=== PATIENT | male | born 1955 | race Two or more races ===

== ENCOUNTER 2024-11-20 02:29 | Inpatient (IN) | payer BC, MEDICAID ==
[~2024-11-20] VITALS: Ht 172.7 cm; Wt 80.0 kg
[2024-11-20] VITALS (38 sets, daily range): BP systolic 94–173; BP diastolic 55–95; PULSE 63–129; RESP 14–22; TEMP 98.8–100.4; O2SAT 86–97
--- NOTE | 2024-11-20 02:55 | ED.PDOC ---
History of Present Illness HPI Comments 69-year-old male came to ER via EMS for alcohol intoxication. Per EMS, patient picked up at home, had 5 shots of Tequila, was noted to be acting altered by family members, had episodes of nausea and vomiting as well. 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 Insurance Notes Allergies: Coded Allergies: NO KNOWN ALLERGIES (Unverified , 11/20/24) Home Meds Reported Medications Atorvastatin Calcium (ATORVASTATIN CALCIUM) 80 Mg Tab, 1 TAB PO QHSP PRN 11/20/24 Information Source: Patient Mode of Arrival: EMS Severity: Moderate Timing: Hours Duration: Since onset Past Medical History PAST MEDICAL HISTORY: Denies Surgical History: Denies all surgeries Family History Family History: Reviewed,noncontributory to illness Social History Smoker: Non-Smoker Alcohol: Heavy Drugs: Denies Drug Use Lives In: Home Unable to Obtain due to: Altered Mental Status, Other (Intoxicated with alcohol) Physical Exam General Appearance: No Apparent Distress, Normal HEENT: Normal ENT Inspection, Pharynx Normal, TMs Normal Neck: Full Range of Motion, Non-Tender, Normal, Normal Inspection Respiratory: Chest Non-Tender, Lungs Clear, No Accessory Muscle Use, No Res piratory Distress, Normal Breath Sounds Cardiovascular: No Edema, No JVD, No Murmur, No Gallop, Normal Peripheral Pulses, Regular Rate/Rhythm Breast Exam: Deferred Gastrointestinal: No Organomegaly, Non Tender, No Pulsatile Mass, Normal Bowel Sounds, Soft Genitalia: Deferred Pelvic: Deferred Rectal: Deferred Extremities: No calf tenderness, Normal capillary refill, Normal inspection, Normal range of motion, Non-tender, No pedal edema Musculoskeletal : Apperance: Normal Neurologic: Alert, dietitian consultant II-XII nml as Tested, No Motor Deficits, Normal Affect, Normal Mood, No Sensory Deficits Cerebellar Function: Normal Reflexes: Normal Skin: Dry, Normal Color, Warm Lymphatic: No Adenopathy Was a procedure done? Was a procedure done?: Yes Sedation Sedation?: Yes Informed consent obtained: Yes Sedation start time: 03:23 Sedation end time: 04:23 Sedation total time: Patient is still sedated at this time of care Central Line Recorder of insertion practice: Observer Occupation of software test automation engineer: Attending Physician Indication: Volume resuscitation, Inability to obtain IV Room prepared for procedure: Yes Road Oiler performed hand hygien: Yes Maximal sterile barrier precau: Mask/Eye shield, Sterile gown, Cap, Sterlie gloves, Large sterlie drape Skin Preparation: Providine iodine Skin preparation completely dr: Yes Insertion site: Right, Femoral Central line catheter type: Tunneled- not dialysis Number of lumens: 3 Central line exchanged over a: Yes Antiseptic ointment applied to: Yes Post Assessment: Chest X-Ray Informed consent obtained: Yes Risks/benefits/alt described: Yes Intubation Indication: Altered Mental Status, Airway Protection Prep: Preoxygenation Pretreated with: Analgesia, Sedation Medicated with: Other (Rocuronium, etomidate) Intubation Approach: Orotracheal Intubation size: cm (8) Informed consent obtained: Yes Risks/benefits/alt described: Yes Notes Patient intoxicated with alcohol, nausea and vomiting, hypoxic at 80s, possible aspiration Differential Dx Considerations may include: Alcohol intoxication, gastritis X-Ray, Labs, Meds, VS Vital Signs Date Time Temp Pulse Resp B/P (MAP) Pulse Ox O2 Delivery O2 Flow Rate FiO2 11/20/24 06:45 109/63 11/20/24 06:31 127 16 88/33 (51) 95 11/20/24 06:31 88/33 11/20/24 06:17 135 16 125/65 (85) 95 11/20/24 06:00 120 16 83/57 (66) 96 11/20/24 05:45 83/58 11/20/24 05:45 83/58 11/20/24 05:45 120 16 83/58 (66) 95 11/20/24 05:43 107 16 94/67 (76) 96 90 11/20/24 05:30 131 16 94/67 (76) 95 11/20/24 05:15 126 16 97/67 (77) 95 11/20/24 05:00 120 16 101/64 (76) 93 11/20/24 04:46 158/89 11/20/24 04:46 158/89 11/20/24 04:45 128 16 102/61 (75) 88 11/20/24 04:30 129 16 110/66 (81) 90 11/20/24 04:16 129 16 102/66 (78) 87 11/20/24 04:16 128 11/20/24 04:15 95 100 11/20/24 04:02 128 16 114/76 (89) 80 11/20/24 04:01 129 16 173/95 97 45 11/20/24 04:00 134 11/20/24 03:47 158/89 11/20/24 03:46 158/89 11/20/24 03:41 134 16 158/107 (124) 91 11/20/24 03:29 129 16 173/95 (121) 97 45 11/20/24 03:27 173/95 11/20/24 03:19 117 14 86 Room Air* 0 21 11/20/24 03:19 97.9 117 14 173/95 (121) 86 97.9 11/20/24 02:29 98.2 84 17 147/91 (109) 96 98.2 Lab Test 11/20/24 06:00 11/20/24 04:33 11/20/24 04:05 11/20/24 03:50 Range/Units Lactic Acid Level 2.7 *H 3.0 *H 0.4-2.0 mmol/L Blood Gas Specimen Type Arterial Blood Gas Sample Site Right radial Blood Gas Patient Temperature 37.0 Arterial Blood Date Drawn [id number] Arterial Blood pH 7.253 L 7.350-7.450 Arterial Blood Partial Pressure CO2 36.4 35.0-48.0 mmHg Arterial Blood Partial Pressure O2 149.8 H 83.0-108.0 mmHg Arterial Blood HCO3 15.7 L 21.0-28.0 mmol/L Arterial Blood Oxygen Saturation 98.6 H 94.0-98.0 % Arterial Blood Base Excess -10.4 L -2.0-3.0 mmol/L Arterial Blood Oxyhemoglobin 97.5 94.0-98.0 % Arterial Blood Carboxyhemoglobin 0.2 L 0.5-1.5 % Arterial Blood Methemoglobin 0.9 0.0-1.5 % Davis Test Modified Blood Gas Total Hemoglobin 20.40 *H 13.5-17.5 g/dL Blood Gas Set Respiration Rate 16.0 Blood Gas Modality Vent - ac FiO2 % 100.0 Blood Gas Tidal Volume 500.0 Blood Gas PEEP or CPAP 5.0 Blood Gas Critical Value Read Back Yes Blood Gas Notified Whom Dr. lee Blood Gas Notified Time [id number] Blood Gas Notified By [facility] [address] Triglycerides Level 253 H < 150 mg/dL Cholesterol Level 200 H < 200 mg/dL LDL Cholesterol 143 H < 100 mg/dL HDL Cholesterol 31 L 40-59 mg/dL Thyroid Stimulating Hormone (TSH) 0.63 0.55-4.78 uIU/mL Plasma/Serum Blood Alcohol 244.7 H <10 mg/dL White Blood Count 10.8 4.4-10.8 10^3/uL Red Blood Count 6.06 H 4.5-5.90 10^6/uL Hemoglobin 19.7 H 13.5-17.5 g/dL Hematocrit 55.5 H 41.0-53.0 % Mean Corpuscular Volume 91.6 80.0-100.0 fL Mean Corpuscular Hemoglobin 32.5 H 28.0-32.0 pg Mean Corpuscular Hemoglobin Concent 35.5 32.0-36.0 g/dL Red Cell Distribution Width 13.7 11.8-14.3 % Platelet Count 167 140-450 10^3/uL Mean Platelet Volume 8.2 6.9-10.8 fL Neutrophils (%) (Auto) 70.5 37.0-80.0 % Lymphocytes (%) (Auto) 21.5 10.0-50.0 % Monocytes (%) (Auto) 4.8 0.0-12.0 % Eosinophils (%) (Auto) 2.5 0.0-7.0 % Basophils (%) (Auto) 0.7 0.0-2.0 % Neutrophils # (Auto) 7.6 1.6-8.6 10 ^3/uL Lymphocytes # (Auto) 2.3 0.4-5.4 10 ^3/uL Monocytes # (Auto) 0.5 0-1.3 10 ^3/uL Eosinophils # (Auto) 0.3 0-0.8 10 ^3/uL Basophils # (Auto) 0.1 0-0.2 10 ^3/uL Nucleated Red Blood Cells 0.0 % Platelet Estimate [place] Large Platelets Few Sodium Level 140 136-145 mmol/L Potassium Level 3.5 3.5-5.1 mmol/L Chloride Level 105 98-107 mmol/L Carbon Dioxide Level 19 L 20-31 mmol/L Anion Gap 16 H 5-15 Blood Urea Nitrogen 17 9-23 mg/dL Creatinine 1.47 H 0.700-1.30 mg/dL Glomerular Filtration Rate Calc 51 >90 mL/min BUN/Creatinine Ratio 11.6 10.0-20.0 Serum Glucose 173 H 74-106 mg/dL Calcium Level 9.4 8.7-10.4 mg/dL Magnesium Level 2.3 1.6-2.6 mg/dL Total Bilirubin 0.4 0.2-1.0 mg/dL Aspartate Amino Transferase (AST) 27 13-40 U/L Alanine Aminotransferase (ALT) 39 7-40 U/L Alkaline Phosphatase 69 46-116 U/L B-Type Natriuretic Peptide 297.82 0-100 pg/mL Total Protein 7.6 5.7-8.2 g/dL Albumin 4.4 3.2-4.8 g/dL Lipase 35 12-53 U/L Test 11/20/24 03:41 Range/Units Urine Color Light-yellow Yellow Urine Clarity Clear Clear Urine pH 6.0 5.0-9.0 Urine Specific [place] 1.013 1.001-1.035 Urine Protein 2+ H Negative Urine Ketones Negative Negative Urine Blood 1+ H Negative /uL Urine Nitrite Negative Negative Urine Bilirubin Negative Negative Urine Urobilinogen Normal Negative mg/dL Urine Leukocyte Esterase Negative Negative /uL Urine RBC 1 0 - 3 /hpf Urine Microscopic WBC 1 0-3 /HPF Urine Squamous Epithelial Cells None seen <5 /hpf Urine Bacteria None seen None Seen /hpf Urine Mucus Few None Seen Urine Yeast (Budding) Occasional None Seen /hpf Urine Glucose 4+ H Normal mg/dL Urine Opiates Screen Neg NEGATIVE Urine Fentanyl Screen Neg NEGATIVE Urine Barbiturates Screen Neg NEGATIVE Urine Phencyclidine Screen Neg NEGATIVE Urine Amphetamines Screen Neg NEGATIVE Urine Benzodiazepines Screen Neg NEGATIVE Urine Cocaine Screen Neg NEGATIVE Urine Cannabinoids Screen Neg NEGATIVE Current Medications Medications (Trade) Dose Ordered Sig/Amy Route Start Time Stop Time Status Last Admin Ondansetron HCl (Zofran) 4 mg ONCE ONCE IV 11/20/24 02:45 11/20/24 02:46 DC 11/20/24 03:03 Sodium Chloride 1,000 ml @ 1,000 mls/hr Q1H ONCE IV 11/20/24 02:45 11/20/24 03:44 DC 11/20/24 03:08 Rocuronium [place] 100 mg ONCE ONCE IV 11/20/24 03:30 11/20/24 03:31 DC 11/20/24 03:27 Etomidate 20 mg ONCE ONCE IV 11/20/24 03:30 11/20/24 03:31 DC 11/20/24 03:26 Propofol 100 ml @ 2.58 mls/hr Q24H IV 11/20/24 03:30 11/20/24 23:07 Midazolam HCl 50 ml @ 1 mls/hr Q24H IV 11/20/24 03:30 11/20/24 23:21 Sodium Chloride 1,000 ml @ 1,000 mls/hr Q1H ONCE IV 11/20/24 04:00 11/20/24 04:59 DC 11/20/24 04:48 Pantoprazole Sodium (Protonix) 40 mg ONCE ONCE IV 11/20/24 04:00 11/20/24 04:07 DC 11/20/24 04:27 Cefepime HCl 50 ml @ 12.5 mls/hr ONCE ONCE IV 11/20/24 04:00 11/20/24 07:59 DC 11/20/24 04:15 Vancomycin HCl 200 ml @ 200 mls/hr ONCE ONCE IV 11/20/24 04:00 11/20/24 04:59 DC 11/20/24 04:47 Norepinephrine Bitartrate 250 ml @ 3.75 mls/hr Q24H IV 11/20/24 06:15 11/20/24 23:21 Time of 1ST Reevaluation: 02:46 Reevaluation 1ST: Unchanged Patient Education/Counseling: Diagnosis, Treatment Family Education/Counseling: No Family Present Departure 1 Departure Time of Disposition: 02:19 (Patient presented with altered mental status likely secondary to alcohol ingestion. Patient began aspirating was unable to tolerate his secretions was emergently intubated central line placed patient was admitted for further workup) Impression: Primary Impression: Toxic encephalopathy Qualified Codes: G92.9 - Unspecified toxic encephalopathy Additional Impressions: Aspiration into airway Qualified Codes: T17.908A - Unspecified foreign body in respiratory tract, part unspecified causing other injury, initial encounter Alcohol intoxication delirium Acute hypoxic respiratory failure Disposition: 09 ADMITTED INPATIENT Admit to: ICU Condition: Critical Critical Care Note Critical Care Time?: Yes (45 min-critical care time only) Critical care comment: Hypoxic at 80s Authorized and Performed by: Mello Lee MD Total critical care time: Approximately 119 minutes Due to a high probability of clinically significant, life threatening deterioration, the patient required my highest level of preparedness to intervene emergently and I personally spent this critical care time directly and personally managing the patient. This critical care time included obtaining a history; examining the patient; pulse oximetry; ordering and review of studies; arranging urgent treatment with development of a management plan; evaluation of patient's response to treatment; frequent reassessment; and, discussions with other providers. This critical care time was performed to assess and manage the high probability of imminent, life-threatening deterioration that could result in multi-organ failure. It was exclusive of separately billable procedures and treating other patients and teaching time. Please see my other sections and the rest of the note for further information on patient assessment and treatment. Stability Stability form required: No Heart Score Heart Score: Heart Score Response (Comments) Value History N/A 0 EKG N/A 0 Age N/A 0 Risk Factors N/A 0 Troponin N/A 0 Total 0 I personally scribed for MELLO LEE MD ([facility] on 11/20/24 at 02:55. Electronically submitted by Carlito Martino ([facility] I personally scribed for MELLO LEE MD ([email or web address]) on 11/20/24 at 03:34. Electronically submitted by Carlito Martino ([facility]). I personally scribed for MELLO LEE MD ([email or web address]) on 11/20/24 at 03:35. Electronically submitted by Carlito Martino ([facility]). I personally scribed for MELLO LEE MD ([email or web address]) on 11/20/24 at 03:51. Electronically submitted by Carlito Martino ([facility]). MELLO LEE MD Nov 20, 2024 02:55
[2024-11-20] MEDS: ONDANSETRON HCL 4 MG/2 ML VIAL IV ONE ×2 (03:03→04:12)
[2024-11-20] MEDS: SODIUM CHLORIDE 0.9% 1,000 ML IV ONE ×3 (03:08→07:22)
[2024-11-20] MEDS: ETOMIDATE (2MG/ML) 20ML VIAL IV ONE ×3 (03:26→03:57)
[2024-11-20] MEDS: ROCURONIUM 10MG/ML 10ML VIAL IV ONE ×3 (03:27→03:57)
[2024-11-20] MEDS: fentaNYL Drip 2500mCg/250mlNS 250 ML IV SCH (03:30)
[2024-11-20 03:43] LABS: Urine Bacteria None Seen /hpf (None Seen)
[2024-11-20] MEDS: MIDAZOLAM DRIP 50 mg/50mL 50 ML IV SCH (03:46)
[2024-11-20 03:47] LABS: Urine Blood 1+ /uL (Negative); Urine Budding Yeast OCCASIONAL /hpf (None Seen); Urine Clarity Clear (Clear); Urine Color Light-Yellow (Yellow); Urine Mucus FEW (None Seen); Urine Protein, UAD 2+ (Negative); Urine Specific Gravity 1.013 (1.001-1.035); Urine Squamous Epithelial Cell None Seen /hpf (<5); Urine Urobilinogen Normal (Negative); Urine WBC 1 /HPF (0-3)
[2024-11-20] MEDS: PROPOFOL 100 ML IV SCH (03:47)
[2024-11-20] MEDS: AZITHROMYCIN 500MG/ 250ML 250 ML IV ONE (04:00)
[2024-11-20] MEDS: CEFEPIME 2GM/50ML NS 50 ML IV ONE (04:15)
--- NOTE | 2024-11-20 04:15 | DVH ---
CHEST RADIOGRAPH Indication: post intubation Technique: Single frontal view of the chest was obtained COMPARISON: None FINDINGS: Lines and Tubes: The endotracheal tube tip projects at the level of the origin of the right mainstem bronchus. The enteric catheter courses below the diaphragm and terminates beyond the inferior margin of the image, presumably within the gastric lumen. Lungs: Clear Pleura: No effusion. No pneumothorax. Cardiomediastinal contours: The heart is enlarged. Bones: Unremarkable IMPRESSION: 1. No acute disease. 2. Endotracheal tube tip at the level of the origin of the right mainstem bronchus. Recommend retrac tion by at least 2.0 cm. 3. Enteric catheter.
--- NOTE | 2024-11-20 04:17 | ECG ---
[facility] Test Date: 2024-11-20 Test Time: 04:16:16 Pat Name: ELISEO DOUGLAS Department: ED Room: [address] [place] [address] Gender: M Director Television: INDY : 1955 Requested By: MELLO SANDERS Order Number: [id number] Reading MD: Faustino Toth Measurements Intervals [place] Rate: 128 P: 0 NJ: 0 QRS: 9 QRSD: 98 T: 146 QT: 315 QTc: 460 Interpretive Statements Atrial fibrillation Repol abnrm suggests ischemia, diffuse leads Electronically Signed On 11-23-2024 12:55:10 PDT by Faustino Toth Please click the below link to view image of tracing.
[2024-11-20] MEDS: PANTOPRAZOLE 40 MG/10 ML VIAL INJ IV ONE (04:27)
[2024-11-20 04:39] LABS: Base Excess -10.4 mmol/L (-2.0-3.0)
[2024-11-20 04:43] LABS: Alanine Aminotransferase 39 U/L (7-40); Albumin 4.4 g/dL (3.2-4.8); Alkaline Phosphatase 69 U/L (46-116); Anion Gap 16 (5-15); Aspartate Aminotransferase 27 U/L (13-40); BUN/Creatinine Ratio 11.6 (10.0-20.0); Bilirubin, Total 0.4 mg/dL (0.2-1.0); Blood Urea Nitrogen 17 mg/dL (9-23); Calcium 9.4 mg/dL (8.7-10.4); Carbon Dioxide 19 mmol/L (20-31); Chloride 105 mmol/L (98-107); Glucose 173 mg/dL (74-106); Lipase 35 U/L (12-53); Potassium 3.5 mmol/L (3.5-5.1); Sodium 140 mmol/L (136-145); Total Protein 7.6 g/dL (5.7-8.2)
[2024-11-20] MEDS: VANCOMYCIN 1GM/200ML PM 200 ML IV ONE (04:47)
--- NOTE | 2024-11-20 04:50 | DVH ---
CHEST RADIOGRAPH Indication: ET tube placement Technique: Single frontal view of the chest was obtained Comparison: XY CHEST PORTABLE on DOS: 11/20/24 IMPRESSION: Heart appears prominent size. Endotracheal tube approximately 4 cm from the finesse. Enteric tube tip beyond the GE junction and the inferior level of the examination. Patchy interstitial and alveolar airspace opacities appear similar.
[2024-11-20 04:51] LABS: Eosinophils # (auto) 0.3 10 ^3/uL (0-0.8); Monocytes # (auto) 0.5 10 ^3/uL (0-1.3); Neutrophils % (auto) 70.5 % (37.0-80.0); Platelet Count (auto) 167 10^3/uL (140-450)
[2024-11-20 04:54] LABS: Basophils # (auto) 0.1 10 ^3/uL (0-0.2); Basophils % (auto) 0.7 % (0.0-2.0); Eosinophils % (auto) 2.5 % (0.0-7.0); Hematocrit 55.5 % (41.0-53.0); Hemoglobin 19.7 g/dL (13.5-17.5); Lymphocytes # (auto) 2.3 10 ^3/uL (0.4-5.4); Lymphocytes % (auto) 21.5 % (10.0-50.0); Mean Corpuscular Hemoglobin 32.5 pg (28.0-32.0); Mean Corpuscular Hgb Conc. 35.5 g/dL (32.0-36.0); Mean Corpuscular Volume 91.6 fL (80.0-100.0); Monocytes % (auto) 4.8 % (0.0-12.0); Neutrophils # (auto) 7.6 10 ^3/uL (1.6-8.6); Red Blood Cells 6.06 10^6/uL (4.5-5.90); Red Cell Distribution Width 13.7 % (11.8-14.3); White Blood Cell 10.8 10^3/uL (4.4-10.8)
[2024-11-20 05:29] LABS: Large Platelets FEW; Platelet Estimate Adequa
[2024-11-20] MEDS: NOREPINEPHRINE 8 MG/250ML KIT 250 ML IV SCH (06:31)
[2024-11-20] MEDS ORDERED: ONDANSETRON HCL 4 MG/2 ML VIAL IV PRN (07:00)
--- NOTE | 2024-11-20 07:13 | DVH ---
EXAM: CT HEAD WITHOUT CONTRAST; DATE: 11/20/2024 06:38 AM HISTORY: ams COMPARISON: None TECHNIQUE: Axial images were obtained and reformatted in coronal and sagittal planes. All CT scans at this medical facility are performed using dose modulation techniques as appropriate t o a performed exam including the following: Automated exposure control was utilized; adjustment of th e MA and/or KV according to patient size; and use of iterative reconstruction technique. CT Dose: CTDI volume is 62 mGy. Dose-length product is 12 13 mGy*cm FINDINGS: Supratentorial Region: No evidence for large acute territorial ischemia. Small old left frontal infa rct noted. No intracranial hemorrhage is noted. Bone Posterior Fossa: No acute abnormality. Brainstem: Unremarkable. Sellar/Suprasellar Region: Unremarkable. Ventricles, Cisterns, Sulci: Age-appropriate. Orbits: Unremarkable. Paranasal Sinuses: Moderate ethmoid sinus mucosal thickening. Mastoid Air Cells: Unremarkable. Vasculature: Intracranial arterial calcified plaque formation noted. Bones/Soft Tissues: No acute abnormality. Other: None. IMPRESSION: 1. No acute intracranial process. 2. Moderate chronic ethmoid sinus disease.
[2024-11-20] MEDS: AMIODARONE BOLUS KIT 100 ML IV ONE (07:29)
--- NOTE | 2024-11-20 07:29 | DVHHP2 ---
History of Present Illness Reason for Visit: Acute hypoxic respiratory failure History of Present Illness 69-year-old male, per ED record it came into ER via EMS for alcohol intoxication. Per ED notes patient was picked up from home, after having 5 shots of Tequila he was noted to be acting altered by family members, slurred s peech, patient also had episode of nausea and vomiting. When patient was in the ED he was hypoxic in the 80s, and was intubated. Patient's lactic acid was noted to be 3.0, now 2.7, plasma/serum alcohol 244.7, urine with 2+ protein, urine blood 1+ and urine glucose 4+. Patient is on a ventilator at the time of this assessment. Nurse was able to talk to family shortly who are Mosotho- speaking, per family patient has history of alcohol abuse, they did not mention history of atrial fibrillation. Past Medical History Hypertension, hyperlipidemia, diabetes mellitus type 2 Past Surgical History Unable to obtain Family History Unable to obtain ALCOHOL: heavy Drugs: None Lives: with Family Review of Systems Review of Systems Review of systems Patient seen and examined at the bedside, intubated, ventilated Allergies: Coded Allergies: NO KNOWN ALLERGIES (Unverified , 11/20/24) Medications Current Medications Medications Dose Ordered Sig/Amy Route Start Time Stop Time Status Last Admin Dose Admin Propofol 100 ml @ 2.58 mls/hr Q24H IV 11/20/24 03:30 11/20/24 03:47 2.58 MLS/HR Midazolam HCl 50 ml @ 1 mls/hr Q24H IV 11/20/24 03:30 11/20/24 03:46 1 MLS/HR Fentanyl Citrate 250 ml @ 2.5 mls/hr Q24H IV 11/20/24 03:30 Norepinephrine Bitartrate 250 ml @ 3.75 mls/hr Q24H IV 11/20/24 06:15 11/20/24 06:31 3.75 MLS/HR Ondansetron HCl 4 mg Q4HP PRN IV 11/20/24 07:00 UNV Piperacillin Sod/ Tazobactam Sod 100 ml @ 25 mls/hr Q8HR IV 11/20/24 14:00 UNV Exam Vital Signs Vital Signs Date Time Temp Pulse Resp B/P (MAP) Pulse Ox O2 Delivery O2 Flow Rate FiO2 11/20/24 06:45 109/63 11/20/24 05:45 120 16 95 11/20/24 05:43 90 11/20/24 03:19 Room Air* 0 11/20/24 03:19 97.9 97.9 Exam Gen.: Patient lying in bed in medical ICU. Sedated, intubated on mechanical ventilator. Head: Normocephalic, atraumatic. Eyes: PERRLA. Ears: Normal external anatomy. Throat: Endotracheal tube and orogastric tube in place, tongue is noted to be possibly swollen. Neck: Supple, trachea midline. Chest: Transmitted breath sounds bilaterally. Decreased air entry bilaterally. No wheezing. Cardiovascular: Positive S1, positive S2. Regular rate and rhythm. Abdomen: Positive bowel sounds in all 4 quadrants. Soft, nontender, nondistended. : El in place. Normal external genitalia. Rectal: Deferred. Skin: Warm, dry. Intact. Extremities: 2+ radial pulses bilaterally. No lower extremity edema. Neuro: Sedated. Labs/Xrays Reviewed labs and imaging Labs Test 11/20/24 06:00 11/20/24 04:33 11/20/24 04:05 11/20/24 03:50 Range/Units Lactic Acid Level 2.7 *H 0.4-2.0 mmol/L Blood Gas Specimen Type Arterial Blood Gas Sample Site Right radial Blood Gas Patient Temperature 37.0 Arterial Blood Date Drawn [id number] Arterial Blood pH 7.253 L 7.350-7.450 Arterial Blood Partial Pressure CO2 36.4 35.0-48.0 mmHg Arterial Blood Partial Pressure O2 149.8 H 83.0-108.0 mmHg Arterial Blood HCO3 15.7 L 21.0-28.0 mmol/L Arterial Blood Oxygen Saturation 98.6 H 94.0-98.0 % Arterial Blood Base Excess -10.4 L -2.0-3.0 mmol/L Arterial Blood Oxyhemoglobin 97.5 94.0-98.0 % Arterial Blood Carboxyhemoglobin 0.2 L 0.5-1.5 % Arterial Blood Methemoglobin 0.9 0.0-1.5 % Davis Test Modified Blood Gas Total Hemoglobin 20.40 *H 13.5-17.5 g/dL Blood Gas Set Respiration Rate 16.0 Blood Gas Modality Vent - ac FiO2 % 100.0 Blood Gas Tidal Volume 500.0 Blood Gas PEEP or CPAP 5.0 Blood Gas Critical Value Read Back Yes Blood Gas Notified Whom Dr. lee Blood Gas Notified Time [id number] Blood Gas Notified By Wastewater Process Engineer [address] Plasma/Serum Blood Alcohol 244.7 H <10 mg/dL White Blood Count 10.8 4.4-10.8 10^3/uL Red Blood Count 6.06 H 4.5-5.90 10^6/uL Hemoglobin 19.7 H 13.5-17.5 g/dL Hematocrit 55.5 H 41.0-53.0 % Mean Corpuscular Volume 91.6 80.0-100.0 fL Mean Corpuscular Hemoglobin 32.5 H 28.0-32.0 pg Mean Corpuscular Hemoglobin Concent 35.5 32.0-36.0 g/dL Red Cell Distribution Width 13.7 11.8-14.3 % Platelet Count 167 140-450 10^3/uL Mean Platelet Volume 8.2 6.9-10.8 fL Neutrophils (%) (Auto) 70.5 37.0-80.0 % Lymphocytes (%) (Auto) 21.5 10.0-50.0 % Monocytes (%) (Auto) 4.8 0.0-12.0 % Eosinophils (%) (Auto) 2.5 0.0-7.0 % Basophils (%) (Auto) 0.7 0.0-2.0 % Neutrophils # (Auto) 7.6 1.6-8.6 10 ^3/uL Lymphocytes # (Auto) 2.3 0.4-5.4 10 ^3/uL Monocytes # (Auto) 0.5 0-1.3 10 ^3/uL Eosinophils # (Auto) 0.3 0-0.8 10 ^3/uL Basophils # (Auto) 0.1 0-0.2 10 ^3/uL Nucleated Red Blood Cells 0.0 % Platelet Estimate [place] Large Platelets Few Sodium Level 140 136-145 mmol/L Potassium Level 3.5 3.5-5.1 mmol/L Chloride Level 105 98-107 mmol/L Carbon Dioxide Level 19 L 20-31 mmol/L Anion Gap 16 H 5-15 Blood Urea Nitrogen 17 9-23 mg/dL Creatinine 1.47 H 0.700-1.30 mg/dL Glomerular Filtration Rate Calc 51 >90 mL/min BUN/Creatinine Ratio 11.6 10.0-20.0 Serum Glucose 173 H 74-106 mg/dL Calcium Level 9.4 8.7-10.4 mg/dL Total Bilirubin 0.4 0.2-1.0 mg/dL Aspartate Amino Transferase (AST) 27 13-40 U/L Alanine Aminotransferase (ALT) 39 7-40 U/L Alkaline Phosphatase 69 46-116 U/L Total Protein 7.6 5.7-8.2 g/dL Albumin 4.4 3.2-4.8 g/dL Lipase 35 12-53 U/L Test 11/20/24 03:41 Range/Units Urine Color Light-yellow Yellow Urine Clarity Clear Clear Urine pH 6.0 5.0-9.0 Urine Specific [place] 1.013 1.001-1.035 Urine Protein 2+ H Negative Urine Ketones Negative Negative Urine Blood 1+ H Negative /uL Urine Nitrite Negative Negative Urine Bilirubin Negative Negative Urine Urobilinogen Normal Negative mg/dL Urine Leukocyte Esterase Negative Negative /uL Urine RBC 1 0 - 3 /hpf Urine Microscopic WBC 1 0-3 /HPF Urine Squamous Epithelial Cells None seen <5 /hpf Urine Bacteria None seen None Seen /hpf Urine Mucus Few None Seen Urine Yeast (Budding) Occasional None Seen /hpf Urine Glucose 4+ H Normal mg/dL Assessment/Plan Assessment/Plan Acute hypoxic respiratory failure On mechanical vent Sedate for vent synchrony Versed 15 mg/hour On blood pressure support Levo 6 mcg/minute Pulmonary consulted for vent management Chest x-ray daily Monitor kidney function Labs in a.m. Alcohol intoxication Head CT pending- if negative for hemorrhage, can proceed with anticoagulation Social service consult placed, once off ventilator can address ETOH abuse and resources Possible aspiration pneumonia On Zosyn Lactic acid 2.7 now Atrial fibrillation Cardiology consult Amiodarone started by ED- 1 milligram/minute Anticoagulant held until head CT completed Diabetes mellitus type 2 Accu-Cheks a.c. HS with sliding scale coverage NPO Aspiration precautions 40 minutes of critical care time spent with patient Plan discussed with: Other (RN) My Orders Orders - RANDELL JIMENEZ Procedure Category Date Status Time Admit ADMIT 11/20/24 Transmitted 06:46 Allergies PETE 11/20/24 In Process 06:59 Code Status CODE 11/20/24 Transmitted 06:59 Ondansetron Hcl PHA 11/20/24 Logged (Zofran) 07:00 Complete Blood Count LAB 11/21/24 Verified 04:00 Comprehensive LAB 11/21/24 Verified Metabolic Panel 04:00 Npo (Nothing By DIET 11/20/24 Transmitted Mouth) Diet Breakfast Condition: Critical PETE 11/20/24 In Process 06:59 Maintain Bed Rest PETE 11/20/24 In Process 06:59 Sequential PETE 11/20/24 In Process Compression Device *Consult CONS 11/20/24 Transmitted / 07:03 Chest Portable XY 11/21/24 Logged 04:00 Piperacillin-Tazob PHA 11/20/24 Logged 3.375gm (Zosyn 3.375g 14:00 * Cardiology Consult CONS 11/20/24 Transmitted 07:13 Date of Service: Nov 20, 2024 Billing Provider: RANDELL JIMENEZ Common Visit Codes: [id number] CARE 30-74 MIN RANDELL JIMENEZ Nov 20, 2024 07:29
[2024-11-20] MEDS: AMIODARONE 360mg/200mL PREMIX 200 ML IV ONE (07:42)
[2024-11-20] MEDS ORDERED: DEXTROSE (50%) 50ML SYRG IV PRN (08:15)
[2024-11-20] MEDS ORDERED: ATOR-47 PO (09:18)
[2024-11-20] MEDS ORDERED: MAGNESIUM SULFATE 1GM/100ML 100 ML IV ONE (09:30)
--- NOTE | 2024-11-20 09:50 | DVHINCON2 ---
Date Seen: Nov 20, 2024 Referring Physician BUBBA Shine Reason for Consultation AFib History of Present Illness This 69-year-old male presents in the ED via EMS for alcohol intoxication. Upon assessment, the patient is currently intubated for airway protection. In the emergency department the patient was noted to be in AFib with RVR at a rate of 120s for which he was started on amiodarone drip. Twelve lead ECG revealed AFib RVR at a rate of 128. Serial troponins were negative. Family at the bedside reports that the patient has history of AFib currently taking carvedilol. Cardiac history includes CAD status post PCI with one stent four years ago at [facility]. Family states that he has not seen his pan shaker for while. Upon reviewing medical record the patient prescription medication include Entresto, furosemide, Jardiance, aspirin, and statins. The family also states that the patient is taking Plavix however this meds is not on the patient medication list. Other past medical history includes hypertension, diabetes, hyperlipidemia, CVA, and alcohol abuse. Past Medical History As stated in HPI Past Surgical History ?PCI Family History Reviewed, non-contributory to the management of this case. Social History The patient lives at home, denies smoking or illicit drugs abuse. Alcohol abuse Allergies: Coded Allergies: NO KNOWN ALLERGIES (Unverified , 11/20/24) Home Meds Reported Medications Atorvastatin Calcium (ATORVASTATIN CALCIUM) 80 Mg Tab, 1 TAB PO QHSP PRN 11/20/24 Current Medications Current Medications Medications (Trade) Dose Ordered Sig/Amy Route PRN Reason Start Time Stop Time Status Last Admin Propofol 100 ml @ 2.58 mls/hr Q24H IV 11/20/24 03:30 11/20/24 03:47 Midazolam HCl 50 ml @ 1 mls/hr Q24H IV 11/20/24 03:30 11/20/24 03:46 Fentanyl Citrate 250 ml @ 2.5 mls/hr Q24H IV 11/20/24 03:30 Norepinephrine Bitartrate 250 ml @ 3.75 mls/hr Q24H IV 11/20/24 06:15 11/20/24 06:31 Ondansetron HCl (Zofran) 4 mg Q4HP PRN IV NAUSEA / VOMITING 11/20/24 07:00 Piperacillin Sod/ Tazobactam Sod 100 ml @ 25 mls/hr Q8HR IV 11/20/24 14:00 Diagnostic Test (Pha) (Accu-Chek Comfort Curve T) 1 strip Q6HR 11/20/24 12:00 Insulin Human Regular (InsuLIN R) Q6HR SC 11/20/24 12:00 Dextrose 50 ml UD PRN IV Blood Sugar LESS THAN 60 11/20/24 08:15 Pantoprazole Sodium (Protonix) 40 mg DAILY IV 11/21/24 10:00 Review of Systems Constitutional: No symptom reported Ears, Nose, & Throat: No symptom reported Eyes: No symptom reported Neurological: No symptoms reported Pulmonary/Respiratory: No symptom reported Cardiovascular: AFib with RVR Gastrointestinal: No symptom reported Genitourinary: No symptom reported Musculoskeletal: No symptom reported Skin: No symptom reported Psychiatric: No symptom reported Endocrine: No symptom reported Hematologic/Lymphatic: No symptom reported Vital Signs Vital Signs Date Time Temp Pulse Resp B/P (MAP) Pulse Ox O2 Delivery O2 Flow Rate FiO2 11/20/24 08:45 108 16 99/66 (77) 90 11/20/24 08:00 97.6 97.6 11/20/24 07:58 Mechanical Ventilator+ 0 90 90 Physical Exam INITIAL VITAL SIGNS: Reviewed by me GENERAL: Mechanical ventilation, Sedated HEAD: Head is normocephalic and atraumatic. EYES: EOMI, PERRL. No scleral icterus. No conjunctival injection. ENT: Moist mucous membranes. NECK: Supple RESPIRATORY: No tachypnea. Clear breath sounds bilaterally. CV: AFib with RVR, vasopressors, no edema GI/: Active bowel sounds, soft, nondistended, nontender. Indwelling urinary catheter INTEGUMENTARY: Warm and dry. No obvious rashes. NEUROLOGIC: Sedated Labs/Diagnostic Data Labs Test 11/20/24 06:00 11/20/24 04:33 11/20/24 04:05 11/20/24 03:50 Range/Units Lactic Acid Level 2.7 *H 0.4-2.0 mmol/L Blood Gas Specimen Type Arterial Blood Gas Sample Site Right radial Blood Gas Patient Temperature 37.0 Arterial Blood Date Drawn [id number] Arterial Blood pH 7.253 L 7.350-7.450 Arterial Blood Partial Pressure CO2 36.4 35.0-48.0 mmHg Arterial Blood Partial Pressure O2 149.8 H 83.0-108.0 mmHg Arterial Blood HCO3 15.7 L 21.0-28.0 mmol/L Arterial Blood Oxygen Saturation 98.6 H 94.0-98.0 % Arterial Blood Base Excess -10.4 L -2.0-3.0 mmol/L Arterial Blood Oxyhemoglobin 97.5 94.0-98.0 % Arterial Blood Carboxyhemoglobin 0.2 L 0.5-1.5 % Arterial Blood Methemoglobin 0.9 0.0-1.5 % Davis Test Modified Blood Gas Total Hemoglobin 20.40 *H 13.5-17.5 g/dL Blood Gas Set Respiration Rate 16.0 Blood Gas Modality Vent - ac FiO2 % 100.0 Blood Gas Tidal Volume 500.0 Blood Gas PEEP or CPAP 5.0 Blood Gas Critical Value Read Back Yes Blood Gas Notified Whom Dr. lee Blood Gas Notified Time [id number] Blood Gas Notified By Agency Service Representative [facility] [address] Plasma/Serum Blood Alcohol 244.7 H <10 mg/dL White Blood Count 10.8 4.4-10.8 10^3/uL Red Blood Count 6.06 H 4.5-5.90 10^6/uL Hemoglobin 19.7 H 13.5-17.5 g/dL Hematocrit 55.5 H 41.0-53.0 % Mean Corpuscular Volume 91.6 80.0-100.0 fL Mean Corpuscular Hemoglobin 32.5 H 28.0-32.0 pg Mean Corpuscular Hemoglobin Concent 35.5 32.0-36.0 g/dL Red Cell Distribution Width 13.7 11.8-14.3 % Platelet Count 167 140-450 10^3/uL Mean Platelet Volume 8.2 6.9-10.8 fL Neutrophils (%) (Auto) 70.5 37.0-80.0 % Lymphocytes (%) (Auto) 21.5 10.0-50.0 % Monocytes (%) (Auto) 4.8 0.0-12.0 % Eosinophils (%) (Auto) 2.5 0.0-7.0 % Basophils (%) (Auto) 0.7 0.0-2.0 % Neutrophils # (Auto) 7.6 1.6-8.6 10 ^3/uL Lymphocytes # (Auto) 2.3 0.4-5.4 10 ^3/uL Monocytes # (Auto) 0.5 0-1.3 10 ^3/uL Eosinophils # (Auto) 0.3 0-0.8 10 ^3/uL Basophils # (Auto) 0.1 0-0.2 10 ^3/uL Nucleated Red Blood Cells 0.0 % Platelet Estimate [place] Large Platelets Few Sodium Level 140 136-145 mmol/L Potassium Level 3.5 3.5-5.1 mmol/L Chloride Level 105 98-107 mmol/L Carbon Dioxide Level 19 L 20-31 mmol/L Anion Gap 16 H 5-15 Blood Urea Nitrogen 17 9-23 mg/dL Creatinine 1.47 H 0.700-1.30 mg/dL Glomerular Filtration Rate Calc 51 >90 mL/min BUN/Creatinine Ratio 11.6 10.0-20.0 Serum Glucose 173 H 74-106 mg/dL Calcium Level 9.4 8.7-10.4 mg/dL Total Bilirubin 0.4 0.2-1.0 mg/dL Aspartate Amino Transferase (AST) 27 13-40 U/L Alanine Aminotransferase (ALT) 39 7-40 U/L Alkaline Phosphatase 69 46-116 U/L Total Protein 7.6 5.7-8.2 g/dL Albumin 4.4 3.2-4.8 g/dL Lipase 35 12-53 U/L Test 11/20/24 03:41 Range/Units Urine Color Light-yellow Yellow Urine Clarity Clear Clear Urine pH 6.0 5.0-9.0 Urine Specific [place] 1.013 1.001-1.035 Urine Protein 2+ H Negative Urine Ketones Negative Negative Urine Blood 1+ H Negative /uL Urine Nitrite Negative Negative Urine Bilirubin Negative Negative Urine Urobilinogen Normal Negative mg/dL Urine Leukocyte Esterase Negative Negative /uL Urine RBC 1 0 - 3 /hpf Urine Microscopic WBC 1 0-3 /HPF Urine Squamous Epithelial Cells None seen <5 /hpf Urine Bacteria None seen None Seen /hpf Urine Mucus Few None Seen Urine Yeast (Budding) Occasional None Seen /hpf Urine Glucose 4+ H Normal mg/dL PROCEDURE(s): CXRP - CHEST PORTABLE REASON: post intubation ORDER NUMBER(s): [id number], ACCESSION NUMBER(s): [id number] CHEST RADIOGRAPH Indication: post intubation Technique: Single frontal view of the chest was obtained COMPARISON: None FINDINGS: Lines and Tubes: The endotracheal tube tip projects at the level of the origin of the right mainstem bronchus. The enteric catheter courses below the diaphragm and terminates beyond the inferior margin of the image, presumably within the gastric lumen. Lungs: Clear Pleura: No effusion. No pneumothorax. Cardiomediastinal contours: The heart is enlarged. Bones: Unremarkable IMPRESSION: 1. No acute disease. 2. Endotracheal tube tip at the level of the origin of the right mainstem bronchus. Recommend retraction by at least 2.0 cm. 3. Enteric catheter. Assessment AFib with RVR ?hx of Afib CAD s/p PCI CHF Toxic encephalopathy with hx of ETOH abuse BHUPINDER on CKD hx of Hypertension, currently hypotensive on vasopressor Diabetes type 2 Hyperlipidemia hx CVA Plan/Recommendation (Dr. Cuadra ): * Echocardiogram to evaluate cardiac function * Continue with amiodarone gtt per protocol. Start on beta spencer when BP allows * Chads Vasc score 6 * Has-BLED score 5 * Continue to monitor 12 lead ECG and telemetry * Monitor electrolytes and replete as needed * Daily weight, strict intake and output * Close cardiac surveillance This medical document was created using an electronic medical record system with voice recognition software and computerized dictation system. Although this document has been carefully reviewed, there might still be some phonetic and typographical errors. Occasional wrong-word or ``sound-alike substitutions may have occurred due to the inherent limitations of voice recognition software. These areas are purely typographical due to imperfections of the software programs and do not reflect any compromise in the patient's medical care. Please read the chart carefully and recognize, using context, where these substitutions have occurred. Plan discussed with: Patient Plan discussed with: Patient, Spouse, Daughter, Other (RN) NYHA Physical activity limitations: NA Date of Service: Nov 20, 2024 Billing Provider: RUBIO CUADRA MD Cardiology Common Codes: CONSULT ONLY Cardiology Consultation Codes: 14036-[id number] CONSULT <60MIN PHILLIP WALSH ENGAGEMENT EXECUTIVE Nov 20, 2024 09:50
[2024-11-20] MEDS: PIPERACILLIN-TAZOB 3.375GM 100 ML IV ONE (09:54)
[2024-11-20 09:55] LABS: Cholesterol 200 mg/dL (< 200); HDL Cholesterol 31 mg/dL (40-59); LDL Cholesterol 143 mg/dL (< 100); Triglycerides 253 mg/dL (< 150)
[2024-11-20 09:56] LABS: Amphetamine Screen, Urine Neg (NEGATIVE); Barbiturate Scree,Urine Neg (NEGATIVE); Benzodiazephine Screen, Urine Neg (NEGATIVE); Cannabinoid Screen, Urine Neg (NEGATIVE); Cocaine Screen, Urine Neg (NEGATIVE); Opiate Scree,Urine Neg (NEGATIVE); Phencyclidine Screen, Urine Neg (NEGATIVE)
[2024-11-20] MEDS: HEPARIN SODIUM (PORCINE) 5000 UNITS/ML 1ML VIAL SC SCH (10:00)
[2024-11-20] MEDS: InsuLIN REG 1unit/0.01ml Soln (100units/ml) SC SCH (11:28)
[2024-11-20] MEDS: ACCU-CHEK COMFORT CURVE STRIP VI SCH (11:33)
[2024-11-20] MEDS: AMIODARONE 360mg/200mL PREMIX 200 ML IV SCH (13:03)
--- NOTE | 2024-11-20 13:57 | DVHSR ---
APPROVED REPORT EXAM: Two-dimensional and M-mode echocardiogram with Doppler and color Doppler. Blood Pressure: 99/66 mmHg INDICATION Atrial Fibrillation RISK FACTORS Height: 5'8", Weight: 189 DIMENSIONS LVDd4.8 (3.8-5.7cm)LA (2D)3.4 (1.9-4.0cm)Aortic Root3.8 (2.0-3.7cm) LVDs4.2 (2.5-4.0cm)LA (MM) (1.9-4.0cm)Aortic Cusp Exc1.3 (1.5-2.0cm) EF (%) 30.0 (55-70%)Rt. Atrium4.1 (1.9-4.0cm)Asc. Aorta cm IVSd1.3 (0.7-1.1cm)RV (D)3.8 (1.8-2.4cm) PWd1.3 (0.7-1.1cm) Mitral Valve MitralMitral Stenosis E wave0.91m/sMV Mean GR.mmHg E/A ratio0.02D MVAcm2 Aortic Valve Aortic ValveAortic Stenosis V10.74m/Shawanda Mean GR.7mmHg V21.83m/Shawanda Peak GR.13mmHg LVOT Diameter2.2 (1.8-2.4cm)Doppler AVA1.54cm2 Pulmonic Valve V20.73m/s Other Information Quality : LimitedRhythm : Technically limited study due to body habitus, patient position and on vent. Conclusion MODERATELY REDUCED LV EF LV EF IS ONLY 30% SLIGHTLY DILATED RV AND RA DECRESED AORTIC VALVE EXCURSION AND CALCIFIED AORTIC VALVE OPENING IS 1.3 CM SQUARE ( NORMAL 1.5 -2.0 CM) AORTIC VALVE AREA IS 1.54 CM SQUARE MILD AORTIC STENOSIS IS SUSPECTED NORMAL MV,TV AND PV NO EFFUSION
[2024-11-20] MEDS: PIPERACILLIN-TAZOB 3.375GM 100 ML IV SCH (15:21)
--- NOTE | 2024-11-20 18:23 | DVHPN2 ---
Subjective 69-year-old male, per ED record it came into ER via EMS for alcohol intoxication. Per ED notes patient was picked up from home, after having 5 shots of Tequila he was noted to be acting altered by family members, slurred speech, patient also had episode of nausea and vomiting. When patient was in the ED he was hypoxic in the 80s, and was intubated. Patient's lactic acid was noted to be 3.0, now 2.7, plasma/serum alcohol 244.7, urine with 2+ protein, urine blood 1+ and urine glucose 4+. Patient is on a ventilator at the time of this assessment. Nurse was able to talk to family shortly who are Danish- speaking, per family patient has history of alcohol abuse, they did not mention history of atrial fibrillation. Past Medical History Hypertension, hyperlipidemia, diabetes mellitus type 2 Update -Patient examined at bedside today. Patient was in the ER bed. Intubated sedated. Reviewed: H&P Changes from previous H/P or p: No Changes General: Per HPI Objective Vitals Vital Signs Date Time Temp Pulse Resp B/P (MAP) Pulse Ox O2 Delivery O2 Flow Rate FiO2 11/20/24 18:10 160/71 11/20/24 16:00 71 11/20/24 15:44 17 94 80 11/20/24 15:30 99.0 99.0 11/20/24 13:22 Mechanical Ventilator+ 11/20/24 07:58 0 Intake/Output Intake and Output 11/20/24 07:00 Intake Total 2235.0 ml Balance 2235.0 ml Intake IV Total 2235.0 ml Exam Gen.: Patient lying in bed in medical ICU. Sedated, intubated on mechanical ventilator. Head: Normocephalic, atraumatic. Eyes: PERRLA. Ears: Normal external anatomy. Throat: Endotracheal tube and orogastric tube in place, tongue is noted to be possibly swollen. Neck: Supple, trachea midline. Chest: Transmitted breath sounds bilaterally. Decreased air entry bilaterally. No wheezing. Cardiovascular: Positive S1, positive S2. Regular rate and rhythm. Abdomen: Positive bowel sounds in all 4 quadrants. Soft, nontender, nondistended. : El in place. Normal external genitalia. Rectal: Deferred. Skin: Warm, dry. Intact. Extremities: 2+ radial pulses bilaterally. No lower extremity edema. Neuro: Sedated. Medications Current Medications Medications Dose Ordered Sig/Amy Route Start Time Stop Time Status Last Admin Dose Admin Propofol 100 ml @ 2.58 mls/hr Q24H IV 11/20/24 03:30 11/20/24 18:10 7.74 MLS/HR Midazolam HCl 50 ml @ 1 mls/hr Q24H IV 11/20/24 03:30 11/20/24 18:10 15 MLS/HR Fentanyl Citrate 250 ml @ 2.5 mls/hr Q24H IV 11/20/24 03:30 Norepinephrine Bitartrate 250 ml @ 3.75 mls/hr Q24H IV 11/20/24 06:15 11/20/24 13:57 41.25 MLS/HR Ondansetron HCl 4 mg Q4HP PRN IV 11/20/24 07:00 Piperacillin Sod/ Tazobactam Sod 100 ml @ 25 mls/hr Q8HR IV 11/20/24 14:00 11/20/24 15:21 25 MLS/HR Diagnostic Test (Pha) 1 strip Q6HR 11/20/24 12:00 11/20/24 18:10 1 STRIP Insulin Human Regular Q6HR SC 11/20/24 12:00 11/20/24 11:28 4 UNITS Dextrose 50 ml UD PRN IV 11/20/24 08:15 Pantoprazole Sodium 40 mg DAILY IV 11/21/24 10:00 Heparin Sodium (Porcine) 5,000 units Q12HR SC 11/20/24 10:00 11/20/24 10:00 5,000 UNITS Atorvastatin Calcium 80 mg HS PO 11/20/24 22:00 Laboratory Results Laboratory Tests 11/20/24 03:50 Chemistry Test 11/20/24 03:50 Albumin 4.4 g/dL (3.2-4.8) Calcium Level 9.4 mg/dL (8.7-10.4) Magnesium Level 2.3 mg/dL (1.6-2.6) Total Protein 7.6 g/dL (5.7-8.2) Lipid panel Test 11/20/24 03:50 11/20/24 04:05 Lipase 35 U/L (12-53) Cholesterol Level 200 mg/dL (< 200) H HDL Cholesterol 31 mg/dL (40-59) L Triglycerides Level 253 mg/dL (< 150) H Cardiac Markers Test 11/20/24 03:50 B-Type Natriuretic Peptide 297.82 pg/mL (0-100) LFT Test 11/20/24 03:50 Alanine Aminotransferase (ALT) 39 U/L (7-40) Alkaline Phosphatase 69 U/L (46-116) Aspartate Amino Transferase (AST) 27 U/L (13-40) Total Bilirubin 0.4 mg/dL (0.2-1.0) HgA1c, TSH Test 11/20/24 04:05 Thyroid Stimulating Hormone (TSH) 0.63 uIU/mL (0.55-4.78) Urinalysis Test 11/20/24 03:41 Urine Color Light-yellow (Yellow) Urine Clarity Clear (Clear) Urine pH 6.0 (5.0-9.0) Urine Specific [place] 1.013 (1.001-1.035) Urine Protein 2+ (Negative) H Urine Ketones Negative (Negative) Urine Blood 1+ /uL (Negative) H Urine Nitrite Negative (Negative) Urine Bilirubin Negative (Negative) Urine Urobilinogen Normal mg/dL (Negative) Urine Leukocyte Esterase Negative /uL (Negative) Urine RBC 1 /hpf (0 - 3) Urine Microscopic WBC 1 /HPF (0-3) Urine Squamous Epithelial Cells None seen /hpf (<5) Urine Bacteria None seen /hpf (None Seen) Urine Mucus Few (None Seen) Urine Yeast (Budding) Occasional /hpf (None Urine Glucose 4+ mg/dL (Normal) H Blood Gas Results Test 11/20/24 04:33 Arterial Blood pH 7.253 (7.350-7.450) FiO2 % 100.0 Labs and/or images reviewed: Labs reviewed by me, Image(s) reviewed by me Assessment/Plan Assessment/Plan 11/20 patient admitted for acute encephalopathy, likely due to acute alcohol intoxication. Patient was intubated because he was altered and unable to protect airway. Patient has multiple comorbid conditions we will continue to manage as ICU level. Continue mechanical ventilation and plan for sedation vacation tomorrow a.m.. Problem list : Acute toxic metabolic encephalopathy, likely due to alcohol intoxication Acute alcohol intoxication, severe Acute aspiration pneumonia likely ; Gram-negative Gram-positive likely Acute hypoxic respiratory failure due to above Mechanical ventilation dependent I PPV Shock, likely septic due to above, requiring vasopressor support Anion gap metabolic acidosis Lactic acidosis BHUPINDER due to VMN AFib RVR Type 2 diabetes, poorly controlled diabetes with hyperglycemia Plan: - continue mechanical ventilation, PULM consult, RT following, daily a.m. CXR and ABG -follow lactic acidosis -Daily a.m. labs -For pneumonia broad-spectrum with Zosyn/doxy -Amnio drip for AFib RVR with [place] with consult -Continue full anticoagulation for AFib -CT head negative for intracranial bleeds -SSI for diabetes checks q.4 H -Sedation vacation every a.m.. Sedation with fentanyl and Ativan primarily, can add propofol if needed. -Vasopressor support for septic shock with Levophed, goal map > 65 mmHg -Continue other p.o. home medications which do not interfere with current issues Diet tube feeds OG tube DVT prophylaxis with full-dose anticoagulation GI prophylaxis Pepcid 20 IV b.i.d. ICU status Full code Plan discussed with: Other Date of Service: Nov 20, 2024 Billing Provider: SHALOM LANCE MD Common Visit Codes: [id number] CARE 30-74 MIN SHALOM LANCE MD Nov 20, 2024 18:23
[2024-11-20] MEDS: ACETAMINOPHEN IV 1000 MG/100ML (10MG/ML) IV STA (18:58)
[2024-11-20] MEDS: DOXYCYCLINE 100MG/100ML 100 ML IV SCH (20:09)
--- NOTE | 2024-11-20 20:58 | DVHINCON2 ---
Date Seen: Nov 20, 2024 Referring Physician BUBBA Shine Reason for Consultation AFib History of Present Illness This 69-year-old male with a past medical history hypertension, diabetes, hyperlipidemia, CVA, and alcohol abuse who presents to the ED via EMS for alcohol intoxication. Upon assessment, the patient is currently intubated for airway protection. In the emergency department the patient was noted to be in AFib with RVR at a rate of 120s for which he was started on amiodarone drip. Twelve lead ECG revealed AFib RVR at a rate of 128. Serial troponins were negative. Family at the bedside reports that the patient has history of AFib currently taking carvedilol. Cardiac history includes CAD status post PCI with one stent four years ago at [facility]. 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 Upon reviewing medical record the patient prescription medication include Entresto, furosemide, Jardiance, aspirin, and statins. The family also states that the patient is taking Plavix however this meds is not on the patient medication list. Patient was admitted to the hospital ICU. I am asked to consult on this patient. Allergies: Coded Allergies: NO KNOWN ALLERGIES (Unverified , 11/20/24) Home Meds Reported Medications Atorvastatin Calcium (ATORVASTATIN CALCIUM) 80 Mg Tab, 1 TAB PO QHSP PRN 11/20/24 Current Medications Current Medications Medications (Trade) Dose Ordered Sig/Amy Route PRN Reason Start Time Stop Time Status Last Admin Propofol 100 ml @ 2.58 mls/hr Q24H IV 11/20/24 03:30 11/20/24 03:47 Midazolam HCl 50 ml @ 1 mls/hr Q24H IV 11/20/24 03:30 11/20/24 03:46 Fentanyl Citrate 250 ml @ 2.5 mls/hr Q24H IV 11/20/24 03:30 Norepinephrine Bitartrate 250 ml @ 3.75 mls/hr Q24H IV 11/20/24 06:15 11/20/24 06:31 Ondansetron HCl (Zofran) 4 mg Q4HP PRN IV NAUSEA / VOMITING 11/20/24 07:00 Piperacillin Sod/ Tazobactam Sod 100 ml @ 25 mls/hr Q8HR IV 11/20/24 14:00 Diagnostic Test (Pha) (Accu-Chek Comfort Curve T) 1 strip Q6HR 11/20/24 12:00 11/20/24 11:33 Insulin Human Regular (InsuLIN R) Q6HR SC 11/20/24 12:00 11/20/24 11:28 Dextrose 50 ml UD PRN IV Blood Sugar LESS THAN 60 11/20/24 08:15 Pantoprazole Sodium (Protonix) 40 mg DAILY IV 11/21/24 10:00 Heparin Sodium (Porcine) 5,000 units Q12HR SC 11/20/24 10:00 11/20/24 10:00 Atorvastatin Calcium (Lipitor) 80 mg HS PO 11/20/24 22:00 Review of Systems Constitutional: No symptom reported Ears, Nose, & Throat: No symptom reported Eyes: No symptom reported Neurological: No symptoms reported Pulmonary/Respiratory: No symptom reported Cardiovascular: AFib with RVR Gastrointestinal: No symptom reported Genitourinary: No symptom reported Musculoskeletal: No symptom reported Skin: No symptom reported Psychiatric: No symptom reported Endocrine: No symptom reported Hematologic/Lymphatic: No symptom reported Vital Signs Vital Signs Date Time Temp Pulse Resp B/P (MAP) Pulse Ox O2 Delivery O2 Flow Rate FiO2 11/20/24 13:15 124 21 99/69 (79) 95 11/20/24 13:06 90 11/20/24 12:00 97.7 97.7 11/20/24 07:58 Mechanical Ventilator+ 0 Physical Exam GENERAL: Ill appearing, intubated on ventilator. EYES: PERRL, EOMI. Anicteric. HENT: Moist mucous membranes. LUNGS: Decreased breath sounds. CARDIOVASCULAR: Irregular rate and rhythm. ABDOMEN: Soft, nontender and nondistended.Indwelling urinary catheter. EXTREMITIES: No edema. SKIN: Warm, dry. Labs/Diagnostic Data Labs Test 11/20/24 11:26 11/20/24 06:00 11/20/24 04:33 11/20/24 04:05 Range/Units POC Glucose 209 H 70-106 mg/dl Lactic Acid Level 2.7 *H 0.4-2.0 mmol/L Blood Gas Specimen Type Arterial Blood Gas Sample Site Right radial Blood Gas Patient Temperature 37.0 Arterial Blood Date Drawn [id number] Arterial Blood pH 7.253 L 7.350-7.450 Arterial Blood Partial Pressure CO2 36.4 35.0-48.0 mmHg Arterial Blood Partial Pressure O2 149.8 H 83.0-108.0 mmHg Arterial Blood HCO3 15.7 L 21.0-28.0 mmol/L Arterial Blood Oxygen Saturation 98.6 H 94.0-98.0 % Arterial Blood Base Excess -10.4 L -2.0-3.0 mmol/L Arterial Blood Oxyhemoglobin 97.5 94.0-98.0 % Arterial Blood Carboxyhemoglobin 0.2 L 0.5-1.5 % Arterial Blood Methemoglobin 0.9 0.0-1.5 % Davis Test Modified Blood Gas Total Hemoglobin 20.40 *H 13.5-17.5 g/dL Blood Gas Set Respiration Rate 16.0 Blood Gas Modality Vent - ac FiO2 % 100.0 Blood Gas Tidal Volume 500.0 Blood Gas PEEP or CPAP 5.0 Blood Gas Critical Value Read Back Yes Blood Gas Notified Whom Dr. lee Blood Gas Notified Time [id number] Blood Gas Notified By [employer] eveline [employer]aza Triglycerides Level 253 H < 150 mg/dL Cholesterol Level 200 H < 200 mg/dL LDL Cholesterol 143 H < 100 mg/dL HDL Cholesterol 31 L 40-59 mg/dL Thyroid Stimulating Hormone (TSH) 0.63 0.55-4.78 uIU/mL Plasma/Serum Blood Alcohol 244.7 H <10 mg/dL Test 11/20/24 03:50 11/20/24 03:41 Range/Units White Blood Count 10.8 4.4-10.8 10^3/uL Red Blood Count 6.06 H 4.5-5.90 10^6/uL Hemoglobin 19.7 H 13.5-17.5 g/dL Hematocrit 55.5 H 41.0-53.0 % Mean Corpuscular Volume 91.6 80.0-100.0 fL Mean Corpuscular Hemoglobin 32.5 H 28.0-32.0 pg Mean Corpuscular Hemoglobin Concent 35.5 32.0-36.0 g/dL Red Cell Distribution Width 13.7 11.8-14.3 % Platelet Count 167 140-450 10^3/uL Mean Platelet Volume 8.2 6.9-10.8 fL Neutrophils (%) (Auto) 70.5 37.0-80.0 % Lymphocytes (%) (Auto) 21.5 10.0-50.0 % Monocytes (%) (Auto) 4.8 0.0-12.0 % Eosinophils (%) (Auto) 2.5 0.0-7.0 % Basophils (%) (Auto) 0.7 0.0-2.0 % Neutrophils # (Auto) 7.6 1.6-8.6 10 ^3/uL Lymphocytes # (Auto) 2.3 0.4-5.4 10 ^3/uL Monocytes # (Auto) 0.5 0-1.3 10 ^3/uL Eosinophils # (Auto) 0.3 0-0.8 10 ^3/uL Basophils # (Auto) 0.1 0-0.2 10 ^3/uL Nucleated Red Blood Cells 0.0 % Platelet Estimate Adequa Large Platelets Few Sodium Level 140 136-145 mmol/L Potassium Level 3.5 3.5-5.1 mmol/L Chloride Level 105 98-107 mmol/L Carbon Dioxide Level 19 L 20-31 mmol/L Anion Gap 16 H 5-15 Blood Urea Nitrogen 17 9-23 mg/dL Creatinine 1.47 H 0.700-1.30 mg/dL Glomerular Filtration Rate Calc 51 >90 mL/min BUN/Creatinine Ratio 11.6 10.0-20.0 Serum Glucose 173 H 74-106 mg/dL Calcium Level 9.4 8.7-10.4 mg/dL Magnesium Level 2.3 1.6-2.6 mg/dL Total Bilirubin 0.4 0.2-1.0 mg/dL Aspartate Amino Transferase (AST) 27 13-40 U/L Alanine Aminotransferase (ALT) 39 7-40 U/L Alkaline Phosphatase 69 46-116 U/L B-Type Natriuretic Peptide 297.82 0-100 pg/mL Total Protein 7.6 5.7-8.2 g/dL Albumin 4.4 3.2-4.8 g/dL Lipase 35 12-53 U/L Urine Color Light-yellow Yellow Urine Clarity Clear Clear Urine pH 6.0 5.0-9.0 Urine Specific Blair 1.013 1.001-1.035 Urine Protein 2+ H Negative Urine Ketones Negative Negative Urine Blood 1+ H Negative /uL Urine Nitrite Negative Negative Urine Bilirubin Negative Negative Urine Urobilinogen Normal Negative mg/dL Urine Leukocyte Esterase Negative Negative /uL Urine RBC 1 0 - 3 /hpf Urine Microscopic WBC 1 0-3 /HPF Urine Squamous Epithelial Cells None seen <5 /hpf Urine Bacteria None seen None Seen /hpf Urine Mucus Few None Seen Urine Yeast (Budding) Occasional None Seen /hpf Urine Glucose 4+ H Normal mg/dL Urine Opiates Screen Neg NEGATIVE Urine Fentanyl Screen Neg NEGATIVE Urine Barbiturates Screen Neg NEGATIVE Urine Phencyclidine Screen Neg NEGATIVE Urine Amphetamines Screen Neg NEGATIVE Urine Benzodiazepines Screen Neg NEGATIVE Urine Cocaine Screen Neg NEGATIVE Urine Cannabinoids Screen Neg NEGATIVE Assessment A Fib with RVR. ? history of A fib. CAD s/p PCI. CHF. Toxic encephalopathy with hx of ETOH abuse. BHUPINDER on CKD. History of Hypertension, currently hypotensive on vasopressor. Diabetes type 2. Hyperlipidemia. History of CVA. Plan/Recommendation I agree with your ongoing assessment and care of plan. Patient has been seen by Nola Núñez NP on my behalf, her and I discussed the plan with the patient. Echocardiogram to evaluate cardiac function. Continue with amiodarone gtt per protocol. Start on beta spencer when BP allows. Chads Vasc score 6. Has-BLED score 5. Continue to monitor 12 lead ECG and telemetry. Monitor electrolytes and replete as needed. Daily weight, strict intake and output. Close cardiac surveillance. Additional plan as per the hospital course. Plan discussed with: Other NYHA Physical activity limitations: NA Date of Service: Nov 20, 2024 Billing Provider: RUBIO YUNG MD Cardiology Common Codes: [id number] INP/OBS CARE (High), [id number] CARE 30-74 MIN RUBIO YUNG MD Nov 20, 2024 13:34
[2024-11-20] MEDS: ATORVASTATIN 20 MG TAB PO SCH (21:55)
--- NOTE | 2024-11-20 22:29 | DVHINCON2 ---
Date of service: Nov 20, 2024 Referring Physician Paige Shine NP Reason for Consultation Vent management History of Present Illness A 69-year-old man with PMHx of hypertension, AFib, hyperlipidemia, and diabetes mellitus type 2 who presents to ED today via EMS for alcohol intoxication. Per ED notes patient was picked up from home, after having 5 shots of Tequila he was noted to be acting altered by family members w/ slurred speech. Per family, pt has history of alcohol abuse. Patient also had episode of nausea and vomiting. While in the ED he was hypoxic in the 80s, and was intubated for airway protection. In the ED patient was noted to be in AFib with RVR at a rate of 120s for which he was started on amiodarone drip. Twelve-lead ECG revealed AFib RVR at a rate of 128. Lactic acid was 3.0 --> 2.7, plasma/serum alcohol 244.7, urine with 2+ protein, urine blood 1+ and urine glucose 4+. Patient was admitted for further care and pulmonary consultation is requested for evaluation and management due to the above findings. Review of Systems: Unable to obtain d/t intubated status Past Medical History: Hypertension, hyperlipidemia, CAD, diabetes mellitus type 2 Past Surgical History: S/p PCI. Medications: Reviewed. Allergies: No known drug allergies. Family History: No family history of premature CAD. No family history of lung disorders. Social History: Nonsmoker. Heavy alcohol use. No illicit drug use. Allergies: Coded Allergies: NO KNOWN ALLERGIES (Unverified , 11/20/24) Home Meds Reported Medications Atorvastatin Calcium (ATORVASTATIN CALCIUM) 80 Mg Tab, 1 TAB PO QHSP PRN 11/20/24 Current Medications Current Medications Medications (Trade) Dose Ordered Sig/Amy Route PRN Reason Start Time Stop Time Status Last Admin Propofol 100 ml @ 2.58 mls/hr Q24H IV 11/20/24 03:30 11/20/24 18:10 Midazolam HCl 50 ml @ 1 mls/hr Q24H IV 11/20/24 03:30 11/20/24 20:50 Fentanyl Citrate 250 ml @ 2.5 mls/hr Q24H IV 11/20/24 03:30 Norepinephrine Bitartrate 250 ml @ 3.75 mls/hr Q24H IV 11/20/24 06:15 11/20/24 13:57 Ondansetron HCl (Zofran) 4 mg Q4HP PRN IV NAUSEA / VOMITING 11/20/24 07:00 Piperacillin Sod/ Tazobactam Sod 100 ml @ 25 mls/hr Q8HR IV 11/20/24 14:00 11/20/24 15:21 Diagnostic Test (Pha) (Accu-Chek Comfort Curve T) 1 strip Q6HR 11/20/24 12:00 11/20/24 18:10 Insulin Human Regular (InsuLIN R) Q6HR SC 11/20/24 12:00 11/20/24 18:14 Dextrose 50 ml UD PRN IV Blood Sugar LESS THAN 60 11/20/24 08:15 Pantoprazole Sodium (Protonix) 40 mg DAILY IV 11/21/24 10:00 Heparin Sodium (Porcine) 5,000 units Q12HR SC 11/20/24 10:00 11/20/24 21:55 Atorvastatin Calcium (Lipitor) 80 mg HS PO 11/20/24 22:00 11/20/24 21:55 Doxycycline Hyclate 100 ml @ 50 mls/hr Q12H IV 11/20/24 18:30 11/20/24 20:09 Acetaminophen (Ofirmev) 1,000 mg DAILY STAT IV 11/20/24 18:30 11/20/24 18:31 DC 11/20/24 18:58 Vital Signs Vital Signs Date Time Temp Pulse Resp B/P (MAP) Pulse Ox O2 Delivery O2 Flow Rate FiO2 11/20/24 22:00 65 11/20/24 22:00 80 11/20/24 21:38 20 133/56 (81) 94 11/20/24 20:47 Mechanical Ventilator+ 11/20/24 20:47 99.3 99.3 11/20/24 07:58 0 Physical Exam Gen.: Patient lying in bed in medical ICU. Sedated, intubated on mechanical v entilator. Head: Normocephalic, atraumatic. Eyes: PERRLA. Ears: Normal external anatomy. Throat: Endotracheal tube and orogastric tube in place. Neck: Supple, trachea midline. Chest: Transmitted breath sounds bilaterally. Decreased air entry bilaterally. N o wheezing. Bibasilar crackles. Cardiovascular: Positive S1, positive S2. Regular rate and rhythm. Abdomen: Positive bowel sounds in all 4 quadrants. Soft, nontender, nondistended. : El in place. Normal external genitalia. Rectal: Deferred. Skin: Warm, dry. Intact. Extremities: 2+ radial pulses bilaterally. No lower extremity edema. Neuro: Sedated. Labs/Diagnostic Data Labs Test 11/20/24 18:08 11/20/24 06:00 11/20/24 04:33 11/20/24 04:05 Range/Units POC Glucose 188 H 70-106 mg/dl Lactic Acid Level 2.7 *H 0.4-2.0 mmol/L Blood Gas Specimen Type Arterial Blood Gas Sample Site Right radial Blood Gas Patient Temperature 37.0 Arterial Blood Date Drawn [id number] Arterial Blood pH 7.253 L 7.350-7.450 Arterial Blood Partial Pressure CO2 36.4 35.0-48.0 mmHg Arterial Blood Partial Pressure O2 149.8 H 83.0-108.0 mmHg Arterial Blood HCO3 15.7 L 21.0-28.0 mmol/L Arterial Blood Oxygen Saturation 98.6 H 94.0-98.0 % Arterial Blood Base Excess -10.4 L -2.0-3.0 mmol/L Arterial Blood Oxyhemoglobin 97.5 94.0-98.0 % Arterial Blood Carboxyhemoglobin 0.2 L 0.5-1.5 % Arterial Blood Methemoglobin 0.9 0.0-1.5 % Davis Test Modified Blood Gas Total Hemoglobin 20.40 *H 13.5-17.5 g/dL Blood Gas Set Respiration Rate 16.0 Blood Gas Modality Vent - ac FiO2 % 100.0 Blood Gas Tidal Volume 500.0 Blood Gas PEEP or CPAP 5.0 Blood Gas Critical Value Read Back Yes Blood Gas Notified Whom Dr. lee Blood Gas Notified Time [id number] Blood Gas Notified By Tung [facility]aza Triglycerides Level 253 H < 150 mg/dL Cholesterol Level 200 H < 200 mg/dL LDL Cholesterol 143 H < 100 mg/dL HDL Cholesterol 31 L 40-59 mg/dL Thyroid Stimulating Hormone (TSH) 0.63 0.55-4.78 uIU/mL Plasma/Serum Blood Alcohol 244.7 H <10 mg/dL Test 11/20/24 03:50 11/20/24 03:41 Range/Units White Blood Count 10.8 4.4-10.8 10^3/uL Red Blood Count 6.06 H 4.5-5.90 10^6/uL Hemoglobin 19.7 H 13.5-17.5 g/dL Hematocrit 55.5 H 41.0-53.0 % Mean Corpuscular Volume 91.6 80.0-100.0 fL Mean Corpuscular Hemoglobin 32.5 H 28.0-32.0 pg Mean Corpuscular Hemoglobin Concent 35.5 32.0-36.0 g/dL Red Cell Distribution Width 13.7 11.8-14.3 % Platelet Count 167 140-450 10^3/uL Mean Platelet Volume 8.2 6.9-10.8 fL Neutrophils (%) (Auto) 70.5 37.0-80.0 % Lymphocytes (%) (Auto) 21.5 10.0-50.0 % Monocytes (%) (Auto) 4.8 0.0-12.0 % Eosinophils (%) (Auto) 2.5 0.0-7.0 % Basophils (%) (Auto) 0.7 0.0-2.0 % Neutrophils # (Auto) 7.6 1.6-8.6 10 ^3/uL Lymphocytes # (Auto) 2.3 0.4-5.4 10 ^3/uL Monocytes # (Auto) 0.5 0-1.3 10 ^3/uL Eosinophils # (Auto) 0.3 0-0.8 10 ^3/uL Basophils # (Auto) 0.1 0-0.2 10 ^3/uL Nucleated Red Blood Cells 0.0 % Platelet Estimate Adequa Large Platelets Few Sodium Level 140 136-145 mmol/L Potassium Level 3.5 3.5-5.1 mmol/L Chloride Level 105 98-107 mmol/L Carbon Dioxide Level 19 L 20-31 mmol/L Anion Gap 16 H 5-15 Blood Urea Nitrogen 17 9-23 mg/dL Creatinine 1.47 H 0.700-1.30 mg/dL Glomerular Filtration Rate Calc 51 >90 mL/min BUN/Creatinine Ratio 11.6 10.0-20.0 Serum Glucose 173 H 74-106 mg/dL Calcium Level 9.4 8.7-10.4 mg/dL Magnesium Level 2.3 1.6-2.6 mg/dL Total Bilirubin 0.4 0.2-1.0 mg/dL Aspartate Amino Transferase (AST) 27 13-40 U/L Alanine Aminotransferase (ALT) 39 7-40 U/L Alkaline Phosphatase 69 46-116 U/L B-Type Natriuretic Peptide 297.82 0-100 pg/mL Total Protein 7.6 5.7-8.2 g/dL Albumin 4.4 3.2-4.8 g/dL Lipase 35 12-53 U/L Urine Color Light-yellow Yellow Urine Clarity Clear Clear Urine pH 6.0 5.0-9.0 Urine Specific Edwards 1.013 1.001-1.035 Urine Protein 2+ H Negative Urine Ketones Negative Negative Urine Blood 1+ H Negative /uL Urine Nitrite Negative Negative Urine Bilirubin Negative Negative Urine Urobilinogen Normal Negative mg/dL Urine Leukocyte Esterase Negative Negative /uL Urine RBC 1 0 - 3 /hpf Urine Microscopic WBC 1 0-3 /HPF Urine Squamous Epithelial Cells None seen <5 /hpf Urine Bacteria None seen None Seen /hpf Urine Mucus Few None Seen Urine Yeast (Budding) Occasional None Seen /hpf Urine Glucose 4+ H Normal mg/dL Urine Opiates Screen Neg NEGATIVE Urine Fentanyl Screen Neg NEGATIVE Urine Barbiturates Screen Neg NEGATIVE Urine Phencyclidine Screen Neg NEGATIVE Urine Amphetamines Screen Neg NEGATIVE Urine Benzodiazepines Screen Neg NEGATIVE Urine Cocaine Screen Neg NEGATIVE Urine Cannabinoids Screen Neg NEGATIVE Assessment Impression: Acute hypoxic respiratory failure On mechanical ventilator Alcohol intoxication Possible aspiration pneumonia Atrial fibrillation DM type II Plan: s/p intubation on mechanical ventilator. On AC mode; RR 16, VT 500, PEEP 5, FIO2 80% Titrate FIO2 to keep O2 saturation above 90%. VAP bundle. Daily ABG and CXR while intubated Sedate for ventilator synchrony - On Propofol, Versed On pressors for hemodynamic support Levophed 8 mcg/min Titrate to keep mean arterial pressure greater than 65 mmHg. Amiodarone drip. Continue antibiotics. F/u cultures. Increase PEEP to 8, RR to 20 BPM Obtain STAT ABG in 1 hour CXR demonstrates pulmonary vascular congestion. Monitor renal function Monitor electrolytes. Supplement as necessary. Monitor ins and outs. GI prophylaxis. DVT prophylaxis. Prognosis: Poor given patient's multiple co-morbidities. Condition: Critical Rest of plan per hospitalist and other consultants. A total of 35 minutes of critical care time was spent reviewing the patient record, examining the patient, making a diagnostic and therapeutic plan, discussing this plan with the medical personnel, following up on diagnostic studies and following the patient for clinical stability excluding any and all procedures. At least 50% of this time was spent in direct, [id number] contact. Thank you, BUBBA Shine, for allowing me to participate in this patient's care. Further recommendations will depend on the patient's clinical course. Please do not hesitate to contact me if you have any questions or concerns. This medical document was created using an electronic medical record system with [employer] dictation system. Although these documentations are being carefully reviewed, there may still be some phonetic and typographical changes. The errors are purely typographical, due to imperfection on the software program, and do not reflect any compromise in the patient's medical care. Plan discussed with: Other (ASHOK Arias/BUBBA Shine) MARTY BRUCE MD Nov 20, 2024 22:29
[2024-11-21] VITALS (105 sets, daily range): BP systolic 81–132; BP diastolic 45–71; PULSE 52–79; RESP 0–20; TEMP 97.8–99.9; O2SAT 84–98
[2024-11-21 03:33] LABS: Basophils # (auto) 0.1 10 ^3/uL (0-0.2); Basophils % (auto) 0.8 % (0.0-2.0); Eosinophils # (auto) 0 10 ^3/uL (0-0.8); Eosinophils % (auto) 0.1 % (0.0-7.0); Hematocrit 50.7 % (41.0-53.0); Hemoglobin 17.3 g/dL (13.5-17.5); Lymphocytes # (auto) 1.7 10 ^3/uL (0.4-5.4); Lymphocytes % (auto) 12.7 % (10.0-50.0); Mean Corpuscular Hemoglobin 30.5 pg (28.0-32.0); Mean Corpuscular Hgb Conc. 34.2 g/dL (32.0-36.0); Mean Corpuscular Volume 89.2 fL (80.0-100.0); Monocytes # (auto) 1.1 10 ^3/uL (0-1.3); Monocytes % (auto) 8.1 % (0.0-12.0); Neutrophils # (auto) 10.7 10 ^3/uL (1.6-8.6); Neutrophils % (auto) 78.3 % (37.0-80.0); Nucleated Red Blood Cells % 0.3 %; Platelet Count (auto) 194 10^3/uL (140-450); Red Blood Cells 5.69 10^6/uL (4.5-5.90); Red Cell Distribution Width 14.1 % (11.8-14.3); White Blood Cell 13.7 10^3/uL (4.4-10.8)
[2024-11-21 03:49] LABS: Alanine Aminotransferase 30 U/L (7-40); Albumin 3.4 g/dL (3.2-4.8); Alkaline Phosphatase 58 U/L (46-116); Anion Gap 11 (5-15); Aspartate Aminotransferase 26 U/L (13-40); BUN/Creatinine Ratio 12.5 (10.0-20.0); Potassium 4.3 mmol/L (3.5-5.1); Sodium 140 mmol/L (136-145)
[2024-11-21 03:50] LABS: Bilirubin, Total 0.4 mg/dL (0.2-1.0)
[2024-11-21 03:56] LABS: Blood Urea Nitrogen 24 mg/dL (9-23); Calcium 8.3 mg/dL (8.7-10.4); Carbon Dioxide 19 mmol/L (20-31); Chloride 110 mmol/L (98-107); Glucose 192 mg/dL (74-106)
--- NOTE | 2024-11-21 06:10 | DVH ---
EXAM: XR Chest, 1 View CLINICAL INDICATION: PATIENT INTUBATED TECHNIQUE: Frontal view of the chest. COMPARISON: XY CHEST XRAY 1 VIEW on DOS: 11/20/24, XY CHEST PORTABLE on DOS: 11/20/24 FINDINGS: LUNGS AND PLEURAL SPACES: See below. HEART: Cardiomegaly with mild congestion. MEDIASTINUM: Unremarkable. Normal mediastinal contour. BONES/JOINTS: Unremarkable. No acute fracture. TUBES, LINES AND DEVICES: The endotracheal tube (ETT) is in satisfactory position. Enteric tube ti p in the stomach. OTHER FINDINGS: . . . IMPRESSION: Cardiomegaly with mild congestion.
[2024-11-21 07:31] LABS: Base Excess -5.9 mmol/L (-2.0-3.0)
[2024-11-21] MEDS: PANTOPRAZOLE 40 MG/10 ML VIAL INJ IV SCH (09:53)
[2024-11-21] MEDS: FOLIC ACID 1 MG in D5W 5% 50 ML INJ SCH (10:00)
[2024-11-21] MEDS: THIAMINE 100mg/ml INJ (200mg/2ml VIAL) IV SCH (11:02)
[2024-11-21] MEDS: SODIUM CHLORIDE 0.9% 250 ML IV ONE (12:00)
[2024-11-21 13:43] LABS: INR 1.04 (0.9-1.15); Partial Thromboplastin Time 37.9 SEC (24.5-34.5)
--- NOTE | 2024-11-21 14:28 | DVH ---
Renal ultrasound HISTORY: BHUPINDER TECHNIQUE: 2 D ultrasound was performed with transaxial and longitudinal images. FINDINGS: Right kidney measures 10.6 cm and left kidney measures 8.6 cm. No renal masses, stones or h ydronephrosis. Urinary bladder unremarkable. IMPRESSION: 1. No evidence of stone or obstruction. Normal renal cortical thickness and echogenicity
[2024-11-21] MEDS ORDERED: DOXYCYCLINE 100MG/100ML 100 ML IV SCH (17:30)
[2024-11-21 17:54] LABS: COVID19 ANTIGEN SOFIA FIA NEGATIVE (NEGATIVE); Rapid Influenza A Negative (Negative); Rapid Influenza B Negative (Negative)
[2024-11-21] MEDS: DOXYCYCLINE 100MG/100ML 100 ML IV SCH (17:59)
--- NOTE | 2024-11-21 19:33 | DVHPNRES ---
Progress Note Date Seen: Nov 21, 2024 Resident Creating Document: GUERO BLOUNT RESIDENT Has the PT tested + for MRSA If YES, has PT been informed?: No Medical Necessity Reason Pt with a Central, PICC or Fol: Yes The following are medically ne: Central Line, El Catheter Subjective Review of Systems This is a 69-year-old male, per ED record it came into ER via EMS for alcohol intoxication. Past Medical History: Hypertension, hyperlipidemia, diabetes mellitus type 2 Past Surgical History: PCI x1 Family History: Noncontributory ALCOHOL: heavy. Drugs: None. Smoking: none. Lives: with Family Per ED notes patient was picked up from home, after having 5 shots of Tequila he was noted to be acting altered by family members, slurred speech, patient also had episode of nausea and vomiting. When patient was in the ED he was hypoxic in the 80s, and was intubated. Patient's lactic acid was noted to be 3.0, now 2.7, plasma/serum alcohol 244.7, urine with 2+ protein, urine blood 1+ and urine glucose 4+. Patient is on a ventilator at the time of this assessment. Nurse was able to talk to family shortly who are Citizen Of [place]-speaking, per family patient has history of alcohol abuse, they did not mention history of atrial fibrillation. On my initial assessment, patient was seen and examined at bedside. He remains intubated, sedated. is at bedside. History was obtained from the . She stated that the patient had the flu one week ago, he was only complain of runny nose and general malaise. Denied any chest pain, shortness of breath, significant cough, dizziness, lightheadedness. She stated that everything began after the patient started drinking alcohol, she stated that he usually only drinks beer, around 2-3 cans of beer, 3 times per week. The patient started experiencing slurred speech, altered mental status, nausea, she stated that the patient could not vomit, and at one point he started to get rigidity and was unable to move, EMS was called by this time. Objective vital signs Vital Sign Date Time Temp Pulse Resp B/P (MAP) Pulse Ox O2 Delivery O2 Flow Rate FiO2 11/21/24 19:15 58 20 104/54 (71) 94 11/21/24 18:19 80 11/21/24 18:15 98.4 98.4 4/21/25 18:00 Mechanical Ventilator+ 11/20/24 07:58 0 Total Intake and Output 11/20/24 11/20/24 11/21/24 15:00 23:00 07:00 Intake Total 150.41 ml 526.39 ml 507.70 ml Output Total 1400 ml Balance 150.41 ml 526.39 ml -892.30 ml medications Current Medications Medications Dose Ordered Sig/Amy Route Start Time Stop Time Status Last Admin Dose Admin Propofol 100 ml @ 2.58 mls/hr Q24H IV 11/20/24 03:30 11/21/24 09:58 7.74 MLS/HR Midazolam HCl 50 ml @ 1 mls/hr Q24H IV 11/20/24 03:30 11/21/24 17:00 12 MLS/HR Fentanyl Citrate 250 ml @ 2.5 mls/hr Q24H IV 11/20/24 03:30 11/21/24 14:25 2.5 MLS/HR Norepinephrine Bitartrate 250 ml @ 3.75 mls/hr Q24H IV 11/20/24 06:15 11/20/24 23:21 11.25 MLS/HR Piperacillin Sod/ Tazobactam Sod 100 ml @ 25 mls/hr Q8HR IV 11/20/24 14:00 11/21/24 14:28 25 MLS/HR Diagnostic Test (Pha) 1 strip Q6HR 11/20/24 12:00 11/21/24 17:00 1 STRIP Insulin Human Regular Q6HR SC 11/20/24 12:00 11/21/24 11:04 2 UNITS Dextrose 50 ml UD PRN IV 11/20/24 08:15 Pantoprazole Sodium 40 mg DAILY IV 11/21/24 10:00 11/21/24 09:53 40 MG Thiamine HCl 100 mg DAILY IV 11/21/24 10:00 11/21/24 11:02 100 MG Folic Acid 1 mg/ Dextrose 50.2 ml @ 200.8 mls/ hr DAILY INJ 11/21/24 10:00 11/21/24 10:00 200.8 MLS/HR Enoxaparin Sodium 90 mg Q12HR SC 11/21/24 22:00 Doxycycline Hyclate 100 ml @ 50 mls/hr Q12H IV 11/21/24 16:30 11/21/24 17:59 50 MLS/HR Examination Physical examination as below: General: sedated and intubated HEENT: Head is normocephalic and atraumatic. Pupils are equal, round, and reactive to light. Neck: Supple with no cervical lymphadenopathy. Heart: Regular rate without murmur, rub, or gallop. Lungs: scattered crackles Abdomen: No external sign of injury. Bowel sounds are present. Abdomen is soft, nontender. Extremities: Strong peripheral pulses. There is no clubbing, no cyanosis, and no edema. Skin: No rash. Neurologic: sedated laboratory and microbiology Laboratory Tests 11/21/24 03:21 Test 11/21/24 03:21 Range/Units Serum Glucose 192 H 74-106 mg/dL Microbiology Date/Time Source Procedure Growth Status 11/20/24 04:05 Blood Blood Culture - Preliminary NO GROWTH AFTER 24 HOURS OF INCUBATION. Resulted 11/20/24 03:37 Sputum Gram Stain - Final Resulted 11/20/24 03:37 Sputum Respiratory Culture - Preliminary Resulted Labs and/or images reviewed: Labs reviewed by me, Image(s) reviewed by me Problem List/Assessment/Plan Problem List/Assessment/Plan Neurology #Acute toxic/metabolic encephalopathy, likely due to alcohol intoxication #Acute alcohol intoxication Folic acid and thiamine IV Cardiovascular #H/o hypertension #CAD, s/p PCI x1 #AFib with RVR, now NSR #Acute on chronic systolic CHF Therapeutic lovenox DC amiodarone echo shows ef 30% Refrigeration Service Technician following Pulmonology #Acute hypoxic respiratory failure, on Mechanical ventilation #Aspiration pneumonia likely ; Gram-negative Gram-positive On zosyn and doxy On MV: PEEP 5, FIO2 70% RR 20 TV 500 wane down fio2 as tolerated Nephrology #Anion gap metabolic acidosis #BHUPINDER due to VMN Provided fluid challange 250ml NS bolus Endocrinology #Type 2 diabetes #Obesity #Mixed dyslipidemia SSI mild Gastroenterology Nutrition Start glucerna thru nG Hematology and Oncology x Infectious Disease #Aspiration pneumonia likely ; Gram-negative Gram-positive #Septic shock due to above #Lactic Acidosis Levo on standby Zosyn and doxy IV Dermatology x DVT ppx Therapeutic lovenox PUD ppx Protonix Drips Versed Fent Prop Lines ET tube 11/20/24 TLC right femoral 11/20/24 Goals of care were discussed for over 30 minutes. FULL CODE. Critical care time spent outside of procedures: 92 mins Case was discussed with Dr. Ny Plan discussed with: Spouse, Other (RN) My Orders My Orders Orders - GUERO BLOUNT Procedure Category Date Status Time Thiamine Inj PHA 11/21/24 In Process 10:00 Folic Acid PHA 11/21/24 In Process 10:00 Kidney US 11/21/24 Resulted 11:51 Urine Sodium LAB 11/21/24 Logged 11:51 Urine Creatinine LAB 11/21/24 Logged 11:51 Osmolality Urine LAB 11/21/24 Logged 11:51 Urine Protein LAB 11/21/24 Logged 11:51 Enoxaparin Sodium PHA 11/21/24 In Process (Lovenox) 22:00 * Swallow Request ST 11/21/24 Transmitted 13:30 Ventilator Orders RT 11/21/24 Transmitted 13:30 Ventilator Orders RT 11/21/24 Transmitted 17:27 Tube Feeding DIET 11/22/24 Transmitted Breakfast Chest Without Contrast CT 11/22/24 Transmitted 04:00 Complete Blood Count LAB 11/22/24 Verified 04:00 Comprehensive LAB 11/22/24 Verified Metabolic Panel 04:00 Magnesium LAB 11/22/24 Verified 04:00 Chest Portable XY 11/22/24 Transmitted 04:00 Abg W/ Co-Ox RT 11/22/24 Transmitted 04:00 Date of Service: Nov 21, 2024 Billing Provider: GUERRERO NY MD Common Visit Codes: [id number] CARE 30-74 MIN, [id number] CARE-EACH +30MIN GUERO BLOUNT Nov 21, 2024 19:33 GUERRERO NY MD Nov 22, 2024 13:04
[2024-11-21] MEDS: ENOXAPARIN SOD 100 MG/1 ML SYRINGE SC SCH (21:34)
--- NOTE | 2024-11-21 22:58 | DVHPN2 ---
Progress Note - Dictate Date Seen: Nov 21, 2024 Has the PT tested + for MRSA If YES, has PT been informed?: No Medical Necessity Reason Pt with a Central, PICC or Fol: Yes The following are medically ne: Central Line, El Catheter Subjective Patient was seen and evaluated in follow up in the ICU. Patient is intubated and sedated on ventilator. 65% FiO2. is at bedside. Chest x-ray shows cardiomegaly with mild congestion.WBC 13.7, ammonia 20, BUN 24, Sheet Cutter 1.92. Viral swabs are negative. vital signs Vital Sign Date Time Temp Pulse Resp B/P (MAP) Pulse Ox O2 Delivery O2 Flow Rate FiO2 11/21/24 22:30 62 20 110/62 (78) 92 11/21/24 22:15 65 11/21/24 22:15 99.1 99.1 11/21/24 22:00 Mechanical Ventilator+ 11/20/24 07:58 0 Total Intake and Output 11/20/24 11/20/24 11/21/24 15:00 23:00 07:00 Intake Total 150.41 ml 526.39 ml 507.70 ml Output Total 1400 ml Balance 150.41 ml 526.39 ml -892.30 ml medications Current Medications Medications Dose Ordered Sig/Amy Route Start Time Stop Time Status Last Admin Dose Admin Propofol 100 ml @ 2.58 mls/hr Q24H IV 11/20/24 03:30 11/21/24 09:58 7.74 MLS/HR Midazolam HCl 50 ml @ 1 mls/hr Q24H IV 11/20/24 03:30 11/21/24 21:41 10 MLS/HR Fentanyl Citrate 250 ml @ 2.5 mls/hr Q24H IV 11/20/24 03:30 11/21/24 14:25 2.5 MLS/HR Norepinephrine Bitartrate 250 ml @ 3.75 mls/hr Q24H IV 11/20/24 06:15 11/20/24 23:21 11.25 MLS/HR Piperacillin Sod/ Tazobactam Sod 100 ml @ 25 mls/hr Q8HR IV 11/20/24 14:00 11/21/24 21:33 25 MLS/HR Diagnostic Test (Pha) 1 strip Q6HR 11/20/24 12:00 11/21/24 17:00 1 STRIP Insulin Human Regular Q6HR SC 11/20/24 12:00 11/21/24 11:04 2 UNITS Dextrose 50 ml UD PRN IV 11/20/24 08:15 Pantoprazole Sodium 40 mg DAILY IV 11/21/24 10:00 11/21/24 09:53 40 MG Thiamine HCl 100 mg DAILY IV 11/21/24 10:00 11/21/24 11:02 100 MG Folic Acid 1 mg/ Dextrose 50.2 ml @ 200.8 mls/ hr DAILY INJ 11/21/24 10:00 11/21/24 10:00 200.8 MLS/HR Enoxaparin Sodium 90 mg Q12HR SC 11/21/24 22:00 11/21/24 21:34 90 MG Doxycycline Hyclate 100 ml @ 50 mls/hr Q12H IV 11/21/24 16:30 11/21/24 17:59 50 MLS/HR objective GENERAL: Ill appearing, intubated on ventilator. EYES: PERRL, EOMI. Anicteric. HENT: Moist mucous membranes. LUNGS: Decreased breath sounds. CARDIOVASCULAR: Irregular rate and rhythm. ABDOMEN: Soft, nontender and nondistended.Indwelling urinary catheter. EXTREMITIES: No edema. SKIN: Warm, dry. laboratory and microbiology Laboratory Tests 11/21/24 03:21 Test 11/21/24 03:21 Range/Units Serum Glucose 192 H 74-106 mg/dL Problem List A Fib with RVR. ? history of A fib. CAD s/p PCI. CHF. Toxic encephalopathy with hx of ETOH abuse. BHUPINDER on CKD. History of Hypertension, currently hypotensive on vasopressor. Diabetes type 2. Hyperlipidemia. History of CVA. Assessment/Plan Continued all current supportive medical care. Echo. IV antibiotics as ordered. DVT and GI prophylactics. Vasopressors for hemodynamic support. Additional plan as per the hospital course. Critical care time of 45 minutes provided to include time spent evaluation of patient at bedside, when appropriate patient/family education for diagnosis, treatment plan, review of pertinent medical information and discussion of care with specialty providers and PCP. Mechanical ventilator parameters, treatment and adjustments have personally been reviewed by me and treatment plan by chemical plant operator supervisor has also been reviewed. Plan discussed with: Other RUBIO YUNG MD Nov 21, 2024 22:58
[2024-11-22] VITALS (105 sets, daily range): BP systolic 102–167; BP diastolic 51–91; PULSE 45–94; RESP 15–37; TEMP 97.5–100.2; O2SAT 91–99
[2024-11-22 04:19] LABS: Basophils # (auto) 0 10 ^3/uL (0-0.2); Basophils % (auto) 0.4 % (0.0-2.0); Eosinophils # (auto) 0 10 ^3/uL (0-0.8); Eosinophils % (auto) 0.3 % (0.0-7.0); Hematocrit 46.9 % (41.0-53.0); Hemoglobin 15.8 g/dL (13.5-17.5); Lymphocytes # (auto) 1.1 10 ^3/uL (0.4-5.4); Lymphocytes % (auto) 9.6 % (10.0-50.0); Mean Corpuscular Hemoglobin 30.7 pg (28.0-32.0); Mean Corpuscular Hgb Conc. 33.7 g/dL (32.0-36.0); Mean Corpuscular Volume 91.2 fL (80.0-100.0); Monocytes # (auto) 0.9 10 ^3/uL (0-1.3); Monocytes % (auto) 7.8 % (0.0-12.0); Neutrophils # (auto) 9.9 10 ^3/uL (1.6-8.6); Neutrophils % (auto) 81.9 % (37.0-80.0); Platelet Count (auto) 132 10^3/uL (140-450); Red Blood Cells 5.14 10^6/uL (4.5-5.90)
[2024-11-22 04:40] LABS: Albumin 3.2 g/dL (3.2-4.8); Alkaline Phosphatase 62 U/L (46-116); Anion Gap 11 (5-15); BUN/Creatinine Ratio 14.8 (10.0-20.0); Bilirubin, Total 0.7 mg/dL (0.2-1.0); Magnesium 2.2 mg/dL (1.6-2.6); Potassium 4.1 mmol/L (3.5-5.1); Sodium 141 mmol/L (136-145)
[2024-11-22 04:43] LABS: Alanine Aminotransferase 51 U/L (7-40); Aspartate Aminotransferase 134 U/L (13-40); Blood Urea Nitrogen 27 mg/dL (9-23); Calcium 8.3 mg/dL (8.7-10.4); Carbon Dioxide 19 mmol/L (20-31); Chloride 111 mmol/L (98-107); Glucose 132 mg/dL (74-106); Total Protein 5.6 g/dL (5.7-8.2)
--- NOTE | 2024-11-22 05:18 | DVH ---
EXAM: XR Chest, 1 View CLINICAL INDICATION: sob TECHNIQUE: Frontal view of the chest. COMPARISON: XY CHEST PORTABLE on DOS: 11/21/24, XY CHEST XRAY 1 VIEW on DOS: 11/20/24, XY CHEST [place] BLE on DOS: 11/20/24 FINDINGS: LUNGS AND PLEURAL SPACES: See below. HEART: Cardiomegaly with mild congestion. MEDIASTINUM: Unremarkable. Normal mediastinal contour. BONES/JOINTS: Unremarkable. No acute fracture. TUBES, LINES AND DEVICES: The endotracheal tube (ETT) is in satisfactory position. Enteric tube ti p in the stomach. OTHER FINDINGS: . . . IMPRESSION: Cardiomegaly with mild congestion.
--- NOTE | 2024-11-22 06:53 | DVHPNRES ---
Progress Note Date Seen: Nov 22, 2024 Resident Creating Document: GUERO BLOUNT RESIDENT Has the PT tested + for MRSA If YES, has PT been informed?: No Medical Necessity Reason Pt with a Central, PICC or Fol: Yes The following are medically ne: Central Line, El Catheter Subjective Review of Systems On my assessment, patient was seen and examined at bedside. He remains intubated, sedated. ET tube was exchanged today, patient has significant vocal cord swelling Objective vital signs Vital Sign Date Time Temp Pulse Resp B/P (MAP) Pulse Ox O2 Delivery O2 Flow Rate FiO2 11/22/24 06:33 65 20 115/59 (77) 95 70 11/22/24 06:00 Mechanical Ventilator+ 11/22/24 06:00 98.4 98.4 11/20/24 07:58 0 Total Intake and Output 11/21/24 11/21/24 11/22/24 15:00 23:00 07:00 Intake Total 245.37 ml 513 ml 355 ml Output Total 300 ml 447 ml Balance 245.37 ml 213 ml -92 ml medications Current Medications Medications Dose Ordered Sig/Amy Route Start Time Stop Time Status Last Admin Dose Admin Propofol 100 ml @ 2.58 mls/hr Q24H IV 11/20/24 03:30 11/21/24 09:58 7.74 MLS/HR Midazolam HCl 50 ml @ 1 mls/hr Q24H IV 11/20/24 03:30 11/22/24 03:24 8 MLS/HR Fentanyl Citrate 250 ml @ 2.5 mls/hr Q24H IV 11/20/24 03:30 11/21/24 14:25 2.5 MLS/HR Norepinephrine Bitartrate 250 ml @ 3.75 mls/hr Q24H IV 11/20/24 06:15 11/20/24 23:21 11.25 MLS/HR Piperacillin Sod/ Tazobactam Sod 100 ml @ 25 mls/hr Q8HR IV 11/20/24 14:00 11/22/24 06:28 25 MLS/HR Diagnostic Test (Pha) 1 strip Q6HR 11/20/24 12:00 11/22/24 06:27 1 STRIP Insulin Human Regular Q6HR SC 11/20/24 12:00 11/22/24 06:00 2 UNITS Dextrose 50 ml UD PRN IV 11/20/24 08:15 Pantoprazole Sodium 40 mg DAILY IV 11/21/24 10:00 11/21/24 09:53 40 MG Thiamine HCl 100 mg DAILY IV 11/21/24 10:00 11/21/24 11:02 100 MG Folic Acid 1 mg/ Dextrose 50.2 ml @ 200.8 mls/ hr DAILY INJ 11/21/24 10:00 11/21/24 10:00 200.8 MLS/HR Enoxaparin Sodium 90 mg Q12HR SC 11/21/24 22:00 11/21/24 21:34 90 MG Doxycycline Hyclate 100 ml @ 50 mls/hr Q12H IV 11/21/24 16:30 11/22/24 04:34 50 MLS/HR Examination Physical examination as below: General: sedated and intubated HEENT: Head is normocephalic and atraumatic. Pupils are equal, round, and reactive to light. Neck: Supple with no cervical lymphadenopathy. Heart: Regular rate without murmur, rub, or gallop. Lungs: scattered crackles Abdomen: No external sign of injury. Bowel sounds are present. Abdomen is soft, nontender. Extremities: Strong peripheral pulses. There is no clubbing, no cyanosis, and no edema. Skin: No rash. Neurologic: sedated laboratory and microbiology Laboratory Tests 11/22/24 03:40 Test 11/22/24 03:40 Range/Units Serum Glucose 132 H 74-106 mg/dL Microbiology Date/Time Source Procedure Growth Status 11/20/24 04:05 Blood Blood Culture - Preliminary NO GROWTH AFTER 48 HOURS OF INCUBATION. Resulted 11/20/24 03:37 Sputum Gram Stain - Final Resulted 11/20/24 03:37 Sputum Respiratory Culture - Preliminary Resulted Labs and/or images reviewed: Labs reviewed by me, Image(s) reviewed by me Problem List/Assessment/Plan Problem List/Assessment/Plan Neurology #Acute toxic/metabolic encephalopathy, likely due to alcohol intoxication #Acute alcohol intoxication Folic acid and thiamine IV Head ct unremarkable for acute disease Cardiovascular #H/o hypertension #CAD, s/p PCI x1 #AFib with RVR, now NSR #Acute on chronic systolic CHF Therapeutic lovenox DC amiodarone echo shows ef 30% Lasix 20mg iv bid Billing Coordinator following Pulmonology #Acute hypoxic respiratory failure, on Mechanical ventilation #Aspiration pneumonia likely ; Gram-negative Gram-positive On zosyn and doxy On MV: PEEP 5, FIO2 50% RR 20 TV 500 wane down fio2 as tolerated ct chest pending Nephrology #Anion gap metabolic acidosis #BHUPINDER due to VMN continue diuresing urine studies sent nephrology following Endocrinology #Type 2 diabetes #Obesity #Mixed dyslipidemia SSI mild Gastroenterology Nutrition Start glucerna thru ng Hematology and Oncology x Infectious Disease #Aspiration pneumonia likely ; Gram-negative Gram-positive #Septic shock due to above #Lactic Acidosis Levo on standby Zosyn and doxy IV Dermatology x DVT ppx Therapeutic lovenox PUD ppx Protonix Drips Versed Fent Prop Lines ET tube 11/20/24, exchanged on 11/22/24 TLC right femoral 11/20/24, ordered picc line Goals of care were discussed for 33 minutes. FULL CODE. Critical care time spent outside of procedures: 89 mins Case was discussed with Dr. Ny Plan discussed with: Spouse, Other (rn) My Orders My Orders Orders - GUERO BLOUNT RESIDENT Procedure Category Date Status Time Thiamine Inj PHA 11/21/24 In Process 10:00 Folic Acid PHA 11/21/24 In Process 10:00 Kidney US 11/21/24 Resulted 11:51 Urine Sodium LAB 11/21/24 Logged 11:51 Urine Creatinine LAB 11/21/24 Logged 11:51 Osmolality Urine LAB 11/21/24 Logged 11:51 Urine Protein LAB 11/21/24 Logged 11:51 Enoxaparin Sodium PHA 11/21/24 In Process (Lovenox) 22:00 * Swallow Request ST 11/21/24 Transmitted 13:30 Ventilator Orders RT 11/21/24 Transmitted 13:30 Ventilator Orders RT 11/21/24 Transmitted 17:27 Tube Feeding DIET 11/22/24 Transmitted Breakfast Chest Without Contrast CT 11/22/24 Logged 04:00 Chest Portable XY 11/22/24 Resulted 04:00 Abg W/ Co-Ox RT 11/22/24 Logged 04:00 Date of Service: Nov 22, 2024 Billing Provider: GUERRERO NY MD Common Visit Codes: [id number] CARE 30-74 MIN, [id number] CARE-EACH +30MIN GUERO BLOUNT RESIDENT Nov 22, 2024 06:53 GUERRERO NY MD Nov 23, 2024 14:52
[2024-11-22 07:46] LABS: Base Excess -7.8 mmol/L (-2.0-3.0)
[2024-11-22] MEDS: ROCURONIUM 10MG/ML 10ML VIAL IV ONE ×3 (09:41→09:49)
[2024-11-22] MEDS: methylPREDNISolone SOD SUCC 125 MG/2 ML VL IV ONE (10:44)
[2024-11-22] MEDS: MAGNESIUM SULFATE 1GM/100ML 100 ML IV ONE (10:46)
[2024-11-22 11:05] LABS: Base Excess -5.9 mmol/L (-2.0-3.0)
--- NOTE | 2024-11-22 11:17 | DVH ---
INDICATION: RE-INTUBATION TECHNIQUE: Frontal view of the chest. COMPARISON: XY CHEST PORTABLE on DOS: 11/22/24, XY CHEST PORTABLE on DOS: 11/21/24, XY CHEST XRAY 1 VIE W on DOS: 11/20/24, XY CHEST PORTABLE on DOS: 11/20/24, XY CHEST PORTABLE on DOS: 11/22/24 FINDINGS: LUNGS AND PLEURAL SPACES: See below. HEART: Cardiomegaly with mild congestion. MEDIASTINUM: Unremarkable. Normal mediastinal contour. BONES/JOINTS: Unremarkable. No acute fracture. TUBES, LINES AND DEVICES: The endotracheal tube (ETT) is in satisfactory position. Enteric tube ti p in the stomach. IMPRESSION: Cardiomegaly with mild congestion.
--- NOTE | 2024-11-22 13:55 | DVHINCON2 ---
Date of service: Nov 22, 2024 Reason for Consultation Acute kidney injury History of Present Illness history obtain with indonesian translation 69 year old male with past medical history of alcohol abuse presents to the hospital with acute mental state change in the setting of alcohol intoxication. His hospital course was notable for acute respiratory distress as well as altered mental status therefore patient was intubated. Over the last several days patient has had worsening distress nephrology is consulted due to elevated creatinine level. Allergies: Coded Allergies: NO KNOWN ALLERGIES (Unverified , 11/20/24) Home Meds Reported Medications Atorvastatin Calcium (ATORVASTATIN CALCIUM) 80 Mg Tab, 1 TAB PO QHSP PRN 11/20/24 Current Medications Current Medications Medications (Trade) Dose Ordered Sig/Amy Route PRN Reason Start Time Stop Time Status Last Admin Enoxaparin Sodium (Lovenox) 90 mg Q12HR SC 11/21/24 22:00 11/22/24 10:46 Furosemide (Lasix Injection) 40 mg BIDD IV 11/22/24 14:00 11/22/24 13:57 DC Furosemide (Lasix Injection) 40 mg Q8HR IV 11/22/24 14:00 11/22/24 15:28 Enteral Nutritional Formula (Glucerna 1.2 Willie) 1,000 ml 30ML/HR GT 11/22/24 20:15 Review of Systems Can not obtain due to critical illness H&P Exam Vital Signs/I&O Vital Sign Date Time Temp Pulse Resp B/P (MAP) Pulse Ox O2 Delivery O2 Flow Rate FiO2 11/22/24 20:16 113/62 11/22/24 20:00 98.6 51 22 95 98.6 11/22/24 20:00 70 11/22/24 20:00 Mechanical Ventilator+ 11/20/24 07:58 0 Intake and Output 11/21/24 11/22/24 19:00 07:00 Intake Total 599.37 ml 577 ml Output Total 300 ml 447 ml Balance 299.37 ml 130 ml Intake Oral 30 ml IV Total 489.37 ml 463 ml Tube Feeding 80 ml 114 ml Output Urine Total 300 ml 400 ml Gastric Drainage Total 47 ml Physical Exam Elderly male Intubated Sedated On pressors Mild JVD rrr Abdomen is soft not firm no guarding No fluid wave Bilateral upper and lower extremity pitting edema El catheter Labs/Diagnostic Data Labs/Diagnostic Data Laboratory Tests Test 11/22/24 18:17 11/22/24 12:28 11/22/24 10:55 11/22/24 07:34 Range/Units POC Glucose 204 H 146 H 70-106 mg/dl Blood Gas Specimen Type Arterial Arterial Blood Gas Sample Site Left radial Left radial Blood Gas Patient Temperature 37.0 37.0 Arterial Blood Date Drawn [id number] Arterial Blood pH 7.369 7.285 L 7.350-7.450 Arterial Blood Partial Pressure CO2 31.9 L 39.3 35.0-48.0 mmHg Arterial Blood Partial Pressure O2 84.1 73.1 L 83.0-108.0 mmHg Arterial Blood HCO3 18.0 L 18.3 L 21.0-28.0 mmol/L Arterial Blood Oxygen Saturation 96.3 93.3 L 94.0-98.0 % Arterial Blood Base Excess -5.9 L -7.8 L -2.0-3.0 mmol/L Arterial Blood Oxyhemoglobin 95.9 92.7 L 94.0-98.0 % Arterial Blood Carboxyhemoglobin 0.3 L 0.5 0.5-1.5 % Arterial Blood Methemoglobin 0.1 0.1 0.0-1.5 % Davis Test Modified Modified Blood Gas Total Hemoglobin 17.30 17.10 13.5-17.5 g/dL Blood Gas Set Respiration Rate 22.0 20.0 Blood Gas Modality Vent - ac Vent - ac FiO2 % 100.0 70.0 Blood Gas Tidal Volume 500.0 500.0 Blood Gas PEEP or CPAP 5.0 5.0 Test 11/22/24 06:32 11/22/24 03:40 11/22/24 00:56 11/21/24 17:07 Range/Units POC Glucose 147 H 117 H 70-106 mg/dl White Blood Count 12.0 H 4.4-10.8 10^3/uL Red Blood Count 5.14 4.5-5.90 10^6/uL Hemoglobin 15.8 13.5-17.5 g/dL Hematocrit 46.9 41.0-53.0 % Mean Corpuscular Volume 91.2 80.0-100.0 fL Mean Corpuscular Hemoglobin 30.7 28.0-32.0 pg Mean Corpuscular Hemoglobin Concent 33.7 32.0-36.0 g/dL Red Cell Distribution Width 14.0 11.8-14.3 % Platelet Count 132 L 140-450 10^3/uL Mean Platelet Volume 9.0 6.9-10.8 fL Neutrophils (%) (Auto) 81.9 H 37.0-80.0 % Lymphocytes (%) (Auto) 9.6 L 10.0-50.0 % Monocytes (%) (Auto) 7.8 0.0-12.0 % Eosinophils (%) (Auto) 0.3 0.0-7.0 % Basophils (%) (Auto) 0.4 0.0-2.0 % Neutrophils # (Auto) 9.9 H 1.6-8.6 10 ^3/uL Lymphocytes # (Auto) 1.1 0.4-5.4 10 ^3/uL Monocytes # (Auto) 0.9 0-1.3 10 ^3/uL Eosinophils # (Auto) 0 0-0.8 10 ^3/uL Basophils # (Auto) 0 0-0.2 10 ^3/uL Nucleated Red Blood Cells 0.0 % Sodium Level 141 136-145 mmol/L Potassium Level 4.1 3.5-5.1 mmol/L Chloride Level 111 H 98-107 mmol/L Carbon Dioxide Level 19 L 20-31 mmol/L Anion Gap 11 5-15 Blood Urea Nitrogen 27 H 9-23 mg/dL Creatinine 1.83 H 0.700-1.30 mg/dL Glomerular Filtration Rate Calc 39 >90 mL/min BUN/Creatinine Ratio 14.8 10.0-20.0 Serum Glucose 132 H 74-106 mg/dL Calcium Level 8.3 L 8.7-10.4 mg/dL Magnesium Level 2.2 1.6-2.6 mg/dL Total Bilirubin 0.7 0.2-1.0 mg/dL Aspartate Amino Transferase (AST) 134 H 13-40 U/L Alanine Aminotransferase (ALT) 51 H 7-40 U/L Alkaline Phosphatase 62 46-116 U/L Total Protein 5.6 L 5.7-8.2 g/dL Albumin 3.2 3.2-4.8 g/dL Influenza Type A Antigen Negative Negative Influenza Type B Antigen Negative Negative SARS-CoV-2 Antigen (Rapid) Negative NEGATIVE Test 11/21/24 17:03 11/21/24 13:00 11/21/24 11:03 11/21/24 06:13 Range/Units POC Glucose 119 H 152 H 70-106 mg/dl Prothrombin Time 11.0 9.3-11.8 sec Prothrombin Time INR 1.04 0.9-1.15 Activated Partial Thromboplast Time 37.9 H 24.5-34.5 SEC Lactic Acid Level 1.6 0.4-2.0 mmol/L Ammonia 20 11-32 umol/L Blood Gas Specimen Type Arterial Blood Gas Sample Site Left radial Blood Gas Patient Temperature 37.0 Arterial Blood Date Drawn [id number] Arterial Blood pH 7.356 7.350-7.450 Arterial Blood Partial Pressure CO2 33.7 L 35.0-48.0 mmHg Arterial Blood Partial Pressure O2 91.0 83.0-108.0 mmHg Arterial Blood HCO3 18.4 L 21.0-28.0 mmol/L Arterial Blood Oxygen Saturation 97.3 94.0-98.0 % Arterial Blood Base Excess -5.9 L -2.0-3.0 mmol/L Arterial Blood Oxyhemoglobin 96.8 94.0-98.0 % Arterial Blood Carboxyhemoglobin 0.0 L 0.5-1.5 % Arterial Blood Methemoglobin 0.5 0.0-1.5 % Davis Test Modified Blood Gas Total Hemoglobin 17.40 13.5-17.5 g/dL Blood Gas Set Respiration Rate 20.0 Blood Gas Modality Vent - ac FiO2 % 80.0 Blood Gas Tidal Volume 500.0 Blood Gas PEEP or CPAP 8.0 Test 11/21/24 05:26 11/21/24 03:21 11/21/24 00:10 11/20/24 22:37 Range/Units POC Glucose 213 H 196 H 70-106 mg/dl White Blood Count 13.7 #H 4.4-10.8 10^3/uL Red Blood Count 5.69 4.5-5.90 10^6/uL Hemoglobin 17.3 13.5-17.5 g/dL Hematocrit 50.7 41.0-53.0 % Mean Corpuscular Volume 89.2 80.0-100.0 fL Mean Corpuscular Hemoglobin 30.5 28.0-32.0 pg Mean Corpuscular Hemoglobin Concent 34.2 32.0-36.0 g/dL Red Cell Distribution Width 14.1 11.8-14.3 % Platelet Count 194 140-450 10^3/uL Mean Platelet Volume 8.7 6.9-10.8 fL Neutrophils (%) (Auto) 78.3 37.0-80.0 % Lymphocytes (%) (Auto) 12.7 10.0-50.0 % Monocytes (%) (Auto) 8.1 0.0-12.0 % Eosinophils (%) (Auto) 0.1 0.0-7.0 % Basophils (%) (Auto) 0.8 0.0-2.0 % Neutrophils # (Auto) 10.7 H 1.6-8.6 10 ^3/uL Lymphocytes # (Auto) 1.7 0.4-5.4 10 ^3/uL Monocytes # (Auto) 1.1 0-1.3 10 ^3/uL Eosinophils # (Auto) 0 0-0.8 10 ^3/uL Basophils # (Auto) 0.1 0-0.2 10 ^3/uL Nucleated Red Blood Cells 0.3 % Sodium Level 140 136-145 mmol/L Potassium Level 4.3 3.5-5.1 mmol/L Chloride Level 110 H 98-107 mmol/L Carbon Dioxide Level 19 L 20-31 mmol/L Anion Gap 11 5-15 Blood Urea Nitrogen 24 H 9-23 mg/dL Creatinine 1.92 H 0.700-1.30 mg/dL Glomerular Filtration Rate Calc 37 >90 mL/min BUN/Creatinine Ratio 12.5 10.0-20.0 Serum Glucose 192 H 74-106 mg/dL Calcium Level 8.3 L 8.7-10.4 mg/dL Magnesium Level 2.0 1.6-2.6 mg/dL Total Bilirubin 0.4 0.2-1.0 mg/dL Aspartate Amino Transferase (AST) 26 13-40 U/L Alanine Aminotransferase (ALT) 30 7-40 U/L Alkaline Phosphatase 58 46-116 U/L B-Type Natriuretic Peptide 213.53 0-100 pg/mL Total Protein 6.0 5.7-8.2 g/dL Albumin 3.4 3.2-4.8 g/dL Blood Gas Specimen Type Arterial Blood Gas Sample Site Right radial Blood Gas Patient Temperature 37.0 Arterial Blood Date Drawn [id number] Arterial Blood pH 7.329 L 7.350-7.450 Arterial Blood Partial Pressure CO2 34.3 L 35.0-48.0 mmHg Arterial Blood Partial Pressure O2 80.4 L 83.0-108.0 mmHg Arterial Blood HCO3 17.6 L 21.0-28.0 mmol/L Arterial Blood Oxygen Saturation 97.0 94.0-98.0 % Arterial Blood Base Excess -7.0 L -2.0-3.0 mmol/L Arterial Blood Oxyhemoglobin 95.8 94.0-98.0 % Arterial Blood Carboxyhemoglobin 0.2 L 0.5-1.5 % Arterial Blood Methemoglobin 1.0 0.0-1.5 % Davis Test Modified Blood Gas Total Hemoglobin 19.50 *H 13.5-17.5 g/dL Blood Gas Set Respiration Rate 20.0 Blood Gas Modality Vent - ac FiO2 % 80.0 Blood Gas Tidal Volume 500.0 Blood Gas PEEP or CPAP 8.0 Blood Gas Critical Value Read Back Yes Blood Gas Notified Whom Criselda molina md Blood Gas Notified Time [id number] Blood Gas Notified By Kathleen landrum airfield services officer Test 11/20/24 18:08 11/20/24 11:26 11/20/24 06:00 11/20/24 04:33 Range/Units POC Glucose 188 H 209 H 70-106 mg/dl Lactic Acid Level 2.7 *H 0.4-2.0 mmol/L Blood Gas Specimen Type Arterial Blood Gas Sample Site Right radial Blood Gas Patient Temperature 37.0 Arterial Blood Date Drawn [id number] Arterial Blood pH 7.253 L 7.350-7.450 Arterial Blood Partial Pressure CO2 36.4 35.0-48.0 mmHg Arterial Blood Partial Pressure O2 149.8 H 83.0-108.0 mmHg Arterial Blood HCO3 15.7 L 21.0-28.0 mmol/L Arterial Blood Oxygen Saturation 98.6 H 94.0-98.0 % Arterial Blood Base Excess -10.4 L -2.0-3.0 mmol/L Arterial Blood Oxyhemoglobin 97.5 94.0-98.0 % Arterial Blood Carboxyhemoglobin 0.2 L 0.5-1.5 % Arterial Blood Methemoglobin 0.9 0.0-1.5 % Davis Test Modified Blood Gas Total Hemoglobin 20.40 *H 13.5-17.5 g/dL Blood Gas Set Respiration Rate 16.0 Blood Gas Modality Vent - ac FiO2 % 100.0 Blood Gas Tidal Volume 500.0 Blood Gas PEEP or CPAP 5.0 Blood Gas Critical Value Read Back Yes Blood Gas Notified Whom Dr. lee Blood Gas Notified Time [id number] Blood Gas Notified By Envelope Machine Operator eveline [email or web address] Test 11/20/24 04:05 11/20/24 03:50 11/20/24 03:41 Range/Units Triglycerides Level 253 H < 150 mg/dL Cholesterol Level 200 H < 200 mg/dL LDL Cholesterol 143 H < 100 mg/dL HDL Cholesterol 31 L 40-59 mg/dL Thyroid Stimulating Hormone (TSH) 0.63 0.55-4.78 uIU/mL Plasma/Serum Blood Alcohol 244.7 H <10 mg/dL White Blood Count 10.8 4.4-10.8 10^3/uL Red Blood Count 6.06 H 4.5-5.90 10^6/uL Hemoglobin 19.7 H 13.5-17.5 g/dL Hematocrit 55.5 H 41.0-53.0 % Mean Corpuscular Volume 91.6 80.0-100.0 fL Mean Corpuscular Hemoglobin 32.5 H 28.0-32.0 pg Mean Corpuscular Hemoglobin Concent 35.5 32.0-36.0 g/dL Red Cell Distribution Width 13.7 11.8-14.3 % Platelet Count 167 140-450 10^3/uL Mean Platelet Volume 8.2 6.9-10.8 fL Neutrophils (%) (Auto) 70.5 37.0-80.0 % Lymphocytes (%) (Auto) 21.5 10.0-50.0 % Monocytes (%) (Auto) 4.8 0.0-12.0 % Eosinophils (%) (Auto) 2.5 0.0-7.0 % Basophils (%) (Auto) 0.7 0.0-2.0 % Neutrophils # (Auto) 7.6 1.6-8.6 10 ^3/uL Lymphocytes # (Auto) 2.3 0.4-5.4 10 ^3/uL Monocytes # (Auto) 0.5 0-1.3 10 ^3/uL Eosinophils # (Auto) 0.3 0-0.8 10 ^3/uL Basophils # (Auto) 0.1 0-0.2 10 ^3/uL Nucleated Red Blood Cells 0.0 % Platelet Estimate [place] Large Platelets Few Sodium Level 140 136-145 mmol/L Potassium Level 3.5 3.5-5.1 mmol/L Chloride Level 105 98-107 mmol/L Carbon Dioxide Level 19 L 20-31 mmol/L Anion Gap 16 H 5-15 Blood Urea Nitrogen 17 9-23 mg/dL Creatinine 1.47 H 0.700-1.30 mg/dL Glomerular Filtration Rate Calc 51 >90 mL/min BUN/Creatinine Ratio 11.6 10.0-20.0 Serum Glucose 173 H 74-106 mg/dL Lactic Acid Level 3.0 *H 0.4-2.0 mmol/L Calcium Level 9.4 8.7-10.4 mg/dL Magnesium Level 2.3 1.6-2.6 mg/dL Total Bilirubin 0.4 0.2-1.0 mg/dL Aspartate Amino Transferase (AST) 27 13-40 U/L Alanine Aminotransferase (ALT) 39 7-40 U/L Alkaline Phosphatase 69 46-116 U/L B-Type Natriuretic Peptide 297.82 0-100 pg/mL Total Protein 7.6 5.7-8.2 g/dL Albumin 4.4 3.2-4.8 g/dL Lipase 35 12-53 U/L Urine Color Light-yellow Yellow Urine Clarity Clear Clear Urine pH 6.0 5.0-9.0 Urine Specific [place] 1.013 1.001-1.035 Urine Protein 2+ H Negative Urine Ketones Negative Negative Urine Blood 1+ H Negative /uL Urine Nitrite Negative Negative Urine Bilirubin Negative Negative Urine Urobilinogen Normal Negative mg/dL Urine Leukocyte Esterase Negative Negative /uL Urine RBC 1 0 - 3 /hpf Urine Microscopic WBC 1 0-3 /HPF Urine Squamous Epithelial Cells None seen <5 /hpf Urine Bacteria None seen None Seen /hpf Urine Mucus Few None Seen Urine Yeast (Budding) Occasional None Seen /hpf Urine Glucose 4+ H Normal mg/dL Urine Opiates Screen Neg NEGATIVE Urine Fentanyl Screen Neg NEGATIVE Urine Barbiturates Screen Neg NEGATIVE Urine Phencyclidine Screen Neg NEGATIVE Urine Amphetamines Screen Neg NEGATIVE Urine Benzodiazepines Screen Neg NEGATIVE Urine Cocaine Screen Neg NEGATIVE Urine Cannabinoids Screen Neg NEGATIVE Microbiology Date/Time Source Procedure Growth Status 11/20/24 21:31 Nose MRSA Screen - Final Complete 11/20/24 03:37 Sputum Gram Stain - Final Complete 11/20/24 03:37 Respiratory Culture - Final Enterobacter cloacae Complete Assessment Acute kidney injury ckd etoh intoxication AMS acute respiratory failure decompensated HF EF 30% start diuretics goal negative balance 1-2L net each day fluid restriction Ultrasound of the kidney showed right kidney is 10.6 cm left kidney is 8.6 cm the echogenicity of the kidneys were normal pressors to keep map 65 Plan discussed with: Spouse SEBAS BLANDON MD Nov 22, 2024 13:55
[2024-11-22] MEDS ORDERED: FUROSEMIDE 40 MG/4 ML VIAL IV SCH (14:00)
[2024-11-22] MEDS: FUROSEMIDE 40 MG/4 ML VIAL IV SCH (15:28)
--- NOTE | 2024-11-22 22:04 | DVH ---
CT SCAN CHEST WITHOUT CONTRAST CLINICAL HISTORY: sob TECHNIQUE: Helical axial scans are obtained from the thoracic inlet to the upper abdomen without intr avenous contrast injection. Coronal and sagittal reformatted images were generated from thin-section reconstructions. One or more of the following radiation dose reduction techniques were used for this examination: automated exposure control, adjustment of the mA and/or kV according to patient size, us e of iterative reconstruction technique. COMPARISON: None FINDINGS: Evaluation of vascular and other mediastinal structures is limited due to lack of contrast administra tion. Mediastinum: Tip of the endotracheal tube terminates at the ostium of the right mainstem bronchus. H eart is enlarged. Coronary and aortic calcifications. No pericardial effusion. No discretely enlarge d mediastinal lymph nodes noted. Lung parenchyma: Atelectasis/ consolidation in the lower lobes. Mosaic ground-glass attenuation in th e upper lobes with additional atelectasis/scarring. Pleura: Trace bilateral pleural effusions. Chest wall/axillae: No axillary lymphadenopathy is noted. Upper Abdomen: No acute findings as visualized. IMPRESSION: Tip of the endotracheal tube terminates at the ostium of the right mainstem bronchus. Cardiomegaly with vascular congestion. Atelectasis/consolidation in the bilateral lower lobes. Correlate to exclude infection.
--- NOTE | 2024-11-22 23:33 | DVHPN2 ---
Progress Note - Dictate Date Seen: Nov 22, 2024 Has the PT tested + for MRSA If YES, has PT been informed?: No Medical Necessity Reason Pt with a Central, PICC or Fol: Yes The following are medically ne: Central Line, El Catheter Subjective Patient was seen and evaluated in follow up in the ICU. Patient is intubated and sedated on ventilator. 70% FiO2. Patients ET tube was exchanged today, patient has significant vocal cord swelling. WBC 12, CO2 19, BUN 27, Medical Genetics Director 1.83. CT chest shows cardiomegaly with vascular congestion and atelectasis/consolidation in the bilateral lower lobes. Chest x-ray showed cardiomegaly with mild congestion. vital signs Vital Sign Date Time Temp Pulse Resp B/P (MAP) Pulse Ox O2 Delivery O2 Flow Rate FiO2 11/22/24 20:16 113/62 11/22/24 20:00 98.6 51 22 95 98.6 11/22/24 20:00 70 11/22/24 20:00 Mechanical Ventilator+ 11/20/24 07:58 0 Total Intake and Output 11/21/24 11/21/24 11/22/24 15:00 23:00 07:00 Intake Total 245.37 ml 513 ml 418 ml Output Total 300 ml 447 ml Balance 245.37 ml 213 ml -29 ml medications Current Medications Medications Dose Ordered Sig/Amy Route Start Time Stop Time Status Last Admin Dose Admin Propofol 100 ml @ 2.58 mls/hr Q24H IV 11/20/24 03:30 11/21/24 09:58 7.74 MLS/HR Midazolam HCl 50 ml @ 1 mls/hr Q24H IV 11/20/24 03:30 11/22/24 10:50 4 MLS/HR Fentanyl Citrate 250 ml @ 2.5 mls/hr Q24H IV 11/20/24 03:30 11/22/24 20:16 10 MLS/HR Norepinephrine Bitartrate 250 ml @ 3.75 mls/hr Q24H IV 11/20/24 06:15 11/20/24 23:21 11.25 MLS/HR Piperacillin Sod/ Tazobactam Sod 100 ml @ 25 mls/hr Q8HR IV 11/20/24 14:00 11/22/24 13:38 25 MLS/HR Diagnostic Test (Pha) 1 strip Q6HR 11/20/24 12:00 11/22/24 18:12 1 STRIP Insulin Human Regular Q6HR SC 11/20/24 12:00 11/22/24 18:18 4 UNITS Dextrose 50 ml UD PRN IV 11/20/24 08:15 Pantoprazole Sodium 40 mg DAILY IV 11/21/24 10:00 11/22/24 10:42 40 MG Thiamine HCl 100 mg DAILY IV 11/21/24 10:00 11/22/24 10:40 100 MG Folic Acid 1 mg/ Dextrose 50.2 ml @ 200.8 mls/ hr DAILY INJ 11/21/24 10:00 11/22/24 12:22 200.8 MLS/HR Enoxaparin Sodium 90 mg Q12HR SC 11/21/24 22:00 11/22/24 10:46 90 MG Doxycycline Hyclate 100 ml @ 50 mls/hr Q12H IV 11/21/24 16:30 11/22/24 17:35 50 MLS/HR Furosemide 40 mg Q8HR IV 11/22/24 14:00 11/22/24 15:28 40 MG Enteral Nutritional Formula 1,000 ml 30ML/HR GT 11/22/24 20:15 objective GENERAL: Ill appearing, intubated on ventilator. EYES: PERRL, EOMI. Anicteric. HENT: Moist mucous membranes. LUNGS: Decreased breath sounds. CARDIOVASCULAR: Irregular rate and rhythm. ABDOMEN: Soft, nontender and nondistended.Indwelling urinary catheter. EXTREMITIES: No edema. SKIN: Warm, dry. laboratory and microbiology Laboratory Tests 11/22/24 03:40 Test 11/22/24 03:40 Range/Units Serum Glucose 132 H 74-106 mg/dL Problem List A Fib with RVR. ? history of A fib. CAD s/p PCI. CHF. Toxic encephalopathy with hx of ETOH abuse. BHUPINDER on CKD. History of Hypertension, currently hypotensive on vasopressor. Diabetes type 2. Hyperlipidemia. History of CVA. Assessment/Plan Continued all current supportive medical care. IV antibiotics as ordered. DVT and GI prophylactics. Diuretics with Lasix. Vasopressors for hemodynamic support. Additional plan as per the hospital course. Critical care time of 45 minutes provided to include time spent evaluation of patient at bedside, when appropriate patient/family education for diagnosis, treatment plan, review of pertinent medical information and discussion of care with specialty providers and PCP. Mechanical ventilator parameters, treatment and adjustments have personally been reviewed by me and treatment plan by live in caregiver has also been reviewed. Dietary Evaluation Review Comments: 1. Suggest EN formula Vital AF 1.2 @ 50 ml/hr (GOAL). Begin at 10 ml/hr, advance by 10 ml Q4 hrs or as tolerated to goal-rate of 50 ml/hr 2. Provide free water flushes of 30 ml Q6 hrs (120 ml total); adjust PRN 3. Monitor BMP/lytes and replete to WNL/PRN 4. Agree with continuation of folate, thiamine due to ETOH abuse TF Provision: TF at goal to provide 1200 ml total volume, 1440 kcal (+204 kcal via propofol = 1644 kcal), 90 gm pro, 6 gm fiber, 973 ml H20 (meets 100% est. kcal needs, 100% est. pro needs) Expected Outcomes/Goals: Improved hemodynamic stability, weight maintenance, adequate nutrition. Plan discussed with: Other RUBIO YUNG MD Nov 22, 2024 21:26
[2024-11-23] VITALS (122 sets, daily range): BP systolic 96–195; BP diastolic 5–88; PULSE 37–74; RESP 20–23; TEMP 97.9–99; O2SAT 88–97
--- NOTE | 2024-11-23 04:13 | DVH ---
INDICATION: sob TECHNIQUE: Frontal view of the chest. COMPARISON: XY POST PROCEDURE CHEST on DOS: 11/22/24, XY CHEST PORTABLE on DOS: 11/22/24, XY CHEST PORT ABLE on DOS: 11/21/24, XY CHEST XRAY 1 VIEW on DOS: 11/20/24, XY CHEST PORTABLE on DOS: 11/20/24, XY POS T PROCEDURE CHEST on DOS: 11/22/24 FINDINGS: LUNGS AND PLEURAL SPACES: See below. HEART: Cardiomegaly with mild congestion. MEDIASTINUM: Unremarkable. Normal mediastinal contour. BONES/JOINTS: Unremarkable. No acute fracture. TUBES, LINES AND DEVICES: The endotracheal tube (ETT) is in satisfactory position. Enteric tube ti p in the stomach. IMPRESSION: Cardiomegaly with mild congestion.
[2024-11-23 04:16] LABS: Basophils # (auto) 0 10 ^3/uL (0-0.2); Basophils % (auto) 0.1 % (0.0-2.0); Eosinophils # (auto) 0 10 ^3/uL (0-0.8); Hematocrit 47.6 % (41.0-53.0); Lymphocytes # (auto) 0.8 10 ^3/uL (0.4-5.4); Lymphocytes % (auto) 7.3 % (10.0-50.0); Mean Corpuscular Hemoglobin 30.2 pg (28.0-32.0); Mean Corpuscular Hgb Conc. 33.6 g/dL (32.0-36.0); Mean Corpuscular Volume 89.7 fL (80.0-100.0); Monocytes # (auto) 0.3 10 ^3/uL (0-1.3); Monocytes % (auto) 2.5 % (0.0-12.0); Neutrophils # (auto) 9.5 10 ^3/uL (1.6-8.6); Neutrophils % (auto) 90.1 % (37.0-80.0); Nucleated Red Blood Cells % 0.1 %; Platelet Count (auto) 143 10^3/uL (140-450); Red Blood Cells 5.31 10^6/uL (4.5-5.90); Red Cell Distribution Width 14.4 % (11.8-14.3); White Blood Cell 10.5 10^3/uL (4.4-10.8)
[2024-11-23 04:46] LABS: Albumin 3.4 g/dL (3.2-4.8); Alkaline Phosphatase 75 U/L (46-116); Anion Gap 11 (5-15); BUN/Creatinine Ratio 17.4 (10.0-20.0); Magnesium 2.3 mg/dL (1.6-2.6); Sodium 141 mmol/L (136-145); Total Protein 5.9 g/dL (5.7-8.2)
[2024-11-23 04:47] LABS: Bilirubin, Total 0.6 mg/dL (0.2-1.0)
[2024-11-23 04:48] LABS: Alanine Aminotransferase 108 U/L (7-40); Aspartate Aminotransferase 108 U/L (13-40); Blood Urea Nitrogen 34 mg/dL (9-23); Carbon Dioxide 20 mmol/L (20-31); Chloride 110 mmol/L (98-107); Glucose 209 mg/dL (74-106)
[2024-11-23] MEDS ORDERED: DEXTROSE (50%) 50ML SYRG IV PRN (06:45)
[2024-11-23] MEDS: DexAMETHasone SOD PHOS 10MG/1ML VIAL INJ IV ONE (06:54)
[2024-11-23 08:12] LABS: Base Excess -5.4 mmol/L (-2.0-3.0)
[2024-11-23] MEDS: INSULIN LANTUS (GLARGINE) 1 /0.01ml (100units/ml) SC SCH (10:19)
[2024-11-23] MEDS: ACCU-CHEK COMFORT CURVE STRIP VI SCH (12:08)
[2024-11-23] MEDS: LACTULOSE 20Gm/30ML SOLN PO ONE (12:08)
[2024-11-23] MEDS: InsuLIN REG 1unit/0.01ml Soln (100units/ml) SC SCH (12:11)
[2024-11-23] MEDS: cefTAZidime 2GM/NS 50 ML IV SCH (14:23)
[2024-11-23] MEDS ORDERED: DOPamine 1600MCG/ML D5W 250 ML IV SCH ×2 (16:00→17:15)
--- NOTE | 2024-11-23 17:43 | DVHPN2 ---
Progress Note Date Seen: Nov 23, 2024 Has the PT tested + for MRSA If YES, has PT been informed?: No Medical Necessity Reason Pt with a Central, PICC or Fol: Yes The following are medically ne: Central Line, El Catheter Subjective Review of Systems: Deferred Objective vital signs Vital Sign Date Time Temp Pulse Resp B/P (MAP) Pulse Ox O2 Delivery O2 Flow Rate FiO2 11/23/24 16:00 22 93 Mechanical Ventilator+ 65 65 11/23/24 16:00 40 11/23/24 15:59 127/63 (84) 11/23/24 12:01 98.0 98.0 Total Intake and Output 11/22/24 11/22/24 11/23/24 15:00 23:00 07:00 Intake Total 288.7 ml 388.0 ml 554.5 ml Output Total 1075 ml 600 ml Balance 288.7 ml -687.0 ml -45.5 ml medications Current Medications Medications Dose Ordered Sig/Amy Route Start Time Stop Time Status Last Admin Dose Admin Midazolam HCl 50 ml @ 1 mls/hr Q24H IV 11/20/24 03:30 11/23/24 10:21 2 MLS/HR Fentanyl Citrate 250 ml @ 2.5 mls/hr Q24H IV 11/20/24 03:30 11/22/24 20:16 10 MLS/HR Norepinephrine Bitartrate 250 ml @ 3.75 mls/hr Q24H IV 11/20/24 06:15 11/20/24 23:21 11.25 MLS/HR Pantoprazole Sodium 40 mg DAILY IV 11/21/24 10:00 11/23/24 10:08 40 MG Thiamine HCl 100 mg DAILY IV 11/21/24 10:00 11/23/24 10:07 100 MG Folic Acid 1 mg/ Dextrose 50.2 ml @ 200.8 mls/ hr DAILY INJ 11/21/24 10:00 11/23/24 10:07 200.8 MLS/HR Enoxaparin Sodium 90 mg Q12HR SC 11/21/24 22:00 11/23/24 10:08 90 MG Furosemide 40 mg Q8HR IV 11/22/24 14:00 11/23/24 14:22 40 MG Enteral Nutritional Formula 1,000 ml 30ML/HR GT 11/22/24 20:15 Diagnostic Test (Pha) 1 strip Q6HR 11/23/24 12:00 11/23/24 12:08 1 STRIP Insulin Human Regular Q6HR SC 11/23/24 12:00 11/23/24 12:11 3 UNITS Dextrose 50 ml UD PRN IV 11/23/24 06:45 Insulin Glargine 18 units DAILY@1000 SC 11/23/24 10:00 11/23/24 10:19 18 UNITS Sodium Chloride 10 ml QSHIFT@10,22 IV 11/23/24 22:00 Cefepime HCl 50 ml @ 12.5 mls/hr Q12HR IV 11/23/24 22:00 Dopamine HCl/ Dextrose 250 ml @ 17.269 mls/ hr [id number] IV 11/23/24 17:15 UNV Examination: GENERAL:Abnormal, CVS:Abnormal, ABDOMEN:Abnormal, SKIN:Abnormal laboratory and microbiology Laboratory Tests 11/23/24 03:00 Test 11/23/24 03:00 Range/Units Serum Glucose 209 H 74-106 mg/dL Microbiology Date/Time Source Procedure Growth Status 11/20/24 21:31 Nose MRSA Screen - Final Complete 11/20/24 04:05 Blood Blood Culture - Preliminary NO GROWTH AFTER 72 HOURS OF INCUBATION. Resulted 11/20/24 03:37 Sputum Gram Stain - Final Complete 11/20/24 03:37 Respiratory Culture - Final Enterobacter cloacae Complete Problem List/Assessment/Plan Problem List/Assessment/Plan Acute kidney injury ckd etoh intoxication bradycardia AMS acute respiratory failure decompensated HF EF 30% continue diuretics noted HR 40s, dopamine started goal negative balance 1-2L net each day fluid restriction Ultrasound of the kidney showed right kidney is 10.6 cm left kidney is 8.6 cm the echogenicity of the kidneys were normal pressors to keep map 65 Plan discussed with: Spouse My Orders My Orders Orders - SEBAS BLANDON MD Procedure Category Date Status Time Communication Order ORDERS 11/23/24 Transmitted 08:28 Dietary Evaluation Review Comments: 1. Suggest EN formula Vital AF 1.2 @ 50 ml/hr (GOAL). Begin at 10 ml/hr, advance by 10 ml Q4 hrs or as tolerated to goal-rate of 50 ml/hr 2. Provide free water flushes of 30 ml Q6 hrs (120 ml total); adjust PRN 3. Monitor BMP/lytes and replete to WNL/PRN 4. Agree with continuation of folate, thiamine due to ETOH abuse TF Provision: TF at goal to provide 1200 ml total volume, 1440 kcal (+204 kcal via propofol = 1644 kcal), 90 gm pro, 6 gm fiber, 973 ml H20 (meets 100% est. kcal needs, 100% est. pro needs) Expected Outcomes/Goals: Improved hemodynamic stability, weight maintenance, adequate nutrition. Critical Care Time (mins): 36 SEBAS BLANDON MD Nov 23, 2024 17:43
--- NOTE | 2024-11-23 18:17 | DVHPNRES ---
Progress Note Date Seen: Nov 23, 2024 Resident Creating Document: GUERO BLOUNT RESIDENT Has the PT tested + for MRSA If YES, has PT been informed?: No Medical Necessity Reason Pt with a Central, PICC or Fol: Yes The following are medically ne: Central Line, El Catheter Subjective Review of Systems On my assessment, patient was seen and examined at bedside. He remains intubated, sedated. Pt has sinus bradycardia, no pauses observed ekg shows t wave inversion in lateral leads, consulted cardiology. Objective vital signs Vital Sign Date Time Temp Pulse Resp B/P (MAP) Pulse Ox O2 Delivery O2 Flow Rate FiO2 11/23/24 16:00 22 93 Mechanical Ventilator+ 65 65 11/23/24 16:00 40 11/23/24 15:59 127/63 (84) 11/23/24 12:01 98.0 98.0 Total Intake and Output 11/22/24 11/22/24 11/23/24 15:00 23:00 07:00 Intake Total 288.7 ml 388.0 ml 554.5 ml Output Total 1075 ml 600 ml Balance 288.7 ml -687.0 ml -45.5 ml medications Current Medications Medications Dose Ordered Sig/Amy Route Start Time Stop Time Status Last Admin Dose Admin Midazolam HCl 50 ml @ 1 mls/hr Q24H IV 11/20/24 03:30 11/23/24 10:21 2 MLS/HR Fentanyl Citrate 250 ml @ 2.5 mls/hr Q24H IV 11/20/24 03:30 11/22/24 20:16 10 MLS/HR Norepinephrine Bitartrate 250 ml @ 3.75 mls/hr Q24H IV 11/20/24 06:15 11/20/24 23:21 11.25 MLS/HR Pantoprazole Sodium 40 mg DAILY IV 11/21/24 10:00 11/23/24 10:08 40 MG Thiamine HCl 100 mg DAILY IV 11/21/24 10:00 11/23/24 10:07 100 MG Folic Acid 1 mg/ Dextrose 50.2 ml @ 200.8 mls/ hr DAILY INJ 11/21/24 10:00 11/23/24 10:07 200.8 MLS/HR Enoxaparin Sodium 90 mg Q12HR SC 11/21/24 22:00 11/23/24 10:08 90 MG Furosemide 40 mg Q8HR IV 11/22/24 14:00 11/23/24 14:22 40 MG Enteral Nutritional Formula 1,000 ml 30ML/HR GT 11/22/24 20:15 Diagnostic Test (Pha) 1 strip Q6HR 11/23/24 12:00 11/23/24 12:08 1 STRIP Insulin Human Regular Q6HR SC 11/23/24 12:00 11/23/24 12:11 3 UNITS Dextrose 50 ml UD PRN IV 11/23/24 06:45 Insulin Glargine 18 units DAILY@1000 SC 11/23/24 10:00 11/23/24 10:19 18 UNITS Sodium Chloride 10 ml QSHIFT@10,22 IV 11/23/24 22:00 Cefepime HCl 50 ml @ 12.5 mls/hr Q12HR IV 11/23/24 22:00 Examination Physical examination as below: General: sedated and intubated HEENT: Head is normocephalic and atraumatic. Pupils are equal, round, and reactive to light. Neck: Supple with no cervical lymphadenopathy. Heart: Regular rate without murmur, rub, or gallop. Lungs: scattered crackles Abdomen: No external sign of injury. Bowel sounds are present. Abdomen is soft, nontender. Extremities: Strong peripheral pulses. There is no clubbing, no cyanosis, and no edema. Skin: No rash. Neurologic: sedated laboratory and microbiology Laboratory Tests 11/23/24 03:00 Test 11/23/24 03:00 Range/Units Serum Glucose 209 H 74-106 mg/dL Microbiology Date/Time Source Procedure Growth Status 11/20/24 21:31 Nose MRSA Screen - Final Complete 11/20/24 04:05 Blood Blood Culture - Preliminary NO GROWTH AFTER 72 HOURS OF INCUBATION. 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 #NSTEMI likely type 2, due to septic shock Therapeutic lovenox echo shows ef 30% Lasix 40mg iv tid Director Case following Pulmonology #Acute hypoxic respiratory failure, on Mechanical ventilation #Aspiration pneumonia likely ; Gram-negative, growing enterobacter #atelectasis On cefepime On MV: PEEP 5, FIO2 70% RR 20 TV 500 wane down fio2 as tolerated Nephrology #Anion gap metabolic acidosis #BHUPINDER due to VMN continue diuresing urine studies sent nephrology following Endocrinology #Type 2 diabetes #Obesity #Mixed dyslipidemia SSI mild Gastroenterology Nutrition Start glucerna thru ng #constipation lactulose Hematology and Oncology x Infectious Disease #Aspiration pneumonia likely ; Gram-negative Gram-positive #Septic shock due to above #Lactic Acidosis Levo on standby cefepime IV Dermatology x DVT ppx Therapeutic lovenox PUD ppx Protonix Drips Versed Fent Prop Lines ET tube 11/20/24, exchanged on 11/22/24 TLC right femoral 11/20/24, removed, ordered picc line placed 11/23/24 Goals of care were discussed for 33 minutes. FULL CODE. Critical care time spent outside of procedures: 81 mins Case was discussed with Dr. Ny Plan discussed with: Spouse, Other (RN) My Orders My Orders Orders - GUERO BLOUNT RESIDENT Procedure Category Date Status Time Chest Portable XY 11/23/24 Resulted 04:00 Abg W/ Co-Ox RT 11/23/24 Logged 04:00 Nutritional PHA 11/22/24 In Process Supplements (Glucerna 20:15 Glucose Blood PHA 11/23/24 In Process (Accu-Chek Comfort 12:00 Insulin R (Human) PHA 11/23/24 In Process (Insulin R) 12:00 Dextrose 50% Syringe PHA 11/23/24 In Process 06:45 Insulin Lantus PHA 11/23/24 In Process (Glargine) (Lantus) 10:00 Us Guided Vascular US 11/23/24 Logged Access 15:30 Nursing Protocol Picc PETE 11/23/24 In Process 15:30 Change Dressing Prn PETE 11/23/24 In Process 15:30 Sodium Chloride Lock PHA 11/23/24 In Process (Saline Lock Ns) 22:00 Do Not Use Picc For PETE 11/23/24 In Process Blood Cult 15:30 May Draw Blood From PETE 11/23/24 In Process Picc 15:30 Ok To Use Picc PETE 11/23/24 In Process 15:30 Change Picc Dressing PETE 11/23/24 In Process Q7 Days 15:30 Cefepime 2gm/50ml Ns PHA 11/23/24 In Process (Maxipime 2gm/50ml) 22:00 Complete Blood Count LAB 11/24/24 Verified 04:00 Comprehensive LAB 11/24/24 Verified Metabolic Panel 04:00 Magnesium LAB 11/24/24 Verified 04:00 Chest Portable XY 11/24/24 Logged 04:00 Troponin-I Hs LAB 11/24/24 Verified 04:00 Dietary Evaluation Review Comments: 1. Suggest EN formula Vital AF 1.2 @ 50 ml/hr (GOAL). Begin at 10 ml/hr, advance by 10 ml Q4 hrs or as tolerated to goal-rate of 50 ml/hr 2. Provide free water flushes of 30 ml Q6 hrs (120 ml total); adjust PRN 3. Monitor BMP/lytes and replete to WNL/PRN 4. Agree with continuation of folate, thiamine due to ETOH abuse TF Provision: TF at goal to provide 1200 ml total volume, 1440 kcal (+204 kcal via propofol = 1644 kcal), 90 gm pro, 6 gm fiber, 973 ml H20 (meets 100% est. kcal needs, 100% est. pro needs) Expected Outcomes/Goals: Improved hemodynamic stability, weight maintenance, adequate nutrition. Date of Service: Nov 23, 2024 Billing Provider: GUERRERO NY MD Common Visit Codes: [id number] CARE 30-74 MIN, [id number] CARE-EACH +30MIN GUERO BLOUNT Nov 23, 2024 18:17 GUERRERO NY MD Nov 24, 2024 12:00
[2024-11-23] MEDS: LIDOCAINE 1% (LOCAL ANESTH.) PF 5ml SDV ID ONE (19:25)
[2024-11-23] MEDS: CEFEPIME 2GM/50ML NS 50 ML IV SCH (22:33)
[2024-11-23] MEDS: SODIUM CHLOR 0.9% PF (SALINE LOCK) 10ML VIAL/SYR IV SCH (22:33)
--- NOTE | 2024-11-23 22:47 | DVHPN2 ---
Progress Note - Dictate Date Seen: Nov 23, 2024 Has the PT tested + for MRSA If YES, has PT been informed?: No Medical Necessity Reason Pt with a Central, PICC or Fol: Yes The following are medically ne: Central Line, El Catheter Subjective Patient was seen and evaluated in follow up in the ICU. Patient is intubated and sedated on ventilator. 65% FiO2. Patient has sinus bradycardia, no pauses. EKG shows T wave inversion in lateral leads. BUN 34, FILE MACHINE OPERATOR 1.95, AST 108, ALT 108. Chest x-ray shows cardiomegaly with mild congestion. vital signs Vital Sign Date Time Temp Pulse Resp B/P (MAP) Pulse Ox O2 Delivery O2 Flow Rate FiO2 11/23/24 12:16 42 22 128/67 (87) 90 11/23/24 12:01 98.0 98.0 11/23/24 12:00 65 11/23/24 12:00 Mechanical Ventilator+ Total Intake and Output 11/22/24 11/22/24 11/23/24 15:00 23:00 07:00 Intake Total 288.7 ml 388.0 ml 554.5 ml Output Total 1075 ml 600 ml Balance 288.7 ml -687.0 ml -45.5 ml medications Current Medications Medications Dose Ordered Sig/Amy Route Start Time Stop Time Status Last Admin Dose Admin Midazolam HCl 50 ml @ 1 mls/hr Q24H IV 11/20/24 03:30 11/23/24 10:21 2 MLS/HR Fentanyl Citrate 250 ml @ 2.5 mls/hr Q24H IV 11/20/24 03:30 11/22/24 20:16 10 MLS/HR Norepinephrine Bitartrate 250 ml @ 3.75 mls/hr Q24H IV 11/20/24 06:15 11/20/24 23:21 11.25 MLS/HR Pantoprazole Sodium 40 mg DAILY IV 11/21/24 10:00 11/23/24 10:08 40 MG Thiamine HCl 100 mg DAILY IV 11/21/24 10:00 11/23/24 10:07 100 MG Folic Acid 1 mg/ Dextrose 50.2 ml @ 200.8 mls/ hr DAILY INJ 11/21/24 10:00 11/23/24 10:07 200.8 MLS/HR Enoxaparin Sodium 90 mg Q12HR SC 11/21/24 22:00 11/23/24 10:08 90 MG Doxycycline Hyclate 100 ml @ 50 mls/hr Q12H IV 11/21/24 16:30 11/23/24 04:00 50 MLS/HR Furosemide 40 mg Q8HR IV 11/22/24 14:00 11/23/24 06:22 40 MG Enteral Nutritional Formula 1,000 ml 30ML/HR GT 11/22/24 20:15 Ceftazidime/ Dextrose 50 ml @ 12.5 mls/hr Q12H IV 11/23/24 14:00 Diagnostic Test (Pha) 1 strip Q6HR 11/23/24 12:00 11/23/24 12:08 1 STRIP Insulin Human Regular Q6HR SC 11/23/24 12:00 11/23/24 12:11 3 UNITS Dextrose 50 ml UD PRN IV 11/23/24 06:45 Insulin Glargine 18 units DAILY@1000 SC 11/23/24 10:00 11/23/24 10:19 18 UNITS objective GENERAL: Ill appearing, intubated on ventilator. EYES: PERRL, EOMI. Anicteric. HENT: Moist mucous membranes. LUNGS: Decreased breath sounds. CARDIOVASCULAR: Irregular rate and rhythm. ABDOMEN: Soft, nontender and nondistended.Indwelling urinary catheter. EXTREMITIES: No edema. SKIN: Warm, dry. laboratory and microbiology Laboratory Tests 11/23/24 03:00 Test 11/23/24 03:00 Range/Units Serum Glucose 209 H 74-106 mg/dL Problem List A Fib with RVR. ? history of A fib. CAD s/p PCI. CHF. Toxic encephalopathy with hx of ETOH abuse. BHUPINDER on CKD. History of Hypertension, currently hypotensive on vasopressor. Diabetes type 2. Hyperlipidemia. History of CVA. Assessment/Plan Continued all current supportive medical care. IV antibiotics as ordered. DVT and GI prophylactics. Diuretics with Lasix. Vasopressors for hemodynamic support. Additional plan as per the hospital course. Critical care time of 45 minutes provided to include time spent evaluation of patient at bedside, when appropriate patient/family education for diagnosis, treatment plan, review of pertinent medical information and discussion of care with specialty providers and PCP. Mechanical ventilator parameters, treatment and adjustments have personally been reviewed by me and treatment plan by ham rolling machine operator has also been reviewed. Dietary Evaluation Review Comments: 1. Suggest EN formula Vital AF 1.2 @ 50 ml/hr (GOAL). Begin at 10 ml/hr, advance by 10 ml Q4 hrs or as tolerated to goal-rate of 50 ml/hr 2. Provide free water flushes of 30 ml Q6 hrs (120 ml total); adjust PRN 3. Monitor BMP/lytes and replete to WNL/PRN 4. Agree with continuation of folate, thiamine due to ETOH abuse TF Provision: TF at goal to provide 1200 ml total volume, 1440 kcal (+204 kcal via propofol = 1644 kcal), 90 gm pro, 6 gm fiber, 973 ml H20 (meets 100% est. kcal needs, 100% est. pro needs) Expected Outcomes/Goals: Improved hemodynamic stability, weight maintenance, adequate nutrition. Plan discussed with: RUBIO Briseno MD Nov 23, 2024 13:33
[2024-11-24] VITALS (114 sets, daily range): BP systolic 93–189; BP diastolic 48–99; PULSE 38–80; RESP 6–36; TEMP 97.8–98.8; O2SAT 84–99
[2024-11-24 04:07] LABS: Basophils # (auto) 0 10 ^3/uL (0-0.2); Basophils % (auto) 0.1 % (0.0-2.0); Eosinophils # (auto) 0 10 ^3/uL (0-0.8); Hematocrit 47.9 % (41.0-53.0); Hemoglobin 16.2 g/dL (13.5-17.5); Lymphocytes % (auto) 7.5 % (10.0-50.0); Mean Corpuscular Hemoglobin 30.1 pg (28.0-32.0); Mean Corpuscular Hgb Conc. 33.8 g/dL (32.0-36.0); Monocytes # (auto) 0.7 10 ^3/uL (0-1.3); Monocytes % (auto) 5.3 % (0.0-12.0); Neutrophils # (auto) 11.1 10 ^3/uL (1.6-8.6); Neutrophils % (auto) 87.1 % (37.0-80.0); Nucleated Red Blood Cells % 0.3 %; Platelet Count (auto) 143 10^3/uL (140-450); Red Blood Cells 5.38 10^6/uL (4.5-5.90); Red Cell Distribution Width 14.4 % (11.8-14.3); White Blood Cell 12.8 10^3/uL (4.4-10.8)
--- NOTE | 2024-11-24 05:53 | DVH ---
EXAM: XR Chest, 1 View CLINICAL INDICATION: sob TECHNIQUE: Frontal view of the chest. COMPARISON: XY CHEST PORTABLE on DOS: 11/23/24, XY POST PROCEDURE CHEST on DOS: 11/22/24, XY CHEST PO RTABLE on DOS: 11/22/24, XY CHEST PORTABLE on DOS: 11/21/24, XY CHEST XRAY 1 VIEW on DOS: 11/20/24 FINDINGS: LUNGS AND PLEURAL SPACES: See below. HEART: Cardiomegaly with mild congestion. MEDIASTINUM: Unremarkable. Normal mediastinal contour. BONES/JOINTS: Unremarkable. No acute fracture. TUBES, LINES AND DEVICES: Right peripherally inserted central catheter (PICC) tip in the superior v chely cava. The endotracheal tube (ETT) is in satisfactory position. Enteric tube tip in the stomach. OTHER FINDINGS: . . . IMPRESSION: Cardiomegaly with mild congestion.
--- NOTE | 2024-11-24 06:32 | DVHPNRES ---
Progress Note Date Seen: Nov 24, 2024 Resident Creating Document: GUERO BLOUNT RESIDENT Has the PT tested + for MRSA If YES, has PT been informed?: No Medical Necessity Reason Pt with a Central, PICC or Fol: Yes The following are medically ne: Central Line, El Catheter Subjective Review of Systems On my assessment, patient was seen and examined at bedside. He remains intubated, sedated. Pt has sinus bradycardia, no pauses observed ekg shows t wave inversion in lateral leads, consulted cardiology, LHC/AICD placement today. Objective vital signs Vital Sign Date Time Temp Pulse Resp B/P (MAP) Pulse Ox O2 Delivery O2 Flow Rate FiO2 11/24/24 06:07 137/77 11/24/24 06:01 49 22 95 11/24/24 06:00 Mechanical Ventilator+ 65 65 11/24/24 03:31 98.8 98.8 Total Intake and Output 11/23/24 11/23/24 11/24/24 15:00 23:00 07:00 Intake Total 149.2 ml 196.5 ml 278.5 ml Output Total 1050 ml 700 ml Balance 149.2 ml -853.5 ml -421.5 ml medications Current Medications Medications Dose Ordered Sig/Amy Route Start Time Stop Time Status Last Admin Dose Admin Midazolam HCl 50 ml @ 1 mls/hr Q24H IV 11/20/24 03:30 11/24/24 00:50 3 MLS/HR Fentanyl Citrate 250 ml @ 2.5 mls/hr Q24H IV 11/20/24 03:30 11/23/24 18:28 15 MLS/HR Norepinephrine Bitartrate 250 ml @ 3.75 mls/hr Q24H IV 11/20/24 06:15 11/20/24 23:21 11.25 MLS/HR Pantoprazole Sodium 40 mg DAILY IV 11/21/24 10:00 11/23/24 10:08 40 MG Thiamine HCl 100 mg DAILY IV 11/21/24 10:00 11/23/24 10:07 100 MG Folic Acid 1 mg/ Dextrose 50.2 ml @ 200.8 mls/ hr DAILY INJ 11/21/24 10:00 11/23/24 10:07 200.8 MLS/HR Furosemide 40 mg Q8HR IV 11/22/24 14:00 11/24/24 06:07 40 MG Enteral Nutritional Formula 1,000 ml 30ML/HR GT 11/22/24 20:15 Diagnostic Test (Pha) 1 strip Q6HR 11/23/24 12:00 11/24/24 05:56 1 STRIP Insulin Human Regular Q6HR SC 11/23/24 12:00 11/24/24 05:55 2 UNITS Dextrose 50 ml UD PRN IV 11/23/24 06:45 Sodium Chloride 10 ml QSHIFT@10,22 IV 11/23/24 22:00 11/23/24 22:33 10 ML Cefepime HCl 50 ml @ 12.5 mls/hr Q12HR IV 11/23/24 22:00 11/23/24 22:33 12.5 MLS/HR Examination Physical examination as below: General: sedated and intubated HEENT: Head is normocephalic and atraumatic. Pupils are equal, round, and reactive to light. Neck: Supple with no cervical lymphadenopathy. Heart: Regular rate without murmur, rub, or gallop. Lungs: scattered crackles Abdomen: No external sign of injury. Bowel sounds are present. Abdomen is soft, nontender. Extremities: Strong peripheral pulses. There is no clubbing, no cyanosis, and no edema. Skin: No rash. Neurologic: sedated laboratory and microbiology Laboratory Tests 11/24/24 03:15 11/23/24 03:00 Test 11/23/24 03:00 Range/Units Serum Glucose 209 H 74-106 mg/dL Microbiology Date/Time Source Procedure Growth Status 11/20/24 21:31 Nose MRSA Screen - Final Complete 11/20/24 04:05 Blood Blood Culture - Preliminary NO GROWTH AFTER 72 HOURS OF INCUBATION. 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 #NSTEMI likely type 2, due to septic shock Therapeutic lovenox echo shows ef 30% Lasix 40mg iv tid Supervisor [employer] 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 and AICD placement today 11/24/24 Pulmonology #Acute hypoxic respiratory failure, on Mechanical ventilation #Aspiration pneumonia likely ; Gram-negative, growing enterobacter #atelectasis On cefepime On MV: PEEP 5, FIO2 65% RR 20 TV 500 wane down fio2 as tolerated Nephrology #Anion gap metabolic acidosis #BHUPINDER due to VMN continue diuresing urine studies sent nephrology following Endocrinology #Type 2 diabetes #Obesity #Mixed dyslipidemia SSI mild Gastroenterology Nutrition continue glucerna thru ng #constipation lactulose Hematology and Oncology x Infectious Disease #Aspiration pneumonia likely ; Gram-negative Gram-positive #Septic shock due to above #Lactic Acidosis Levo on standby cefepime IV Dermatology x DVT ppx Therapeutic lovenox PUD ppx Protonix Drips Versed Fent Prop Lines ET tube 11/20/24, exchanged on 11/22/24 picc line placed 11/23/24 Goals of care were discussed for 33 minutes. FULL CODE. Critical care time spent outside of procedures: 83 mins Case was discussed with Dr. Ny Plan discussed with: Spouse, Other (RN) My Orders My Orders Orders - GUERO BLOUNT RESIDENT Procedure Category Date Status Time Glucose Blood PHA 11/23/24 In Process (Accu-Chek Comfort 12:00 Insulin R (Human) PHA 11/23/24 In Process (Insulin R) 12:00 Dextrose 50% Syringe PHA 11/23/24 In Process 06:45 Us Guided Vascular US 11/23/24 Logged Access 15:30 Nursing Protocol Picc PETE 11/23/24 In Process 15:30 Change Dressing Prn PETE 11/23/24 In Process 15:30 Sodium Chloride Lock PHA 11/23/24 In Process (Saline Lock Ns) 22:00 Do Not Use Picc For PETE 11/23/24 In Process Blood Cult 15:30 May Draw Blood From PETE 11/23/24 In Process Picc 15:30 Ok To Use Picc PETE 11/23/24 In Process 15:30 Change Picc Dressing PETE 11/23/24 In Process Q7 Days 15:30 Cefepime 2gm/50ml Ns PHA 11/23/24 In Process (Maxipime 2gm/50ml) 22:00 Comprehensive LAB 11/24/24 Logged Metabolic Panel 04:00 Magnesium LAB 11/24/24 Logged 04:00 Chest Portable XY 11/24/24 Resulted 04:00 Dietary Evaluation Review Comments: 1. Suggest EN formula Vital AF 1.2 @ 50 ml/hr (GOAL). Begin at 10 ml/hr, advance by 10 ml Q4 hrs or as tolerated to goal-rate of 50 ml/hr 2. Provide free water flushes of 30 ml Q6 hrs (120 ml total); adjust PRN 3. Monitor BMP/lytes and replete to WNL/PRN 4. Agree with continuation of folate, thiamine due to ETOH abuse TF Provision: TF at goal to provide 1200 ml total volume, 1440 kcal (+204 kcal via propofol = 1644 kcal), 90 gm pro, 6 gm fiber, 973 ml H20 (meets 100% est. kcal needs, 100% est. pro needs) Expected Outcomes/Goals: Improved hemodynamic stability, weight maintenance, adequate nutrition. Date of Service: Nov 24, 2024 Billing Provider: GUERRERO NY MD Common Visit Codes: [id number] CARE 30-74 MIN, [id number] CARE-EACH +30MIN GUERO BLOUNT RESIDENT Nov 24, 2024 06:32 GUERRERO NY MD Nov 26, 2024 12:44
[2024-11-24 07:03] LABS: Base Excess -3.3 mmol/L (-2.0-3.0)
[2024-11-24 07:30] LABS: Albumin 3.6 g/dL (3.2-4.8); Alkaline Phosphatase 59 U/L (46-116); Anion Gap 12 (5-15); Carbon Dioxide 20 mmol/L (20-31); Magnesium 2.3 mg/dL (1.6-2.6); Potassium 3.6 mmol/L (3.5-5.1); Sodium 144 mmol/L (136-145); Total Protein 6.1 g/dL (5.7-8.2)
[2024-11-24 07:36] LABS: Alanine Aminotransferase 76 U/L (7-40); Aspartate Aminotransferase 57 U/L (13-40); Bilirubin, Total 0.3 mg/dL (0.2-1.0); Blood Urea Nitrogen 42 mg/dL (9-23); Chloride 112 mmol/L (98-107); Glucose 150 mg/dL (74-106)
[2024-11-24] MEDS: metOLazone 5 MG TAB PO ONE (08:20)
--- NOTE | 2024-11-24 08:41 | ECG ---
[facility] Test Date: 2024-11-23 Test Time: 08:56:01 Pat Name: ELISEO DOUGLAS Department: ICU Room: [address] [place] [address] Gender: M Monitoring Manager: Ash Garay : 1955 Requested By: PHILLIP WALSH Order Number: [id number] Reading MD: Faustino Toth Measurements Intervals Dinosaur Rate: 48 P: -7 WY: 172 QRS: -2 QRSD: 119 T: 160 QT: 480 QTc: 429 Interpretive Statements Sinus bradycardia Nonspecific intraventricular conduction delay Abnormal T, consider ischemia, lateral leads Electronically Signed On 11-27-2024 19:57:45 PDT by Faustino Toth Please click the below link to view image of tracing.
[2024-11-24] MEDS: PROPOFOL 100 ML IV SCH (12:10)
[2024-11-24] MEDS: ROCURONIUM 10MG/ML 10ML VIAL IV ONE ×2 (12:24→12:28)
[2024-11-24] MEDS: PROPOFOL 100 ML IV ONE (12:28)
--- NOTE | 2024-11-24 15:44 | DVHPN2 ---
Progress Note Date Seen: Nov 24, 2024 Has the PT tested + for MRSA If YES, has PT been informed?: No Medical Necessity Reason Pt with a Central, PICC or Fol: Yes The following are medically ne: Central Line, El Catheter Subjective Patient reports: Other (intubated, bradycardia) Review of Systems: Deferred Objective vital signs Vital Sign Date Time Temp Pulse Resp B/P (MAP) Pulse Ox O2 Delivery O2 Flow Rate FiO2 11/24/24 15:02 52 16 120/59 (79) 97 11/24/24 14:00 65 11/24/24 14:00 Mechanical Ventilator+ 11/24/24 12:02 98.1 98.1 Total Intake and Output 11/23/24 11/23/24 11/24/24 15:00 23:00 07:00 Intake Total 149.2 ml 196.5 ml 294.0 ml Output Total 1050 ml 700 ml Balance 149.2 ml -853.5 ml -406.0 ml medications Current Medications Medications Dose Ordered Sig/Amy Route Start Time Stop Time Status Last Admin Dose Admin Midazolam HCl 50 ml @ 1 mls/hr Q24H IV 11/20/24 03:30 11/24/24 11:26 5 MLS/HR Fentanyl Citrate 250 ml @ 2.5 mls/hr Q24H IV 11/20/24 03:30 11/24/24 11:28 17.5 MLS/HR Norepinephrine Bitartrate 250 ml @ 3.75 mls/hr Q24H IV 11/20/24 06:15 11/20/24 23:21 11.25 MLS/HR Pantoprazole Sodium 40 mg DAILY IV 11/21/24 10:00 11/24/24 10:45 40 MG Thiamine HCl 100 mg DAILY IV 11/21/24 10:00 11/24/24 10:42 100 MG Folic Acid 1 mg/ Dextrose 50.2 ml @ 200.8 mls/ hr DAILY INJ 11/21/24 10:00 11/24/24 10:42 200.8 MLS/HR Furosemide 40 mg Q8HR IV 11/22/24 14:00 11/24/24 14:01 40 MG Enteral Nutritional Formula 1,000 ml 30ML/HR GT 11/22/24 20:15 Diagnostic Test (Pha) 1 strip Q6HR 11/23/24 12:00 11/24/24 12:27 1 STRIP Insulin Human Regular Q6HR SC 11/23/24 12:00 11/24/24 05:55 2 UNITS Dextrose 50 ml UD PRN IV 11/23/24 06:45 Sodium Chloride 10 ml QSHIFT@10,22 IV 11/23/24 22:00 11/24/24 10:46 10 ML Cefepime HCl 50 ml @ 12.5 mls/hr Q12HR IV 11/23/24 22:00 11/24/24 10:43 12.5 MLS/HR Propofol 100 ml @ 2.709 mls/ hr Q24H IV 11/24/24 12:00 11/24/24 12:10 2.709 MLS/HR Examination: GENERAL:Abnormal, CVS:Abnormal laboratory and microbiology Laboratory Tests 11/24/24 03:15 Test 11/24/24 03:15 Range/Units Serum Glucose 150 H 74-106 mg/dL Microbiology Date/Time Source Procedure Growth Status 11/20/24 21:31 Nose MRSA Screen - Final Complete 11/20/24 04:05 Blood Blood Culture - Preliminary NO GROWTH AFTER 72 HOURS OF INCUBATION. Resulted 11/20/24 03:37 Sputum Gram Stain - Final Complete 11/20/24 03:37 Respiratory Culture - Final Enterobacter cloacae Complete Problem List/Assessment/Plan Problem List/Assessment/Plan Acute kidney injury ckd etoh intoxication bradycardia AMS acute respiratory failure decompensated HF EF 30% slow improvement in renal function continue diuretics noted HR 40s, has cardiac procedures today, rec IVF post contrast , ICD today and cath goal negative balance 1-2L net each day fluid restriction Ultrasound of the kidney showed right kidney is 10.6 cm left kidney is 8.6 cm the echogenicity of the kidneys were normal pressors to keep map 65 Plan discussed with: Other Dietary Evaluation Review Comments: 1. Suggest EN formula Vital AF 1.2 @ 50 ml/hr (GOAL). Begin at 10 ml/hr, advance by 10 ml Q4 hrs or as tolerated to goal-rate of 50 ml/hr 2. Provide free water flushes of 30 ml Q6 hrs (120 ml total); adjust PRN 3. Monitor BMP/lytes and replete to WNL/PRN 4. Agree with continuation of folate, thiamine due to ETOH abuse TF Provision: TF at goal to provide 1200 ml total volume, 1440 kcal (+204 kcal via propofol = 1644 kcal), 90 gm pro, 6 gm fiber, 973 ml H20 (meets 100% est. kcal needs, 100% est. pro needs) Expected Outcomes/Goals: Improved hemodynamic stability, weight maintenance, adequate nutrition. SEBAS BLANDON MD Nov 24, 2024 15:44
--- NOTE | 2024-11-24 23:15 | DVHPN2 ---
Progress Note - Dictate Date Seen: Nov 24, 2024 Has the PT tested + for MRSA If YES, has PT been informed?: No Medical Necessity Reason Pt with a Central, PICC or Fol: Yes The following are medically ne: Central Line, El Catheter Subjective Patient was seen and evaluated in follow up in the ICU. Patient is intubated and sedated on ventilator. 65% FiO2. WBC 12.8, BUN 42, OVEN OPERATOR AUTOMATIC 1.83, AST 57, ALT 76. Recent troponin 113. Chest x-ray shows cardiomegaly with mild congestion. Patient is scheduled for AICD placement and angiogram. vital signs Vital Sign Date Time Temp Pulse Resp B/P (MAP) Pulse Ox O2 Delivery O2 Flow Rate FiO2 11/24/24 11:34 62 24 130/70 (90) 92 65 11/24/24 08:01 97.8 97.8 11/24/24 08:00 Mechanical Ventilator+ Total Intake and Output 11/23/24 11/23/24 11/24/24 15:00 23:00 07:00 Intake Total 149.2 ml 196.5 ml 294.0 ml Output Total 1050 ml 700 ml Balance 149.2 ml -853.5 ml -406.0 ml medications Current Medications Medications Dose Ordered Sig/Amy Route Start Time Stop Time Status Last Admin Dose Admin Midazolam HCl 50 ml @ 1 mls/hr Q24H IV 11/20/24 03:30 11/24/24 11:26 5 MLS/HR Fentanyl Citrate 250 ml @ 2.5 mls/hr Q24H IV 11/20/24 03:30 11/24/24 11:28 17.5 MLS/HR Norepinephrine Bitartrate 250 ml @ 3.75 mls/hr Q24H IV 11/20/24 06:15 11/20/24 23:21 11.25 MLS/HR Pantoprazole Sodium 40 mg DAILY IV 11/21/24 10:00 11/24/24 10:45 40 MG Thiamine HCl 100 mg DAILY IV 11/21/24 10:00 11/24/24 10:42 100 MG Folic Acid 1 mg/ Dextrose 50.2 ml @ 200.8 mls/ hr DAILY INJ 11/21/24 10:00 11/24/24 10:42 200.8 MLS/HR Furosemide 40 mg Q8HR IV 11/22/24 14:00 11/24/24 06:07 40 MG Enteral Nutritional Formula 1,000 ml 30ML/HR GT 11/22/24 20:15 Diagnostic Test (Pha) 1 strip Q6HR 11/23/24 12:00 11/24/24 05:56 1 STRIP Insulin Human Regular Q6HR SC 11/23/24 12:00 11/24/24 05:55 2 UNITS Dextrose 50 ml UD PRN IV 11/23/24 06:45 Sodium Chloride 10 ml QSHIFT@10,22 IV 11/23/24 22:00 11/24/24 10:46 10 ML Cefepime HCl 50 ml @ 12.5 mls/hr Q12HR IV 11/23/24 22:00 11/24/24 10:43 12.5 MLS/HR Propofol 100 ml @ 2.709 mls/ hr Q24H IV 11/24/24 12:00 UNV objective GENERAL: Ill appearing, intubated on ventilator. EYES: PERRL, EOMI. Anicteric. HENT: Moist mucous membranes. LUNGS: Decreased breath sounds. CARDIOVASCULAR: Irregular rate and rhythm. ABDOMEN: Soft, nontender and nondistended.Indwelling urinary catheter. EXTREMITIES: No edema. SKIN: Warm, dry. laboratory and microbiology Laboratory Tests 11/24/24 03:15 Test 11/24/24 03:15 Range/Units Serum Glucose 150 H 74-106 mg/dL Problem List A Fib with RVR. ? history of A fib. CAD s/p PCI. CHF. Toxic encephalopathy with hx of ETOH abuse. BHUPINDER on CKD. History of Hypertension, currently hypotensive on vasopressor. Diabetes type 2. Hyperlipidemia. History of CVA. Assessment/Plan Continued all current supportive medical care. IV antibiotics as ordered. DVT and GI prophylactics. Diuretics with Lasix. Vasopressors for hemodynamic support. Additional plan as per the hospital course. Critical care time of 45 minutes provided to include time spent evaluation of patient at bedside, when appropriate patient/family education for diagnosis, treatment plan, review of pertinent medical information and discussion of care with specialty providers and PCP. Mechanical ventilator parameters, treatment and adjustments have personally been reviewed by me and treatment plan by heating engineer has also been reviewed. Dietary Evaluation Review Comments: 1. Suggest EN formula Vital AF 1.2 @ 50 ml/hr (GOAL). Begin at 10 ml/hr, advance by 10 ml Q4 hrs or as tolerated to goal-rate of 50 ml/hr 2. Provide free water flushes of 30 ml Q6 hrs (120 ml total); adjust PRN 3. Monitor BMP/lytes and replete to WNL/PRN 4. Agree with continuation of folate, thiamine due to ETOH abuse TF Provision: TF at goal to provide 1200 ml total volume, 1440 kcal (+204 kcal via propofol = 1644 kcal), 90 gm pro, 6 gm fiber, 973 ml H20 (meets 100% est. kcal needs, 100% est. pro needs) Expected Outcomes/Goals: Improved hemodynamic stability, weight maintenance, adequate nutrition. Plan discussed with: Other RUBIO YUNG MD Nov 24, 2024 12:02
[2024-11-25] VITALS (115 sets, daily range): BP systolic 91–149; BP diastolic 57–88; PULSE 45–66; RESP 14–19; TEMP 97.6–98.3; O2SAT 92–98
[2024-11-25 03:56] LABS: Basophils # (auto) 0 10 ^3/uL (0-0.2); Basophils % (auto) 0.3 % (0.0-2.0); Eosinophils # (auto) 0.1 10 ^3/uL (0-0.8); Eosinophils % (auto) 0.7 % (0.0-7.0); Hematocrit 50.2 % (41.0-53.0); Hemoglobin 16.9 g/dL (13.5-17.5); Lymphocytes # (auto) 1.5 10 ^3/uL (0.4-5.4); Lymphocytes % (auto) 15.3 % (10.0-50.0); Mean Corpuscular Hgb Conc. 33.7 g/dL (32.0-36.0); Monocytes # (auto) 0.7 10 ^3/uL (0-1.3); Monocytes % (auto) 7.1 % (0.0-12.0); Neutrophils # (auto) 7.3 10 ^3/uL (1.6-8.6); Neutrophils % (auto) 76.6 % (37.0-80.0); Nucleated Red Blood Cells % 0.3 %; Platelet Count (auto) 131 10^3/uL (140-450); Red Blood Cells 5.64 10^6/uL (4.5-5.90); Red Cell Distribution Width 13.9 % (11.8-14.3); White Blood Cell 9.6 10^3/uL (4.4-10.8)
[2024-11-25 04:09] LABS: Alkaline Phosphatase 52 U/L (46-116); Anion Gap 12 (5-15); BUN/Creatinine Ratio 26.2 (10.0-20.0); Calcium 9.3 mg/dL (8.7-10.4); Carbon Dioxide 25 mmol/L (20-31); Magnesium 2.3 mg/dL (1.6-2.6); Sodium 145 mmol/L (136-145); Total Protein 6.3 g/dL (5.7-8.2)
[2024-11-25 04:10] LABS: Albumin 3.7 g/dL (3.2-4.8); Aspartate Aminotransferase 38 U/L (13-40)
[2024-11-25 04:11] LABS: Alanine Aminotransferase 60 U/L (7-40); Blood Urea Nitrogen 53 mg/dL (9-23); Chloride 108 mmol/L (98-107); Glucose 108 mg/dL (74-106); Potassium 3.2 mmol/L (3.5-5.1)
[2024-11-25 04:21] LABS: Bilirubin, Total 0.4 mg/dL (0.2-1.0)
--- NOTE | 2024-11-25 05:56 | DVH ---
EXAM: XR Chest, 1 View CLINICAL INDICATION: sob TECHNIQUE: Frontal view of the chest. COMPARISON: XY CHEST PORTABLE on DOS: 11/24/24, XY CHEST PORTABLE on DOS: 11/23/24, XY POST PROCEDURE CHEST on DOS: 11/22/24, XY CHEST PORTABLE on DOS: 11/22/24, XY CHEST PORTABLE on DOS: 11/21/24 FINDINGS: LUNGS AND PLEURAL SPACES: See below. HEART: Cardiomegaly with mild congestion. MEDIASTINUM: Unremarkable. Normal mediastinal contour. BONES/JOINTS: Unremarkable. No acute fracture. TUBES, LINES AND DEVICES: The endotracheal tube (ETT) is in satisfactory position. Enteric tube ti p in the stomach. Right peripherally inserted central catheter (PICC) tip in the superior vena cava. OTHER FINDINGS: . . IMPRESSION: Cardiomegaly with mild congestion.
[2024-11-25] MEDS: POTASSIUM CHL 20MEQ/50ML 50 ML IV SCH ×2 (06:21→14:20)
--- NOTE | 2024-11-25 07:15 | DVHPNRES ---
Progress Note Date Seen: Nov 25, 2024 Resident Creating Document: GUERO BLOUNT RESIDENT Has the PT tested + for MRSA If YES, has PT been informed?: No Medical Necessity Reason Pt with a Central, PICC or Fol: Yes The following are medically ne: Central Line, El Catheter Subjective Review of Systems On my assessment, patient was seen and examined at bedside. He remains intubated, sedated. Pt has sinus bradycardia, no pauses observed ekg shows t wave inversion in lateral leads, consulted cardiology, LHC/AICD placement today. Had an episode of breathstacking and bronchospasm yesterday, rocuronium was administered and improved, sedation was increased adn added propofol Objective vital signs Vital Sign Date Time Temp Pulse Resp B/P (MAP) Pulse Ox O2 Delivery O2 Flow Rate FiO2 11/25/24 06:58 127/69 11/25/24 06:55 53 16 95 65 11/25/24 06:00 Mechanical Ventilator+ 11/25/24 03:32 98.3 98.3 Total Intake and Output 11/24/24 11/24/24 11/25/24 15:00 23:00 07:00 Intake Total 258.7 ml 237.8 ml 187.181 ml Output Total 2100 ml 1700 ml Balance 258.7 ml -1862.2 ml -1512.819 ml medications Current Medications Medications Dose Ordered Sig/Amy Route Start Time Stop Time Status Last Admin Dose Admin Midazolam HCl 50 ml @ 1 mls/hr Q24H IV 11/20/24 03:30 11/25/24 06:58 4 MLS/HR Fentanyl Citrate 250 ml @ 2.5 mls/hr Q24H IV 11/20/24 03:30 11/24/24 11:28 17.5 MLS/HR Norepinephrine Bitartrate 250 ml @ 3.75 mls/hr Q24H IV 11/20/24 06:15 11/20/24 23:21 11.25 MLS/HR Pantoprazole Sodium 40 mg DAILY IV 11/21/24 10:00 11/24/24 10:45 40 MG Thiamine HCl 100 mg DAILY IV 11/21/24 10:00 11/24/24 10:42 100 MG Folic Acid 1 mg/ Dextrose 50.2 ml @ 200.8 mls/ hr DAILY INJ 11/21/24 10:00 11/24/24 10:42 200.8 MLS/HR Furosemide 40 mg Q8HR IV 11/22/24 14:00 11/25/24 06:21 40 MG Enteral Nutritional Formula 1,000 ml 30ML/HR GT 11/22/24 20:15 Diagnostic Test (Pha) 1 strip Q6HR 11/23/24 12:00 11/25/24 05:42 1 STRIP Insulin Human Regular Q6HR SC 11/23/24 12:00 11/24/24 05:55 2 UNITS Dextrose 50 ml UD PRN IV 11/23/24 06:45 Sodium Chloride 10 ml QSHIFT@10,22 IV 11/23/24 22:00 11/24/24 22:07 10 ML Cefepime HCl 50 ml @ 12.5 mls/hr Q12HR IV 11/23/24 22:00 11/24/24 22:07 12.5 MLS/HR Propofol 100 ml @ 2.709 mls/ hr Q24H IV 11/24/24 12:00 11/25/24 04:33 8.127 MLS/HR Potassium Chloride 50 ml @ 25 mls/hr Q2H IV 11/25/24 05:45 11/25/24 09:44 11/25/24 06:21 25 MLS/HR Examination Physical examination as below: General: sedated and intubated HEENT: Head is normocephalic and atraumatic. Pupils are equal, round, and reactive to light. Neck: Supple with no cervical lymphadenopathy. Heart: Regular rate without murmur, rub, or gallop. Lungs: scattered crackles Abdomen: No external sign of injury. Bowel sounds are present. Abdomen is soft, nontender. Extremities: Strong peripheral pulses. There is no clubbing, no cyanosis, and no edema. Skin: No rash. Neurologic: sedated laboratory and microbiology Laboratory Tests 11/25/24 03:20 Test 11/25/24 03:20 Range/Units Serum Glucose 108 H 74-106 mg/dL Microbiology Date/Time Source Procedure Growth Status 11/20/24 21:31 Nose MRSA Screen - Final Complete 11/20/24 04:05 Blood Blood Culture - Final NO GROWTH AFTER 5 DAYS OF INCUBATION. 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 #NSTEMI likely type 2, due to septic shock Therapeutic lovenox echo shows ef 30% Lasix 40mg iv tid 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 and AICD placement today 11/24/24 Pulmonology #Acute hypoxic respiratory failure, on Mechanical ventilation #Aspiration pneumonia likely ; Gram-negative, growing enterobacter #atelectasis On cefepime On MV: PEEP 5, FIO2 65% RR 16 TV 500 wane down fio2 as tolerated Nephrology #Anion gap metabolic acidosis #BHUPINDER due to VMN continue diuresing urine studies sent nephrology following Endocrinology #Type 2 diabetes #Obesity #Mixed dyslipidemia SSI mild Gastroenterology Nutrition continue glucerna thru ng #constipation lactulose Hematology and Oncology x Infectious Disease #Aspiration pneumonia likely ; Gram-negative Gram-positive #Septic shock due to above #Lactic Acidosis Levo on standby Cefepime IV Dermatology x DVT ppx Therapeutic lovenox PUD ppx Protonix Drips Versed Fent Prop Lines ET tube 11/20/24, exchanged on 11/22/24 picc line placed 11/23/24 Goals of care were discussed for 33 minutes. FULL CODE. Critical care time spent outside of procedures: 44 mins Case was discussed with Dr. Del Rosario Plan discussed with: Spouse, Other (RN) My Orders My Orders Orders - GUERO BLOUNT RESIDENT Procedure Category Date Status Time Ventilator Orders RT 11/24/24 Transmitted 07:28 Chest Portable XY 11/25/24 Resulted 04:00 Abg W/ Co-Ox RT 11/25/24 Logged 04:00 Dietary Evaluation Review Comments: 1. Suggest EN formula Vital AF 1.2 @ 50 ml/hr (GOAL). Begin at 10 ml/hr, advance by 10 ml Q4 hrs or as tolerated to goal-rate of 50 ml/hr 2. Provide free water flushes of 30 ml Q6 hrs (120 ml total); adjust PRN 3. Monitor BMP/lytes and replete to WNL/PRN 4. Agree with continuation of folate, thiamine due to ETOH abuse TF Provision: TF at goal to provide 1200 ml total volume, 1440 kcal (+204 kcal via propofol = 1644 kcal), 90 gm pro, 6 gm fiber, 973 ml H20 (meets 100% est. kcal needs, 100% est. pro needs) Expected Outcomes/Goals: Improved hemodynamic stability, weight maintenance, adequate nutrition. GUERO BLOUNT RESIDENT Nov 25, 2024 07:15
[2024-11-25 08:05] LABS: Base Excess -0.5 mmol/L (-2.0-3.0)
--- NOTE | 2024-11-25 11:36 | DVHPN2 ---
Progress Note Date Seen: Nov 25, 2024 Has the PT tested + for MRSA If YES, has PT been informed?: No Medical Necessity Reason Pt with a Central, PICC or Fol: Yes The following are medically ne: Central Line, El Catheter Objective vital signs Vital Sign Date Time Temp Pulse Resp B/P (MAP) Pulse Ox O2 Delivery O2 Flow Rate FiO2 11/25/24 10:32 48 16 117/65 (82) 95 11/25/24 10:04 65 11/25/24 08:32 97.9 97.9 11/25/24 08:00 Mechanical Ventilator+ Total Intake and Output 11/24/24 11/24/24 11/25/24 15:00 23:00 07:00 Intake Total 258.7 ml 237.8 ml 209.311 ml Output Total 2100 ml 1700 ml Balance 258.7 ml -1862.2 ml -1490.689 ml medications Current Medications Medications Dose Ordered Sig/Amy Route Start Time Stop Time Status Last Admin Dose Admin Midazolam HCl 50 ml @ 1 mls/hr Q24H IV 11/20/24 03:30 11/25/24 06:58 4 MLS/HR Fentanyl Citrate 250 ml @ 2.5 mls/hr Q24H IV 11/20/24 03:30 11/24/24 11:28 17.5 MLS/HR Norepinephrine Bitartrate 250 ml @ 3.75 mls/hr Q24H IV 11/20/24 06:15 11/20/24 23:21 11.25 MLS/HR Pantoprazole Sodium 40 mg DAILY IV 11/21/24 10:00 11/25/24 10:17 40 MG Thiamine HCl 100 mg DAILY IV 11/21/24 10:00 11/25/24 10:20 100 MG Folic Acid 1 mg/ Dextrose 50.2 ml @ 200.8 mls/ hr DAILY INJ 11/21/24 10:00 11/25/24 10:20 200.8 MLS/HR Furosemide 40 mg Q8HR IV 11/22/24 14:00 11/25/24 06:21 40 MG Enteral Nutritional Formula 1,000 ml 30ML/HR GT 11/22/24 20:15 Diagnostic Test (Pha) 1 strip Q6HR 11/23/24 12:00 11/25/24 05:42 1 STRIP Insulin Human Regular Q6HR SC 11/23/24 12:00 11/24/24 05:55 2 UNITS Dextrose 50 ml UD PRN IV 11/23/24 06:45 Sodium Chloride 10 ml QSHIFT@10,22 IV 11/23/24 22:00 11/25/24 10:36 10 ML Cefepime HCl 50 ml @ 12.5 mls/hr Q12HR IV 11/23/24 22:00 11/25/24 10:21 12.5 MLS/HR Propofol 100 ml @ 2.709 mls/ hr Q24H IV 11/24/24 12:00 11/25/24 04:33 8.127 MLS/HR laboratory and microbiology Laboratory Tests 11/25/24 03:20 Test 11/25/24 03:20 Range/Units Serum Glucose 108 H 74-106 mg/dL Microbiology Date/Time Source Procedure Growth Status 11/20/24 21:31 Nose MRSA Screen - Final Complete 11/20/24 04:05 Blood Blood Culture - Final NO GROWTH AFTER 5 DAYS OF INCUBATION. Complete 11/20/24 03:37 Sputum Gram Stain - Final Complete 11/20/24 03:37 Respiratory Culture - Final Enterobacter cloacae Complete Problem List/Assessment/Plan Problem List/Assessment/Plan Acute kidney injury ckd etoh intoxication bradycardia AMS acute respiratory failure decompensated HF EF 30% continue diuretics noted HR 40s, has cardiac procedures today, rec IVF post contrast , ICD and cath check for contrast exposure goal negative balance 1-2L net each day fluid restriction Ultrasound of the kidney showed right kidney is 10.6 cm left kidney is 8.6 cm the echogenicity of the kidneys were normal pressors to keep map 65 Plan discussed with: Patient My Orders My Orders Orders - SEBAS BLANDON MD Procedure Category Date Status Time Urinalysis LAB 11/25/24 Logged 07:12 Dietary Evaluation Review Comments: 1. Suggest EN formula Vital AF 1.2 @ 50 ml/hr (GOAL). Begin at 10 ml/hr, advance by 10 ml Q4 hrs or as tolerated to goal-rate of 50 ml/hr 2. Provide free water flushes of 30 ml Q6 hrs (120 ml total); adjust PRN 3. Monitor BMP/lytes and replete to WNL/PRN 4. Agree with continuation of folate, thiamine due to ETOH abuse TF Provision: TF at goal to provide 1200 ml total volume, 1440 kcal (+204 kcal via propofol = 1644 kcal), 90 gm pro, 6 gm fiber, 973 ml H20 (meets 100% est. kcal needs, 100% est. pro needs) Expected Outcomes/Goals: Improved hemodynamic stability, weight maintenance, adequate nutrition. SEBAS BLANDON MD Nov 25, 2024 11:36
[2024-11-25] MEDS: SODIUM CHLORIDE 0.9% 1,000 ML IV SCH (13:49)
--- NOTE | 2024-11-25 21:08 | DVHPN2 ---
Progress Note - Dictate Date Seen: Nov 25, 2024 Has the PT tested + for MRSA If YES, has PT been informed?: No Medical Necessity Reason Pt with a Central, PICC or Fol: Yes The following are medically ne: Central Line, El Catheter Subjective Patient was seen and evaluated in follow up in the ICU. Patient is intubated and sedated on ventilator. 65% FiO2. Patient planned for AICD placement and angiogram. K 3.2, CL 108, BUN 53, CASKET INSPECTOR 2.08, ALT 60. Chest x-ray shows cardiomegaly with mild congestion. vital signs Vital Sign Date Time Temp Pulse Resp B/P (MAP) Pulse Ox O2 Delivery O2 Flow Rate FiO2 11/25/24 11:34 48 16 114/64 (81) 95 65 11/25/24 08:32 97.9 97.9 11/25/24 08:00 Mechanical Ventilator+ Total Intake and Output 11/24/24 11/24/24 11/25/24 15:00 23:00 07:00 Intake Total 258.7 ml 237.8 ml 209.311 ml Output Total 2100 ml 1700 ml Balance 258.7 ml -1862.2 ml -1490.689 ml medications Current Medications Medications Dose Ordered Sig/Amy Route Start Time Stop Time Status Last Admin Dose Admin Midazolam HCl 50 ml @ 1 mls/hr Q24H IV 11/20/24 03:30 11/25/24 06:58 4 MLS/HR Fentanyl Citrate 250 ml @ 2.5 mls/hr Q24H IV 11/20/24 03:30 11/24/24 11:28 17.5 MLS/HR Norepinephrine Bitartrate 250 ml @ 3.75 mls/hr Q24H IV 11/20/24 06:15 11/20/24 23:21 11.25 MLS/HR Pantoprazole Sodium 40 mg DAILY IV 11/21/24 10:00 11/25/24 10:17 40 MG Thiamine HCl 100 mg DAILY IV 11/21/24 10:00 11/25/24 10:20 100 MG Folic Acid 1 mg/ Dextrose 50.2 ml @ 200.8 mls/ hr DAILY INJ 11/21/24 10:00 11/25/24 10:20 200.8 MLS/HR Furosemide 40 mg Q8HR IV 11/22/24 14:00 11/25/24 06:21 40 MG Enteral Nutritional Formula 1,000 ml 30ML/HR GT 11/22/24 20:15 Diagnostic Test (Pha) 1 strip Q6HR 11/23/24 12:00 11/25/24 12:39 1 STRIP Insulin Human Regular Q6HR SC 11/23/24 12:00 11/24/24 05:55 2 UNITS Dextrose 50 ml UD PRN IV 11/23/24 06:45 Sodium Chloride 10 ml QSHIFT@10,22 IV 11/23/24 22:00 11/25/24 10:36 10 ML Cefepime HCl 50 ml @ 12.5 mls/hr Q12HR IV 11/23/24 22:00 11/25/24 10:21 12.5 MLS/HR Propofol 100 ml @ 2.709 mls/ hr Q24H IV 11/24/24 12:00 11/25/24 04:33 8.127 MLS/HR Sodium Chloride 1,000 ml @ 100 mls/hr Q10H IV 11/25/24 14:00 11/25/24 20:00 UNV objective GENERAL: Ill appearing, intubated on ventilator. EYES: PERRL, EOMI. Anicteric. HENT: Moist mucous membranes. LUNGS: Decreased breath sounds. CARDIOVASCULAR: Irregular rate and rhythm. ABDOMEN: Soft, nontender and nondistended.Indwelling urinary catheter. EXTREMITIES: No edema. SKIN: Warm, dry. laboratory and microbiology Laboratory Tests 11/25/24 03:20 Test 11/25/24 03:20 Range/Units Serum Glucose 108 H 74-106 mg/dL Problem List A Fib with RVR. ? history of A fib. CAD s/p PCI. CHF. Toxic encephalopathy with hx of ETOH abuse. BHUPINDER on CKD. History of Hypertension, currently hypotensive on vasopressor. Diabetes type 2. Hyperlipidemia. History of CVA. Assessment/Plan Continued all current supportive medical care. IV antibiotics as ordered. DVT and GI prophylactics. Diuretics with Lasix. Vasopressors for hemodynamic support. Additional plan as per the hospital course. Critical care time of 45 minutes provided to include time spent evaluation of patient at bedside, when appropriate patient/family education for diagnosis, treatment plan, review of pertinent medical information and discussion of care with specialty providers and PCP. Mechanical ventilator parameters, treatment and adjustments have personally been reviewed by me and treatment plan by business transformation analyst has also been reviewed. Dietary Evaluation Review Comments: 1. Suggest EN formula Vital AF 1.2 @ 50 ml/hr (GOAL). Begin at 10 ml/hr, advance by 10 ml Q4 hrs or as tolerated to goal-rate of 50 ml/hr 2. Provide free water flushes of 30 ml Q6 hrs (120 ml total); adjust PRN 3. Monitor BMP/lytes and replete to WNL/PRN 4. Agree with continuation of folate, thiamine due to ETOH abuse TF Provision: TF at goal to provide 1200 ml total volume, 1440 kcal (+204 kcal via propofol = 1644 kcal), 90 gm pro, 6 gm fiber, 973 ml H20 (meets 100% est. kcal needs, 100% est. pro needs) Expected Outcomes/Goals: Improved hemodynamic stability, weight maintenance, adequate nutrition. Plan discussed with: Other RUBIO YUNG MD Nov 25, 2024 12:51
[2024-11-26] VITALS (117 sets, daily range): BP systolic 80–168; BP diastolic 44–129; PULSE 54–91; RESP 13–22; TEMP 97–98.3; O2SAT 90–100
[2024-11-26] MEDS: ATORVASTATIN 20 MG TAB PO SCH (00:16)
--- NOTE | 2024-11-26 01:51 | DVHOP ---
DATE OF SURGERY: 11/25/2024 TECHNIQUE PERFORMED: * Emergency case. * Insertion of 6-Cro[place] arterial line from the right femoral artery. * ventilator. * [place] selective left and right coronary artery angiography. ASSISTANTS: Alee Whitaker Angela, Joshue. INDICATIONS: The patient had underlying major left ventricular systolic dysfunction with ejection fraction only 25%. History of previous coronary stent procedure. The patient was brought to medical laboratory assistant. The patient's right groin was shaved and was cleaned with soap and Betadine. Under aseptic precaution, done with the help of JR4. The right coronary angiography was done. Procedure completed. IMPRESSION: * Normal left main. * Previously deployed stent. * Left anterior descending artery is widely open. Diagonal artery is widely open, 50% narrowing noted in the proximal one-third region. Circumflex is a very large dominant artery. Circumflex artery gives the first branch is the posterolateral branch, which is narrowed marginal branch and it is narrowed in the range of 99% from the proximal to the mid region. There is also another branch, which is supplying the inferior wall, which is called the posterior descending artery arising from the left side. It is also 99% blocked from ostium to its proximal mid region. The right coronary artery is nondominant and it is 100% blocked in the proximal region, which has a very minimum CARLENE grade 1 flow. It appeared to be nondominant. PLAN OF ACTION: coronary intervention on the obtuse marginal branch and also in the posterior descending branch. Bere Cuadra MD MP/MASON/TRAN/OLGA TID: [id number] RECEIPT: [id number] [facility]
[2024-11-26 04:22] LABS: Basophils # (auto) 0 10 ^3/uL (0-0.2); Hemoglobin 17.8 g/dL (13.5-17.5); Mean Corpuscular Hemoglobin 30.6 pg (28.0-32.0); Monocytes # (auto) 0.7 10 ^3/uL (0-1.3)
[2024-11-26 04:23] LABS: Basophils % (auto) 0.2 % (0.0-2.0); Eosinophils # (auto) 0.1 10 ^3/uL (0-0.8); Eosinophils % (auto) 1.5 % (0.0-7.0); Hematocrit 51.4 % (41.0-53.0); Lymphocytes # (auto) 1.1 10 ^3/uL (0.4-5.4); Lymphocytes % (auto) 10.8 % (10.0-50.0); Mean Corpuscular Hgb Conc. 34.6 g/dL (32.0-36.0); Mean Corpuscular Volume 88.5 fL (80.0-100.0); Monocytes % (auto) 7.3 % (0.0-12.0); Neutrophils # (auto) 7.9 10 ^3/uL (1.6-8.6); Neutrophils % (auto) 80.2 % (37.0-80.0); Nucleated Red Blood Cells % 0.4 %; Platelet Count (auto) 123 10^3/uL (140-450); Red Cell Distribution Width 13.8 % (11.8-14.3); White Blood Cell 9.9 10^3/uL (4.4-10.8)
[2024-11-26 04:31] LABS: Albumin 3.8 g/dL (3.2-4.8); Alkaline Phosphatase 58 U/L (46-116); Calcium 9.5 mg/dL (8.7-10.4); Chloride 106 mmol/L (98-107)
[2024-11-26 04:32] LABS: Anion Gap 12 (5-15); Aspartate Aminotransferase 30 U/L (13-40); BUN/Creatinine Ratio 30.7 (10.0-20.0); Bilirubin, Total 0.7 mg/dL (0.2-1.0); Carbon Dioxide 25 mmol/L (20-31); Magnesium 2.3 mg/dL (1.6-2.6); Sodium 143 mmol/L (136-145); Total Protein 6.6 g/dL (5.7-8.2)
[2024-11-26 04:54] LABS: Alanine Aminotransferase 56 U/L (7-40); Blood Urea Nitrogen 58 mg/dL (9-23); Glucose 129 mg/dL (74-106); Potassium 3.3 mmol/L (3.5-5.1)
[2024-11-26] MEDS: POTASSIUM CHL 20MEQ/50ML 50 ML IV ONE (06:10)
--- NOTE | 2024-11-26 06:17 | DVH ---
CHEST RADIOGRAPH Indication: sob Technique: Single frontal view of the chest was obtained COMPARISON: XY CHEST PORTABLE on DOS: 11/25/24, XY CHEST PORTABLE on DOS: 11/24/24, XY CHEST PORTABLE o n DOS: 11/23/24, XY POST PROCEDURE CHEST on DOS: 11/22/24, XY CHEST PORTABLE on DOS: 11/22/24 FINDINGS: Lines and Tubes: Unchanged Lungs: Persistent moderate diffuse increased prominence of the pulmonary vasculature. Pleura: No effusion. No pneumothorax. Cardiomediastinal contours: Stable cardiomegaly. Bones: Unremarkable IMPRESSION: 1. Stable diffuse increased prominence of the pulmonary vasculature and cardiomegaly. 2. Lines and tubes unchanged.
[2024-11-26] MEDS: LIDOCAINE 2%HCL (LOCAL ANESTH.) INJ 20ML MDV ONE (07:00)
[2024-11-26] MEDS: ANGIOMAX 250 MG VIAL IV ONE (07:00)
[2024-11-26] MEDS: HEPARIN IN NS 1000Units/500mL 1,500 ML ONE (07:00)
[2024-11-26] MEDS: HEPARIN SODIUM (PORCINE) 5000 UNITS/ML 1ML VIAL ONE (07:00)
[2024-11-26] MEDS: IODIXANOL 320MG/ML 100ML BTL IV ONE ×2 (07:00→07:49)
[2024-11-26 07:41] LABS: Base Excess -0.4 mmol/L (-2.0-3.0)
[2024-11-26] MEDS: SODIUM CHL 0.9% 50 ML ONE (07:49)
[2024-11-26] MEDS: TICAGRELOR 90 MG TAB ONE (07:50)
[2024-11-26] MEDS: VERAPAMIL 2.5MG/ML INJ 2ML VIAL IV ONE (07:50)
--- NOTE | 2024-11-26 09:29 | DVHPN2 ---
Subjective 69-year-old male, per ED record it came into ER via EMS for alcohol intoxication. Per ED notes patient was picked up from home, after having 5 shots of Tequila he was noted to be acting altered by family members, slurred speech, patient also had episode of nausea and vomiting. When patient was in the ED he was hypoxic in the 80s, and was intubated. Patient's lactic acid was noted to be 3.0, now 2.7, plasma/serum alcohol 244.7, urine with 2+ protein, urine blood 1+ and urine glucose 4+. Patient is on a ventilator at the time of this assessment. Nurse was able to talk to family shortly who are Tajik- speaking, per family patient has history of alcohol abuse, they did not mention history of atrial fibrillation. Past Medical History Hypertension, hyperlipidemia, diabetes mellitus type 2 Update -Patient examined at bedside today. Patient was in the icu bed. Intubated sedated. Reviewed: H&P Changes from previous H/P or p: No Changes General: Per HPI Objective Vitals Vital Signs Date Time Temp Pulse Resp B/P (MAP) Pulse Ox O2 Delivery O2 Flow Rate FiO2 11/26/24 07:52 60 16 99/62 (74) 94 60 11/26/24 06:45 97.7 97.7 11/26/24 06:00 Mechanical Ventilator+ Intake/Output Intake and Output 11/26/24 07:00 Intake Total 1099.897 ml Output Total 4000 ml Balance -2900.103 ml Intake Oral 0 ml IV Total 1099.897 ml Output Urine Total 4000 ml Stool Total 0 ml Exam General: sedated and intubated HEENT: Head is normocephalic and atraumatic. Pupils are equal, round, and reactive to light. Neck: Supple with no cervical lymphadenopathy. Heart: Regular rate without murmur, rub, or gallop. Lungs: scattered crackles Abdomen: No external sign of injury. Bowel sounds are present. Abdomen is soft, nontender. Extremities: Strong peripheral pulses. There is no clubbing, no cyanosis, and no edema. Skin: No rash. Neurologic: sedated Medications Current Medications Medications Dose Ordered Sig/Amy Route Start Time Stop Time Status Last Admin Dose Admin Midazolam HCl 50 ml @ 1 mls/hr Q24H IV 11/20/24 03:30 11/26/24 05:00 4 MLS/HR Fentanyl Citrate 250 ml @ 2.5 mls/hr Q24H IV 11/20/24 03:30 11/25/24 13:48 10 MLS/HR Norepinephrine Bitartrate 250 ml @ 3.75 mls/hr Q24H IV 11/20/24 06:15 11/20/24 23:21 11.25 MLS/HR Pantoprazole Sodium 40 mg DAILY IV 11/21/24 10:00 11/25/24 10:17 40 MG Thiamine HCl 100 mg DAILY IV 11/21/24 10:00 11/25/24 10:20 100 MG Folic Acid 1 mg/ Dextrose 50.2 ml @ 200.8 mls/ hr DAILY INJ 11/21/24 10:00 11/25/24 10:20 200.8 MLS/HR Furosemide 40 mg Q8HR IV 11/22/24 14:00 11/26/24 06:10 40 MG Enteral Nutritional Formula 1,000 ml 30ML/HR GT 11/22/24 20:15 Diagnostic Test (Pha) 1 strip Q6HR 11/23/24 12:00 11/26/24 06:04 1 STRIP Insulin Human Regular Q6HR SC 11/23/24 12:00 11/26/24 06:09 2 UNITS Dextrose 50 ml UD PRN IV 11/23/24 06:45 Sodium Chloride 10 ml QSHIFT@10,22 IV 11/23/24 22:00 11/25/24 21:38 10 ML Cefepime HCl 50 ml @ 12.5 mls/hr Q12HR IV 11/23/24 22:00 11/25/24 21:38 12.5 MLS/HR Propofol 100 ml @ 2.709 mls/ hr Q24H IV 11/24/24 12:00 11/26/24 05:00 8.127 MLS/HR Clopidogrel Bisulfate 75 mg DAILY PO 11/26/24 10:00 Aspirin 81 mg DAILY PO 11/26/24 10:00 Atorvastatin Calcium 40 mg HS PO 11/25/24 22:00 11/26/24 00:16 40 MG Laboratory Results Laboratory Tests 11/26/24 03:00 Chemistry Test 11/26/24 03:00 Albumin 3.8 g/dL (3.2-4.8) Calcium Level 9.5 mg/dL (8.7-10.4) Magnesium Level 2.3 mg/dL (1.6-2.6) Total Protein 6.6 g/dL (5.7-8.2) LFT Test 11/26/24 03:00 Alanine Aminotransferase (ALT) 56 U/L (7-40) H Alkaline Phosphatase 58 U/L (46-116) Aspartate Amino Transferase (AST) 30 U/L (13-40) Total Bilirubin 0.7 mg/dL (0.2-1.0) Urinalysis Test 11/20/24 03:41 Urine Color Light-yellow (Yellow) Urine Clarity Clear (Clear) Urine pH 6.0 (5.0-9.0) Urine Specific [place] 1.013 (1.001-1.035) Urine Protein 2+ (Negative) H Urine Ketones Negative (Negative) Urine Blood 1+ /uL (Negative) H Urine Nitrite Negative (Negative) Urine Bilirubin Negative (Negative) Urine Urobilinogen Normal mg/dL (Negative) Urine Leukocyte Esterase Negative /uL (Negative) Urine RBC 1 /hpf (0 - 3) Urine Microscopic WBC 1 /HPF (0-3) Urine Squamous Epithelial Cells None seen /hpf (<5) Urine Bacteria None seen /hpf (None Seen) Urine Mucus Few (None Seen) Urine Yeast (Budding) Occasional /hpf (None Urine Glucose 4+ mg/dL (Normal) H Blood Gas Results Test 11/26/24 07:27 Arterial Blood pH 7.435 (7.350-7.450) FiO2 % 60.0 Microbiology Microbiology Date/Time Source Procedure Growth Status 11/20/24 21:31 Nose MRSA Screen - Final Complete 11/20/24 04:05 Blood Blood Culture - Final NO GROWTH AFTER 5 DAYS OF INCUBATION. Complete 11/20/24 03:37 Sputum Gram Stain - Final Complete 11/20/24 03:37 Respiratory Culture - Final Enterobacter cloacae Complete Labs and/or images reviewed: Labs reviewed by me, Image(s) reviewed by me Assessment/Plan Assessment/Plan 11/26- patient had ?stent put in yesterday. enteral feeds were not started, will try sedation vacation today. No CPAP trial. Tomorrow vacation vacation and CPAP trial, likely, if pulmonology agrees. Cardiology wants to repeat echo tomorrow. Patient was getting IV b.i.d. Lasix, sedated with propofol, Versed, and fentanyl; vent settings AC 500/16/5/60%. continue primary team's plan. 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 #NSTEMI likely type 2, due to septic shock Therapeutic lovenox echo shows ef 30% Lasix 40mg iv tid [facility] [facility] following [facility] 11/24/24 - "coronary intervention on the obtuse marginal branch and also in the posterior descending branch" - ?aicd later date Pulmonology #Acute hypoxic respiratory failure, on Mechanical ventilation #Aspiration pneumonia likely ; Gram-negative, growing enterobacter #atelectasis On cefepime On MV: PEEP 5, FIO2 65% RR 16 TV 500 wane down fio2 as tolerated Nephrology #Anion gap metabolic acidosis #BHUPINDER due to VMN continue diuresing urine studies sent nephrology following Endocrinology #Type 2 diabetes #Obesity #Mixed dyslipidemia SSI mild Gastroenterology Nutrition continue glucerna thru og #constipation lactulose Hematology and Oncology x Infectious Disease #Aspiration pneumonia likely ; Gram-negative Gram-positive #Septic shock due to above #Lactic Acidosis Levo off Cefepime IV Dermatology x DVT ppx Therapeutic lovenox PUD ppx Protonix Drips Versed Fent Prop Lines ET tube 11/20/24, exchanged on 11/22/24 picc line placed 11/23/24 Goals of care were discussed for 33 minutes. FULL CODE. Critical care time spent outside of procedures: 44 mins Plan discussed with: Other Date of Service: Nov 26, 2024 Billing Provider: SHALOM LANCE MD Common Visit Codes: [id number] CARE 30-74 MIN SHALOM LANCE MD Nov 26, 2024 09:29
--- NOTE | 2024-11-26 10:15 | DVHPN2 ---
Progress Note - Dictate Date Seen: Nov 26, 2024 Has the PT tested + for MRSA If YES, has PT been informed?: No Medical Necessity Reason Pt with a Central, PICC or Fol: Yes The following are medically ne: Central Line, El Catheter vital signs Vital Sign Date Time Temp Pulse Resp B/P (MAP) Pulse Ox O2 Delivery O2 Flow Rate FiO2 11/26/24 09:54 62 16 168/103 (124) 94 55 11/26/24 06:45 97.7 97.7 11/26/24 06:00 Mechanical Ventilator+ Total Intake and Output 11/25/24 11/25/24 11/26/24 15:00 23:00 07:00 Intake Total 518.24 ml 380.768 ml 200.889 ml Output Total 1400 ml 1000 ml 1600 ml Balance -881.76 ml -619.232 ml -1399.111 ml medications Current Medications Medications Dose Ordered Sig/Amy Route Start Time Stop Time Status Last Admin Dose Admin Midazolam HCl 50 ml @ 1 mls/hr Q24H IV 11/20/24 03:30 11/26/24 05:00 4 MLS/HR Fentanyl Citrate 250 ml @ 2.5 mls/hr Q24H IV 11/20/24 03:30 11/25/24 13:48 10 MLS/HR Norepinephrine Bitartrate 250 ml @ 3.75 mls/hr Q24H IV 11/20/24 06:15 11/20/24 23:21 11.25 MLS/HR Pantoprazole Sodium 40 mg DAILY IV 11/21/24 10:00 11/25/24 10:17 40 MG Thiamine HCl 100 mg DAILY IV 11/21/24 10:00 11/25/24 10:20 100 MG Folic Acid 1 mg/ Dextrose 50.2 ml @ 200.8 mls/ hr DAILY INJ 11/21/24 10:00 11/25/24 10:20 200.8 MLS/HR Furosemide 40 mg Q8HR IV 11/22/24 14:00 11/26/24 06:10 40 MG Enteral Nutritional Formula 1,000 ml 30ML/HR GT 11/22/24 20:15 Diagnostic Test (Pha) 1 strip Q6HR 11/23/24 12:00 11/26/24 06:04 1 STRIP Insulin Human Regular Q6HR SC 11/23/24 12:00 11/26/24 06:09 2 UNITS Dextrose 50 ml UD PRN IV 11/23/24 06:45 Sodium Chloride 10 ml QSHIFT@10,22 IV 11/23/24 22:00 11/25/24 21:38 10 ML Cefepime HCl 50 ml @ 12.5 mls/hr Q12HR IV 11/23/24 22:00 11/25/24 21:38 12.5 MLS/HR Propofol 100 ml @ 2.709 mls/ hr Q24H IV 11/24/24 12:00 11/26/24 05:00 8.127 MLS/HR Clopidogrel Bisulfate 75 mg DAILY PO 11/26/24 10:00 Aspirin 81 mg DAILY PO 11/26/24 10:00 Atorvastatin Calcium 40 mg HS PO 11/25/24 22:00 11/26/24 00:16 40 MG laboratory and microbiology Laboratory Tests 11/26/24 03:00 Test 11/26/24 03:00 Range/Units Serum Glucose 129 H 74-106 mg/dL 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 Suggest EN formula Vital AF 1.2 @ 50 ml/hr (GOAL). Begin at 10 ml/hr, advance by 10 ml Q4 hrs or as tolerated to goal-rate of 50 ml/hr 2. Provide free water flushes of 30 ml Q6 hrs (120 ml total); adjust PRN 3. Monitor BMP/lytes and replete to WNL/PRN 4. Agree with continuation of folate, thiamine due to ETOH abuse TF Provision: TF at goal to provide 1200 ml total volume, 1440 kcal (+204 kcal via propofol = 1644 kcal), 90 gm pro, 6 gm fiber, 973 ml H20 (meets 100% est. kcal needs, 100% est. pro needs) Expected Outcomes/Goals: Improved hemodynamic stability, weight maintenance, adequate nutrition. Plan discussed with: Other (rn) LYLE CHE MD Nov 26, 2024 10:15
--- NOTE | 2024-11-26 11:11 | DVHPN2 ---
Progress Note Date Seen: Nov 26, 2024 Has the PT tested + for MRSA If YES, has PT been informed?: No Medical Necessity Reason Pt with a Central, PICC or Fol: Yes The following are medically ne: Central Line, El Catheter Subjective Patient reports: Other Review of Systems: Deferred Objective vital signs Vital Sign Date Time Temp Pulse Resp B/P (MAP) Pulse Ox O2 Delivery O2 Flow Rate FiO2 11/26/24 09:54 62 16 168/103 (124) 94 55 11/26/24 06:45 97.7 97.7 11/26/24 06:00 Mechanical Ventilator+ Total Intake and Output 11/25/24 11/25/24 11/26/24 15:00 23:00 07:00 Intake Total 518.24 ml 380.768 ml 200.889 ml Output Total 1400 ml 1000 ml 1600 ml Balance -881.76 ml -619.232 ml -1399.111 ml medications Current Medications Medications Dose Ordered Sig/Amy Route Start Time Stop Time Status Last Admin Dose Admin Midazolam HCl 50 ml @ 1 mls/hr Q24H IV 11/20/24 03:30 11/26/24 05:00 4 MLS/HR Fentanyl Citrate 250 ml @ 2.5 mls/hr Q24H IV 11/20/24 03:30 11/25/24 13:48 10 MLS/HR Norepinephrine Bitartrate 250 ml @ 3.75 mls/hr Q24H IV 11/20/24 06:15 11/20/24 23:21 11.25 MLS/HR Pantoprazole Sodium 40 mg DAILY IV 11/21/24 10:00 11/25/24 10:17 40 MG Thiamine HCl 100 mg DAILY IV 11/21/24 10:00 11/25/24 10:20 100 MG Folic Acid 1 mg/ Dextrose 50.2 ml @ 200.8 mls/ hr DAILY INJ 11/21/24 10:00 11/25/24 10:20 200.8 MLS/HR Furosemide 40 mg Q8HR IV 11/22/24 14:00 11/26/24 06:10 40 MG Enteral Nutritional Formula 1,000 ml 30ML/HR GT 11/22/24 20:15 Diagnostic Test (Pha) 1 strip Q6HR 11/23/24 12:00 11/26/24 06:04 1 STRIP Insulin Human Regular Q6HR SC 11/23/24 12:00 11/26/24 06:09 2 UNITS Dextrose 50 ml UD PRN IV 11/23/24 06:45 Sodium Chloride 10 ml QSHIFT@10,22 IV 11/23/24 22:00 11/25/24 21:38 10 ML Cefepime HCl 50 ml @ 12.5 mls/hr Q12HR IV 11/23/24 22:00 11/25/24 21:38 12.5 MLS/HR Propofol 100 ml @ 2.709 mls/ hr Q24H IV 11/24/24 12:00 11/26/24 05:00 8.127 MLS/HR Clopidogrel Bisulfate 75 mg DAILY PO 11/26/24 10:00 Aspirin 81 mg DAILY PO 11/26/24 10:00 Atorvastatin Calcium 40 mg HS PO 11/25/24 22:00 11/26/24 00:16 40 MG Examination: GENERAL:Abnormal, CVS:Abnormal, ABDOMEN:Abnormal laboratory and microbiology Laboratory Tests 11/26/24 03:00 Test 11/26/24 03:00 Range/Units Serum Glucose 129 H 74-106 mg/dL Microbiology Date/Time Source Procedure Growth Status 11/20/24 21:31 Nose MRSA Screen - Final Complete 11/20/24 04:05 Blood Blood Culture - Final NO GROWTH AFTER 5 DAYS OF INCUBATION. Complete 11/20/24 03:37 Sputum Gram Stain - Final Complete 11/20/24 03:37 Respiratory Culture - Final Enterobacter cloacae Complete Problem List/Assessment/Plan Problem List/Assessment/Plan Acute kidney injury ckd etoh intoxication bradycardia AMS acute respiratory failure decompensated HF EF 30% continue diuretics s/p cardiac cath 11/25 goal negative balance 1L fluid restriction Ultrasound of the kidney showed right kidney is 10.6 cm left kidney is 8.6 cm the echogenicity of the kidneys were normal pressors to keep map 65 Plan discussed with: Other Dietary Evaluation Review Comments: 1. Suggest EN formula Vital AF 1.2 @ 50 ml/hr (GOAL). Begin at 10 ml/hr, advance by 10 ml Q4 hrs or as tolerated to goal-rate of 50 ml/hr 2. Provide free water flushes of 30 ml Q6 hrs (120 ml total); adjust PRN 3. Monitor BMP/lytes and replete to WNL/PRN 4. Agree with continuation of folate, thiamine due to ETOH abuse TF Provision: TF at goal to provide 1200 ml total volume, 1440 kcal (+204 kcal via propofol = 1644 kcal), 90 gm pro, 6 gm fiber, 973 ml H20 (meets 100% est. kcal needs, 100% est. pro needs) Expected Outcomes/Goals: Improved hemodynamic stability, weight maintenance, adequate nutrition. SEBAS BLANDON MD Nov 26, 2024 11:11
[2024-11-26] MEDS: ASPirin-EC 81 mg tab PO SCH (11:13)
[2024-11-26] MEDS: CLOPIDOGREL BISULFATE 75 MG TAB PO SCH (11:13)
[2024-11-26 14:04] LABS: Chloride 105 mmol/L (98-107); Potassium 3.7 mmol/L (3.5-5.1); Sodium 142 mmol/L (136-145)
[2024-11-26 14:05] LABS: Anion Gap 11 (5-15); Calcium 9.2 mg/dL (8.7-10.4); Carbon Dioxide 26 mmol/L (20-31)
[2024-11-26 14:10] LABS: BUN/Creatinine Ratio 27.5 (10.0-20.0)
[2024-11-26 14:11] LABS: Blood Urea Nitrogen 61 mg/dL (9-23); Glucose 143 mg/dL (74-106)
[2024-11-26] MEDS: LACTULOSE 20Gm/30ML SOLN PO SCH (17:31)
[2024-11-26] MEDS: Glucerna 1.2 Cal 1Liter BOTTLE GT SCH (19:05)
--- NOTE | 2024-11-26 19:24 | DVHPN2 ---
Progress Note - Dictate Date Seen: Nov 26, 2024 Has the PT tested + for MRSA If YES, has PT been informed?: No Medical Necessity Reason Pt with a Central, PICC or Fol: Yes The following are medically ne: Central Line, El Catheter Subjective Patient was seen and evaluated in follow up in the ICU. Patient is intubated and sedated on ventilator. 50% FiO2. Patient underwent emergency [place] selective left and right coronary artery angiography. Diagonal artery is widely open, 50% narrowing noted in the proximal one-third region. Circumflex artery gives the first branch is the posterolateral branch, which is narrowed marginal branch and it is narrowed in the range of 99% from the proximal to the mid region. There is also another branch, which is supplying the inferior wall, which is called the posterior descending artery arising from the left side. It is also 99% blocked from ostium to its proximal mid region. The right coronary artery is nondominant and it is 100% blocked in the proximal region, which has a very minimum CARLENE grade 1 flow. It appeared to be nondominant. Patient advised for coronary intervention on the obtuse marginal branch and also in the posterior descending branch. 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 Chest x-ray shows stable diffuse increased prominence of the pulmonary vasculature and cardiomegaly. vital signs Vital Sign Date Time Temp Pulse Resp B/P (MAP) Pulse Ox O2 Delivery O2 Flow Rate FiO2 11/26/24 12:00 16 94 Mechanical Ventilator+ 50 50 11/26/24 11:26 55 102/64 (77) 11/26/24 06:45 97.7 97.7 Total Intake and Output 11/25/24 11/25/24 11/26/24 15:00 23:00 07:00 Intake Total 518.24 ml 380.768 ml 200.889 ml Output Total 1400 ml 1000 ml 1600 ml Balance -881.76 ml -619.232 ml -1399.111 ml medications Current Medications Medications Dose Ordered Sig/Amy Route Start Time Stop Time Status Last Admin Dose Admin Midazolam HCl 50 ml @ 1 mls/hr Q24H IV 11/20/24 03:30 11/26/24 05:00 4 MLS/HR Fentanyl Citrate 250 ml @ 2.5 mls/hr Q24H IV 11/20/24 03:30 11/25/24 13:48 10 MLS/HR Norepinephrine Bitartrate 250 ml @ 3.75 mls/hr Q24H IV 11/20/24 06:15 11/20/24 23:21 11.25 MLS/HR Pantoprazole Sodium 40 mg DAILY IV 11/21/24 10:00 11/26/24 11:11 40 MG Thiamine HCl 100 mg DAILY IV 11/21/24 10:00 11/26/24 11:12 100 MG Folic Acid 1 mg/ Dextrose 50.2 ml @ 200.8 mls/ hr DAILY INJ 11/21/24 10:00 11/26/24 11:14 200.8 MLS/HR Furosemide 40 mg Q8HR IV 11/22/24 14:00 11/26/24 06:10 40 MG Enteral Nutritional Formula 1,000 ml 30ML/HR GT 11/22/24 20:15 Diagnostic Test (Pha) 1 strip Q6HR 11/23/24 12:00 11/26/24 06:04 1 STRIP Insulin Human Regular Q6HR SC 11/23/24 12:00 11/26/24 06:09 2 UNITS Dextrose 50 ml UD PRN IV 11/23/24 06:45 Sodium Chloride 10 ml QSHIFT@10,22 IV 11/23/24 22:00 11/26/24 11:15 10 ML Cefepime HCl 50 ml @ 12.5 mls/hr Q12HR IV 11/23/24 22:00 11/26/24 11:11 12.5 MLS/HR Propofol 100 ml @ 2.709 mls/ hr Q24H IV 11/24/24 12:00 11/26/24 05:00 8.127 MLS/HR Clopidogrel Bisulfate 75 mg DAILY PO 11/26/24 10:00 11/26/24 11:13 75 MG Aspirin 81 mg DAILY PO 11/26/24 10:00 11/26/24 11:13 81 MG Atorvastatin Calcium 40 mg HS PO 11/25/24 22:00 11/26/24 00:16 40 MG objective GENERAL: Ill appearing, intubated on ventilator. EYES: PERRL, EOMI. Anicteric. HENT: Moist mucous membranes. LUNGS: Decreased breath sounds. CARDIOVASCULAR: Irregular rate and rhythm. ABDOMEN: Soft, nontender and nondistended.Indwelling urinary catheter. EXTREMITIES: No edema. SKIN: Warm, dry. laboratory and microbiology Laboratory Tests 11/26/24 03:00 Test 11/26/24 03:00 Range/Units Serum Glucose 129 H 74-106 mg/dL Problem List A Fib with RVR. ? history of A fib. CAD s/p PCI. CHF. Toxic encephalopathy with hx of ETOH abuse. BHUPINDER on CKD. History of Hypertension, currently hypotensive on vasopressor. Diabetes type 2. Hyperlipidemia. History of CVA. Assessment/Plan Continued all current supportive medical care. IV antibiotics as ordered. DVT and GI prophylactics. Diuretics with Lasix. Vasopressors for hemodynamic support. Additional plan as per the hospital course. Critical care time of 45 minutes provided to include time spent evaluation of patient at bedside, when appropriate patient/family education for diagnosis, treatment plan, review of pertinent medical information and discussion of care with specialty providers and PCP. Mechanical ventilator parameters, treatment and adjustments have personally been reviewed by me and treatment plan by director financial planning has also been reviewed. Dietary Evaluation Review Comments: 1. Suggest EN formula Vital AF 1.2 @ 50 ml/hr (GOAL). Begin at 10 ml/hr, advance by 10 ml Q4 hrs or as tolerated to goal-rate of 50 ml/hr 2. Provide free water flushes of 30 ml Q6 hrs (120 ml total); adjust PRN 3. Monitor BMP/lytes and replete to WNL/PRN 4. Agree with continuation of folate, thiamine due to ETOH abuse TF Provision: TF at goal to provide 1200 ml total volume, 1440 kcal (+204 kcal via propofol = 1644 kcal), 90 gm pro, 6 gm fiber, 973 ml H20 (meets 100% est. kcal needs, 100% est. pro needs) Expected Outcomes/Goals: Improved hemodynamic stability, weight maintenance, adequate nutrition. Plan discussed with: Other RUBIO YUNG MD Nov 26, 2024 12:57
[2024-11-27] VITALS (97 sets, daily range): BP systolic 81–177; BP diastolic 49–125; PULSE 57–119; RESP 10–30; TEMP 98–98.7; O2SAT 89–100
--- NOTE | 2024-11-27 02:57 | DVHOP ---
DATE OF SURGERY: 11/25/2024 TECHNIQUE PERFORMED: * Insertion of a 6-[place] arterial line from the right femoral artery and with the management on the mechnical ventilator. * Left coronary artery angiography. * Balloon angioplasty of marginal branch arising from a large luminal circumferential artery with 2.25 x 12 mm semi-compliant balloon. * Stenting and angioplasty of the large marginal branch with 2.5 x 18 mm length Ty Cameron stent of [employer]. * Balloon angioplasty of the left posterior descending artery arisng from the circumflex artery with 2.25 x 12 mm length semi-compliant balloon. * Stenting and angioplasty of left posterior descending artery with 2.5 x 15 mm length Ty Cameron stent of [employer]. * Right iliofemoral artery angiography and arteriotomy, Angio-Seal of the right femoral artery. COMPLICATIONS: None. DESCRIPTION OF PROCEDURE: The patient was brought over here and the patient's. Angiomax was given. Choice accessible wire was passed, which went into the first marginal branch and another Choice wire was passed which went into the posterior descending artery. Balloon was passed 2.25 x 12, which went into the posterior marginal branch. Balloon angioplasty was done. Subsequently, we deployed a stent 2.5 x 18 mm length stent subsequently we put balloon into the posterior descending artery and subsequently now we put a stent 2.5 x 15 mm in length Ty Cameron deployed and inflated x 2. It was for total of 31 seconds and discontinued. There was no complications. The marginal branch arising from circumflex artery was with 99% block. CARLENE grade 2 flow has been noted preprocedure. Postprocedure, CARLENE grade 3 flow, residual stenosis at 0%. It was a type C lesion. It is left posterior descending artery, preprocedure CARLENE grade 2 flow, postprocedure CARLENE grade 3 flow. Preprocedure, the lesion was narrow 99%, postprocedure 0% narrowing. Overall, the procedure went well. PLAN OF CARE: I advised the patient to undergo the aspirin and Plavix at this time and cholesterol reducing medicine. Bere Cuadra MD MP/VIOLETTA/DAYDAY TID: [id number] RECEIPT: [id number] [facility]
[2024-11-27 04:14] LABS: Basophils # (auto) 0.1 10 ^3/uL (0-0.2); Basophils % (auto) 0.4 % (0.0-2.0); Hematocrit 53.5 % (41.0-53.0); Mean Corpuscular Volume 89.1 fL (80.0-100.0); Platelet Count (auto) 146 10^3/uL (140-450)
[2024-11-27 04:17] LABS: Eosinophils # (auto) 0.2 10 ^3/uL (0-0.8); Eosinophils % (auto) 1.1 % (0.0-7.0); Hemoglobin 18.2 g/dL (13.5-17.5); Lymphocytes # (auto) 1.5 10 ^3/uL (0.4-5.4); Lymphocytes % (auto) 9.4 % (10.0-50.0); Mean Corpuscular Hemoglobin 30.3 pg (28.0-32.0); Monocytes # (auto) 1.1 10 ^3/uL (0-1.3); Monocytes % (auto) 7.4 % (0.0-12.0); Neutrophils # (auto) 12.6 10 ^3/uL (1.6-8.6); Neutrophils % (auto) 81.7 % (37.0-80.0); Nucleated Red Blood Cells % 0.2 %; Red Cell Distribution Width 13.5 % (11.8-14.3); White Blood Cell 15.5 10^3/uL (4.4-10.8)
[2024-11-27 04:49] LABS: Sodium 142 mmol/L (136-145)
[2024-11-27 04:50] LABS: Anion Gap 15 (5-15); Calcium 9.3 mg/dL (8.7-10.4)
[2024-11-27 04:55] LABS: BUN/Creatinine Ratio 23.6 (10.0-20.0); Carbon Dioxide 19 mmol/L (20-31); Chloride 108 mmol/L (98-107); Potassium 3.3 mmol/L (3.5-5.1)
[2024-11-27 05:04] LABS: Blood Urea Nitrogen 65 mg/dL (9-23); Glucose 163 mg/dL (74-106)
[2024-11-27] MEDS: POTASSIUM CHL 20MEQ/50ML 50 ML IV ONE (05:57)
--- NOTE | 2024-11-27 06:17 | DVH ---
CHEST RADIOGRAPH Indication: ET Tube Placement Confirmation Technique: Single frontal view of the chest was obtained COMPARISON: XY CHEST PORTABLE on DOS: 11/26/24, XY CHEST PORTABLE on DOS: 11/25/24, XY CHEST PORTABLE o n DOS: 11/24/24, XY CHEST PORTABLE on DOS: 11/23/24, XY POST PROCEDURE CHEST on DOS: 11/22/24 FINDINGS: Lines and Tubes: The endotracheal tube has been retracted such that the tip now projects approximatel y 5.7 cm above the level of the finesse. The remaining lines and tubes are unchanged. Lungs: Grossly stable appearing diffuse increased prominence of the pulmonary vasculature. Small yin ateral pleural effusions are stable in appearance. No pneumothorax. Cardiomediastinal contours: Cardiomegaly. Bones: Unremarkable IMPRESSION: 1. Interval retraction of endotracheal tube with tip now projecting approximately 5.7 cm above the le dana of the finesse. 2. Stable appearing diffuse increased prominence of the pulmonary vasculature, small bilateral pleura l effusions and cardiomegaly.
[2024-11-27 07:40] LABS: Base Excess -1.3 mmol/L (-2.0-3.0)
[2024-11-27] MEDS ORDERED: chlordiazePOXIDE HCL 25 MG CAP PO PRN (08:30)
--- NOTE | 2024-11-27 08:49 | DVHPN2 ---
Subjective 69-year-old male, per ED record it came into ER via EMS for alcohol intoxication. Per ED notes patient was picked up from home, after having 5 shots of Tequila he was noted to be acting altered by family members, slurred speech, patient also had episode of nausea and vomiting. When patient was in the ED he was hypoxic in the 80s, and was intubated. Patient's lactic acid was noted to be 3.0, now 2.7, plasma/serum alcohol 244.7, urine with 2+ protein, urine blood 1+ and urine glucose 4+. Patient is on a ventilator at the time of this assessment. Nurse was able to talk to family shortly who are [place]ian- speaking, per family patient has history of alcohol abuse, they did not mention history of atrial fibrillation. Past Medical History Hypertension, hyperlipidemia, diabetes mellitus type 2 Update -Patient examined at bedside today. Patient was in the icu bed. Intubated Reviewed: H&P Changes from previous H/P or p: No Changes General: Per HPI Objective Vitals Vital Signs Date Time Temp Pulse Resp B/P (MAP) Pulse Ox O2 Delivery O2 Flow Rate FiO2 11/27/24 08:03 101 19 122/77 (92) 95 40 11/27/24 06:00 Mechanical Ventilator+ 11/27/24 03:52 98.7 98.7 Intake/Output Intake and Output 11/27/24 07:00 Intake Total 1320.832 ml Output Total 910 ml Balance 410.832 ml Intake Oral 180 ml IV Total 771.832 ml Tube Feeding 369 ml Output Urine Total 910 ml Exam General: sedated and intubated HEENT: Head is normocephalic and atraumatic. Pupils are equal, round, and reactive to light. Neck: Supple with no cervical lymphadenopathy. Heart: Regular rate without murmur, rub, or gallop. Lungs: scattered crackles Abdomen: No external sign of injury. Bowel sounds are present. Abdomen is soft, nontender. Extremities: Strong peripheral pulses. There is no clubbing, no cyanosis, and no edema. Skin: No rash. Neurologic: sedated Medications Current Medications Medications Dose Ordered Sig/Amy Route Start Time Stop Time Status Last Admin Dose Admin Midazolam HCl 50 ml @ 1 mls/hr Q24H IV 11/20/24 03:30 11/26/24 16:51 2 MLS/HR Fentanyl Citrate 250 ml @ 2.5 mls/hr Q24H IV 11/20/24 03:30 11/26/24 16:54 10 MLS/HR Norepinephrine Bitartrate 250 ml @ 3.75 mls/hr Q24H IV 11/20/24 06:15 11/26/24 20:50 3.75 MLS/HR Pantoprazole Sodium 40 mg DAILY IV 11/21/24 10:00 11/26/24 11:11 40 MG Thiamine HCl 100 mg DAILY IV 11/21/24 10:00 11/26/24 11:12 100 MG Folic Acid 1 mg/ Dextrose 50.2 ml @ 200.8 mls/ hr DAILY INJ 11/21/24 10:00 11/26/24 11:14 200.8 MLS/HR Furosemide 40 mg Q8HR IV 11/22/24 14:00 11/27/24 05:56 40 MG Enteral Nutritional Formula 1,000 ml 30ML/HR GT 11/22/24 20:15 11/26/24 19:05 1,000 ML Diagnostic Test (Pha) 1 strip Q6HR 11/23/24 12:00 11/27/24 05:56 1 STRIP Insulin Human Regular Q6HR SC 11/23/24 12:00 11/27/24 06:04 3 UNITS Dextrose 50 ml UD PRN IV 11/23/24 06:45 Sodium Chloride 10 ml QSHIFT@10,22 IV 11/23/24 22:00 11/26/24 22:57 10 ML Cefepime HCl 50 ml @ 12.5 mls/hr Q12HR IV 11/23/24 22:00 11/26/24 22:57 12.5 MLS/HR Propofol 100 ml @ 2.709 mls/ hr Q24H IV 11/24/24 12:00 11/26/24 20:50 2.709 MLS/HR Clopidogrel Bisulfate 75 mg DAILY PO 11/26/24 10:00 11/26/24 11:13 75 MG Aspirin 81 mg DAILY PO 11/26/24 10:00 11/26/24 11:13 81 MG Atorvastatin Calcium 40 mg HS PO 11/25/24 22:00 11/26/24 22:57 40 MG Lactulose 15 ml BID PO 11/26/24 18:00 11/26/24 22:57 15 ML Chlordiazepoxide HCl 25 mg Q6HPRN PRN PO 11/27/24 08:30 UNV Laboratory Results Laboratory Tests 11/27/24 03:35 Chemistry Test 11/26/24 13:30 11/27/24 03:35 Calcium Level 9.2 mg/dL (8.7-10.4) 9.3 mg/dL (8.7-10.4) Urinalysis Test 11/20/24 03:41 Urine Color Light-yellow (Yellow) Urine Clarity Clear (Clear) Urine pH 6.0 (5.0-9.0) Urine Specific [place] 1.013 (1.001-1.035) Urine Protein 2+ (Negative) H Urine Ketones Negative (Negative) Urine Blood 1+ /uL (Negative) H Urine Nitrite Negative (Negative) Urine Bilirubin Negative (Negative) Urine Urobilinogen Normal mg/dL (Negative) Urine Leukocyte Esterase Negative /uL (Negative) Urine RBC 1 /hpf (0 - 3) Urine Microscopic WBC 1 /HPF (0-3) Urine Squamous Epithelial Cells None seen /hpf (<5) Urine Bacteria None seen /hpf (None Seen) Urine Mucus Few (None Seen) Urine Yeast (Budding) Occasional /hpf (None Urine Glucose 4+ mg/dL (Normal) H Blood Gas Results Test 11/27/24 07:23 Arterial Blood pH 7.409 (7.350-7.450) FiO2 % 40.0 Microbiology Microbiology Date/Time Source Procedure Growth Status 11/20/24 21:31 Nose MRSA Screen - Final Complete 11/20/24 04:05 Blood Blood Culture - Final NO GROWTH AFTER 5 DAYS OF INCUBATION. Complete 11/20/24 03:37 Sputum Gram Stain - Final Complete 11/20/24 03:37 Respiratory Culture - Final Enterobacter cloacae Complete Labs and/or images reviewed: Labs reviewed by me, Image(s) reviewed by me Assessment/Plan Assessment/Plan 11/26- patient had ?stent put in yesterday. enteral feeds were not started, will try sedation vacation today. No CPAP trial. Tomorrow vacation vacation and CPAP trial, likely, if pulmonology agrees. Cardiology wants to repeat echo tomorrow. Patient was getting IV b.i.d. Lasix, sedated with propofol, Versed, and fentanyl; vent settings AC 500/16/5/60%. continue primary team's plan. [facility] 11/24/24 - "coronary intervention on the obtuse marginal branch and also in the posterior descending branch" - ?aicd later date 11/27 - DOING cpap trial this am. off sedatives/analgesics ( propofol, Versed, and fentanyl). pulm rec precedex as patient tachycardic, HTN with sedation vacation. he has very strong cough gag reflex, face flushed from coughing. waiting for RT to perform extubation parameters. otherwise continue prior treatment plan. K repleted this am. appreciate specalists recs. Neurology #Acute toxic/metabolic encephalopathy, likely due to alcohol intoxication #Acute alcohol intoxication Folic acid and thiamine IV Head ct unremarkable for acute disease Cardiovascular #H/o hypertension #CAD, s/p PCI x1 #AFib with RVR, now NSR #Acute on chronic systolic CHF #Sinus bradycardia, 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 #NSTEMI likely type 2, due to septic shock Therapeutic lovenox echo shows ef 30% Lasix 40mg iv tid Brimmer Blocker following [facility] 11/24/24 - "coronary intervention on the obtuse marginal branch and also in the posterior descending branch" - ?aicd later date Pulmonology #Acute hypoxic respiratory failure, on Mechanical ventilation #Aspiration pneumonia likely ; Gram-negative, growing enterobacter #atelectasis On cefepime On MV: PEEP 5, FIO2 65% RR 16 TV 500 wane down fio2 as tolerated Nephrology #Anion gap metabolic acidosis #BHUPINDER due to VMN continue diuresing urine studies sent nephrology following Endocrinology #Type 2 diabetes #Obesity #Mixed dyslipidemia SSI mild Gastroenterology Nutrition continue glucerna thru og #constipation lactulose Hematology and Oncology x Infectious Disease #Aspiration pneumonia likely ; Gram-negative Gram-positive #Septic shock due to above #Lactic Acidosis Levo off Cefepime IV Dermatology x DVT ppx Therapeutic lovenox PUD ppx Protonix Drips Versed Fent Prop Lines ET tube 11/20/24, exchanged on 11/22/24 picc line placed 11/23/24 Goals of care were discussed for 33 minutes. FULL CODE. Critical care time spent outside of procedures: 44 mins Plan discussed with: Spouse My Orders Orders - SHALOM LANCE MD Procedure Category Date Status Time Lactulose Oral PHA 11/26/24 In Process 18:00 Cpap Trial For Am ORDERS 11/27/24 Transmitted 08:00 Date of Service: Nov 27, 2024 Billing Provider: HSALOM LANCE MD Common Visit Codes: 90718-[id number] CARE 30-74 MIN SHALOM LANCE MD Nov 27, 2024 08:49
--- NOTE | 2024-11-27 08:51 | DVHPN2 ---
Progress Note - Dictate Date Seen: Nov 27, 2024 Has the PT tested + for MRSA If YES, has PT been informed?: No Medical Necessity Reason Pt with a Central, PICC or Fol: Yes The following are medically ne: Central Line, El Catheter vital signs Vital Sign Date Time Temp Pulse Resp B/P (MAP) Pulse Ox O2 Delivery O2 Flow Rate FiO2 11/27/24 08:03 101 19 122/77 (92) 95 40 11/27/24 06:00 Mechanical Ventilator+ 11/27/24 03:52 98.7 98.7 Total Intake and Output 11/26/24 11/26/24 11/27/24 15:00 23:00 07:00 Intake Total 405.562 ml 473.717 ml 441.553 ml Output Total 910 ml Balance 405.562 ml 473.717 ml -468.447 ml medications Current Medications Medications Dose Ordered Sig/Amy Route Start Time Stop Time Status Last Admin Dose Admin Midazolam HCl 50 ml @ 1 mls/hr Q24H IV 11/20/24 03:30 11/26/24 16:51 2 MLS/HR Fentanyl Citrate 250 ml @ 2.5 mls/hr Q24H IV 11/20/24 03:30 11/26/24 16:54 10 MLS/HR Norepinephrine Bitartrate 250 ml @ 3.75 mls/hr Q24H IV 11/20/24 06:15 11/26/24 20:50 3.75 MLS/HR Pantoprazole Sodium 40 mg DAILY IV 11/21/24 10:00 11/26/24 11:11 40 MG Thiamine HCl 100 mg DAILY IV 11/21/24 10:00 11/26/24 11:12 100 MG Folic Acid 1 mg/ Dextrose 50.2 ml @ 200.8 mls/ hr DAILY INJ 11/21/24 10:00 11/26/24 11:14 200.8 MLS/HR Furosemide 40 mg Q8HR IV 11/22/24 14:00 11/27/24 05:56 40 MG Enteral Nutritional Formula 1,000 ml 30ML/HR GT 11/22/24 20:15 11/26/24 19:05 1,000 ML Diagnostic Test (Pha) 1 strip Q6HR 11/23/24 12:00 11/27/24 05:56 1 STRIP Insulin Human Regular Q6HR SC 11/23/24 12:00 11/27/24 06:04 3 UNITS Dextrose 50 ml UD PRN IV 11/23/24 06:45 Sodium Chloride 10 ml QSHIFT@10,22 IV 11/23/24 22:00 11/26/24 22:57 10 ML Cefepime HCl 50 ml @ 12.5 mls/hr Q12HR IV 11/23/24 22:00 11/26/24 22:57 12.5 MLS/HR Propofol 100 ml @ 2.709 mls/ hr Q24H IV 11/24/24 12:00 11/26/24 20:50 2.709 MLS/HR Clopidogrel Bisulfate 75 mg DAILY PO 11/26/24 10:00 11/26/24 11:13 75 MG Aspirin 81 mg DAILY PO 11/26/24 10:00 11/26/24 11:13 81 MG Atorvastatin Calcium 40 mg HS PO 11/25/24 22:00 11/26/24 22:57 40 MG Lactulose 15 ml BID PO 11/26/24 18:00 11/26/24 22:57 15 ML Chlordiazepoxide HCl 25 mg Q6HPRN PRN PO 11/27/24 08:30 UNV laboratory and microbiology Laboratory Tests 11/27/24 03:35 Test 11/27/24 03:35 Range/Units Serum Glucose 163 H 74-106 mg/dL Assessment/Plan 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 Suggest EN formula Vital AF 1.2 @ 50 ml/hr (GOAL). Begin at 10 ml/hr, advance by 10 ml Q4 hrs or as tolerated to goal-rate of 50 ml/hr 2. Provide free water flushes of 30 ml Q6 hrs (120 ml total); adjust PRN 3. Monitor BMP/lytes and replete to WNL/PRN 4. Agree with continuation of folate, thiamine due to ETOH abuse TF Provision: TF at goal to provide 1200 ml total volume, 1440 kcal (+204 kcal via propofol = 1644 kcal), 90 gm pro, 6 gm fiber, 973 ml H20 (meets 100% est. kcal needs, 100% est. pro needs) Expected Outcomes/Goals: Improved hemodynamic stability, weight maintenance, adequate nutrition. Plan discussed with: Other (rn) LYLE CHE MD Nov 27, 2024 08:51
[2024-11-27] MEDS: DEXMEDETOMIDINE HCL IN D5W 100 ML IV SCH (09:04)
[2024-11-27 09:45] LABS: Base Excess -2.1 mmol/L (-2.0-3.0)
[2024-11-27] MEDS: ONDANSETRON HCL 4 MG/2 ML VIAL ONE (10:10)
[2024-11-27] MEDS: ALBUTEROL SULF 2.5 MG/0.5ML(0.5%) NEB SOLN ONE (10:20)
[2024-11-27] MEDS: IPRATROPIUM BROM 0.5 MG/2.5ML INH SOL ONE (10:20)
[2024-11-27] MEDS: EPINEPHrine HCL 0.5 ML NEB ONE (10:41)
[2024-11-27] MEDS: EPINEPHrine HCL 0.5 ML NEB NEB ONE (10:45)
--- NOTE | 2024-11-27 11:56 | DVHPN2 ---
Progress Note Date Seen: Nov 27, 2024 Has the PT tested + for MRSA If YES, has PT been informed?: No Medical Necessity Reason Pt with a Central, PICC or Fol: Yes The following are medically ne: Central Line, El Catheter Subjective Patient reports: Other Review of Systems: RESPIRATORY:Abnormal, Deferred Objective vital signs Vital Sign Date Time Temp Pulse Resp B/P (MAP) Pulse Ox O2 Delivery O2 Flow Rate FiO2 11/27/24 10:59 95 Cool Aerosol 10 50 50 11/27/24 10:59 108 20 11/27/24 08:18 122/77 (92) 11/27/24 03:52 98.7 98.7 Total Intake and Output 11/26/24 11/26/24 11/27/24 15:00 23:00 07:00 Intake Total 405.562 ml 473.717 ml 441.553 ml Output Total 910 ml Balance 405.562 ml 473.717 ml -468.447 ml medications Current Medications Medications Dose Ordered Sig/Amy Route Start Time Stop Time Status Last Admin Dose Admin Midazolam HCl 50 ml @ 1 mls/hr Q24H IV 11/20/24 03:30 11/26/24 16:51 2 MLS/HR Fentanyl Citrate 250 ml @ 2.5 mls/hr Q24H IV 11/20/24 03:30 11/26/24 16:54 10 MLS/HR Norepinephrine Bitartrate 250 ml @ 3.75 mls/hr Q24H IV 11/20/24 06:15 11/26/24 20:50 3.75 MLS/HR Pantoprazole Sodium 40 mg DAILY IV 11/21/24 10:00 11/27/24 09:36 40 MG Thiamine HCl 100 mg DAILY IV 11/21/24 10:00 11/27/24 09:36 100 MG Folic Acid 1 mg/ Dextrose 50.2 ml @ 200.8 mls/ hr DAILY INJ 11/21/24 10:00 11/27/24 10:05 200.8 MLS/HR Furosemide 40 mg Q8HR IV 11/22/24 14:00 11/27/24 05:56 40 MG Enteral Nutritional Formula 1,000 ml 30ML/HR GT 11/22/24 20:15 11/26/24 19:05 1,000 ML Diagnostic Test (Pha) 1 strip Q6HR 11/23/24 12:00 11/27/24 05:56 1 STRIP Insulin Human Regular Q6HR SC 11/23/24 12:00 11/27/24 06:04 3 UNITS Dextrose 50 ml UD PRN IV 11/23/24 06:45 Sodium Chloride 10 ml QSHIFT@10,22 IV 11/23/24 22:00 11/27/24 09:36 10 ML Cefepime HCl 50 ml @ 12.5 mls/hr Q12HR IV 11/23/24 22:00 11/27/24 09:35 12.5 MLS/HR Propofol 100 ml @ 2.709 mls/ hr Q24H IV 11/24/24 12:00 11/26/24 20:50 2.709 MLS/HR Clopidogrel Bisulfate 75 mg DAILY PO 11/26/24 10:00 11/27/24 09:36 75 MG Aspirin 81 mg DAILY PO 11/26/24 10:00 11/27/24 09:36 81 MG Atorvastatin Calcium 40 mg HS PO 11/25/24 22:00 11/26/24 22:57 40 MG Lactulose 15 ml BID PO 11/26/24 18:00 11/27/24 09:36 15 ML Chlordiazepoxide HCl 25 mg Q6HPRN PRN PO 11/27/24 08:30 Ondansetron HCl 4 mg Q4HPRN PRN IV 11/27/24 10:15 Albuterol 2.5 mg Q6HWA NEB 11/27/24 12:00 Ipratropium [place] 0.5 mg Q6HWA NEB 11/27/24 12:00 Examination: GENERAL:Abnormal, LUNGS:Abnormal, ABDOMEN:Abnormal, SKIN:Abnormal laboratory and microbiology Laboratory Tests 11/27/24 03:35 Test 11/27/24 03:35 Range/Units Serum Glucose 163 H 74-106 mg/dL Microbiology Date/Time Source Procedure Growth Status 11/20/24 21:31 Nose MRSA Screen - Final Complete 11/20/24 04:05 Blood Blood Culture - Final NO GROWTH AFTER 5 DAYS OF INCUBATION. Complete 11/20/24 03:37 Sputum Gram Stain - Final Complete 11/20/24 03:37 Respiratory Culture - Final Enterobacter cloacae Complete Problem List/Assessment/Plan Problem List/Assessment/Plan Acute kidney injury ckd etoh intoxication bradycardia AMS acute respiratory failure decompensated HF EF 30% continue diuretics 4L UOP yesterday , cr rising , still has congestion will reduce lasix to q12 s/p cardiac cath 11/25 goal negative balance 1L fluid restriction Ultrasound of the kidney showed right kidney is 10.6 cm left kidney is 8.6 cm the echogenicity of the kidneys were normal pressors to keep map 65 Plan discussed with: Other Dietary Evaluation Review Comments: 1. Suggest EN formula Vital AF 1.2 @ 50 ml/hr (GOAL). Begin at 10 ml/hr, advance by 10 ml Q4 hrs or as tolerated to goal-rate of 50 ml/hr 2. Provide free water flushes of 30 ml Q6 hrs (120 ml total); adjust PRN 3. Monitor BMP/lytes and replete to WNL/PRN 4. Agree with continuation of folate, thiamine due to ETOH abuse TF Provision: TF at goal to provide 1200 ml total volume, 1440 kcal (+204 kcal via propofol = 1644 kcal), 90 gm pro, 6 gm fiber, 973 ml H20 (meets 100% est. kcal needs, 100% est. pro needs) Expected Outcomes/Goals: Improved hemodynamic stability, weight maintenance, adequate nutrition. SEBAS BLANDON MD Nov 27, 2024 11:56
[2024-11-27] MEDS ORDERED: POTASSIUM CHL 20MEQ/100ML 100 ML IV SCH (13:15)
[2024-11-27] MEDS: HEPARIN SODIUM (PORCINE) 5000 UNITS/ML 1ML VIAL SC ONE (13:25)
--- NOTE | 2024-11-27 14:17 | DVHSR ---
APPROVED REPORT EXAM: LIMITED Two-dimensional and M-mode echocardiogram with Doppler and color Doppler. Blood Pressure: 124/73 mmHg INDICATION Follow up after stents placed RISK FACTORS Obesity: Height: 5' 8", Weight: 192 DIMENSIONS LVDd5.9 (3.8-5.7cm)LA (2D)3.7 (1.9-4.0cm)Aortic Root3.7 (2.0-3.7cm) LVDs4.9 (2.5-4.0cm)LA (MM) (1.9-4.0cm)Aortic Cusp Exc1.7 (1.5-2.0cm) EF (%) 35.0 (55-70%)Rt. Atrium3.9 (1.9-4.0cm)Asc. Aorta cm IVSd1.2 (0.7-1.1cm)RV (D) (1.8-2.4cm) PWd1.2 (0.7-1.1cm) Mitral Valve MitralMitral Stenosis E wave0.40m/sMV Mean GR.mmHg A wave0.80m/sMV Peak GR.mmHg E/A ratio0.52D MVAcm2 Aortic Valve Aortic ValveAortic Stenosis V10.50m/Shawanda Mean GR.4mmHg V21.30m/Shawanda Peak GR.7mmHg LVOT Diameter2.3 (1.8-2.4cm)Doppler AVA1.60cm2 Other Information Quality : Technically LimitedRhythm : Technically limited study due to on vent and not sedated. Conclusion MILD LVH AND MILD LV DIASTOLIC DYSFUNCTION LV EF IS NOW IMPROVED AND IS 35% LV IS SLIGHTLY DILATED AND MILD GLOBAL HYPOKINESIS GROSSLY NORMAL VALVES NO EFFUSION SLIGHTLY DILATED RV
[2024-11-27] MEDS: POTASSIUM CHL 20MEQ/50ML 50 ML IV SCH (14:52)
[2024-11-27] MEDS: ALBUTEROL SULF 2.5 MG/0.5ML(0.5%) NEB SOLN NEB SCH (15:39)
[2024-11-27] MEDS: IPRATROPIUM BROM 0.5 MG/2.5ML INH SOL NEB SCH (15:39)
[2024-11-27] MEDS: FUROSEMIDE 40 MG/4 ML VIAL IV SCH (16:51)
[2024-11-27] MEDS: HEPARIN SODIUM (PORCINE) 5000 UNITS/ML 1ML VIAL SC SCH (21:43)
--- NOTE | 2024-11-27 23:26 | DVHPN2 ---
Progress Note - Dictate Date Seen: Nov 27, 2024 Has the PT tested + for MRSA If YES, has PT been informed?: No Medical Necessity Reason Pt with a Central, PICC or Fol: Yes The following are medically ne: Central Line, El Catheter Subjective Patient was seen and evaluated in follow up in the ICU. Patient was successfully extubated this morning. Patient is on 10L cool aerosol mask. WBC 15.5, K 3.3, CL 108, BUN 65, BOND BROKER 2.75. Chest x-ray shows stable appearing diffuse increased prominence of the pulmonary vasculature, small bilateral pleural effusions and cardiomegaly. vital signs Vital Sign Date Time Temp Pulse Resp B/P (MAP) Pulse Ox O2 Delivery O2 Flow Rate FiO2 11/27/24 14:00 86 11/27/24 14:00 20 91 Cool Aerosol 10 40 40 11/27/24 08:18 122/77 (92) 11/27/24 03:52 98.7 98.7 Total Intake and Output 11/26/24 11/26/24 11/27/24 15:00 23:00 07:00 Intake Total 405.562 ml 473.717 ml 441.553 ml Output Total 910 ml Balance 405.562 ml 473.717 ml -468.447 ml medications Current Medications Medications Dose Ordered Sig/Amy Route Start Time Stop Time Status Last Admin Dose Admin Midazolam HCl 50 ml @ 1 mls/hr Q24H IV 11/20/24 03:30 11/26/24 16:51 2 MLS/HR Fentanyl Citrate 250 ml @ 2.5 mls/hr Q24H IV 11/20/24 03:30 11/26/24 16:54 10 MLS/HR Norepinephrine Bitartrate 250 ml @ 3.75 mls/hr Q24H IV 11/20/24 06:15 11/26/24 20:50 3.75 MLS/HR Pantoprazole Sodium 40 mg DAILY IV 11/21/24 10:00 11/27/24 09:36 40 MG Thiamine HCl 100 mg DAILY IV 11/21/24 10:00 11/27/24 09:36 100 MG Folic Acid 1 mg/ Dextrose 50.2 ml @ 200.8 mls/ hr DAILY INJ 11/21/24 10:00 11/27/24 10:05 200.8 MLS/HR Enteral Nutritional Formula 1,000 ml 30ML/HR GT 11/22/24 20:15 11/26/24 19:05 1,000 ML Diagnostic Test (Pha) 1 strip Q6HR 11/23/24 12:00 11/27/24 12:00 1 STRIP Insulin Human Regular Q6HR SC 11/23/24 12:00 11/27/24 06:04 3 UNITS Dextrose 50 ml UD PRN IV 11/23/24 06:45 Sodium Chloride 10 ml QSHIFT@10,22 IV 11/23/24 22:00 11/27/24 09:36 10 ML Cefepime HCl 50 ml @ 12.5 mls/hr Q12HR IV 11/23/24 22:00 11/27/24 09:35 12.5 MLS/HR Propofol 100 ml @ 2.709 mls/ hr Q24H IV 11/24/24 12:00 11/26/24 20:50 2.709 MLS/HR Clopidogrel Bisulfate 75 mg DAILY PO 11/26/24 10:00 11/27/24 09:36 75 MG Aspirin 81 mg DAILY PO 11/26/24 10:00 11/27/24 09:36 81 MG Atorvastatin Calcium 40 mg HS PO 11/25/24 22:00 11/26/24 22:57 40 MG Lactulose 15 ml BID PO 11/26/24 18:00 11/27/24 09:36 15 ML Chlordiazepoxide HCl 25 mg Q6HPRN PRN PO 11/27/24 08:30 Ondansetron HCl 4 mg Q4HPRN PRN IV 11/27/24 10:15 Albuterol 2.5 mg Q6HWA NEB 11/27/24 12:00 Ipratropium [place] 0.5 mg Q6HWA NEB 11/27/24 12:00 Furosemide 40 mg BIDD IV 11/27/24 18:00 Heparin Sodium (Porcine) 5,000 units Q12HR SC 11/27/24 22:00 Potassium Chloride 50 ml @ 25 mls/hr Q2H IV 11/27/24 14:45 11/27/24 20:44 11/27/24 14:52 25 MLS/HR objective GENERAL: Alert and oriented x 3. No acute distress. EYES: PERRL, EOMI. Anicteric. HENT: Moist mucous membranes. LUNGS: Decreased breath sounds. CARDIOVASCULAR: Regular rate and rhythm. ABDOMEN: Soft, nontender and nondistended. EXTREMITIES: No edema. SKIN: Warm, dry. laboratory and microbiology Laboratory Tests 11/27/24 11:52 11/27/24 03:35 Test 11/27/24 03:35 Range/Units Serum Glucose 163 H 74-106 mg/dL Problem List A Fib with RVR. ? history of A fib. CAD s/p PCI. CHF. Toxic encephalopathy with hx of ETOH abuse. BHUPINDER on CKD. History of Hypertension, currently hypotensive on vasopressor. Diabetes type 2. Hyperlipidemia. History of CVA. Assessment/Plan Continued all current supportive medical care. Aspirin, Lipitor. IV antibiotics as ordered. DVT and GI prophylactics. Diuretics with Lasix. Vasopressors for hemodynamic support. Additional plan as per the hospital course. Critical care time of 45 minutes provided to include time spent evaluation of patient at bedside, when appropriate patient/family education for diagnosis, treatment plan, review of pertinent medical information and discussion of care with specialty providers and PCP. Dietary Evaluation Review Comments: 1. Suggest EN formula Vital AF 1.2 @ 50 ml/hr (GOAL). Begin at 10 ml/hr, advance by 10 ml Q4 hrs or as tolerated to goal-rate of 50 ml/hr 2. Provide free water flushes of 30 ml Q6 hrs (120 ml total); adjust PRN 3. Monitor BMP/lytes and replete to WNL/PRN 4. Agree with continuation of folate, thiamine due to ETOH abuse TF Provision: TF at goal to provide 1200 ml total volume, 1440 kcal (+204 kcal via propofol = 1644 kcal), 90 gm pro, 6 gm fiber, 973 ml H20 (meets 100% est. kcal needs, 100% est. pro needs) Expected Outcomes/Goals: Improved hemodynamic stability, weight maintenance, adequate nutrition. Plan discussed with: Patient RUBIO YUNG MD Nov 27, 2024 15:38
[2024-11-28] VITALS (35 sets, daily range): BP systolic 119–158; BP diastolic 72–94; PULSE 69–92; RESP 11–94; TEMP 98.5–98.9; O2SAT 17–97
--- NOTE | 2024-11-28 03:36 | DVH ---
CHEST RADIOGRAPH Indication: respiratory failure Technique: Single frontal view of the chest was obtained COMPARISON: XY CHEST XRAY 1 VIEW on DOS: 11/27/24, XY CHEST PORTABLE on DOS: 11/26/24, XY CHEST PORTABL E on DOS: 11/25/24, XY CHEST PORTABLE on DOS: 11/24/24, XY CHEST PORTABLE on DOS: 11/23/24 FINDINGS: Lines and Tubes: Status post interval extubation and removal of enteric catheter. Right PICC unchang ed. Lungs: Mild interval improvement in diffuse increased prominence of the pulmonary vasculature. Small bilateral pleural effusions are unchanged. No pneumothorax. Cardiomediastinal contours: Cardiomegaly. Bones: Unremarkable IMPRESSION: 1. Mild interval improvement in diffuse increased prominence of the pulmonary vasculature. 2. Small bilateral pleural effusions and cardiomegaly. 3. Status post interval extubation and removal of enteric catheter. 4. Right PICC.
[2024-11-28 04:00] LABS: Eosinophils # (auto) 0.1 10 ^3/uL (0-0.8); Neutrophils # (auto) 11.9 10 ^3/uL (1.6-8.6)
[2024-11-28 04:03] LABS: Basophils # (auto) 0 10 ^3/uL (0-0.2); Basophils % (auto) 0.1 % (0.0-2.0); Eosinophils % (auto) 0.8 % (0.0-7.0); Hematocrit 52.8 % (41.0-53.0); Hemoglobin 18.3 g/dL (13.5-17.5); Lymphocytes # (auto) 1.1 10 ^3/uL (0.4-5.4); Lymphocytes % (auto) 7.8 % (10.0-50.0); Mean Corpuscular Hemoglobin 30.9 pg (28.0-32.0); Mean Corpuscular Hgb Conc. 34.6 g/dL (32.0-36.0); Mean Corpuscular Volume 89.2 fL (80.0-100.0); Monocytes # (auto) 1.1 10 ^3/uL (0-1.3); Monocytes % (auto) 7.4 % (0.0-12.0); Neutrophils % (auto) 83.9 % (37.0-80.0); Nucleated Red Blood Cells % 0.1 %; Platelet Count (auto) 118 10^3/uL (140-450); Red Blood Cells 5.92 10^6/uL (4.5-5.90); Red Cell Distribution Width 13.6 % (11.8-14.3); White Blood Cell 14.2 10^3/uL (4.4-10.8)
[2024-11-28 04:20] LABS: Albumin 4.2 g/dL (3.2-4.8); Alkaline Phosphatase 61 U/L (46-116); Anion Gap 14 (5-15); Aspartate Aminotransferase 30 U/L (13-40); BUN/Creatinine Ratio 26.2 (10.0-20.0); Bilirubin, Total 0.7 mg/dL (0.2-1.0); Calcium 9.6 mg/dL (8.7-10.4); Carbon Dioxide 22 mmol/L (20-31); Potassium 3.8 mmol/L (3.5-5.1); Total Protein 7.2 g/dL (5.7-8.2)
[2024-11-28 04:23] LABS: Alanine Aminotransferase 61 U/L (7-40); Blood Urea Nitrogen 74 mg/dL (9-23); Chloride 110 mmol/L (98-107); Glucose 143 mg/dL (74-106); Sodium 146 mmol/L (136-145)
[2024-11-28] MEDS ORDERED: POTASSIUM CHL 20MEQ/100ML 100 ML IV ONE (08:45)
[2024-11-28] MEDS: POTASSIUM CHL 20MEQ/50ML 50 ML IV ONE (10:17)
--- NOTE | 2024-11-28 14:13 | DVHPNRES ---
Progress Note Date Seen: Nov 28, 2024 Resident Creating Document: GUERO BLOUNT RESIDENT Has the PT tested + for MRSA If YES, has PT been informed?: No Medical Necessity Reason Pt with a Central, PICC or Fol: Yes The following are medically ne: El Catheter Subjective Review of Systems On my assessment, patient was seen and examined at bedside. He was extubated on 11/27/24. Currently on oxymizer at 8lt. Passed swallow eval, continue puree diet pending PT eval Objective vital signs Vital Sign Date Time Temp Pulse Resp B/P (MAP) Pulse Ox O2 Delivery O2 Flow Rate FiO2 11/28/24 14:00 82 18 138/83 (101) 95 11/28/24 13:05 Oxymizer 8 N/A 11/28/24 03:47 98.9 98.9 Total Intake and Output 11/27/24 11/27/24 11/28/24 15:00 23:00 07:00 Intake Total 104.325 ml 125.0 ml 25.0 ml Output Total 1800 ml 1100 ml Balance 104.325 ml -1675.0 ml -1075.0 ml medications Current Medications Medications Dose Ordered Sig/Amy Route Start Time Stop Time Status Last Admin Dose Admin Pantoprazole Sodium 40 mg DAILY IV 11/21/24 10:00 11/28/24 10:11 40 MG Diagnostic Test (Pha) 1 strip Q6HR 11/23/24 12:00 11/28/24 12:00 1 STRIP Insulin Human Regular Q6HR SC 11/23/24 12:00 11/28/24 13:06 6 UNITS Dextrose 50 ml UD PRN IV 11/23/24 06:45 Sodium Chloride 10 ml QSHIFT@10,22 IV 11/23/24 22:00 11/28/24 10:13 10 ML Clopidogrel Bisulfate 75 mg DAILY PO 11/26/24 10:00 11/28/24 10:12 75 MG Aspirin 81 mg DAILY PO 11/26/24 10:00 11/28/24 10:12 81 MG Atorvastatin Calcium 40 mg HS PO 11/25/24 22:00 11/26/24 22:57 40 MG Lactulose 15 ml BID PO 11/26/24 18:00 11/28/24 10:12 15 ML Chlordiazepoxide HCl 25 mg Q6HPRN PRN PO 11/27/24 08:30 Ondansetron HCl 4 mg Q4HPRN PRN IV 11/27/24 10:15 Albuterol 2.5 mg Q6HWA NEB 11/27/24 12:00 11/28/24 12:59 2.5 MG Ipratropium [place] 0.5 mg Q6HWA NEB 11/27/24 12:00 11/28/24 12:59 0.5 MG Heparin Sodium (Porcine) 5,000 units Q12HR SC 11/27/24 22:00 11/28/24 10:14 5,000 UNITS Furosemide 40 mg DAILY IV 11/29/24 10:00 Cefepime HCl 50 ml @ 12.5 mls/hr DAILY IV 11/29/24 10:00 Thiamine HCl 100 mg DAILY PO 11/29/24 10:00 UNV Folic Acid 1 mg DAILY PO 11/29/24 10:00 UNV Multivitamins 1 tab DAILY PO 11/29/24 10:00 UNV Examination Physical examination as below: General: alert, awake, oriented x3 HEENT: Head is normocephalic and atraumatic. Pupils are equal, round, and reactive to light. Neck: Supple with no cervical lymphadenopathy. Heart: Regular rate without murmur, rub, or gallop. Lungs: scattered crackles Abdomen: No external sign of injury. Bowel sounds are present. Abdomen is soft, nontender. Extremities: Strong peripheral pulses. There is no clubbing, no cyanosis, and no edema. Skin: No rash. Neurologic: no neurologic deficits laboratory and microbiology Laboratory Tests 11/28/24 03:07 Test 11/28/24 03:07 Range/Units Serum Glucose 143 H 74-106 mg/dL Microbiology Date/Time Source Procedure Growth Status 11/20/24 21:31 Nose MRSA Screen - Final Complete 11/20/24 04:05 Blood Blood Culture - Final NO GROWTH AFTER 5 DAYS OF INCUBATION. 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, sedation related #NSTEMI type 1, s/p PCIx2 echo shows ef 30% Lasix 40mg iv qd [employer] 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 on 11/24/24, s/p PCIx2 Reviewed operative report from cardio continue aspirin and plavix Pulmonology #Acute hypoxic respiratory failure, s/p Mechanical ventilation #Aspiration pneumonia likely ; Gram-negative, growing enterobacter #atelectasis On cefepime On MV: PEEP 5, FIO2 65% RR 16 TV 500 extubated on 11/27/24 on oxymizer 8L Nephrology #Anion gap metabolic acidosis #BHUPINDER due to VMN continue diuresing urine studies sent nephrology following Endocrinology #Type 2 diabetes #Obesity #Mixed dyslipidemia SSI mild Gastroenterology Nutrition puree diet #constipation lactulose Hematology and Oncology x Infectious Disease #Aspiration pneumonia likely ; Gram-negative Gram-positive #Septic shock due to above #Lactic Acidosis Levo on standby Cefepime IV Dermatology x DVT ppx heparin PUD ppx Protonix Drips x Lines ET tube 11/20/24, exchanged on 11/22/24, extubated 11/27/24 picc line placed 11/23/24 Goals of care were discussed for 33 minutes. FULL CODE. Critical care time spent outside of procedures: 68 mins Case was discussed with Dr. Ny Plan discussed with: Spouse, Other (RN) My Orders My Orders Orders - GUERO BLOUNT RESIDENT Procedure Category Date Status Time Furosemide Injection PHA 11/29/24 In Process (Lasix Injection) 10:00 Pt Request For Service PT 11/28/24 Logged 08:39 Cefepime 2gm/50ml Ns PHA 11/29/24 In Process (Maxipime 2gm/50ml) 10:00 Thiamine Tab PHA 11/29/24 Logged 10:00 Folic Acid Tablet PHA 11/29/24 Logged 10:00 Multiple Vitamin PHA 11/29/24 Logged Tablet (Mvi Tab) 10:00 Dietary Evaluation Review Comments: 1. Suggest EN formula Vital AF 1.2 @ 50 ml/hr (GOAL). Begin at 10 ml/hr, advance by 10 ml Q4 hrs or as tolerated to goal-rate of 50 ml/hr 2. Provide free water flushes of 30 ml Q6 hrs (120 ml total); adjust PRN 3. Monitor BMP/lytes and replete to WNL/PRN 4. Agree with continuation of folate, thiamine due to ETOH abuse TF Provision: TF at goal to provide 1200 ml total volume, 1440 kcal (+204 kcal via propofol = 1644 kcal), 90 gm pro, 6 gm fiber, 973 ml H20 (meets 100% est. kcal needs, 100% est. pro needs) Expected Outcomes/Goals: Improved hemodynamic stability, weight maintenance, adequate nutrition. Date of Service: Nov 28, 2024 Billing Provider: GUERRERO [place] MD Common Visit Codes: [id number] CARE 30-74 MIN GUERO BLOUNT RESIDENT Nov 28, 2024 14:13 GUERRERO NY MD Nov 29, 2024 14:25
--- NOTE | 2024-11-28 14:30 | DVHPN2 ---
Progress Note Date Seen: Nov 28, 2024 Has the PT tested + for MRSA If YES, has PT been informed?: No Medical Necessity Reason Pt with a Central, PICC or Fol: Yes The following are medically ne: Central Line, El Catheter Subjective Patient reports: Other (No new events family member at bedside) Review of Systems: Deferred Objective vital signs Vital Sign Date Time Temp Pulse Resp B/P (MAP) Pulse Ox O2 Delivery O2 Flow Rate FiO2 11/28/24 14:00 82 18 138/83 (101) 95 11/28/24 13:05 Oxymizer 8 N/A 11/28/24 03:47 98.9 98.9 Total Intake and Output 11/27/24 11/27/24 11/28/24 15:00 23:00 07:00 Intake Total 104.325 ml 125.0 ml 25.0 ml Output Total 1800 ml 1100 ml Balance 104.325 ml -1675.0 ml -1075.0 ml medications Current Medications Medications Dose Ordered Sig/Amy Route Start Time Stop Time Status Last Admin Dose Admin Pantoprazole Sodium 40 mg DAILY IV 11/21/24 10:00 11/28/24 10:11 40 MG Diagnostic Test (Pha) 1 strip Q6HR 11/23/24 12:00 11/28/24 12:00 1 STRIP Insulin Human Regular Q6HR SC 11/23/24 12:00 11/28/24 13:06 6 UNITS Dextrose 50 ml UD PRN IV 11/23/24 06:45 Sodium Chloride 10 ml QSHIFT@10,22 IV 11/23/24 22:00 11/28/24 10:13 10 ML Clopidogrel Bisulfate 75 mg DAILY PO 11/26/24 10:00 11/28/24 10:12 75 MG Aspirin 81 mg DAILY PO 11/26/24 10:00 11/28/24 10:12 81 MG Atorvastatin Calcium 40 mg HS PO 11/25/24 22:00 11/26/24 22:57 40 MG Lactulose 15 ml BID PO 11/26/24 18:00 11/28/24 10:12 15 ML Chlordiazepoxide HCl 25 mg Q6HPRN PRN PO 11/27/24 08:30 Ondansetron HCl 4 mg Q4HPRN PRN IV 11/27/24 10:15 Albuterol 2.5 mg Q6HWA NEB 11/27/24 12:00 11/28/24 12:59 2.5 MG Ipratropium [place] 0.5 mg Q6HWA [facility] 11/27/24 12:00 11/28/24 12:59 0.5 MG Heparin Sodium (Porcine) 5,000 units Q12HR SC 11/27/24 22:00 11/28/24 10:14 5,000 UNITS Furosemide 40 mg DAILY IV 11/29/24 10:00 Cefepime HCl 50 ml @ 12.5 mls/hr DAILY IV 11/29/24 10:00 Thiamine HCl 100 mg DAILY PO 11/29/24 10:00 UNV Folic Acid 1 mg DAILY PO 11/29/24 10:00 UNV Multivitamins 1 tab DAILY PO 11/29/24 10:00 UNV Examination: GENERAL:Abnormal, LUNGS:Abnormal, MSK:Abnormal, NEURO:Normal laboratory and microbiology Laboratory Tests 11/28/24 03:07 Test 11/28/24 03:07 Range/Units Serum Glucose 143 H 74-106 mg/dL Microbiology Date/Time Source Procedure Growth Status 11/20/24 21:31 Nose MRSA Screen - Final Complete 11/20/24 04:05 Blood Blood Culture - Final NO GROWTH AFTER 5 DAYS OF INCUBATION. Complete 11/20/24 03:37 Sputum Gram Stain - Final Complete 11/20/24 03:37 Respiratory Culture - Final Enterobacter cloacae Complete Problem List/Assessment/Plan Problem List/Assessment/Plan Acute kidney injury hemodynamic mediated etiology ckd 3A vs 3B etoh intoxication bradycardia AMS acute respiratory failure decompensated HF EF 30% Lasix dose has been reduced s/p cardiac cath 11/25 Stable renal function fluid restriction Ultrasound of the kidney showed right kidney is 10.6 cm left kidney is 8.6 cm the echogenicity of the kidneys were normal pressors to keep map 65 as needed Plan discussed with: Patient, Other Dietary Evaluation Review Comments: 1. Suggest EN formula Vital AF 1.2 @ 50 ml/hr (GOAL). Begin at 10 ml/hr, advance by 10 ml Q4 hrs or as tolerated to goal-rate of 50 ml/hr 2. Provide free water flushes of 30 ml Q6 hrs (120 ml total); adjust PRN 3. Monitor BMP/lytes and replete to WNL/PRN 4. Agree with continuation of folate, thiamine due to ETOH abuse TF Provision: TF at goal to provide 1200 ml total volume, 1440 kcal (+204 kcal via propofol = 1644 kcal), 90 gm pro, 6 gm fiber, 973 ml H20 (meets 100% est. kcal needs, 100% est. pro needs) Expected Outcomes/Goals: Improved hemodynamic stability, weight maintenance, adequate nutrition. BETSY ENGEL MD Nov 28, 2024 14:29
[2024-11-28] MEDS: ONDANSETRON HCL 4 MG/2 ML VIAL IV PRN (17:39)
[2024-11-28] MEDS: TEMAZEPAM 15 MG CAP PO ONE (21:01)
[2024-11-28] MEDS: MELATONIN 5 MG TAB PO SCH (22:00)
--- NOTE | 2024-11-28 23:27 | DVHPN2 ---
Progress Note - Dictate Date Seen: Nov 28, 2024 Has the PT tested + for MRSA If YES, has PT been informed?: No Medical Necessity Reason Pt with a Central, PICC or Fol: Yes The following are medically ne: Central Line, El Catheter Subjective Patient was seen and evaluated in follow up in the ICU. Patient is on Oxymizer at 8 L. Patient is complaining of SOB and throat discomfort. Patient passed swallow eval. WBC 14.2, NA 146, BUN 74, [employer] Supervisor 2.82. vital signs Vital Sign Date Time Temp Pulse Resp B/P (MAP) Pulse Ox O2 Delivery O2 Flow Rate FiO2 11/28/24 22:47 76 16 145/86 (105) 93 11/28/24 22:00 Oxymizer 8 N/A 11/28/24 19:47 98.5 98.5 Total Intake and Output 11/27/24 11/27/24 11/28/24 15:00 23:00 07:00 Intake Total 104.325 ml 125.0 ml 25.0 ml Output Total 1800 ml 1100 ml Balance 104.325 ml -1675.0 ml -1075.0 ml medications Current Medications Medications Dose Ordered Sig/Amy Route Start Time Stop Time Status Last Admin Dose Admin Pantoprazole Sodium 40 mg DAILY IV 11/21/24 10:00 11/28/24 10:11 40 MG Diagnostic Test (Pha) 1 strip Q6HR 11/23/24 12:00 11/28/24 18:00 1 STRIP Insulin Human Regular Q6HR SC 11/23/24 12:00 11/28/24 13:06 6 UNITS Dextrose 50 ml UD PRN IV 11/23/24 06:45 Sodium Chloride 10 ml QSHIFT@10,22 IV 11/23/24 22:00 11/28/24 21:02 10 ML Clopidogrel Bisulfate 75 mg DAILY PO 11/26/24 10:00 11/28/24 10:12 75 MG Aspirin 81 mg DAILY PO 11/26/24 10:00 11/28/24 10:12 81 MG Atorvastatin Calcium 40 mg HS PO 11/25/24 22:00 11/28/24 21:02 40 MG Lactulose 15 ml BID PO 11/26/24 18:00 11/28/24 21:02 15 ML Ondansetron HCl 4 mg Q4HPRN PRN IV 11/27/24 10:15 11/28/24 17:39 4 MG Albuterol 2.5 mg Q6HWA [facility] 11/27/24 12:00 11/28/24 18:42 2.5 MG Ipratropium [place] 0.5 mg Q6HWA [facility] 11/27/24 12:00 11/28/24 18:42 0.5 MG Heparin Sodium (Porcine) 5,000 units Q12HR SC 11/27/24 22:00 11/28/24 21:02 5,000 UNITS Furosemide 40 mg DAILY IV 11/29/24 10:00 Cefepime HCl 50 ml @ 12.5 mls/hr DAILY IV 11/29/24 10:00 Thiamine HCl 100 mg DAILY PO 11/29/24 10:00 Folic Acid 1 mg DAILY PO 11/29/24 10:00 Multivitamins 1 tab DAILY PO 11/29/24 10:00 Melatonin 10 mg HS PO 11/28/24 22:00 objective GENERAL: Alert and oriented x 3. No acute distress. EYES: PERRL, EOMI. Anicteric. HENT: Moist mucous membranes. LUNGS: Decreased breath sounds. CARDIOVASCULAR: Regular rate and rhythm. ABDOMEN: Soft, nontender and nondistended. EXTREMITIES: No edema. SKIN: Warm, dry. laboratory and microbiology Laboratory Tests 11/28/24 03:07 Test 11/28/24 03:07 Range/Units Serum Glucose 143 H 74-106 mg/dL Problem List A Fib with RVR. ? history of A fib. CAD s/p PCI. CHF. Toxic encephalopathy with hx of ETOH abuse. BHUPINDER on CKD. History of Hypertension, currently hypotensive on vasopressor. Diabetes type 2. Hyperlipidemia. History of CVA. Assessment/Plan Continued all current supportive medical care. Aspirin, Lipitor. IV antibiotics as ordered. DVT and GI prophylactics. Diuretics with Lasix. Vasopressors for hemodynamic support. Additional plan as per the hospital course. Critical care time of 45 minutes provided to include time spent evaluation of patient at bedside, when appropriate patient/family education for diagnosis, treatment plan, review of pertinent medical information and discussion of care with specialty providers and PCP. Dietary Evaluation Review Comments: 1. Suggest EN formula Vital AF 1.2 @ 50 ml/hr (GOAL). Begin at 10 ml/hr, advance by 10 ml Q4 hrs or as tolerated to goal-rate of 50 ml/hr 2. Provide free water flushes of 30 ml Q6 hrs (120 ml total); adjust PRN 3. Monitor BMP/lytes and replete to WNL/PRN 4. Agree with continuation of folate, thiamine due to ETOH abuse TF Provision: TF at goal to provide 1200 ml total volume, 1440 kcal (+204 kcal via propofol = 1644 kcal), 90 gm pro, 6 gm fiber, 973 ml H20 (meets 100% est. kcal needs, 100% est. pro needs) Expected Outcomes/Goals: Improved hemodynamic stability, weight maintenance, adequate nutrition. Plan discussed with: Patient RUBIO YUNG MD Nov 28, 2024 23:27
[2024-11-29] VITALS (31 sets, daily range): BP systolic 130–170; BP diastolic 71–90; PULSE 63–91; RESP 14–27; TEMP 98.1–98.9; O2SAT 91–97
[2024-11-29] MEDS: hydrALAZINE HCL 20 MG/ML VL IV PRN (03:14)
[2024-11-29 03:51] LABS: Basophils # (auto) 0 10 ^3/uL (0-0.2); Basophils % (auto) 0.3 % (0.0-2.0); Eosinophils # (auto) 0.1 10 ^3/uL (0-0.8); Eosinophils % (auto) 1.2 % (0.0-7.0); Lymphocytes # (auto) 1.1 10 ^3/uL (0.4-5.4); Monocytes # (auto) 1.1 10 ^3/uL (0-1.3); Monocytes % (auto) 8.5 % (0.0-12.0)
[2024-11-29 03:54] LABS: Hematocrit 55.7 % (41.0-53.0); Hemoglobin 19.1 g/dL (13.5-17.5); Lymphocytes % (auto) 8.4 % (10.0-50.0); Mean Corpuscular Hemoglobin 30.7 pg (28.0-32.0); Mean Corpuscular Hgb Conc. 34.2 g/dL (32.0-36.0); Mean Corpuscular Volume 89.7 fL (80.0-100.0); Neutrophils # (auto) 10.3 10 ^3/uL (1.6-8.6); Neutrophils % (auto) 81.6 % (37.0-80.0); Platelet Count (auto) 112 10^3/uL (140-450); Red Blood Cells 6.21 10^6/uL (4.5-5.90); Red Cell Distribution Width 13.9 % (11.8-14.3); White Blood Cell 12.7 10^3/uL (4.4-10.8)
[2024-11-29 04:03] LABS: Albumin 4.4 g/dL (3.2-4.8); Alkaline Phosphatase 65 U/L (46-116); Calcium 10.1 mg/dL (8.7-10.4); Carbon Dioxide 23 mmol/L (20-31)
[2024-11-29 04:04] LABS: Anion Gap 14 (5-15); Aspartate Aminotransferase 26 U/L (13-40); BUN/Creatinine Ratio 25.4 (10.0-20.0); Bilirubin, Total 0.6 mg/dL (0.2-1.0); Potassium 3.8 mmol/L (3.5-5.1); Total Protein 7.6 g/dL (5.7-8.2)
[2024-11-29 04:16] LABS: Alanine Aminotransferase 63 U/L (7-40); Blood Urea Nitrogen 73 mg/dL (9-23); Chloride 112 mmol/L (98-107); Glucose 152 mg/dL (74-106); Sodium 149 mmol/L (136-145)
[2024-11-29] MEDS: FUROSEMIDE 40 MG/4 ML VIAL IV SCH (09:08)
[2024-11-29] MEDS: CEFEPIME 2GM/50ML NS 50 ML IV SCH (09:08)
[2024-11-29] MEDS: FOLIC ACID 1 MG TAB PO SCH (09:09)
[2024-11-29] MEDS: THIAMINE HCL 100 MG TAB PO SCH (09:09)
[2024-11-29] MEDS: CARVEDILOL 12.5 MG TAB PO SCH (09:10)
[2024-11-29] MEDS: MULTIPLE VITAMIN TAB PO SCH (09:10)
[2024-11-29] MEDS: BISACODYL 5 MG EC TAB PO ONE (10:45)
[2024-11-29] MEDS: METOCLOPRAMIDE HCL 5MG/ml INJ 2ml VIAL IV ONE (10:49)
--- NOTE | 2024-11-29 11:04 | DVHPNRES ---
Progress Note Date Seen: Nov 29, 2024 Resident Creating Document: GUERO BLOUNT RESIDENT Has the PT tested + for MRSA If YES, has PT been informed?: No Medical Necessity Reason Pt with a Central, PICC or Fol: Yes The following are medically ne: Central Line, El Catheter Subjective Review of Systems On my assessment, patient was seen and examined at bedside. He was extubated on 11/27/24. Currently on oxymizer at 6lt. continue puree diet continue PT Objective vital signs Vital Sign Date Time Temp Pulse Resp B/P (MAP) Pulse Ox O2 Delivery O2 Flow Rate FiO2 11/29/24 10:10 89 141/81 11/29/24 06:20 18 95 11/29/24 06:11 Oxymizer 8 N/A 11/29/24 04:48 98.2 98.2 Total Intake and Output 11/28/24 11/28/24 11/29/24 15:00 23:00 07:00 Intake Total 50.2 ml 120 ml 100 ml Output Total 2300 ml 700 ml Balance 50.2 ml -2180 ml -600 ml medications Current Medications Medications Dose Ordered Sig/Amy Route Start Time Stop Time Status Last Admin Dose Admin Pantoprazole Sodium 40 mg DAILY IV 11/21/24 10:00 11/29/24 09:09 40 MG Diagnostic Test (Pha) 1 strip Q6HR 11/23/24 12:00 11/29/24 06:17 1 STRIP Insulin Human Regular Q6HR SC 11/23/24 12:00 11/28/24 13:06 6 UNITS Dextrose 50 ml UD PRN IV 11/23/24 06:45 Sodium Chloride 10 ml QSHIFT@10,22 IV 11/23/24 22:00 11/29/24 09:09 10 ML Clopidogrel Bisulfate 75 mg DAILY PO 11/26/24 10:00 11/29/24 09:11 75 MG Aspirin 81 mg DAILY PO 11/26/24 10:00 11/29/24 09:09 81 MG Atorvastatin Calcium 40 mg HS PO 11/25/24 22:00 11/28/24 21:02 40 MG Lactulose 15 ml BID PO 11/26/24 18:00 11/29/24 09:10 15 ML Ondansetron HCl 4 mg Q4HPRN PRN IV 11/27/24 10:15 11/28/24 17:39 4 MG Albuterol 2.5 mg Q6HWA NEB 11/27/24 12:00 11/29/24 06:11 2.5 MG Ipratropium [place] 0.5 mg Q6HWA NEB 11/27/24 12:00 11/29/24 06:11 0.5 MG Heparin Sodium (Porcine) 5,000 units Q12HR SC 11/27/24 22:00 11/29/24 09:34 5,000 UNITS Furosemide 40 mg DAILY IV 11/29/24 10:00 11/29/24 09:08 40 MG Cefepime HCl 50 ml @ 12.5 mls/hr DAILY IV 11/29/24 10:00 11/29/24 09:08 12.5 MLS/HR Thiamine HCl 100 mg DAILY PO 11/29/24 10:00 11/29/24 09:09 100 MG Folic Acid 1 mg DAILY PO 11/29/24 10:00 11/29/24 09:09 1 MG Multivitamins 1 tab DAILY PO 11/29/24 10:00 11/29/24 09:10 1 TAB Melatonin 10 mg HS PO 11/28/24 22:00 Hydralazine HCl 10 mg Q6HP PRN IV 11/29/24 03:00 11/29/24 03:14 10 MG Carvedilol 12.5 mg Q12HR PO 11/29/24 10:00 11/29/24 09:10 12.5 MG Purified Water 200 ml Q6HR PO 11/29/24 12:00 Trazodone HCl 50 mg HS PO 11/29/24 22:00 Examination Physical examination as below: General: alert, awake, oriented x3 HEENT: Head is normocephalic and atraumatic. Pupils are equal, round, and reactive to light. Neck: Supple with no cervical lymphadenopathy. Heart: Regular rate without murmur, rub, or gallop. Lungs: scattered crackles Abdomen: No external sign of injury. Bowel sounds are present. Abdomen is soft, nontender. Extremities: Strong peripheral pulses. There is no clubbing, no cyanosis, and no edema. Skin: No rash. Neurologic: no neurologic deficits laboratory and microbiology Laboratory Tests 11/29/24 02:57 Test 11/29/24 02:57 Range/Units Serum Glucose 152 H 74-106 mg/dL Microbiology Date/Time Source Procedure Growth Status 11/20/24 21:31 Nose MRSA Screen - Final Complete 11/20/24 04:05 Blood Blood Culture - Final NO GROWTH AFTER 5 DAYS OF INCUBATION. Complete 11/20/24 03:37 Sputum Gram Stain - Final Complete 11/20/24 03:37 Respiratory Culture - Final Enterobacter cloacae Complete Labs and/or images reviewed: Labs reviewed by me, Image(s) reviewed by me Problem List/Assessment/Plan Problem List/Assessment/Plan Neurology #Acute toxic/metabolic encephalopathy, likely due to alcohol intoxication #Acute alcohol intoxication #Insomnia Folic acid and thiamine po mvi po Head ct unremarkable for acute disease trazodone melatonin Cardiovascular #H/o hypertension #CAD, s/p PCI x1 #AFib with RVR, now NSR #Acute on chronic systolic CHF #Sinus bradycardia, 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, sedation related #NSTEMI type 1 POA, s/p PCIx2 echo shows ef 30% 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 on 11/24/24, s/p PCIx2 Reviewed operative report from cardio continue aspirin and plavix Pulmonology #Acute hypoxic respiratory failure, s/p Mechanical ventilation #Aspiration pneumonia likely ; Gram-negative, growing enterobacter #atelectasis On cefepime extubated on 11/27/24 on nasal cannula incentive spirometry Nephrology #Anion gap metabolic acidosis #BHUPINDER due to VMN continue diuresing nephrology following Endocrinology #Type 2 diabetes #Obesity #Mixed dyslipidemia SSI mild Gastroenterology Nutrition puree diet #constipation lactulose reglan dulcolax once tap water enema once Hematology and Oncology x Infectious Disease #Aspiration pneumonia likely ; Gram-negative Gram-positive #Septic shock due to above #Lactic Acidosis levaquin po Dermatology x DVT ppx heparin PUD ppx Protonix Drips x Lines ET tube 11/20/24, exchanged on 11/22/24, extubated 11/27/24 picc line placed 11/23/24 downgrade to telemetry PT recommended SNF, consulted SS Goals of care were discussed for 33 minutes. FULL CODE. Critical care time spent outside of procedures: 68 mins Case was discussed with Dr. Ny Plan discussed with: Patient, Spouse, Other (RN) My Orders My Orders Orders - GUERO BLOUNT RESIDENT Procedure Category Date Status Time Cefepime 2gm/50ml Ns PHA 11/29/24 In Process (Maxipime 2gm/50ml) 10:00 Thiamine Tab PHA 11/29/24 In Process 10:00 Folic Acid Tablet PHA 11/29/24 In Process 10:00 Multiple Vitamin PHA 11/29/24 In Process Tablet (Mvi Tab) 10:00 Apply Barrier Cream PETE 11/28/24 In Process 10:26 Melatonin (Melatonin) PHA 11/28/24 In Process 22:00 Carvedilol Tablet PHA 11/29/24 In Process (Coreg Tablet) 10:00 Free Water PHA 11/29/24 In Process 12:00 Tap Water Enema ORDERS 11/29/24 Transmitted 10:11 Trazodone Hcl PHA 11/29/24 In Process (Desyrel) 22:00 Dietary Evaluation Review Comments: 1. Suggest EN formula Vital AF 1.2 @ 50 ml/hr (GOAL). Begin at 10 ml/hr, advance by 10 ml Q4 hrs or as tolerated to goal-rate of 50 ml/hr 2. Provide free water flushes of 30 ml Q6 hrs (120 ml total); adjust PRN 3. Monitor BMP/lytes and replete to WNL/PRN 4. Agree with continuation of folate, thiamine due to ETOH abuse TF Provision: TF at goal to provide 1200 ml total volume, 1440 kcal (+204 kcal via propofol = 1644 kcal), 90 gm pro, 6 gm fiber, 973 ml H20 (meets 100% est. kcal needs, 100% est. pro needs) Expected Outcomes/Goals: Improved hemodynamic stability, weight maintenance, adequate nutrition. Date of Service: Nov 29, 2024 Billing Provider: GUERRERO [place] MD Common Visit Codes: [id number] CARE 30-74 MIN GUERO BLOUNT RESIDENT Nov 29, 2024 11:04 GUERRERO [place] MD Nov 30, 2024 16:31
[2024-11-29] MEDS: FREE WATER PO SCH (12:14)
--- NOTE | 2024-11-29 16:54 | DVHPN2 ---
Progress Note Date Seen: Nov 29, 2024 Has the PT tested + for MRSA If YES, has PT been informed?: No Medical Necessity Reason Pt with a Central, PICC or Fol: Yes The following are medically ne: El Catheter Subjective Patient reports: No new complaints Review of Systems: RESPIRATORY:Abnormal Objective vital signs Vital Sign Date Time Temp Pulse Resp B/P (MAP) Pulse Ox O2 Delivery O2 Flow Rate FiO2 11/29/24 14:00 Oxymizer 6 N/A 11/29/24 14:00 69 11/29/24 12:00 20 94 11/29/24 12:00 98.7 98.7 Total Intake and Output 11/28/24 11/28/24 11/29/24 15:00 23:00 07:00 Intake Total 50.2 ml 120 ml 100 ml Output Total 2300 ml 700 ml Balance 50.2 ml -2180 ml -600 ml medications Current Medications Medications Dose Ordered Sig/Amy Route Start Time Stop Time Status Last Admin Dose Admin Pantoprazole Sodium 40 mg DAILY IV 11/21/24 10:00 11/29/24 09:09 40 MG Diagnostic Test (Pha) 1 strip Q6HR 11/23/24 12:00 11/29/24 12:23 1 STRIP Insulin Human Regular Q6HR SC 11/23/24 12:00 11/29/24 12:23 3 UNITS Dextrose 50 ml UD PRN IV 11/23/24 06:45 Sodium Chloride 10 ml QSHIFT@10,22 IV 11/23/24 22:00 11/29/24 09:09 10 ML Clopidogrel Bisulfate 75 mg DAILY PO 11/26/24 10:00 11/29/24 09:11 75 MG Aspirin 81 mg DAILY PO 11/26/24 10:00 11/29/24 09:09 81 MG Atorvastatin Calcium 40 mg HS PO 11/25/24 22:00 11/28/24 21:02 40 MG Lactulose 15 ml BID PO 11/26/24 18:00 11/29/24 09:10 15 ML Ondansetron HCl 4 mg Q4HPRN PRN IV 11/27/24 10:15 11/28/24 17:39 4 MG Albuterol 2.5 mg Q6HWA NEB 11/27/24 12:00 11/29/24 11:21 2.5 MG Ipratropium [place] 0.5 mg Q6HWA NEB 11/27/24 12:00 11/29/24 11:21 0.5 MG Heparin Sodium (Porcine) 5,000 units Q12HR SC 11/27/24 22:00 11/29/24 09:34 5,000 UNITS Furosemide 40 mg DAILY IV 11/29/24 10:00 11/29/24 09:08 40 MG Cefepime HCl 50 ml @ 12.5 mls/hr DAILY IV 11/29/24 10:00 11/29/24 09:08 12.5 MLS/HR Thiamine HCl 100 mg DAILY PO 11/29/24 10:00 11/29/24 09:09 100 MG Folic Acid 1 mg DAILY PO 11/29/24 10:00 11/29/24 09:09 1 MG Multivitamins 1 tab DAILY PO 11/29/24 10:00 11/29/24 09:10 1 TAB Melatonin 10 mg HS PO 11/28/24 22:00 Hydralazine HCl 10 mg Q6HP PRN IV 11/29/24 03:00 11/29/24 03:14 10 MG Carvedilol 12.5 mg Q12HR PO 11/29/24 10:00 11/29/24 09:10 12.5 MG Purified Water 200 ml Q6HR PO 11/29/24 12:00 11/29/24 12:14 200 ML Trazodone HCl 50 mg HS PO 11/29/24 22:00 Examination: GENERAL:Normal, LUNGS:Abnormal, MSK:Abnormal, NEURO:Normal laboratory and microbiology Laboratory Tests 11/29/24 02:57 Test 11/29/24 02:57 Range/Units Serum Glucose 152 H 74-106 mg/dL Microbiology Date/Time Source Procedure Growth Status 11/20/24 21:31 Nose MRSA Screen - Final Complete 11/20/24 04:05 Blood Blood Culture - Final NO GROWTH AFTER 5 DAYS OF INCUBATION. Complete 11/20/24 03:37 Sputum Gram Stain - Final Complete 11/20/24 03:37 Respiratory Culture - Final Enterobacter cloacae Complete Problem List/Assessment/Plan Problem List/Assessment/Plan Acute kidney injury hemodynamic mediated etiology ckd 3A vs 3B etoh intoxication bradycardia AMS acute respiratory failure decompensated HF EF 30% Hypernatremia recs Lasix continue s/p cardiac cath 11/25 Stable renal function fluid restriction Encourage free water intake for sodium correction Plan discussed with: Patient, Other Dietary Evaluation Review Comments: 1. Suggest EN formula Vital AF 1.2 @ 50 ml/hr (GOAL). Begin at 10 ml/hr, advance by 10 ml Q4 hrs or as tolerated to goal-rate of 50 ml/hr 2. Provide free water flushes of 30 ml Q6 hrs (120 ml total); adjust PRN 3. Monitor BMP/lytes and replete to WNL/PRN 4. Agree with continuation of folate, thiamine due to ETOH abuse TF Provision: TF at goal to provide 1200 ml total volume, 1440 kcal (+204 kcal via propofol = 1644 kcal), 90 gm pro, 6 gm fiber, 973 ml H20 (meets 100% est. kcal needs, 100% est. pro needs) Expected Outcomes/Goals: Improved hemodynamic stability, weight maintenance, adequate nutrition. BETSY ENGEL MD Nov 29, 2024 16:54
[2024-11-29] MEDS: levoFLOXacin 250 MG TAB PO SCH (21:51)
[2024-11-29] MEDS: traZODone HCL 50 MG TAB PO SCH (21:54)
--- NOTE | 2024-11-29 23:48 | DVHPN2 ---
Progress Note - Dictate Date Seen: Nov 29, 2024 Has the PT tested + for MRSA If YES, has PT been informed?: No Medical Necessity Reason Pt with a Central, PICC or Fol: Yes The following are medically ne: El Catheter Subjective Patient was seen and evaluated in follow up. Patient was transferred to [facility]. Patient is on 4 L Oxymizer. Patient is tolerating diet. WBC 12.7, N 149, BUN 73, Heavy Equipment Rental Manager 2.87. Telemetry reviewed. vital signs Vital Sign Date Time Temp Pulse Resp B/P (MAP) Pulse Ox O2 Delivery O2 Flow Rate FiO2 11/29/24 21:53 85 146/94 11/29/24 21:00 98.3 18 96 98.3 11/29/24 18:30 Room Air* 4 N/A Oxymizer Total Intake and Output 11/28/24 11/28/24 11/29/24 15:00 23:00 07:00 Intake Total 50.2 ml 120 ml 100 ml Output Total 2300 ml 700 ml Balance 50.2 ml -2180 ml -600 ml medications Current Medications Medications Dose Ordered Sig/Amy Route Start Time Stop Time Status Last Admin Dose Admin Pantoprazole Sodium 40 mg DAILY IV 11/21/24 10:00 11/29/24 09:09 40 MG Diagnostic Test (Pha) 1 strip Q6HR 11/23/24 12:00 11/29/24 18:00 1 STRIP Insulin Human Regular Q6HR SC 11/23/24 12:00 11/29/24 18:00 3 UNITS Dextrose 50 ml UD PRN IV 11/23/24 06:45 Sodium Chloride 10 ml QSHIFT@10,22 IV 11/23/24 22:00 11/29/24 21:51 10 ML Clopidogrel Bisulfate 75 mg DAILY PO 11/26/24 10:00 11/29/24 09:11 75 MG Aspirin 81 mg DAILY PO 11/26/24 10:00 11/29/24 09:09 81 MG Atorvastatin Calcium 40 mg HS PO 11/25/24 22:00 11/29/24 21:54 40 MG Lactulose 15 ml BID PO 11/26/24 18:00 11/29/24 21:51 15 ML Ondansetron HCl 4 mg Q4HPRN PRN IV 11/27/24 10:15 11/28/24 17:39 4 MG Albuterol 2.5 mg Q6HWA NEB 11/27/24 12:00 11/29/24 18:51 2.5 MG Ipratropium [place] 0.5 mg Q6HWA NEB 11/27/24 12:00 11/29/24 18:51 0.5 MG Heparin Sodium (Porcine) 5,000 units Q12HR SC 11/27/24 22:00 11/29/24 21:59 5,000 UNITS Furosemide 40 mg DAILY IV 11/29/24 10:00 11/29/24 09:08 40 MG Thiamine HCl 100 mg DAILY PO 11/29/24 10:00 11/29/24 09:09 100 MG Folic Acid 1 mg DAILY PO 11/29/24 10:00 11/29/24 09:09 1 MG Multivitamins 1 tab DAILY PO 11/29/24 10:00 11/29/24 09:10 1 TAB Hydralazine HCl 10 mg Q6HP PRN IV 11/29/24 03:00 11/29/24 16:47 10 MG Carvedilol 12.5 mg Q12HR PO 11/29/24 10:00 11/29/24 21:53 12.5 MG Trazodone HCl 50 mg HS PO 11/29/24 22:00 11/29/24 21:54 50 MG Purified Water 100 ml Q6HR PO 11/30/24 00:00 Levofloxacin 750 mg Q48H PO 11/29/24 21:00 11/29/24 21:51 750 MG objective GENERAL: Alert and oriented x 3. No acute distress. EYES: PERRL, EOMI. Anicteric. HENT: Moist mucous membranes. LUNGS: Decreased breath sounds. CARDIOVASCULAR: Regular rate and rhythm. ABDOMEN: Soft, nontender and nondistended. EXTREMITIES: No edema. SKIN: Warm, dry. laboratory and microbiology Laboratory Tests 11/29/24 02:57 Test 11/29/24 02:57 Range/Units Serum Glucose 152 H 74-106 mg/dL Problem List A Fib with RVR. ? history of A fib. CAD s/p PCI. CHF. Toxic encephalopathy with hx of ETOH abuse. BHUPINDER on CKD. History of Hypertension, currently hypotensive on vasopressor. Diabetes type 2. Hyperlipidemia. History of CVA. Assessment/Plan Continued all current supportive medical care. Aspirin, Lipitor. IV antibiotics as ordered. DVT and GI prophylactics. Diuretics with Lasix. Additional plan as per the hospital course. Dietary Evaluation Review Comments: 1. Suggest EN formula Vital AF 1.2 @ 50 ml/hr (GOAL). Begin at 10 ml/hr, advance by 10 ml Q4 hrs or as tolerated to goal-rate of 50 ml/hr 2. Provide free water flushes of 30 ml Q6 hrs (120 ml total); adjust PRN 3. Monitor BMP/lytes and replete to WNL/PRN 4. Agree with continuation of folate, thiamine due to ETOH abuse TF Provision: TF at goal to provide 1200 ml total volume, 1440 kcal (+204 kcal via propofol = 1644 kcal), 90 gm pro, 6 gm fiber, 973 ml H20 (meets 100% est. kcal needs, 100% est. pro needs) Expected Outcomes/Goals: Improved hemodynamic stability, weight maintenance, adequate nutrition. Plan discussed with: Patient RUBIO YUNG MD Nov 29, 2024 23:48
[2024-11-30] VITALS (13 sets, daily range): BP systolic 122–154; BP diastolic 59–80; PULSE 57–94; RESP 16–20; TEMP 97.4–97.9; O2SAT 91–98
[2024-11-30] MEDS: FREE WATER PO SCH (02:02)
[2024-11-30] MEDS: MELATONIN 5 MG TAB PO ONE (07:00)
[2024-11-30] MEDS: HALOPERIDOL LACTATE 5 MG/ML INJ VIAL IM PRN (07:15)
[2024-11-30] MEDS ORDERED: LORazepam 2MG/ML-1ML VIAL IV PRN (07:45)
--- NOTE | 2024-11-30 11:43 | DVHPNRES ---
Progress Note Date Seen: Nov 30, 2024 Resident Creating Document: GUERO BLOUNT RESIDENT Has the PT tested + for MRSA If YES, has PT been informed?: No Medical Necessity Reason Pt with a Central, PICC or Fol: Yes The following are medically ne: El Catheter Subjective Review of Systems On my assessment, patient was seen and examined at bedside. He was extubated on 11/27/24. Currently on nasal cannula at 4lt. continue puree diet continue PT patient got agitated today, haldol was given, ativan prn Objective vital signs Vital Sign Date Time Temp Pulse Resp B/P (MAP) Pulse Ox O2 Delivery O2 Flow Rate FiO2 11/30/24 11:27 57 16 98 11/30/24 11:21 Room Air* 0 21 11/30/24 10:16 122/79 11/30/24 10:00 97.9 97.9 Total Intake and Output 11/29/24 11/29/24 11/30/24 15:00 23:00 07:00 Intake Total 50 ml 350 ml Output Total 1100 ml 600 ml Balance 50 ml -1100 ml -250 ml medications Current Medications Medications Dose Ordered Sig/Amy Route Start Time Stop Time Status Last Admin Dose Admin Pantoprazole Sodium 40 mg DAILY IV 11/21/24 10:00 11/30/24 10:16 40 MG Diagnostic Test (Pha) 1 strip Q6HR 11/23/24 12:00 11/30/24 00:00 1 STRIP Insulin Human Regular Q6HR SC 11/23/24 12:00 11/30/24 02:04 2 UNITS Dextrose 50 ml UD PRN IV 11/23/24 06:45 Sodium Chloride 10 ml QSHIFT@10,22 IV 11/23/24 22:00 11/30/24 10:17 10 ML Clopidogrel Bisulfate 75 mg DAILY PO 11/26/24 10:00 11/30/24 10:16 75 MG Aspirin 81 mg DAILY PO 11/26/24 10:00 11/30/24 10:16 81 MG Atorvastatin Calcium 40 mg HS PO 11/25/24 22:00 11/29/24 21:54 40 MG Lactulose 15 ml BID PO 11/26/24 18:00 11/30/24 10:22 15 ML Ondansetron HCl 4 mg Q4HPRN PRN IV 11/27/24 10:15 11/28/24 17:39 4 MG Albuterol 2.5 mg Q6HWA NEB 11/27/24 12:00 11/30/24 11:21 2.5 MG Ipratropium [place] 0.5 mg Q6HWA NEB 11/27/24 12:00 11/30/24 11:21 0.5 MG Heparin Sodium (Porcine) 5,000 units Q12HR SC 11/27/24 22:00 11/30/24 10:17 5,000 UNITS Furosemide 40 mg DAILY IV 11/29/24 10:00 11/30/24 10:16 40 MG Thiamine HCl 100 mg DAILY PO 11/29/24 10:00 11/30/24 10:15 100 MG Folic Acid 1 mg DAILY PO 11/29/24 10:00 11/30/24 10:15 1 MG Multivitamins 1 tab DAILY PO 11/29/24 10:00 11/30/24 10:16 1 TAB Hydralazine HCl 10 mg Q6HP PRN IV 11/29/24 03:00 11/29/24 16:47 10 MG Carvedilol 12.5 mg Q12HR PO 11/29/24 10:00 11/30/24 10:15 12.5 MG Trazodone HCl 50 mg HS PO 11/29/24 22:00 11/29/24 21:54 50 MG Purified Water 100 ml Q6HR PO 11/30/24 00:00 11/30/24 02:02 100 ML Levofloxacin 750 mg Q48H PO 11/29/24 21:00 11/29/24 21:51 750 MG Haloperidol Lactate 5 mg [id number] PRN IM 11/30/24 07:30 Lorazepam 0.5 mg Q2HR PRN IV 11/30/24 07:45 Examination Physical examination as below: General: alert, awake, oriented x3 HEENT: Head is normocephalic and atraumatic. Pupils are equal, round, and reactive to light. Neck: Supple with no cervical lymphadenopathy. Heart: Regular rate without murmur, rub, or gallop. Lungs: scattered crackles Abdomen: No external sign of injury. Bowel sounds are present. Abdomen is soft, nontender. Extremities: Strong peripheral pulses. There is no clubbing, no cyanosis, and no edema. Skin: No rash. Neurologic: no neurologic deficits laboratory and microbiology Laboratory Tests 11/29/24 02:57 Test 11/29/24 02:57 Range/Units Serum Glucose 152 H 74-106 mg/dL Microbiology Date/Time Source Procedure Growth Status 11/20/24 21:31 Nose MRSA Screen - Final Complete 11/20/24 04:05 Blood Blood Culture - Final NO GROWTH AFTER 5 DAYS OF INCUBATION. Complete 11/20/24 03:37 Sputum Gram Stain - Final Complete 11/20/24 03:37 Respiratory Culture - Final Enterobacter cloacae Complete Labs and/or images reviewed: Labs reviewed by me, Image(s) reviewed by me Problem List/Assessment/Plan Problem List/Assessment/Plan Neurology #Acute toxic/metabolic encephalopathy, likely due to alcohol intoxication #Acute alcohol intoxication #Insomnia #acute psychosis, possible due to sleep deprivation Folic acid and thiamine po mvi po Head ct unremarkable for acute disease trazodone haldol 5mg im bid prn ativan 1mg iv q6 prn Cardiovascular #H/o hypertension #CAD, s/p PCI x1 #AFib with RVR, now NSR #Acute on chronic systolic CHF #Sinus bradycardia, 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, sedation related #NSTEMI type 1 POA, s/p PCIx2 echo shows ef 30% Lasix 40mg iv qd Database Engineer 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 on 11/24/24, s/p PCIx2 Reviewed operative report from cardio continue aspirin and plavix Pulmonology #Acute hypoxic respiratory failure, s/p Mechanical ventilation #Aspiration pneumonia likely ; Gram-negative, growing enterobacter #atelectasis completed antibiotic therapy extubated on 11/27/24 on nasal cannula incentive spirometry Nephrology #Anion gap metabolic acidosis #BHUPINDER due to VMN continue diuresing nephrology following Endocrinology #Type 2 diabetes #Obesity #Mixed dyslipidemia SSI mild Gastroenterology Nutrition puree diet #constipation lactulose reglan dulcolax once tap water enema once Hematology and Oncology x Infectious Disease #Aspiration pneumonia likely ; Gram-negative Gram-positive #Septic shock due to above #Lactic Acidosis completed antibiotic therapy Dermatology x DVT ppx heparin PUD ppx Protonix Drips x Lines ET tube 11/20/24, exchanged on 11/22/24, extubated 11/27/24 picc line placed 11/23/24 downgrade to telemetry PT recommended SNF, consulted SS Goals of care were discussed for 33 minutes. FULL CODE. Critical care time spent outside of procedures: 38 mins Case was discussed with Dr. Ny Plan discussed with: Patient, Spouse, Other (RN) My Orders My Orders Orders - GUERO BLOUNT RESIDENT Procedure Category Date Status Time Transfer Orders XFER 11/29/24 Transmitted 15:08 Free Water PHA 11/30/24 In Process 00:00 * Analytical Research Program Manager CONS 11/29/24 Transmitted Consult Levofloxacin Tablet PHA 11/29/24 In Process (Levaquin Tablet) 21:00 Dietary Evaluation Review Comments: 1. Suggest EN formula Vital AF 1.2 @ 50 ml/hr (GOAL). Begin at 10 ml/hr, advance by 10 ml Q4 hrs or as tolerated to goal-rate of 50 ml/hr 2. Provide free water flushes of 30 ml Q6 hrs (120 ml total); adjust PRN 3. Monitor BMP/lytes and replete to WNL/PRN 4. Agree with continuation of folate, thiamine due to ETOH abuse TF Provision: TF at goal to provide 1200 ml total volume, 1440 kcal (+204 kcal via propofol = 1644 kcal), 90 gm pro, 6 gm fiber, 973 ml H20 (meets 100% est. kcal needs, 100% est. pro needs) Expected Outcomes/Goals: Improved hemodynamic stability, weight maintenance, adequate nutrition. Date of Service: Nov 30, 2024 Billing Provider: GUERRERO NY MD Common Visit Codes: [id number] CARE 30-74 MIN GUERO BLOUNT RESIDENT Nov 30, 2024 11:43 GUERRERO NY MD December 01, 2024 12:54
[2024-11-30] MEDS: LORazepam 2MG/ML-1ML VIAL IV PRN ×2 (12:32→16:05)
--- NOTE | 2024-11-30 17:34 | DVHPN2 ---
Progress Note Date Seen: Nov 30, 2024 Has the PT tested + for MRSA If YES, has PT been informed?: No Medical Necessity Reason Pt with a Central, PICC or Fol: Yes The following are medically ne: El Catheter Subjective Patient reports: Other (sleeping,family bedside) Review of Systems: Deferred Objective vital signs Vital Sign Date Time Temp Pulse Resp B/P (MAP) Pulse Ox O2 Delivery O2 Flow Rate FiO2 11/30/24 16:03 97.9 74 20 154/80 (104) 96 97.9 11/30/24 11:21 Room Air* 0 21 Total Intake and Output 11/29/24 11/29/24 11/30/24 15:00 23:00 07:00 Intake Total 50 ml 350 ml Output Total 1100 ml 600 ml Balance 50 ml -1100 ml -250 ml medications Current Medications Medications Dose Ordered Sig/Amy Route Start Time Stop Time Status Last Admin Dose Admin Pantoprazole Sodium 40 mg DAILY IV 11/21/24 10:00 11/30/24 10:16 40 MG Diagnostic Test (Pha) 1 strip Q6HR 11/23/24 12:00 11/30/24 00:00 1 STRIP Insulin Human Regular Q6HR SC 11/23/24 12:00 11/30/24 02:04 2 UNITS Dextrose 50 ml UD PRN IV 11/23/24 06:45 Sodium Chloride 10 ml QSHIFT@10,22 IV 11/23/24 22:00 11/30/24 10:17 10 ML Clopidogrel Bisulfate 75 mg DAILY PO 11/26/24 10:00 11/30/24 10:16 75 MG Aspirin 81 mg DAILY PO 11/26/24 10:00 11/30/24 10:16 81 MG Atorvastatin Calcium 40 mg HS PO 11/25/24 22:00 11/29/24 21:54 40 MG Lactulose 15 ml BID PO 11/26/24 18:00 11/30/24 10:22 15 ML Ondansetron HCl 4 mg Q4HPRN PRN IV 11/27/24 10:15 11/28/24 17:39 4 MG Albuterol 2.5 mg Q6HWA NEB 11/27/24 12:00 11/30/24 11:21 2.5 MG Ipratropium [place] 0.5 mg Q6HWA NEB 11/27/24 12:00 11/30/24 11:21 0.5 MG Heparin Sodium (Porcine) 5,000 units Q12HR SC 11/27/24 22:00 11/30/24 10:17 5,000 UNITS Furosemide 40 mg DAILY IV 11/29/24 10:00 11/30/24 10:16 40 MG Thiamine HCl 100 mg DAILY PO 11/29/24 10:00 11/30/24 10:15 100 MG Folic Acid 1 mg DAILY PO 11/29/24 10:00 11/30/24 10:15 1 MG Multivitamins 1 tab DAILY PO 11/29/24 10:00 11/30/24 10:16 1 TAB Hydralazine HCl 10 mg Q6HP PRN IV 11/29/24 03:00 11/29/24 16:47 10 MG Carvedilol 12.5 mg Q12HR PO 11/29/24 10:00 11/30/24 10:15 12.5 MG Trazodone HCl 50 mg HS PO 11/29/24 22:00 11/29/24 21:54 50 MG Purified Water 100 ml Q6HR PO 11/30/24 00:00 11/30/24 12:15 100 ML Haloperidol Lactate 5 mg [id number] PRN IM 11/30/24 07:30 Lorazepam 0.5 mg Q2HR PRN IV 11/30/24 07:45 Lorazepam 1 mg Q6HP PRN IV 11/30/24 16:00 11/30/24 16:05 1 MG Examination: GENERAL:Abnormal, LUNGS:Abnormal, MSK:Abnormal laboratory and microbiology Laboratory Tests 11/29/24 02:57 Test 11/29/24 02:57 Range/Units Serum Glucose 152 H 74-106 mg/dL Microbiology Date/Time Source Procedure Growth Status 11/20/24 21:31 Nose MRSA Screen - Final Complete 11/20/24 04:05 Blood Blood Culture - Final NO GROWTH AFTER 5 DAYS OF INCUBATION. Complete 11/20/24 03:37 Sputum Gram Stain - Final Complete 11/20/24 03:37 Respiratory Culture - Final Enterobacter cloacae Complete Problem List/Assessment/Plan Problem List/Assessment/Plan Acute kidney injury hemodynamic mediated etiology ckd 3A vs 3B etoh intoxication bradycardia AMS acute respiratory failure decompensated HF EF 30% Hypernatremia recs Lasix continue s/p cardiac cath 11/25 Stable renal function fluid restriction Encourage free water intake for sodium correction Plan discussed with: Other Dietary Evaluation Review Comments: 1. Suggest EN formula Vital AF 1.2 @ 50 ml/hr (GOAL). Begin at 10 ml/hr, advance by 10 ml Q4 hrs or as tolerated to goal-rate of 50 ml/hr 2. Provide free water flushes of 30 ml Q6 hrs (120 ml total); adjust PRN 3. Monitor BMP/lytes and replete to WNL/PRN 4. Agree with continuation of folate, thiamine due to ETOH abuse TF Provision: TF at goal to provide 1200 ml total volume, 1440 kcal (+204 kcal via propofol = 1644 kcal), 90 gm pro, 6 gm fiber, 973 ml H20 (meets 100% est. kcal needs, 100% est. pro needs) Expected Outcomes/Goals: Improved hemodynamic stability, weight maintenance, adequate nutrition. BETSY ENGEL MD Nov 30, 2024 17:34
[2024-11-30] MEDS: HALOPERIDOL LACTATE 5 MG/ML INJ VIAL ONE (21:08)
[2024-11-30] MEDS: HALOPERIDOL LACTATE 5 MG/ML INJ VIAL IM ONE (21:15)
[2024-11-30 21:39] LABS: Eosinophils # (auto) 0.3 10 ^3/uL (0-0.8); Lymphocytes # (auto) 1.5 10 ^3/uL (0.4-5.4); Mean Corpuscular Hemoglobin 30.1 pg (28.0-32.0); Monocytes # (auto) 1.3 10 ^3/uL (0-1.3); Red Blood Cells 6.02 10^6/uL (4.5-5.90)
[2024-11-30 21:41] LABS: Basophils # (auto) 0 10 ^3/uL (0-0.2); Basophils % (auto) 0.4 % (0.0-2.0); Eosinophils % (auto) 2.3 % (0.0-7.0); Hematocrit 53.6 % (41.0-53.0); Hemoglobin 18.1 g/dL (13.5-17.5); Lymphocytes % (auto) 12.9 % (10.0-50.0); Mean Corpuscular Hgb Conc. 33.8 g/dL (32.0-36.0); Mean Corpuscular Volume 89.1 fL (80.0-100.0); Monocytes % (auto) 10.6 % (0.0-12.0); Neutrophils # (auto) 8.8 10 ^3/uL (1.6-8.6); Neutrophils % (auto) 73.8 % (37.0-80.0); Nucleated Red Blood Cells % 0.4 %; Platelet Count (auto) 114 10^3/uL (140-450); Red Cell Distribution Width 13.7 % (11.8-14.3); White Blood Cell 11.9 10^3/uL (4.4-10.8)
[2024-11-30 21:57] LABS: Albumin 4.4 g/dL (3.2-4.8); Alkaline Phosphatase 63 U/L (46-116); Anion Gap 13 (5-15); Aspartate Aminotransferase 31 U/L (13-40); BUN/Creatinine Ratio 30.2 (10.0-20.0); Bilirubin, Total 0.8 mg/dL (0.2-1.0); Carbon Dioxide 21 mmol/L (20-31); Sodium 144 mmol/L (136-145); Total Protein 7.4 g/dL (5.7-8.2)
[2024-11-30 22:00] LABS: Alanine Aminotransferase 46 U/L (7-40); Chloride 110 mmol/L (98-107); Glucose 171 mg/dL (74-106); Potassium 3.4 mmol/L (3.5-5.1)
[2024-11-30 22:02] LABS: Blood Urea Nitrogen 85 mg/dL (9-23); Lactic Acid w/Reflex 2.2 mmol/L (0.4-2.0)
[2024-11-30] MEDS: SODIUM CHLORIDE 0.9% 250 ML IV ONE (22:45)
[2024-11-30 23:20] LABS: Base Excess 0.4 mmol/L (-2.0-3.0)
--- NOTE | 2024-11-30 23:26 | DVHPN2 ---
Progress Note - Dictate Date Seen: Nov 30, 2024 Has the PT tested + for MRSA If YES, has PT been informed?: No Medical Necessity Reason Pt with a Central, PICC or Fol: Yes The following are medically ne: El Catheter Subjective Patient was seen and evaluated in follow up. Early this morning, the patient was agitated, uncooperative and attempting to get OOB. Sitter is at bedside. WBC 11.9, K 3.4, BUN 85, Health Information Technician 2.81, LA 2.2. Telemetry reviewed. vital signs Vital Sign Date Time Temp Pulse Resp B/P (MAP) Pulse Ox O2 Delivery O2 Flow Rate FiO2 11/30/24 11:27 57 16 98 11/30/24 11:21 Room Air* 0 21 11/30/24 11:15 132/78 11/30/24 10:00 97.9 97.9 Total Intake and Output 11/29/24 11/29/24 11/30/24 15:00 23:00 07:00 Intake Total 50 ml 350 ml Output Total 1100 ml 600 ml Balance 50 ml -1100 ml -250 ml medications Current Medications Medications Dose Ordered Sig/Amy Route Start Time Stop Time Status Last Admin Dose Admin Pantoprazole Sodium 40 mg DAILY IV 11/21/24 10:00 11/30/24 10:16 40 MG Diagnostic Test (Pha) 1 strip Q6HR 11/23/24 12:00 11/30/24 00:00 1 STRIP Insulin Human Regular Q6HR SC 11/23/24 12:00 11/30/24 02:04 2 UNITS Dextrose 50 ml UD PRN IV 11/23/24 06:45 Sodium Chloride 10 ml QSHIFT@10,22 IV 11/23/24 22:00 11/30/24 10:17 10 ML Clopidogrel Bisulfate 75 mg DAILY PO 11/26/24 10:00 11/30/24 10:16 75 MG Aspirin 81 mg DAILY PO 11/26/24 10:00 11/30/24 10:16 81 MG Atorvastatin Calcium 40 mg HS PO 11/25/24 22:00 11/29/24 21:54 40 MG Lactulose 15 ml BID PO 11/26/24 18:00 11/30/24 10:22 15 ML Ondansetron HCl 4 mg Q4HPRN PRN IV 11/27/24 10:15 11/28/24 17:39 4 MG Albuterol 2.5 mg Q6HWA NEB 11/27/24 12:00 11/30/24 11:21 2.5 MG Ipratropium [place] 0.5 mg Q6HWA NEB 11/27/24 12:00 11/30/24 11:21 0.5 MG Heparin Sodium (Porcine) 5,000 units Q12HR SC 11/27/24 22:00 11/30/24 10:17 5,000 UNITS Furosemide 40 mg DAILY IV 11/29/24 10:00 11/30/24 10:16 40 MG Thiamine HCl 100 mg DAILY PO 11/29/24 10:00 11/30/24 10:15 100 MG Folic Acid 1 mg DAILY PO 11/29/24 10:00 11/30/24 10:15 1 MG Multivitamins 1 tab DAILY PO 11/29/24 10:00 11/30/24 10:16 1 TAB Hydralazine HCl 10 mg Q6HP PRN IV 11/29/24 03:00 11/29/24 16:47 10 MG Carvedilol 12.5 mg Q12HR PO 11/29/24 10:00 11/30/24 10:15 12.5 MG Trazodone HCl 50 mg HS PO 11/29/24 22:00 11/29/24 21:54 50 MG Purified Water 100 ml Q6HR PO 11/30/24 00:00 11/30/24 12:15 100 ML Levofloxacin 750 mg Q48H PO 11/29/24 21:00 11/29/24 21:51 750 MG Haloperidol Lactate 5 mg [id number] PRN IM 11/30/24 07:30 Lorazepam 0.5 mg Q2HR PRN IV 11/30/24 07:45 Lorazepam 2 mg ONCE PRN IV 11/30/24 12:30 11/30/24 12:32 2 MG objective GENERAL: Alert and oriented x 3. No acute distress. EYES: PERRL, EOMI. Anicteric. HENT: Moist mucous membranes. LUNGS: Decreased breath sounds. CARDIOVASCULAR: Regular rate and rhythm. ABDOMEN: Soft, nontender and nondistended. EXTREMITIES: No edema. SKIN: Warm, dry. laboratory and microbiology Laboratory Tests 11/29/24 02:57 Test 11/29/24 02:57 Range/Units Serum Glucose 152 H 74-106 mg/dL Problem List A Fib with RVR. ? history of A fib. CAD s/p PCI. CHF. Toxic encephalopathy with hx of ETOH abuse. BHUPINDER on CKD. History of Hypertension, currently hypotensive on vasopressor. Diabetes type 2. Hyperlipidemia. History of CVA. Assessment/Plan Continued all current supportive medical care. Aspirin, Lipitor. IV antibiotics as ordered. DVT and GI prophylactics. Diuretics with Lasix. Additional plan as per the hospital course. Dietary Evaluation Review Comments: 1. Suggest EN formula Vital AF 1.2 @ 50 ml/hr (GOAL). Begin at 10 ml/hr, advance by 10 ml Q4 hrs or as tolerated to goal-rate of 50 ml/hr 2. Provide free water flushes of 30 ml Q6 hrs (120 ml total); adjust PRN 3. Monitor BMP/lytes and replete to WNL/PRN 4. Agree with continuation of folate, thiamine due to ETOH abuse TF Provision: TF at goal to provide 1200 ml total volume, 1440 kcal (+204 kcal via propofol = 1644 kcal), 90 gm pro, 6 gm fiber, 973 ml H20 (meets 100% est. kcal needs, 100% est. pro needs) Expected Outcomes/Goals: Improved hemodynamic stability, weight maintenance, adequate nutrition. Plan discussed with: Patient RUBIO YUNG MD Nov 30, 2024 13:24
[2024-12-01] VITALS (13 sets, daily range): BP systolic 121–161; BP diastolic 63–93; PULSE 75–98; RESP 16–19; TEMP 97.6–98.5; O2SAT 85–99
--- NOTE | 2024-12-01 06:09 | DVH ---
CHEST RADIOGRAPH Indication: sob Technique: Single frontal view of the chest was obtained Comparison: XY CHEST PORTABLE on DOS: 11/28/24, XY CHEST XRAY 1 VIEW on DOS: 11/27/24, XY CHEST PORTABL E on DOS: 11/26/24 FINDINGS: Lines and Tubes: Right PICC terminates in the right atrium. Lungs: Bilateral interstitial prominence. Pleura: No effusion. No pneumothorax. Cardiomediastinal contours: Cardiomegaly. Bones: No acute osseous abnormality. IMPRESSION: 1. Pulmonary vascular congestion. 2. Cardiomegaly.
[2024-12-01 07:13] LABS: Basophils # (auto) 0 10 ^3/uL (0-0.2); Basophils % (auto) 0.4 % (0.0-2.0); Eosinophils # (auto) 0.4 10 ^3/uL (0-0.8); Eosinophils % (auto) 3.2 % (0.0-7.0); Hematocrit 50.8 % (41.0-53.0); Hemoglobin 17.5 g/dL (13.5-17.5); Lymphocytes # (auto) 1.7 10 ^3/uL (0.4-5.4); Lymphocytes % (auto) 13.8 % (10.0-50.0); Mean Corpuscular Hemoglobin 30.2 pg (28.0-32.0); Mean Corpuscular Hgb Conc. 34.4 g/dL (32.0-36.0); Mean Corpuscular Volume 87.5 fL (80.0-100.0); Monocytes # (auto) 1.5 10 ^3/uL (0-1.3); Monocytes % (auto) 12.6 % (0.0-12.0); Neutrophils # (auto) 8.6 10 ^3/uL (1.6-8.6); Nucleated Red Blood Cells % 0.1 %; Red Blood Cells 5.81 10^6/uL (4.5-5.90); Red Cell Distribution Width 13.7 % (11.8-14.3); White Blood Cell 12.3 10^3/uL (4.4-10.8)
[2024-12-01 07:16] LABS: Alkaline Phosphatase 65 U/L (46-116); Anion Gap 13 (5-15); Aspartate Aminotransferase 36 U/L (13-40); BUN/Creatinine Ratio 36.6 (10.0-20.0); Calcium 9.8 mg/dL (8.7-10.4); Carbon Dioxide 23 mmol/L (20-31); Total Protein 6.7 g/dL (5.7-8.2)
[2024-12-01 07:17] LABS: Albumin 4.1 g/dL (3.2-4.8)
[2024-12-01 07:18] LABS: Alanine Aminotransferase 48 U/L (7-40); Bilirubin, Total 0.9 mg/dL (0.2-1.0); Chloride 111 mmol/L (98-107); Glucose 156 mg/dL (74-106); Magnesium 2.7 mg/dL (1.6-2.6); Potassium 3.5 mmol/L (3.5-5.1); Sodium 147 mmol/L (136-145)
[2024-12-01 07:24] LABS: Platelet Count (auto) 107 10^3/uL (140-450)
[2024-12-01 07:28] LABS: Blood Urea Nitrogen 94 mg/dL (9-23)
--- NOTE | 2024-12-01 08:48 | DVH ---
Date: 12/01/2024 07:46 AM Examination: XY KUB ABDOMEN SINGLE VIEW History: constipation Comparison: None TECHNIQUE: Frontal views of the abdomen was obtained. FINDINGS: Bowel gas pattern is unremarkable. The lung bases are unremarkable. No acute osseous abnormality identified. IMPRESSION: Nonobstructive bowel gas pattern. Large stool burden.
--- NOTE | 2024-12-01 10:41 | DVHPNRES ---
Progress Note Date Seen: December 01, 2024 Resident Creating Document: GUERO BLOUNT RESIDENT Has the PT tested + for MRSA If YES, has PT been informed?: No Medical Necessity Reason Pt with a Central, PICC or Fol: Yes The following are medically ne: El Catheter Subjective Review of Systems On my assessment, patient was seen and examined at bedside. He was extubated on 11/27/24. Currently on nasal cannula at 4lt. continue puree diet continue PT patient got agitated today again, haldol was given, ativan prn Objective vital signs Vital Sign Date Time Temp Pulse Resp B/P (MAP) Pulse Ox O2 Delivery O2 Flow Rate FiO2 12/01/24 09:00 98.1 75 18 121/63 (82) 97 98.1 12/01/24 05:41 Nasal Cannula 3.0 12/01/24 05:41 32 Total Intake and Output 11/30/24 11/30/24 12/01/24 15:00 23:00 07:00 Intake Total 250 ml 1000 ml Output Total 750 ml 950 ml Balance -500 ml 50 ml medications Current Medications Medications Dose Ordered Sig/Amy Route Start Time Stop Time Status Last Admin Dose Admin Pantoprazole Sodium 40 mg DAILY IV 11/21/24 10:00 11/30/24 10:16 40 MG Diagnostic Test (Pha) 1 strip Q6HR 11/23/24 12:00 11/30/24 00:00 1 STRIP Insulin Human Regular Q6HR SC 11/23/24 12:00 11/30/24 02:04 2 UNITS Dextrose 50 ml UD PRN IV 11/23/24 06:45 Sodium Chloride 10 ml QSHIFT@10,22 IV 11/23/24 22:00 11/30/24 10:17 10 ML Clopidogrel Bisulfate 75 mg DAILY PO 11/26/24 10:00 11/30/24 10:16 75 MG Aspirin 81 mg DAILY PO 11/26/24 10:00 11/30/24 10:16 81 MG Atorvastatin Calcium 40 mg HS PO 11/25/24 22:00 11/29/24 21:54 40 MG Lactulose 15 ml BID PO 11/26/24 18:00 11/30/24 10:22 15 ML Ondansetron HCl 4 mg Q4HPRN PRN IV 11/27/24 10:15 11/28/24 17:39 4 MG Albuterol 2.5 mg Q6HWA NEB 11/27/24 12:00 12/01/24 05:41 2.5 MG Ipratropium [place] 0.5 mg Q6HWA NEB 11/27/24 12:00 12/01/24 05:41 0.5 MG Thiamine HCl 100 mg DAILY PO 11/29/24 10:00 11/30/24 10:15 100 MG Folic Acid 1 mg DAILY PO 11/29/24 10:00 11/30/24 10:15 1 MG Multivitamins 1 tab DAILY PO 11/29/24 10:00 11/30/24 10:16 1 TAB Hydralazine HCl 10 mg Q6HP PRN IV 11/29/24 03:00 11/29/24 16:47 10 MG Carvedilol 12.5 mg Q12HR PO 11/29/24 10:00 11/30/24 10:15 12.5 MG Trazodone HCl 50 mg HS PO 11/29/24 22:00 11/29/24 21:54 50 MG Purified Water 100 ml Q6HR PO 11/30/24 00:00 11/30/24 12:15 100 ML Haloperidol Lactate 5 mg [id number] PRN IM 11/30/24 07:30 11/30/24 20:11 5 MG Lorazepam 0.5 mg Q2HR PRN IV 11/30/24 07:45 Lorazepam 1 mg Q6HP PRN IV 11/30/24 16:00 12/01/24 06:51 1 MG Furosemide 40 mg DAILY IV 12/01/24 10:00 Dextrose 1,000 ml @ 75 mls/hr [id number] IV 12/01/24 07:45 Examination Physical examination as below: General: alert, awake, oriented x3 HEENT: Head is normocephalic and atraumatic. Pupils are equal, round, and reactive to light. Neck: Supple with no cervical lymphadenopathy. Heart: Regular rate without murmur, rub, or gallop. Lungs: scattered crackles Abdomen: No external sign of injury. Bowel sounds are present. Abdomen is soft, nontender. Extremities: Strong peripheral pulses. There is no clubbing, no cyanosis, and no edema. Skin: No rash. Neurologic: no neurologic deficits laboratory and microbiology Laboratory Tests 12/01/24 06:28 Test 12/01/24 06:28 Range/Units Serum Glucose 156 H 74-106 mg/dL Microbiology Date/Time Source Procedure Growth Status 11/20/24 21:31 Nose MRSA Screen - Final Complete 11/20/24 04:05 Blood Blood Culture - Final NO GROWTH AFTER 5 DAYS OF INCUBATION. Complete 11/20/24 03:37 Sputum Gram Stain - Final Complete 11/20/24 03:37 Respiratory Culture - Final Enterobacter cloacae Complete Labs and/or images reviewed: Labs reviewed by me, Image(s) reviewed by me Problem List/Assessment/Plan Problem List/Assessment/Plan Neurology #Acute toxic/metabolic encephalopathy, likely due to alcohol intoxication #Acute alcohol intoxication #Insomnia #acute psychosis, possible due to sleep deprivation Folic acid and thiamine po mvi po Head ct unremarkable for acute disease trazodone haldol 5mg im bid prn ativan 1mg iv q6 prn Cardiovascular #H/o hypertension #CAD, s/p PCI x1 #AFib with RVR, now NSR #Acute on chronic systolic CHF #Sinus bradycardia, 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, sedation related #NSTEMI type 1 POA, s/p PCIx2 echo shows ef 30% Lasix 40mg iv qd 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 on 11/24/24, s/p PCIx2 Reviewed operative report from cardio continue aspirin and plavix Pulmonology #Acute hypoxic respiratory failure, s/p Mechanical ventilation #Aspiration pneumonia likely ; Gram-negative, growing enterobacter #atelectasis completed antibiotic therapy extubated on 11/27/24 on nasal cannula incentive spirometry Nephrology #Anion gap metabolic acidosis #BHUPINDER due to VMN #possible uremic encephalopathy #hypernatremia continue diuresing d5w 75ml/hr free water 100ml q6hrs nephrology following Endocrinology #Type 2 diabetes #Obesity #Mixed dyslipidemia SSI mild Gastroenterology Nutrition puree diet #constipation lactulose dulcolax once tap water enema once Hematology and Oncology x Infectious Disease #Aspiration pneumonia likely ; Gram-negative Gram-positive #Septic shock due to above #Lactic Acidosis completed antibiotic therapy Dermatology x DVT ppx heparin PUD ppx Protonix Drips x Lines ET tube 11/20/24, exchanged on 11/22/24, extubated 11/27/24 picc line placed 11/23/24 pending SNF, consulted SS Goals of care were discussed for 33 minutes. FULL CODE. Case was discussed with Dr. Ny Plan discussed with: Spouse, Son, Other (RN) My Orders My Orders Orders - GUERO BLOUNT RESIDENT Procedure Category Date Status Time Lorazepam 2mg/Ml Inj PHA 11/30/24 In Process (Ativan Inj) 16:00 Chest Portable XY 12/01/24 Resulted 04:00 Kub Abdomen Single XY 12/01/24 Resulted View 07:40 Furosemide Injection PHA 12/01/24 In Process (Lasix Injection) 10:00 D5w 5% (Dextrose 5%) PHA 12/01/24 In Process 07:45 Bisacodyl Ec Tablet PHA 12/01/24 Verified (Dulcolax Ec Tablet) 10:45 Tap Water Enema ORDERS 12/01/24 Verified 10:37 Dietary Evaluation Review Comments: 1. Suggest EN formula Vital AF 1.2 @ 50 ml/hr (GOAL). Begin at 10 ml/hr, advance by 10 ml Q4 hrs or as tolerated to goal-rate of 50 ml/hr 2. Provide free water flushes of 30 ml Q6 hrs (120 ml total); adjust PRN 3. Monitor BMP/lytes and replete to WNL/PRN 4. Agree with continuation of folate, thiamine due to ETOH abuse TF Provision: TF at goal to provide 1200 ml total volume, 1440 kcal (+204 kcal via propofol = 1644 kcal), 90 gm pro, 6 gm fiber, 973 ml H20 (meets 100% est. kcal needs, 100% est. pro needs) Expected Outcomes/Goals: Improved hemodynamic stability, weight maintenance, adequate nutrition. Date of Service: December 01, 2024 Billing Provider: GUERRERO [place] MD Common Visit Codes: [id number] INP/OBS CARE(HIGH) Secondary Visit Codes: 68500-[id number] CARE PLAN 30 MINUTES GUERO BLOUNT December 01, 2024 10:41 GUERRERO [place] MD December 04, 2024 12:13
[2024-12-01] MEDS: D5W 5% 1,000 ML IV SCH (10:48)
[2024-12-01] MEDS: FUROSEMIDE 40 MG/4 ML VIAL IV SCH (10:52)
[2024-12-01] MEDS: BISACODYL 5 MG EC TAB PO ONE (12:43)
--- NOTE | 2024-12-01 23:37 | DVHPN2 ---
Progress Note - Dictate Date Seen: December 01, 2024 Has the PT tested + for MRSA If YES, has PT been informed?: No Medical Necessity Reason Pt with a Central, PICC or Fol: Yes The following are medically ne: El Catheter Subjective Patient was seen and evaluated in follow up. Patient has been agitating, receiving Haldol and PRN Ativan. WBC 12.3, BUN 94, IT SUPPORT SPECIALIST 2.57, MG 2.7. Chest x-ray shows nonobstructive bowel gas pattern with large stool burden. Telemetry reviewed. vital signs Vital Sign Date Time Temp Pulse Resp B/P (MAP) Pulse Ox O2 Delivery O2 Flow Rate FiO2 12/01/24 11:42 83 18 99 12/01/24 11:38 Nasal Cannula 3.0 12/01/24 11:38 32 12/01/24 10:52 121/63 12/01/24 09:00 98.1 98.1 Total Intake and Output 11/30/24 11/30/24 12/01/24 15:00 23:00 07:00 Intake Total 250 ml 1000 ml Output Total 750 ml 950 ml Balance -500 ml 50 ml medications Current Medications Medications Dose Ordered Sig/Amy Route Start Time Stop Time Status Last Admin Dose Admin Pantoprazole Sodium 40 mg DAILY IV 11/21/24 10:00 12/01/24 10:48 40 MG Diagnostic Test (Pha) 1 strip Q6HR 11/23/24 12:00 11/30/24 00:00 1 STRIP Insulin Human Regular Q6HR SC 11/23/24 12:00 11/30/24 02:04 2 UNITS Dextrose 50 ml UD PRN IV 11/23/24 06:45 Sodium Chloride 10 ml QSHIFT@10,22 IV 11/23/24 22:00 12/01/24 10:00 10 ML Clopidogrel Bisulfate 75 mg DAILY PO 11/26/24 10:00 11/30/24 10:16 75 MG Aspirin 81 mg DAILY PO 11/26/24 10:00 11/30/24 10:16 81 MG Atorvastatin Calcium 40 mg HS PO 11/25/24 22:00 11/29/24 21:54 40 MG Lactulose 15 ml BID PO 11/26/24 18:00 11/30/24 10:22 15 ML Ondansetron HCl 4 mg Q4HPRN PRN IV 11/27/24 10:15 11/28/24 17:39 4 MG Albuterol 2.5 mg Q6HWA NEB 11/27/24 12:00 12/01/24 11:37 2.5 MG Ipratropium [place] 0.5 mg Q6HWA NEB 11/27/24 12:00 12/01/24 11:37 0.5 MG Thiamine HCl 100 mg DAILY PO 11/29/24 10:00 11/30/24 10:15 100 MG Folic Acid 1 mg DAILY PO 11/29/24 10:00 11/30/24 10:15 1 MG Multivitamins 1 tab DAILY PO 11/29/24 10:00 11/30/24 10:16 1 TAB Hydralazine HCl 10 mg Q6HP PRN IV 11/29/24 03:00 11/29/24 16:47 10 MG Carvedilol 12.5 mg Q12HR PO 11/29/24 10:00 11/30/24 10:15 12.5 MG Trazodone HCl 50 mg HS PO 11/29/24 22:00 11/29/24 21:54 50 MG Purified Water 100 ml Q6HR PO 11/30/24 00:00 11/30/24 12:15 100 ML Haloperidol Lactate 5 mg [id number] PRN IM 11/30/24 07:30 11/30/24 20:11 5 MG Lorazepam 1 mg Q6HP PRN IV 11/30/24 16:00 12/01/24 06:51 1 MG Furosemide 40 mg DAILY IV 12/01/24 10:00 12/01/24 10:52 40 MG Dextrose 1,000 ml @ 75 mls/hr [id number] IV 12/01/24 07:45 12/01/24 10:48 75 MLS/HR objective GENERAL: Alert and oriented x 3. No acute distress. EYES: PERRL, EOMI. Anicteric. HENT: Moist mucous membranes. LUNGS: Decreased breath sounds. CARDIOVASCULAR: Regular rate and rhythm. ABDOMEN: Soft, nontender and nondistended. EXTREMITIES: No edema. SKIN: Warm, dry. laboratory and microbiology Laboratory Tests 12/01/24 06:28 Test 12/01/24 06:28 Range/Units Serum Glucose 156 H 74-106 mg/dL Problem List A Fib with RVR. ? history of A fib. CAD s/p PCI. CHF. Toxic encephalopathy with hx of ETOH abuse. BHUPINDER on CKD. History of Hypertension, currently hypotensive on vasopressor. Diabetes type 2. Hyperlipidemia. History of CVA. Assessment/Plan Continued all current supportive medical care. Aspirin, Lipitor. IV antibiotics as ordered. DVT and GI prophylactics. Diuretics with Lasix. Additional plan as per the hospital course. Dietary Evaluation Review Comments: 1. Suggest EN formula Vital AF 1.2 @ 50 ml/hr (GOAL). Begin at 10 ml/hr, advance by 10 ml Q4 hrs or as tolerated to goal-rate of 50 ml/hr 2. Provide free water flushes of 30 ml Q6 hrs (120 ml total); adjust PRN 3. Monitor BMP/lytes and replete to WNL/PRN 4. Agree with continuation of folate, thiamine due to ETOH abuse TF Provision: TF at goal to provide 1200 ml total volume, 1440 kcal (+204 kcal via propofol = 1644 kcal), 90 gm pro, 6 gm fiber, 973 ml H20 (meets 100% est. kcal needs, 100% est. pro needs) Expected Outcomes/Goals: Improved hemodynamic stability, weight maintenance, adequate nutrition. Plan discussed with: Patient RUBIO YUNG MD December 01, 2024 12:45
[2024-12-02] VITALS (16 sets, daily range): BP systolic 122–164; BP diastolic 56–132; PULSE 42–114; RESP 17–28; TEMP 96.4–98; O2SAT 91–100
[2024-12-02 07:43] LABS: Basophils # (auto) 0.1 10 ^3/uL (0-0.2); Basophils % (auto) 0.6 % (0.0-2.0); Eosinophils # (auto) 0.4 10 ^3/uL (0-0.8); Eosinophils % (auto) 3.7 % (0.0-7.0); Hematocrit 49.3 % (41.0-53.0); Hemoglobin 16.9 g/dL (13.5-17.5); Lymphocytes # (auto) 1.5 10 ^3/uL (0.4-5.4); Lymphocytes % (auto) 13.1 % (10.0-50.0); Mean Corpuscular Hemoglobin 30.2 pg (28.0-32.0); Mean Corpuscular Hgb Conc. 34.4 g/dL (32.0-36.0); Monocytes # (auto) 1.1 10 ^3/uL (0-1.3); Monocytes % (auto) 10.1 % (0.0-12.0); Neutrophils # (auto) 8.3 10 ^3/uL (1.6-8.6); Neutrophils % (auto) 72.5 % (37.0-80.0); Nucleated Red Blood Cells % 0.4 %; Platelet Count (auto) 116 10^3/uL (140-450); Red Cell Distribution Width 13.4 % (11.8-14.3); White Blood Cell 11.4 10^3/uL (4.4-10.8)
[2024-12-02 07:58] LABS: Anion Gap 14 (5-15); Carbon Dioxide 25 mmol/L (20-31); Chloride 105 mmol/L (98-107); Sodium 144 mmol/L (136-145)
[2024-12-02 07:59] LABS: Calcium 9.7 mg/dL (8.7-10.4)
[2024-12-02 08:04] LABS: BUN/Creatinine Ratio 30.7 (10.0-20.0)
[2024-12-02 08:05] LABS: Blood Urea Nitrogen 71 mg/dL (9-23); Glucose 120 mg/dL (74-106); Potassium 2.6 mmol/L (3.5-5.1)
[2024-12-02] MEDS ORDERED: POTASSIUM CHL 20MEQ/100ML 100 ML IV SCH (09:15)
[2024-12-02] MEDS: BISACODYL 5 MG EC TAB PO ONE (10:15)
--- NOTE | 2024-12-02 10:50 | DVHPN2 ---
Progress Note Date Seen: December 02, 2024 Has the PT tested + for MRSA If YES, has PT been informed?: No Medical Necessity Reason Pt with a Central, PICC or Fol: Yes The following are medically ne: El Catheter Subjective Patient reports: Other Review of Systems: Deferred Objective vital signs Vital Sign Date Time Temp Pulse Resp B/P (MAP) Pulse Ox O2 Delivery O2 Flow Rate FiO2 12/02/24 09:00 97.3 83 17 164/132 (143) 100 97.3 12/02/24 05:43 Nasal Cannula 3.0 12/02/24 05:43 32 Total Intake and Output 12/01/24 12/01/24 12/02/24 15:00 23:00 07:00 Intake Total 1100 ml 450 ml Output Total 1600 ml Balance -500 ml 450 ml medications Current Medications Medications Dose Ordered Sig/Amy Route Start Time Stop Time Status Last Admin Dose Admin Pantoprazole Sodium 40 mg DAILY IV 11/21/24 10:00 12/01/24 10:48 40 MG Diagnostic Test (Pha) 1 strip Q6HR 11/23/24 12:00 12/02/24 06:23 1 STRIP Insulin Human Regular Q6HR SC 11/23/24 12:00 12/02/24 06:23 2 UNITS Dextrose 50 ml UD PRN IV 11/23/24 06:45 Sodium Chloride 10 ml QSHIFT@10,22 IV 11/23/24 22:00 12/01/24 22:00 10 ML Clopidogrel Bisulfate 75 mg DAILY PO 11/26/24 10:00 12/01/24 12:43 75 MG Aspirin 81 mg DAILY PO 11/26/24 10:00 11/30/24 10:16 81 MG Atorvastatin Calcium 40 mg HS PO 11/25/24 22:00 12/01/24 22:49 40 MG Lactulose 15 ml BID PO 11/26/24 18:00 12/01/24 12:43 15 ML Ondansetron HCl 4 mg Q4HPRN PRN IV 11/27/24 10:15 11/28/24 17:39 4 MG Albuterol 2.5 mg Q6HWA NEB 11/27/24 12:00 12/02/24 05:43 2.5 MG Ipratropium [place] 0.5 mg Q6HWA NEB 11/27/24 12:00 12/02/24 05:43 0.5 MG Thiamine HCl 100 mg DAILY PO 11/29/24 10:00 11/30/24 10:15 100 MG Folic Acid 1 mg DAILY PO 11/29/24 10:00 11/30/24 10:15 1 MG Multivitamins 1 tab DAILY PO 11/29/24 10:00 11/30/24 10:16 1 TAB Hydralazine HCl 10 mg Q6HP PRN IV 11/29/24 03:00 12/02/24 08:42 10 MG Carvedilol 12.5 mg Q12HR PO 11/29/24 10:00 11/30/24 10:15 12.5 MG Trazodone HCl 50 mg HS PO 11/29/24 22:00 11/29/24 21:54 50 MG Purified Water 100 ml Q6HR PO 11/30/24 00:00 12/01/24 18:01 100 ML Haloperidol Lactate 5 mg [id number] PRN IM 11/30/24 07:30 12/01/24 21:55 5 MG Lorazepam 1 mg Q6HP PRN IV 11/30/24 16:00 12/02/24 09:19 1 MG Dextrose 1,000 ml @ 75 mls/hr [id number] IV 12/01/24 07:45 12/01/24 23:06 75 MLS/HR Potassium Chloride 100 ml @ 50 mls/hr Q2H IV 12/02/24 09:15 12/02/24 15:14 UNV Bisacodyl 5 mg DAILYP PRN PO 12/02/24 10:15 UNV Examination: GENERAL:Normal, LUNGS:Abnormal, MSK:Abnormal, NEURO:Normal laboratory and microbiology Laboratory Tests 12/02/24 06:13 Test 12/02/24 06:13 Range/Units Serum Glucose 120 H 74-106 mg/dL Microbiology Date/Time Source Procedure Growth Status 11/30/24 23:47 Blood Blood Culture - Preliminary NO GROWTH AFTER 24 HOURS OF INCUBATION. Resulted 11/20/24 21:31 Nose MRSA Screen - Final Complete 11/20/24 03:37 Sputum Gram Stain - Final Complete 11/20/24 03:37 Respiratory Culture - Final Enterobacter cloacae Complete Problem List/Assessment/Plan Problem List/Assessment/Plan Acute kidney injury hemodynamic mediated etiology ckd 3A vs 3B etoh intoxication bradycardia AMS acute respiratory failure decompensated HF EF 30% Hypernatremia recs Continue diuretics as patient hypoxic On D5W and free water for sodium correction--reduce d5w rate stable renal function Plan discussed with: Other My Orders My Orders Orders - BETSY ENGEL MD Procedure Category Date Status Time Potassium Chl PHA 12/02/24 Logged 20meq/100ml 09:15 Dietary Evaluation Review Comments: 1. Suggest EN formula Vital AF 1.2 @ 50 ml/hr (GOAL). Begin at 10 ml/hr, advance by 10 ml Q4 hrs or as tolerated to goal-rate of 50 ml/hr 2. Provide free water flushes of 30 ml Q6 hrs (120 ml total); adjust PRN 3. Monitor BMP/lytes and replete to WNL/PRN 4. Agree with continuation of folate, thiamine due to ETOH abuse TF Provision: TF at goal to provide 1200 ml total volume, 1440 kcal (+204 kcal via propofol = 1644 kcal), 90 gm pro, 6 gm fiber, 973 ml H20 (meets 100% est. kcal needs, 100% est. pro needs) Expected Outcomes/Goals: Improved hemodynamic stability, weight maintenance, adequate nutrition. BETSY ENGEL MD December 02, 2024 10:50
[2024-12-02] MEDS ORDERED: D5W 5% 1,000 ML IV SCH (13:30)
[2024-12-02] MEDS: POTASSIUM CHL 20MEQ/50ML 50 ML IV SCH (14:07)
[2024-12-02] MEDS: LORazepam 2MG/ML-1ML VIAL IV PRN (15:48)
--- NOTE | 2024-12-02 16:21 | DVHPNRES ---
Progress Note Date Seen: December 02, 2024 Resident Creating Document: GUERO BLOUNT RESIDENT Has the PT tested + for MRSA If YES, has PT been informed?: No Medical Necessity Reason Pt with a Central, PICC or Fol: Yes The following are medically ne: El Catheter Subjective Review of Systems On my assessment, patient was seen and examined at bedside. He was extubated on 11/27/24. Currently on nasal cannula at 4lt. continue puree diet continue PT patient got agitated today again, haldol was given, ativan prn Transfer summary: This is a 69-year-old male, per ED record it came into ER via EMS for alcohol intoxication. Past Medical History: Hypertension, hyperlipidemia, diabetes mellitus type 2 Past Surgical History: PCI x1 Family History: Noncontributory ALCOHOL: heavy. Drugs: None. Smoking: none. Lives: with Family Per ED notes patient was picked up from home, after having 5 shots of Tequila he was noted to be acting altered by family members, slurred speech, patient also had episode of nausea and vomiting. When patient was in the ED he was hypoxic in the 80s, and was intubated. Patient's lactic acid was noted to be 3.0, now 2.7, plasma/serum alcohol 244.7, urine with 2+ protein, urine blood 1+ and urine glucose 4+. Patient is on a ventilator at the time of this assessment. Nurse was able to talk to family shortly who are Nigerian-speaking, per family patient has history of alcohol abuse, they did not mention history of atrial fibrillation. On my initial assessment, patient was seen and examined at bedside. He remains intubated, sedated. is at bedside. History was obtained from the . She stated that the patient had the flu one week ago, he was only complain of runny nose and general malaise. Denied any chest pain, shortness of breath, significant cough, dizziness, lightheadedness. She stated that everything began after the patient started drinking alcohol, she stated that he usually only drinks beer, around 2-3 cans of beer, 3 times per week. The patient started experiencing slurred speech, altered mental status, nausea, she stated that the patient could not vomit, and at one point he started to get rigidity and was unable to move, EMS was called by this time. Patient has had significant clinical improvement from admission, he was able to be extubated. Patient also had a on angiogram in which they placed two stents. Patient had acute kidney injury likely related to nephrotoxic agents. Patient was sent to the floor on nasal cannula, he was doing physical therapy appropriately, however BUN started to rise up, patient started to have erratic behavior, being aggressive, refusing care. Patient was started on Haldol, Ativan p.r.n. he was also hypernatremic, he was started on D5 water, nephrology has been following. We have spoken with the family members numerous times about the patient's current condition. Patient is to be discharged to retirement facility once he's stable. Patient continues to have fluctuations in mentation. Objective vital signs Vital Sign Date Time Temp Pulse Resp B/P (MAP) Pulse Ox O2 Delivery O2 Flow Rate FiO2 12/02/24 13:00 97.6 42 19 145/108 (120) 91 97.6 12/02/24 12:04 Room Air* 0 21 Total Intake and Output 12/01/24 12/01/24 12/02/24 15:00 23:00 07:00 Intake Total 1100 ml 450 ml Output Total 1600 ml Balance -500 ml 450 ml medications Current Medications Medications Dose Ordered Sig/Amy Route Start Time Stop Time Status Last Admin Dose Admin Pantoprazole Sodium 40 mg DAILY IV 11/21/24 10:00 12/02/24 11:15 40 MG Diagnostic Test (Pha) 1 strip Q6HR 11/23/24 12:00 12/02/24 13:45 1 STRIP Insulin Human Regular Q6HR SC 11/23/24 12:00 12/02/24 06:23 2 UNITS Dextrose 50 ml UD PRN IV 11/23/24 06:45 Sodium Chloride 10 ml QSHIFT@10,22 IV 11/23/24 22:00 12/02/24 11:15 10 ML Clopidogrel Bisulfate 75 mg DAILY PO 11/26/24 10:00 12/01/24 12:43 75 MG Aspirin 81 mg DAILY PO 11/26/24 10:00 11/30/24 10:16 81 MG Atorvastatin Calcium 40 mg HS PO 11/25/24 22:00 12/01/24 22:49 40 MG Lactulose 15 ml BID PO 11/26/24 18:00 12/01/24 12:43 15 ML Ondansetron HCl 4 mg Q4HPRN PRN IV 11/27/24 10:15 11/28/24 17:39 4 MG Albuterol 2.5 mg Q6HWA NEB 11/27/24 12:00 12/02/24 12:03 2.5 MG Ipratropium [place] 0.5 mg Q6HWA NEB 11/27/24 12:00 12/02/24 12:03 0.5 MG Thiamine HCl 100 mg DAILY PO 11/29/24 10:00 11/30/24 10:15 100 MG Folic Acid 1 mg DAILY PO 11/29/24 10:00 11/30/24 10:15 1 MG Multivitamins 1 tab DAILY PO 11/29/24 10:00 11/30/24 10:16 1 TAB Hydralazine HCl 10 mg Q6HP PRN IV 11/29/24 03:00 12/02/24 08:42 10 MG Carvedilol 12.5 mg Q12HR PO 11/29/24 10:00 11/30/24 10:15 12.5 MG Trazodone HCl 50 mg HS PO 11/29/24 22:00 11/29/24 21:54 50 MG Purified Water 100 ml Q6HR PO 11/30/24 00:00 12/01/24 18:01 100 ML Haloperidol Lactate 5 mg [id number] PRN IM 11/30/24 07:30 12/02/24 11:19 5 MG Potassium Chloride 100 ml @ 50 mls/hr Q2H IV 12/02/24 09:15 12/02/24 15:14 UNV Bisacodyl 5 mg DAILYP PRN PO 12/02/24 10:15 Potassium Chloride 50 ml @ 25 mls/hr Q2H IV 12/02/24 11:45 12/02/24 17:44 12/02/24 15:45 25 MLS/HR Lorazepam 2 mg Q2HPRN PRN IV 12/02/24 12:30 12/02/24 15:48 2 MG Examination Physical examination as below: General: alert, awake, oriented x3 HEENT: Head is normocephalic and atraumatic. Pupils are equal, round, and reactive to light. Neck: Supple with no cervical lymphadenopathy. Heart: Regular rate without murmur, rub, or gallop. Lungs: scattered crackles Abdomen: No external sign of injury. Bowel sounds are present. Abdomen is soft, nontender. Extremities: Strong peripheral pulses. There is no clubbing, no cyanosis, and no edema. Skin: No rash. Neurologic: no neurologic deficits laboratory and microbiology Laboratory Tests 12/02/24 13:00 12/02/24 06:13 Test 12/02/24 06:13 Range/Units Serum Glucose 120 H 74-106 mg/dL Microbiology Date/Time Source Procedure Growth Status 11/30/24 23:47 Blood Blood Culture - Preliminary NO GROWTH AFTER 24 HOURS OF INCUBATION. Resulted 11/20/24 21:31 Nose MRSA Screen - Final Complete 11/20/24 03:37 Sputum Gram Stain - Final Complete 11/20/24 03:37 Respiratory Culture - Final Enterobacter cloacae Complete Labs and/or images reviewed: Labs reviewed by me, Image(s) reviewed by me Problem List/Assessment/Plan Problem List/Assessment/Plan Neurology #Acute toxic/metabolic encephalopathy, likely due to alcohol intoxication #Acute alcohol intoxication #Insomnia #acute psychosis, possible due to sleep deprivation Folic acid and thiamine po mvi po Head ct unremarkable for acute disease trazodone haldol 5mg im bid prn ativan 1mg iv q6 prn Cardiovascular #H/o hypertension #CAD, s/p PCI x1 #AFib with RVR, now NSR #Acute on chronic systolic CHF #Sinus bradycardia, 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, sedation related #NSTEMI type 1 POA, s/p PCIx2 echo shows ef 30% Lasix 40mg iv qd Inventory Planner following C on 11/24/24, s/p PCIx2 Reviewed operative report from cardio continue aspirin and plavix Pulmonology #Acute hypoxic respiratory failure, s/p Mechanical ventilation #Aspiration pneumonia likely ; Gram-negative, growing enterobacter #atelectasis completed antibiotic therapy extubated on 11/27/24 on nasal cannula incentive spirometry Nephrology #Anion gap metabolic acidosis #BHUPINDER due to VMN #possible uremic encephalopathy #hypernatremia continue diuresing d5w 75ml/hr free water 100ml q6hrs nephrology following Endocrinology #Type 2 diabetes #Obesity #Mixed dyslipidemia SSI mild Gastroenterology Nutrition puree diet #constipation lactulose dulcolax once tap water enema once Hematology and Oncology x Infectious Disease #Aspiration pneumonia likely ; Gram-negative Gram-positive #Septic shock due to above #Lactic Acidosis completed antibiotic therapy Dermatology x DVT ppx heparin PUD ppx Protonix Drips x Lines ET tube 11/20/24, exchanged on 11/22/24, extubated 11/27/24 picc line placed 11/23/24 pending SNF, consulted SS Goals of care were discussed for 33 minutes. FULL CODE. Case was discussed with Dr. Mcdaniel Plan discussed with: Spouse, Other (RN) My Orders My Orders Orders - GUERO BLOUNT RESIDENT Procedure Category Date Status Time * Wound Consult CONS 12/01/24 Transmitted Bisacodyl Ec Tablet PHA 12/02/24 In Process (Dulcolax Ec Tablet) 10:15 Potassium Chl PHA 12/02/24 In Process 20meq/50ml (Potassium 11:45 Potassium LAB 12/02/24 Logged 21:00 Complete Blood Count LAB 12/03/24 Verified 04:00 Comprehensive LAB 12/03/24 Verified Metabolic Panel 04:00 Magnesium LAB 12/03/24 Verified 04:00 Dietary Evaluation Review Comments: 1. Suggest EN formula Vital AF 1.2 @ 50 ml/hr (GOAL). Begin at 10 ml/hr, advance by 10 ml Q4 hrs or as tolerated to goal-rate of 50 ml/hr 2. Provide free water flushes of 30 ml Q6 hrs (120 ml total); adjust PRN 3. Monitor BMP/lytes and replete to WNL/PRN 4. Agree with continuation of folate, thiamine due to ETOH abuse TF Provision: TF at goal to provide 1200 ml total volume, 1440 kcal (+204 kcal via propofol = 1644 kcal), 90 gm pro, 6 gm fiber, 973 ml H20 (meets 100% est. kcal needs, 100% est. pro needs) Expected Outcomes/Goals: Improved hemodynamic stability, weight maintenance, adequate nutrition. GUERO BLOUNT RESIDENT December 02, 2024 16:21
[2024-12-02] MEDS: BISACODYL 5 MG EC TAB PO PRN (17:46)
[2024-12-02] MEDS: D5W 5% 1,000 ML IV ONE (17:48)
--- NOTE | 2024-12-02 18:41 | DVHPN2 ---
Progress Note - Dictate Date Seen: December 02, 2024 Has the PT tested + for MRSA If YES, has PT been informed?: No Medical Necessity Reason Pt with a Central, PICC or Fol: Yes The following are medically ne: El Catheter Subjective Patient was seen and evaluated in follow up. Patient continues to have fluctuations in mentation. Sitter is st bedside. Patient kicking and spitting at nursing staff. WBC 11.4, K 2.6, BUN 71, CAPACITY ANALYST 2.31. Telemetry reviewed. vital signs Vital Sign Date Time Temp Pulse Resp B/P (MAP) Pulse Ox O2 Delivery O2 Flow Rate FiO2 12/02/24 12:11 99 18 100 12/02/24 12:04 Room Air* 0 21 12/02/24 10:00 145/108 12/02/24 09:00 97.3 97.3 Total Intake and Output 12/01/24 12/01/24 12/02/24 14:59 22:59 06:59 Intake Total 1100 ml 450 ml Output Total 1600 ml Balance -500 ml 450 ml medications Current Medications Medications Dose Ordered Sig/Amy Route Start Time Stop Time Status Last Admin Dose Admin Pantoprazole Sodium 40 mg DAILY IV 11/21/24 10:00 12/02/24 11:15 40 MG Diagnostic Test (Pha) 1 strip Q6HR 11/23/24 12:00 12/02/24 06:23 1 STRIP Insulin Human Regular Q6HR SC 11/23/24 12:00 12/02/24 06:23 2 UNITS Dextrose 50 ml UD PRN IV 11/23/24 06:45 Sodium Chloride 10 ml QSHIFT@10,22 IV 11/23/24 22:00 12/02/24 11:15 10 ML Clopidogrel Bisulfate 75 mg DAILY PO 11/26/24 10:00 12/01/24 12:43 75 MG Aspirin 81 mg DAILY PO 11/26/24 10:00 11/30/24 10:16 81 MG Atorvastatin Calcium 40 mg HS PO 11/25/24 22:00 12/01/24 22:49 40 MG Lactulose 15 ml BID PO 11/26/24 18:00 12/01/24 12:43 15 ML Ondansetron HCl 4 mg Q4HPRN PRN IV 11/27/24 10:15 11/28/24 17:39 4 MG Albuterol 2.5 mg Q6HWA NEB 11/27/24 12:00 12/02/24 12:03 2.5 MG Ipratropium [place] 0.5 mg Q6HWA NEB 11/27/24 12:00 12/02/24 12:03 0.5 MG Thiamine HCl 100 mg DAILY PO 11/29/24 10:00 11/30/24 10:15 100 MG Folic Acid 1 mg DAILY PO 11/29/24 10:00 11/30/24 10:15 1 MG Multivitamins 1 tab DAILY PO 11/29/24 10:00 11/30/24 10:16 1 TAB Hydralazine HCl 10 mg Q6HP PRN IV 11/29/24 03:00 12/02/24 08:42 10 MG Carvedilol 12.5 mg Q12HR PO 11/29/24 10:00 11/30/24 10:15 12.5 MG Trazodone HCl 50 mg HS PO 11/29/24 22:00 11/29/24 21:54 50 MG Purified Water 100 ml Q6HR PO 11/30/24 00:00 12/01/24 18:01 100 ML Haloperidol Lactate 5 mg [id number] PRN IM 11/30/24 07:30 12/02/24 11:19 5 MG Lorazepam 1 mg Q6HP PRN IV 11/30/24 16:00 12/02/24 09:19 1 MG Dextrose 1,000 ml @ 75 mls/hr [id number] IV 12/01/24 07:45 12/02/24 10:25 75 MLS/HR Potassium Chloride 100 ml @ 50 mls/hr Q2H IV 12/02/24 09:15 12/02/24 15:14 UNV Bisacodyl 5 mg DAILYP PRN PO 12/02/24 10:15 Potassium Chloride 50 ml @ 25 mls/hr Q2H IV 12/02/24 11:45 12/02/24 17:44 objective GENERAL: Alert and oriented x 3. No acute distress. EYES: PERRL, EOMI. Anicteric. HENT: Moist mucous membranes. LUNGS: Decreased breath sounds. CARDIOVASCULAR: Regular rate and rhythm. ABDOMEN: Soft, nontender and nondistended. EXTREMITIES: No edema. SKIN: Warm, dry. laboratory and microbiology Laboratory Tests 12/02/24 06:13 Test 12/02/24 06:13 Range/Units Serum Glucose 120 H 74-106 mg/dL Problem List A Fib with RVR. ? history of A fib. CAD s/p PCI. CHF. Toxic encephalopathy with hx of ETOH abuse. BHUPINDER on CKD. History of Hypertension, currently hypotensive on vasopressor. Diabetes type 2. Hyperlipidemia. History of CVA. Assessment/Plan Continued all current supportive medical care. Aspirin, Lipitor. IV antibiotics as ordered. DVT and GI prophylactics. Diuretics with Lasix. Additional plan as per the hospital course. Dietary Evaluation Review Comments: 1. Suggest EN formula Vital AF 1.2 @ 50 ml/hr (GOAL). Begin at 10 ml/hr, advance by 10 ml Q4 hrs or as tolerated to goal-rate of 50 ml/hr 2. Provide free water flushes of 30 ml Q6 hrs (120 ml total); adjust PRN 3. Monitor BMP/lytes and replete to WNL/PRN 4. Agree with continuation of folate, thiamine due to ETOH abuse TF Provision: TF at goal to provide 1200 ml total volume, 1440 kcal (+204 kcal via propofol = 1644 kcal), 90 gm pro, 6 gm fiber, 973 ml H20 (meets 100% est. kcal needs, 100% est. pro needs) Expected Outcomes/Goals: Improved hemodynamic stability, weight maintenance, adequate nutrition. Plan discussed with: Patient RUBIO YUNG MD December 02, 2024 12:29
[2024-12-03] VITALS (15 sets, daily range): BP systolic 98–149; BP diastolic 43–70; PULSE 62–96; RESP 16–24; TEMP 96.5–98.2; O2SAT 92–99
[2024-12-03 06:24] LABS: Basophils # (auto) 0.1 10 ^3/uL (0-0.2); Basophils % (auto) 0.5 % (0.0-2.0); Eosinophils # (auto) 0.5 10 ^3/uL (0-0.8); Eosinophils % (auto) 4.9 % (0.0-7.0); Hematocrit 46.3 % (41.0-53.0); Hemoglobin 15.8 g/dL (13.5-17.5); Lymphocytes # (auto) 1.3 10 ^3/uL (0.4-5.4); Lymphocytes % (auto) 12.9 % (10.0-50.0); Mean Corpuscular Hemoglobin 30.6 pg (28.0-32.0); Mean Corpuscular Hgb Conc. 34.1 g/dL (32.0-36.0); Mean Corpuscular Volume 89.7 fL (80.0-100.0); Monocytes # (auto) 0.9 10 ^3/uL (0-1.3); Neutrophils # (auto) 7.5 10 ^3/uL (1.6-8.6); Neutrophils % (auto) 72.7 % (37.0-80.0); Nucleated Red Blood Cells % 0.1 %; Platelet Count (auto) 96 10^3/uL (140-450); Red Blood Cells 5.17 10^6/uL (4.5-5.90); Red Cell Distribution Width 13.1 % (11.8-14.3); White Blood Cell 10.3 10^3/uL (4.4-10.8)
[2024-12-03 06:39] LABS: Alanine Aminotransferase 29 U/L (7-40); Albumin 3.8 g/dL (3.2-4.8); Alkaline Phosphatase 55 U/L (46-116); Anion Gap 11 (5-15); Aspartate Aminotransferase 17 U/L (13-40); BUN/Creatinine Ratio 29.4 (10.0-20.0); Calcium 9.3 mg/dL (8.7-10.4); Carbon Dioxide 21 mmol/L (20-31); Chloride 107 mmol/L (98-107); Glucose 252 mg/dL (74-106); Potassium 3.3 mmol/L (3.5-5.1); Sodium 139 mmol/L (136-145); Total Protein 6.4 g/dL (5.7-8.2)
[2024-12-03 06:40] LABS: Bilirubin, Total 0.9 mg/dL (0.2-1.0); Blood Urea Nitrogen 57 mg/dL (9-23); Magnesium 2.7 mg/dL (1.6-2.6)
--- NOTE | 2024-12-03 12:16 | DVHPN2 ---
Reviewed: H&P Changes from previous H/P or p: No Changes General: Per HPI Objective Vitals Vital Signs Date Time Temp Pulse Resp B/P (MAP) Pulse Ox O2 Delivery O2 Flow Rate FiO2 12/03/24 09:51 95 114/70 12/03/24 08:10 Nasal Cannula* 3 32 12/03/24 07:01 20 97 12/03/24 05:00 96.5 96.5 Intake/Output Intake and Output 12/03/24 07:00 Intake Total 850 ml Balance 850 ml Intake Oral 500 ml IV Total 350 ml # Voids 8 # Bowel Movements 4 Medications Current Medications Medications Dose Ordered Sig/Amy Route Start Time Stop Time Status Last Admin Dose Admin Pantoprazole Sodium 40 mg DAILY IV 11/21/24 10:00 12/03/24 09:48 40 MG Diagnostic Test (Pha) 1 strip Q6HR 11/23/24 12:00 12/03/24 06:20 1 STRIP Insulin Human Regular Q6HR SC 11/23/24 12:00 12/03/24 06:19 2 UNITS Dextrose 50 ml UD PRN IV 11/23/24 06:45 Sodium Chloride 10 ml QSHIFT@10,22 IV 11/23/24 22:00 12/03/24 09:51 10 ML Clopidogrel Bisulfate 75 mg DAILY PO 11/26/24 10:00 12/01/24 12:43 75 MG Aspirin 81 mg DAILY PO 11/26/24 10:00 11/30/24 10:16 81 MG Atorvastatin Calcium 40 mg HS PO 11/25/24 22:00 12/01/24 22:49 40 MG Lactulose 15 ml BID PO 11/26/24 18:00 12/03/24 09:48 15 ML Ondansetron HCl 4 mg Q4HPRN PRN IV 11/27/24 10:15 11/28/24 17:39 4 MG Albuterol 2.5 mg Q6HWA NEB 11/27/24 12:00 12/03/24 06:53 2.5 MG Ipratropium [place] 0.5 mg Q6HWA NEB 11/27/24 12:00 12/03/24 06:53 0.5 MG Thiamine HCl 100 mg DAILY PO 11/29/24 10:00 12/03/24 09:51 100 MG Folic Acid 1 mg DAILY PO 11/29/24 10:00 12/03/24 09:51 1 MG Multivitamins 1 tab DAILY PO 11/29/24 10:00 12/03/24 09:50 1 TAB Hydralazine HCl 10 mg Q6HP PRN IV 11/29/24 03:00 12/02/24 08:42 10 MG Carvedilol 12.5 mg Q12HR PO 11/29/24 10:00 12/03/24 09:51 12.5 MG Trazodone HCl 50 mg HS PO 11/29/24 22:00 11/29/24 21:54 50 MG Purified Water 100 ml Q6HR PO 11/30/24 00:00 12/01/24 18:01 100 ML Haloperidol Lactate 5 mg [id number] PRN IM 11/30/24 07:30 12/02/24 11:19 5 MG Potassium Chloride 100 ml @ 50 mls/hr Q2H IV 12/02/24 09:15 12/02/24 15:14 UNV Bisacodyl 5 mg DAILYP PRN PO 12/02/24 10:15 Lorazepam 2 mg Q2HPRN PRN IV 12/02/24 12:30 12/02/24 17:56 2 MG Laboratory Results Laboratory Tests 12/03/24 05:28 Chemistry Test 12/03/24 05:28 Albumin 3.8 g/dL (3.2-4.8) Calcium Level 9.3 mg/dL (8.7-10.4) Magnesium Level 2.7 mg/dL (1.6-2.6) H Total Protein 6.4 g/dL (5.7-8.2) LFT Test 12/03/24 05:28 Alanine Aminotransferase (ALT) 29 U/L (7-40) Alkaline Phosphatase 55 U/L (46-116) Aspartate Amino Transferase (AST) 17 U/L (13-40) Total Bilirubin 0.9 mg/dL (0.2-1.0) Urinalysis Test 11/20/24 03:41 Urine Color Light-yellow (Yellow) Urine Clarity Clear (Clear) Urine pH 6.0 (5.0-9.0) Urine Specific [place] 1.013 (1.001-1.035) Urine Protein 2+ (Negative) H Urine Ketones Negative (Negative) Urine Blood 1+ /uL (Negative) H Urine Nitrite Negative (Negative) Urine Bilirubin Negative (Negative) Urine Urobilinogen Normal mg/dL (Negative) Urine Leukocyte Esterase Negative /uL (Negative) Urine RBC 1 /hpf (0 - 3) Urine Microscopic WBC 1 /HPF (0-3) Urine Squamous Epithelial Cells None seen /hpf (<5) Urine Bacteria None seen /hpf (None Seen) Urine Mucus Few (None Seen) Urine Yeast (Budding) Occasional /hpf (None Urine Glucose 4+ mg/dL (Normal) H Microbiology Microbiology Date/Time Source Procedure Growth Status 11/30/24 23:47 Blood Blood Culture - Preliminary NO GROWTH AFTER 48 HOURS OF INCUBATION. Resulted 11/20/24 21:31 Nose MRSA Screen - Final Complete 11/20/24 03:37 Sputum Gram Stain - Final Complete 11/20/24 03:37 Respiratory Culture - Final Enterobacter cloacae Complete Labs and/or images reviewed: Labs reviewed by me, Image(s) reviewed by me Assessment/Plan Assessment/Plan Covering for resident physician A Fib with RVR. ? history of A fib. CAD s/p PCI. CHF. Toxic encephalopathy with hx of ETOH abuse. BHUPINDER on CKD. History of Hypertension, currently hypotensive on vasopressor. Diabetes type 2. Hyperlipidemia. History of CVA. Daughter at the bedside, Continue current management Prognosis poor Plan discussed with: Patient Date of Service: December 03, 2024 Billing Provider: SUDHIR HAWKINS MD Common Visit Codes: [id number] INP/OBS CARE(HIGH) SUDHIR HAWKINS MD December 03, 2024 12:16
--- NOTE | 2024-12-03 14:14 | DVHPN2 ---
Progress Note - Dictate Date Seen: December 03, 2024 Has the PT tested + for MRSA If YES, has PT been informed?: No Medical Necessity Reason Pt with a Central, PICC or Fol: Yes The following are medically ne: El Catheter vital signs Vital Sign Date Time Temp Pulse Resp B/P (MAP) Pulse Ox O2 Delivery O2 Flow Rate FiO2 12/03/24 12:32 98.2 80 16 149/58 (88) 96 98.2 12/03/24 12:13 Nasal Cannula* 1 24 Total Intake and Output 12/02/24 12/02/24 12/03/24 15:00 23:00 07:00 Intake Total 150 ml 700 ml 0 ml Balance 150 ml 700 ml 0 ml medications Current Medications Medications Dose Ordered Sig/Amy Route Start Time Stop Time Status Last Admin Dose Admin Pantoprazole Sodium 40 mg DAILY IV 11/21/24 10:00 12/03/24 09:48 40 MG Diagnostic Test (Pha) 1 strip Q6HR 11/23/24 12:00 12/03/24 12:28 1 STRIP Insulin Human Regular Q6HR SC 11/23/24 12:00 12/03/24 12:28 2 UNITS Dextrose 50 ml UD PRN IV 11/23/24 06:45 Sodium Chloride 10 ml QSHIFT@10,22 IV 11/23/24 22:00 12/03/24 09:51 10 ML Clopidogrel Bisulfate 75 mg DAILY PO 11/26/24 10:00 12/01/24 12:43 75 MG Aspirin 81 mg DAILY PO 11/26/24 10:00 11/30/24 10:16 81 MG Atorvastatin Calcium 40 mg HS PO 11/25/24 22:00 12/01/24 22:49 40 MG Lactulose 15 ml BID PO 11/26/24 18:00 12/03/24 09:48 15 ML Ondansetron HCl 4 mg Q4HPRN PRN IV 11/27/24 10:15 11/28/24 17:39 4 MG Albuterol 2.5 mg Q6HWA NEB 11/27/24 12:00 12/03/24 12:13 2.5 MG Ipratropium [place] 0.5 mg Q6HWA NEB 11/27/24 12:00 12/03/24 12:13 0.5 MG Thiamine HCl 100 mg DAILY PO 11/29/24 10:00 5/3/25 09:51 100 MG Folic Acid 1 mg DAILY PO 11/29/24 10:00 12/03/24 09:51 1 MG Multivitamins 1 tab DAILY PO 11/29/24 10:00 12/03/24 09:50 1 TAB Hydralazine HCl 10 mg Q6HP PRN IV 11/29/24 03:00 12/02/24 08:42 10 MG Carvedilol 12.5 mg Q12HR PO 11/29/24 10:00 12/03/24 09:51 12.5 MG Trazodone HCl 50 mg HS PO 11/29/24 22:00 11/29/24 21:54 50 MG Purified Water 100 ml Q6HR PO 11/30/24 00:00 12/01/24 18:01 100 ML Haloperidol Lactate 5 mg [id number] PRN IM 11/30/24 07:30 12/02/24 11:19 5 MG Potassium Chloride 100 ml @ 50 mls/hr Q2H IV 12/02/24 09:15 12/02/24 15:14 UNV Bisacodyl 5 mg DAILYP PRN PO 12/02/24 10:15 Lorazepam 2 mg Q2HPRN PRN IV 12/02/24 12:30 12/02/24 17:56 2 MG laboratory and microbiology Laboratory Tests 12/03/24 05:28 Test 12/03/24 05:28 Range/Units Serum Glucose 252 #H 74-106 mg/dL 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 Suggest EN formula Vital AF 1.2 @ 50 ml/hr (GOAL). Begin at 10 ml/hr, advance by 10 ml Q4 hrs or as tolerated to goal-rate of 50 ml/hr 2. Provide free water flushes of 30 ml Q6 hrs (120 ml total); adjust PRN 3. Monitor BMP/lytes and replete to WNL/PRN 4. Agree with continuation of folate, thiamine due to ETOH abuse TF Provision: TF at goal to provide 1200 ml total volume, 1440 kcal (+204 kcal via propofol = 1644 kcal), 90 gm pro, 6 gm fiber, 973 ml H20 (meets 100% est. kcal needs, 100% est. pro needs) Expected Outcomes/Goals: Improved hemodynamic stability, weight maintenance, adequate nutrition. Plan discussed with: Patient LYLE CHE MD December 03, 2024 14:14
[2024-12-03] MEDS ORDERED: chlordiazePOXIDE HCL 25 MG CAP PO PRN (14:15)
--- NOTE | 2024-12-03 15:24 | DVHPN2 ---
Progress Note Date Seen: December 03, 2024 Has the PT tested + for MRSA If YES, has PT been informed?: No Medical Necessity Reason Pt with a Central, PICC or Fol: Yes The following are medically ne: El Catheter Subjective Patient reports: No new complaints Review of Systems: Deferred Objective vital signs Vital Sign Date Time Temp Pulse Resp B/P (MAP) Pulse Ox O2 Delivery O2 Flow Rate FiO2 12/03/24 12:32 98.2 80 16 149/58 (88) 96 98.2 12/03/24 12:13 Nasal Cannula* 1 24 Total Intake and Output 12/02/24 12/02/24 12/03/24 15:00 23:00 07:00 Intake Total 150 ml 700 ml 0 ml Balance 150 ml 700 ml 0 ml medications Current Medications Medications Dose Ordered Sig/Amy Route Start Time Stop Time Status Last Admin Dose Admin Pantoprazole Sodium 40 mg DAILY IV 11/21/24 10:00 12/03/24 09:48 40 MG Diagnostic Test (Pha) 1 strip Q6HR 11/23/24 12:00 12/03/24 12:28 1 STRIP Insulin Human Regular Q6HR SC 11/23/24 12:00 12/03/24 12:28 2 UNITS Dextrose 50 ml UD PRN IV 11/23/24 06:45 Sodium Chloride 10 ml QSHIFT@10,22 IV 11/23/24 22:00 12/03/24 09:51 10 ML Clopidogrel Bisulfate 75 mg DAILY PO 11/26/24 10:00 12/01/24 12:43 75 MG Aspirin 81 mg DAILY PO 11/26/24 10:00 11/30/24 10:16 81 MG Atorvastatin Calcium 40 mg HS PO 11/25/24 22:00 12/01/24 22:49 40 MG Lactulose 15 ml BID PO 11/26/24 18:00 12/03/24 09:48 15 ML Ondansetron HCl 4 mg Q4HPRN PRN IV 11/27/24 10:15 11/28/24 17:39 4 MG Albuterol 2.5 mg Q6HWA NEB 11/27/24 12:00 12/03/24 12:13 2.5 MG Ipratropium [place] 0.5 mg Q6HWA NEB 11/27/24 12:00 12/03/24 12:13 0.5 MG Thiamine HCl 100 mg DAILY PO 11/29/24 10:00 12/03/24 09:51 100 MG Folic Acid 1 mg DAILY PO 11/29/24 10:00 12/03/24 09:51 1 MG Multivitamins 1 tab DAILY PO 11/29/24 10:00 12/03/24 09:50 1 TAB Hydralazine HCl 10 mg Q6HP PRN IV 11/29/24 03:00 12/02/24 08:42 10 MG Carvedilol 12.5 mg Q12HR PO 11/29/24 10:00 12/03/24 09:51 12.5 MG Trazodone HCl 50 mg HS PO 11/29/24 22:00 11/29/24 21:54 50 MG Purified Water 100 ml Q6HR PO 11/30/24 00:00 12/01/24 18:01 100 ML Haloperidol Lactate 5 mg [id number] PRN IM 11/30/24 07:30 12/02/24 11:19 5 MG Potassium Chloride 100 ml @ 50 mls/hr Q2H IV 12/02/24 09:15 12/02/24 15:14 UNV Bisacodyl 5 mg DAILYP PRN PO 12/02/24 10:15 Lorazepam 2 mg Q2HPRN PRN IV 12/02/24 12:30 12/02/24 17:56 2 MG Chlordiazepoxide HCl 25 mg Q8HPRN PRN PO 12/03/24 14:15 Examination: GENERAL:Abnormal, LUNGS:Abnormal, MSK:Abnormal, NEURO:Abnormal laboratory and microbiology Laboratory Tests 12/03/24 05:28 Test 12/03/24 05:28 Range/Units Serum Glucose 252 #H 74-106 mg/dL Microbiology Date/Time Source Procedure Growth Status 11/30/24 23:47 Blood Blood Culture - Preliminary NO GROWTH AFTER 48 HOURS OF INCUBATION. Resulted 11/20/24 21:31 Nose MRSA Screen - Final Complete 11/20/24 03:37 Sputum Gram Stain - Final Complete 11/20/24 03:37 Respiratory Culture - Final Enterobacter cloacae Complete Problem List/Assessment/Plan Problem List/Assessment/Plan Acute kidney injury hemodynamic mediated etiology ckd 3A vs 3B etoh intoxication bradycardia AMS acute respiratory failure decompensated HF EF 30% Hypernatremia recs Renal function improving Patient tolerating p.o. diet per family bedside dc ivf Plan discussed with: Patient, Spouse, Daughter, Other Dietary Evaluation Review Comments: 1. Suggest EN formula Vital AF 1.2 @ 50 ml/hr (GOAL). Begin at 10 ml/hr, advance by 10 ml Q4 hrs or as tolerated to goal-rate of 50 ml/hr 2. Provide free water flushes of 30 ml Q6 hrs (120 ml total); adjust PRN 3. Monitor BMP/lytes and replete to WNL/PRN 4. Agree with continuation of folate, thiamine due to ETOH abuse TF Provision: TF at goal to provide 1200 ml total volume, 1440 kcal (+204 kcal via propofol = 1644 kcal), 90 gm pro, 6 gm fiber, 973 ml H20 (meets 100% est. kcal needs, 100% est. pro needs) Expected Outcomes/Goals: Improved hemodynamic stability, weight maintenance, adequate nutrition. BETSY ENGEL MD December 03, 2024 15:24
--- NOTE | 2024-12-03 15:24 | DVHPN2 ---
Progress Note - Dictate Date Seen: December 03, 2024 Has the PT tested + for MRSA If YES, has PT been informed?: No Medical Necessity Reason Pt with a Central, PICC or Fol: Yes The following are medically ne: El Catheter Subjective Patient was seen and evaluated in follow up. Patient is confused/disoriented, not following commands. Sitter and are at bedside. He is in soft restraints. K 3.3, BUN 57, TITLE 1 TUTOR 1.94, GLUC 252. Telemetry reviewed. vital signs Vital Sign Date Time Temp Pulse Resp B/P (MAP) Pulse Ox O2 Delivery O2 Flow Rate FiO2 12/03/24 09:51 95 114/70 12/03/24 08:10 Nasal Cannula* 3 32 12/03/24 07:01 20 97 12/03/24 05:00 96.5 96.5 Total Intake and Output 12/02/24 12/02/24 12/03/24 15:00 23:00 07:00 Intake Total 150 ml 700 ml 0 ml Balance 150 ml 700 ml 0 ml medications Current Medications Medications Dose Ordered Sig/Amy Route Start Time Stop Time Status Last Admin Dose Admin Pantoprazole Sodium 40 mg DAILY IV 11/21/24 10:00 12/03/24 09:48 40 MG Diagnostic Test (Pha) 1 strip Q6HR 11/23/24 12:00 12/03/24 06:20 1 STRIP Insulin Human Regular Q6HR SC 11/23/24 12:00 12/03/24 06:19 2 UNITS Dextrose 50 ml UD PRN IV 11/23/24 06:45 Sodium Chloride 10 ml QSHIFT@10,22 IV 11/23/24 22:00 12/03/24 09:51 10 ML Clopidogrel Bisulfate 75 mg DAILY PO 11/26/24 10:00 12/01/24 12:43 75 MG Aspirin 81 mg DAILY PO 11/26/24 10:00 11/30/24 10:16 81 MG Atorvastatin Calcium 40 mg HS PO 11/25/24 22:00 12/01/24 22:49 40 MG Lactulose 15 ml BID PO 11/26/24 18:00 12/03/24 09:48 15 ML Ondansetron HCl 4 mg Q4HPRN PRN IV 11/27/24 10:15 11/28/24 17:39 4 MG Albuterol 2.5 mg Q6HWA NEB 11/27/24 12:00 12/03/24 06:53 2.5 MG Ipratropium [place] 0.5 mg Q6HWA NEB 11/27/24 12:00 12/03/24 06:53 0.5 MG Thiamine HCl 100 mg DAILY PO 11/29/24 10:00 12/03/24 09:51 100 MG Folic Acid 1 mg DAILY PO 11/29/24 10:00 12/03/24 09:51 1 MG Multivitamins 1 tab DAILY PO 11/29/24 10:00 12/03/24 09:50 1 TAB Hydralazine HCl 10 mg Q6HP PRN IV 11/29/24 03:00 12/02/24 08:42 10 MG Carvedilol 12.5 mg Q12HR PO 11/29/24 10:00 12/03/24 09:51 12.5 MG Trazodone HCl 50 mg HS PO 11/29/24 22:00 11/29/24 21:54 50 MG Purified Water 100 ml Q6HR PO 11/30/24 00:00 12/01/24 18:01 100 ML Haloperidol Lactate 5 mg [id number] PRN IM 11/30/24 07:30 12/02/24 11:19 5 MG Potassium Chloride 100 ml @ 50 mls/hr Q2H IV 12/02/24 09:15 12/02/24 15:14 UNV Bisacodyl 5 mg DAILYP PRN PO 12/02/24 10:15 Lorazepam 2 mg Q2HPRN PRN IV 12/02/24 12:30 12/02/24 17:56 2 MG objective GENERAL: Alert and oriented x 3. No acute distress. EYES: PERRL, EOMI. Anicteric. HENT: Moist mucous membranes. LUNGS: Decreased breath sounds. CARDIOVASCULAR: Regular rate and rhythm. ABDOMEN: Soft, nontender and nondistended. EXTREMITIES: No edema. SKIN: Warm, dry. laboratory and microbiology Laboratory Tests 12/03/24 05:28 Test 12/03/24 05:28 Range/Units Serum Glucose 252 #H 74-106 mg/dL Problem List A Fib with RVR. ? history of A fib. CAD s/p PCI. CHF. Toxic encephalopathy with hx of ETOH abuse. BHUPINDER on CKD. History of Hypertension, currently hypotensive on vasopressor. Diabetes type 2. Hyperlipidemia. History of CVA. Assessment/Plan Continued all current supportive medical care. Aspirin, Lipitor. IV antibiotics as ordered. DVT and GI prophylactics. Diuretics with Lasix. Additional plan as per the hospital course. Dietary Evaluation Review Comments: 1. Suggest EN formula Vital AF 1.2 @ 50 ml/hr (GOAL). Begin at 10 ml/hr, advance by 10 ml Q4 hrs or as tolerated to goal-rate of 50 ml/hr 2. Provide free water flushes of 30 ml Q6 hrs (120 ml total); adjust PRN 3. Monitor BMP/lytes and replete to WNL/PRN 4. Agree with continuation of folate, thiamine due to ETOH abuse TF Provision: TF at goal to provide 1200 ml total volume, 1440 kcal (+204 kcal via propofol = 1644 kcal), 90 gm pro, 6 gm fiber, 973 ml H20 (meets 100% est. kcal needs, 100% est. pro needs) Expected Outcomes/Goals: Improved hemodynamic stability, weight maintenance, adequate nutrition. Plan discussed with: Patient RUBIO YUNG MD December 03, 2024 12:15
[2024-12-04] VITALS (12 sets, daily range): BP systolic 118–147; BP diastolic 52–75; PULSE 54–91; RESP 17–19; TEMP 96.9–97.9; O2SAT 91–98
[2024-12-04 08:42] LABS: Basophils # (auto) 0.1 10 ^3/uL (0-0.2); Eosinophils # (auto) 0.5 10 ^3/uL (0-0.8); Eosinophils % (auto) 4.6 % (0.0-7.0); Hematocrit 44.8 % (41.0-53.0); Hemoglobin 15.1 g/dL (13.5-17.5); Lymphocytes # (auto) 1.6 10 ^3/uL (0.4-5.4); Lymphocytes % (auto) 13.9 % (10.0-50.0); Mean Corpuscular Hemoglobin 30.1 pg (28.0-32.0); Mean Corpuscular Hgb Conc. 33.7 g/dL (32.0-36.0); Mean Corpuscular Volume 89.1 fL (80.0-100.0); Monocytes # (auto) 0.9 10 ^3/uL (0-1.3); Monocytes % (auto) 7.9 % (0.0-12.0); Neutrophils # (auto) 8.2 10 ^3/uL (1.6-8.6); Neutrophils % (auto) 72.6 % (37.0-80.0); Nucleated Red Blood Cells % 0.1 %; Platelet Count (auto) 101 10^3/uL (140-450); Red Blood Cells 5.03 10^6/uL (4.5-5.90); Red Cell Distribution Width 13.5 % (11.8-14.3); White Blood Cell 11.2 10^3/uL (4.4-10.8)
[2024-12-04 08:59] LABS: Alanine Aminotransferase 26 U/L (7-40); Albumin 3.8 g/dL (3.2-4.8); Alkaline Phosphatase 51 U/L (46-116); Anion Gap 8 (5-15); Aspartate Aminotransferase 18 U/L (13-40); BUN/Creatinine Ratio 32.8 (10.0-20.0); Calcium 9.2 mg/dL (8.7-10.4); Carbon Dioxide 24 mmol/L (20-31); Potassium 3.8 mmol/L (3.5-5.1); Sodium 143 mmol/L (136-145); Total Protein 6.2 g/dL (5.7-8.2)
[2024-12-04 09:00] LABS: Bilirubin, Total 0.9 mg/dL (0.2-1.0)
[2024-12-04 09:01] LABS: Blood Urea Nitrogen 58 mg/dL (9-23); Chloride 111 mmol/L (98-107); Glucose 117 mg/dL (74-106)
--- NOTE | 2024-12-04 11:21 | DVHPN2 ---
Reviewed: H&P Changes from previous H/P or p: No Changes General: Per HPI Objective Vitals Vital Signs Date Time Temp Pulse Resp B/P (MAP) Pulse Ox O2 Delivery O2 Flow Rate FiO2 12/04/24 11:00 66 147/52 12/04/24 08:54 97.6 17 98 97.6 12/04/24 06:24 Room Air 0.0 12/04/24 06:24 21 Intake/Output Intake and Output 12/04/24 07:00 Intake Total 790 ml Output Total 500 ml Balance 290 ml Intake Oral 790 ml Output Urine Total 500 ml # Voids 2 # Bowel Movements 1 Medications Current Medications Medications Dose Ordered Sig/Amy Route Start Time Stop Time Status Last Admin Dose Admin Pantoprazole Sodium 40 mg DAILY IV 11/21/24 10:00 12/04/24 10:59 40 MG Diagnostic Test (Pha) 1 strip Q6HR 11/23/24 12:00 12/04/24 11:14 1 STRIP Insulin Human Regular Q6HR SC 11/23/24 12:00 12/04/24 00:41 2 UNITS Dextrose 50 ml UD PRN IV 11/23/24 06:45 Sodium Chloride 10 ml QSHIFT@10,22 IV 11/23/24 22:00 12/04/24 10:00 10 ML Clopidogrel Bisulfate 75 mg DAILY PO 11/26/24 10:00 12/04/24 11:00 75 MG Aspirin 81 mg DAILY PO 11/26/24 10:00 12/04/24 10:59 81 MG Atorvastatin Calcium 40 mg HS PO 11/25/24 22:00 12/03/24 21:35 40 MG Lactulose 15 ml BID PO 11/26/24 18:00 12/04/24 10:59 15 ML Ondansetron HCl 4 mg Q4HPRN PRN IV 11/27/24 10:15 11/28/24 17:39 4 MG Albuterol 2.5 mg Q6HWA NEB 11/27/24 12:00 12/04/24 06:24 2.5 MG Ipratropium [place] 0.5 mg Q6HWA NEB 11/27/24 12:00 12/04/24 06:24 0.5 MG Thiamine HCl 100 mg DAILY PO 11/29/24 10:00 12/04/24 10:59 100 MG Folic Acid 1 mg DAILY PO 11/29/24 10:00 12/04/24 11:00 1 MG Multivitamins 1 tab DAILY PO 11/29/24 10:00 12/04/24 10:59 1 TAB Hydralazine HCl 10 mg Q6HP PRN IV 11/29/24 03:00 12/02/24 08:42 10 MG Carvedilol 12.5 mg Q12HR PO 11/29/24 10:00 12/04/24 11:00 12.5 MG Trazodone HCl 50 mg HS PO 11/29/24 22:00 12/03/24 21:35 50 MG Purified Water 100 ml Q6HR PO 11/30/24 00:00 12/04/24 00:00 100 ML Haloperidol Lactate 5 mg [id number] PRN IM 11/30/24 07:30 12/04/24 04:12 5 MG Potassium Chloride 100 ml @ 50 mls/hr Q2H IV 12/02/24 09:15 12/02/24 15:14 UNV Bisacodyl 5 mg DAILYP PRN PO 12/02/24 10:15 Lorazepam 2 mg Q2HPRN PRN IV 12/02/24 12:30 12/04/24 10:46 2 MG Chlordiazepoxide HCl 25 mg Q8HPRN PRN PO 12/03/24 14:15 Laboratory Results Laboratory Tests 12/04/24 08:32 Chemistry Test 12/04/24 08:32 Albumin 3.8 g/dL (3.2-4.8) Calcium Level 9.2 mg/dL (8.7-10.4) Total Protein 6.2 g/dL (5.7-8.2) LFT Test 12/04/24 08:32 Alanine Aminotransferase (ALT) 26 U/L (7-40) Alkaline Phosphatase 51 U/L (46-116) Aspartate Amino Transferase (AST) 18 U/L (13-40) Total Bilirubin 0.9 mg/dL (0.2-1.0) Urinalysis Test 11/20/24 03:41 Urine Color Light-yellow (Yellow) Urine Clarity Clear (Clear) Urine pH 6.0 (5.0-9.0) Urine Specific [place] 1.013 (1.001-1.035) Urine Protein 2+ (Negative) H Urine Ketones Negative (Negative) Urine Blood 1+ /uL (Negative) H Urine Nitrite Negative (Negative) Urine Bilirubin Negative (Negative) Urine Urobilinogen Normal mg/dL (Negative) Urine Leukocyte Esterase Negative /uL (Negative) Urine RBC 1 /hpf (0 - 3) Urine Microscopic WBC 1 /HPF (0-3) Urine Squamous Epithelial Cells None seen /hpf (<5) Urine Bacteria None seen /hpf (None Seen) Urine Mucus Few (None Seen) Urine Yeast (Budding) Occasional /hpf (None Urine Glucose 4+ mg/dL (Normal) H Microbiology Microbiology Date/Time Source Procedure Growth Status 11/30/24 23:47 Blood Blood Culture - Preliminary NO GROWTH AFTER 72 HOURS OF INCUBATION. Resulted 11/20/24 21:31 Nose MRSA Screen - Final Complete 11/20/24 03:37 Sputum Gram Stain - Final Complete 11/20/24 03:37 Respiratory Culture - Final Enterobacter cloacae Complete Labs and/or images reviewed: Labs reviewed by me, Image(s) reviewed by me Assessment/Plan Assessment/Plan Covering for resident physician A Fib with RVR. ? history of A fib. CAD s/p PCI. CHF. Toxic encephalopathy with hx of ETOH abuse. BHUPINDER on CKD. History of Hypertension, currently hypotensive on vasopressor. Diabetes type 2. Hyperlipidemia. History of CVA. Daughter at the bedside, Continue current management Prognosis poor Continue Current management Plan discussed with: Patient Date of Service: December 04, 2024 Billing Provider: SUDHIR HAWKINS MD Common Visit Codes: [id number] INP/OBS CARE(HIGH) SUDHIR HAWKINS MD December 04, 2024 11:21
--- NOTE | 2024-12-04 13:55 | DVHPN2 ---
Progress Note - Dictate Date Seen: December 04, 2024 Has the PT tested + for MRSA If YES, has PT been informed?: No Medical Necessity Reason Pt with a Central, PICC or Fol: Yes The following are medically ne: El Catheter vital signs Vital Sign Date Time Temp Pulse Resp B/P (MAP) Pulse Ox O2 Delivery O2 Flow Rate FiO2 12/04/24 12:43 80 18 96 12/04/24 12:37 Room Air* 0 21 12/04/24 11:00 147/52 12/04/24 08:54 97.6 97.6 Total Intake and Output 12/03/24 12/03/24 12/04/24 15:00 23:00 07:00 Intake Total 560 ml 230 ml Output Total 500 ml Balance 60 ml 230 ml medications Current Medications Medications Dose Ordered Sig/Amy Route Start Time Stop Time Status Last Admin Dose Admin Pantoprazole Sodium 40 mg DAILY IV 11/21/24 10:00 12/04/24 10:59 40 MG Diagnostic Test (Pha) 1 strip Q6HR 11/23/24 12:00 12/04/24 11:14 1 STRIP Insulin Human Regular Q6HR SC 11/23/24 12:00 12/04/24 00:41 2 UNITS Dextrose 50 ml UD PRN IV 11/23/24 06:45 Sodium Chloride 10 ml QSHIFT@10,22 IV 11/23/24 22:00 12/04/24 10:00 10 ML Clopidogrel Bisulfate 75 mg DAILY PO 11/26/24 10:00 12/04/24 11:00 75 MG Aspirin 81 mg DAILY PO 11/26/24 10:00 12/04/24 10:59 81 MG Atorvastatin Calcium 40 mg HS PO 11/25/24 22:00 12/03/24 21:35 40 MG Lactulose 15 ml BID PO 11/26/24 18:00 12/04/24 10:59 15 ML Ondansetron HCl 4 mg Q4HPRN PRN IV 11/27/24 10:15 11/28/24 17:39 4 MG Albuterol 2.5 mg Q6HWA NEB 11/27/24 12:00 12/04/24 12:37 2.5 MG Ipratropium [place] 0.5 mg Q6HWA NEB 11/27/24 12:00 12/04/24 12:37 0.5 MG Thiamine HCl 100 mg DAILY PO 11/29/24 10:00 12/04/24 10:59 100 MG Folic Acid 1 mg DAILY PO 11/29/24 10:00 12/04/24 11:00 1 MG Multivitamins 1 tab DAILY PO 11/29/24 10:00 12/04/24 10:59 1 TAB Hydralazine HCl 10 mg Q6HP PRN IV 11/29/24 03:00 12/02/24 08:42 10 MG Carvedilol 12.5 mg Q12HR PO 11/29/24 10:00 12/04/24 11:00 12.5 MG Trazodone HCl 50 mg HS PO 11/29/24 22:00 12/03/24 21:35 50 MG Purified Water 100 ml Q6HR PO 11/30/24 00:00 12/04/24 00:00 100 ML Haloperidol Lactate 5 mg [id number] PRN IM 11/30/24 07:30 12/04/24 04:12 5 MG Potassium Chloride 100 ml @ 50 mls/hr Q2H IV 12/02/24 09:15 12/02/24 15:14 UNV Bisacodyl 5 mg DAILYP PRN PO 12/02/24 10:15 Lorazepam 2 mg Q2HPRN PRN IV 12/02/24 12:30 12/04/24 12:58 2 MG Chlordiazepoxide HCl 25 mg Q8HPRN PRN PO 12/03/24 14:15 laboratory and microbiology Laboratory Tests 12/04/24 08:32 Test 12/04/24 08:32 Range/Units Serum Glucose 117 #H 74-106 mg/dL Assessment/Plan 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 Suggest EN formula Vital AF 1.2 @ 50 ml/hr (GOAL). Begin at 10 ml/hr, advance by 10 ml Q4 hrs or as tolerated to goal-rate of 50 ml/hr 2. Provide free water flushes of 30 ml Q6 hrs (120 ml total); adjust PRN 3. Monitor BMP/lytes and replete to WNL/PRN 4. Agree with continuation of folate, thiamine due to ETOH abuse TF Provision: TF at goal to provide 1200 ml total volume, 1440 kcal (+204 kcal via propofol = 1644 kcal), 90 gm pro, 6 gm fiber, 973 ml H20 (meets 100% est. kcal needs, 100% est. pro needs) Expected Outcomes/Goals: Improved hemodynamic stability, weight maintenance, adequate nutrition. Plan discussed with: Patient LYLE CHE MD December 04, 2024 13:55
--- NOTE | 2024-12-04 14:04 | DVHPN2 ---
Progress Note Date Seen: December 04, 2024 Has the PT tested + for MRSA If YES, has PT been informed?: No Medical Necessity Reason Pt with a Central, PICC or Fol: Yes The following are medically ne: El Catheter Subjective Patient reports: Other Review of Systems: Deferred Objective vital signs Vital Sign Date Time Temp Pulse Resp B/P (MAP) Pulse Ox O2 Delivery O2 Flow Rate FiO2 12/04/24 12:43 80 18 96 12/04/24 12:37 Room Air* 0 21 12/04/24 11:00 147/52 12/04/24 08:54 97.6 97.6 Total Intake and Output 12/03/24 12/03/24 12/04/24 14:59 22:59 06:59 Intake Total 560 ml 230 ml Output Total 500 ml Balance 60 ml 230 ml medications Current Medications Medications Dose Ordered Sig/Amy Route Start Time Stop Time Status Last Admin Dose Admin Pantoprazole Sodium 40 mg DAILY IV 11/21/24 10:00 12/04/24 10:59 40 MG Diagnostic Test (Pha) 1 strip Q6HR 11/23/24 12:00 12/04/24 11:14 1 STRIP Insulin Human Regular Q6HR SC 11/23/24 12:00 12/04/24 00:41 2 UNITS Dextrose 50 ml UD PRN IV 11/23/24 06:45 Sodium Chloride 10 ml QSHIFT@10,22 IV 11/23/24 22:00 12/04/24 10:00 10 ML Clopidogrel Bisulfate 75 mg DAILY PO 11/26/24 10:00 12/04/24 11:00 75 MG Aspirin 81 mg DAILY PO 11/26/24 10:00 12/04/24 10:59 81 MG Atorvastatin Calcium 40 mg HS PO 11/25/24 22:00 12/03/24 21:35 40 MG Lactulose 15 ml BID PO 11/26/24 18:00 12/04/24 10:59 15 ML Ondansetron HCl 4 mg Q4HPRN PRN IV 11/27/24 10:15 11/28/24 17:39 4 MG Albuterol 2.5 mg Q6HWA NEB 11/27/24 12:00 12/04/24 12:37 2.5 MG Ipratropium [place] 0.5 mg Q6HWA NEB 11/27/24 12:00 12/04/24 12:37 0.5 MG Thiamine HCl 100 mg DAILY PO 11/29/24 10:00 12/04/24 10:59 100 MG Folic Acid 1 mg DAILY PO 11/29/24 10:00 12/04/24 11:00 1 MG Multivitamins 1 tab DAILY PO 11/29/24 10:00 12/04/24 10:59 1 TAB Hydralazine HCl 10 mg Q6HP PRN IV 11/29/24 03:00 12/02/24 08:42 10 MG Carvedilol 12.5 mg Q12HR PO 11/29/24 10:00 12/04/24 11:00 12.5 MG Trazodone HCl 50 mg HS PO 11/29/24 22:00 12/03/24 21:35 50 MG Purified Water 100 ml Q6HR PO 11/30/24 00:00 12/04/24 00:00 100 ML Haloperidol Lactate 5 mg [id number] PRN IM 11/30/24 07:30 12/04/24 04:12 5 MG Potassium Chloride 100 ml @ 50 mls/hr Q2H IV 12/02/24 09:15 12/02/24 15:14 UNV Bisacodyl 5 mg DAILYP PRN PO 12/02/24 10:15 Lorazepam 2 mg Q2HPRN PRN IV 12/02/24 12:30 12/04/24 12:58 2 MG Chlordiazepoxide HCl 25 mg Q8HPRN PRN PO 12/03/24 14:15 laboratory and microbiology Laboratory Tests 12/04/24 08:32 Test 12/04/24 08:32 Range/Units Serum Glucose 117 #H 74-106 mg/dL Microbiology Date/Time Source Procedure Growth Status 11/30/24 23:47 Blood Blood Culture - Preliminary NO GROWTH AFTER 72 HOURS OF INCUBATION. Resulted 11/20/24 21:31 Nose MRSA Screen - Final Complete 11/20/24 03:37 Sputum Gram Stain - Final Complete 11/20/24 03:37 Respiratory Culture - Final Enterobacter cloacae Complete Problem List/Assessment/Plan Problem List/Assessment/Plan Acute kidney injury hemodynamic mediated etiology ckd 3A vs 3B etoh intoxication bradycardia AMS acute respiratory failure decompensated HF EF 30% Hypernatremia recs Renal function improving Patient tolerating p.o. diet per family bedside dc ivf Plan discussed with: Patient Dietary Evaluation Review Comments: 1. Suggest EN formula Vital AF 1.2 @ 50 ml/hr (GOAL). Begin at 10 ml/hr, advance by 10 ml Q4 hrs or as tolerated to goal-rate of 50 ml/hr 2. Provide free water flushes of 30 ml Q6 hrs (120 ml total); adjust PRN 3. Monitor BMP/lytes and replete to WNL/PRN 4. Agree with continuation of folate, thiamine due to ETOH abuse TF Provision: TF at goal to provide 1200 ml total volume, 1440 kcal (+204 kcal via propofol = 1644 kcal), 90 gm pro, 6 gm fiber, 973 ml H20 (meets 100% est. kcal needs, 100% est. pro needs) Expected Outcomes/Goals: Improved hemodynamic stability, weight maintenance, adequate nutrition. BETSY ENGEL MD December 04, 2024 14:04
--- NOTE | 2024-12-04 22:01 | DVHPN2 ---
Progress Note - Dictate Date Seen: December 04, 2024 Has the PT tested + for MRSA If YES, has PT been informed?: No Medical Necessity Reason Pt with a Central, PICC or Fol: Yes The following are medically ne: El Catheter Subjective Patient was seen and evaluated in follow up. Sitter is at bedside. Patient is on 2 LPM NC. Patient is tolerating p.o. intake per family at bedside. Patient remains confused, not following commands. WBC 11.2, BUN 58, FITTER ARMAMENT 1.77. Telemetry reviewed. vital signs Vital Sign Date Time Temp Pulse Resp B/P (MAP) Pulse Ox O2 Delivery O2 Flow Rate FiO2 12/04/24 12:43 80 18 96 12/04/24 12:37 Room Air* 0 21 12/04/24 11:00 147/52 12/04/24 08:54 97.6 97.6 Total Intake and Output 12/03/24 12/03/24 12/04/24 15:00 23:00 07:00 Intake Total 560 ml 230 ml Output Total 500 ml Balance 60 ml 230 ml medications Current Medications Medications Dose Ordered Sig/Amy Route Start Time Stop Time Status Last Admin Dose Admin Pantoprazole Sodium 40 mg DAILY IV 11/21/24 10:00 12/04/24 10:59 40 MG Diagnostic Test (Pha) 1 strip Q6HR 11/23/24 12:00 12/04/24 11:14 1 STRIP Insulin Human Regular Q6HR SC 11/23/24 12:00 12/04/24 00:41 2 UNITS Dextrose 50 ml UD PRN IV 11/23/24 06:45 Sodium Chloride 10 ml QSHIFT@10,22 IV 11/23/24 22:00 12/04/24 10:00 10 ML Clopidogrel Bisulfate 75 mg DAILY PO 11/26/24 10:00 12/04/24 11:00 75 MG Aspirin 81 mg DAILY PO 11/26/24 10:00 12/04/24 10:59 81 MG Atorvastatin Calcium 40 mg HS PO 11/25/24 22:00 12/03/24 21:35 40 MG Lactulose 15 ml BID PO 11/26/24 18:00 12/04/24 10:59 15 ML Ondansetron HCl 4 mg Q4HPRN PRN IV 11/27/24 10:15 11/28/24 17:39 4 MG Albuterol 2.5 mg Q6HWA NEB 11/27/24 12:00 12/04/24 12:37 2.5 MG Ipratropium [place] 0.5 mg Q6HWA NEB 11/27/24 12:00 12/04/24 12:37 0.5 MG Thiamine HCl 100 mg DAILY PO 11/29/24 10:00 12/04/24 10:59 100 MG Folic Acid 1 mg DAILY PO 11/29/24 10:00 12/04/24 11:00 1 MG Multivitamins 1 tab DAILY PO 11/29/24 10:00 12/04/24 10:59 1 TAB Hydralazine HCl 10 mg Q6HP PRN IV 11/29/24 03:00 12/02/24 08:42 10 MG Carvedilol 12.5 mg Q12HR PO 11/29/24 10:00 12/04/24 11:00 12.5 MG Trazodone HCl 50 mg HS PO 11/29/24 22:00 12/03/24 21:35 50 MG Purified Water 100 ml Q6HR PO 11/30/24 00:00 12/04/24 00:00 100 ML Haloperidol Lactate 5 mg [id number] PRN IM 11/30/24 07:30 12/04/24 04:12 5 MG Potassium Chloride 100 ml @ 50 mls/hr Q2H IV 12/02/24 09:15 12/02/24 15:14 UNV Bisacodyl 5 mg DAILYP PRN PO 12/02/24 10:15 Lorazepam 2 mg Q2HPRN PRN IV 12/02/24 12:30 12/04/24 12:58 2 MG Chlordiazepoxide HCl 25 mg Q8HPRN PRN PO 12/03/24 14:15 objective GENERAL: Awake, confused. EYES: PERRL, EOMI. Anicteric. HENT: Moist mucous membranes. LUNGS: Decreased breath sounds. CARDIOVASCULAR: Regular rate and rhythm. ABDOMEN: Soft, nontender and nondistended. EXTREMITIES: No edema. SKIN: Warm, dry. laboratory and microbiology Laboratory Tests 12/04/24 08:32 Test 12/04/24 08:32 Range/Units Serum Glucose 117 #H 74-106 mg/dL Problem List A Fib with RVR. ? history of A fib. CAD s/p PCI. CHF. Toxic encephalopathy with hx of ETOH abuse. BHUPINDER on CKD. History of Hypertension, currently hypotensive on vasopressor. Diabetes type 2. Hyperlipidemia. History of CVA. Assessment/Plan Continued all current supportive medical care. Aspirin, Lipitor, Plavix. Coreg. IV Hydralazine for SBP >150. GI prophylactics. Additional plan as per the hospital course. Dietary Evaluation Review Comments: 1. Suggest EN formula Vital AF 1.2 @ 50 ml/hr (GOAL). Begin at 10 ml/hr, advance by 10 ml Q4 hrs or as tolerated to goal-rate of 50 ml/hr 2. Provide free water flushes of 30 ml Q6 hrs (120 ml total); adjust PRN 3. Monitor BMP/lytes and replete to WNL/PRN 4. Agree with continuation of folate, thiamine due to ETOH abuse TF Provision: TF at goal to provide 1200 ml total volume, 1440 kcal (+204 kcal via propofol = 1644 kcal), 90 gm pro, 6 gm fiber, 973 ml H20 (meets 100% est. kcal needs, 100% est. pro needs) Expected Outcomes/Goals: Improved hemodynamic stability, weight maintenance, adequate nutrition. Plan discussed with: Other RUBIO YUNG MD December 04, 2024 13:50
[2024-12-05] VITALS (10 sets, daily range): BP systolic 110–149; BP diastolic 47–88; PULSE 65–80; RESP 16–18; TEMP 97.1–98.2; O2SAT 92–99
[2024-12-05 12:27] LABS: Basophils # (auto) 0.1 10 ^3/uL (0-0.2); Basophils % (auto) 0.6 % (0.0-2.0); Eosinophils # (auto) 0.4 10 ^3/uL (0-0.8); Eosinophils % (auto) 4.2 % (0.0-7.0); Hematocrit 47.2 % (41.0-53.0); Hemoglobin 15.6 g/dL (13.5-17.5); Lymphocytes # (auto) 1.2 10 ^3/uL (0.4-5.4); Lymphocytes % (auto) 12.1 % (10.0-50.0); Mean Corpuscular Hemoglobin 29.4 pg (28.0-32.0); Mean Corpuscular Hgb Conc. 33.1 g/dL (32.0-36.0); Mean Corpuscular Volume 88.8 fL (80.0-100.0); Monocytes # (auto) 0.6 10 ^3/uL (0-1.3); Monocytes % (auto) 5.7 % (0.0-12.0); Neutrophils % (auto) 77.4 % (37.0-80.0); Nucleated Red Blood Cells % 0.1 %; Platelet Count (auto) 111 10^3/uL (140-450); Red Blood Cells 5.32 10^6/uL (4.5-5.90); Red Cell Distribution Width 13.6 % (11.8-14.3); White Blood Cell 10.3 10^3/uL (4.4-10.8)
[2024-12-05 12:42] LABS: Alanine Aminotransferase 25 U/L (7-40); Albumin 3.8 g/dL (3.2-4.8); Alkaline Phosphatase 55 U/L (46-116); Anion Gap 9 (5-15); Aspartate Aminotransferase 18 U/L (13-40); BUN/Creatinine Ratio 30.9 (10.0-20.0); Bilirubin, Total 0.8 mg/dL (0.2-1.0); Calcium 9.5 mg/dL (8.7-10.4); Carbon Dioxide 23 mmol/L (20-31); Sodium 145 mmol/L (136-145); Total Protein 6.5 g/dL (5.7-8.2)
[2024-12-05 12:43] LABS: Blood Urea Nitrogen 46 mg/dL (9-23); Chloride 113 mmol/L (98-107); Glucose 184 mg/dL (74-106)
--- NOTE | 2024-12-05 13:58 | DVH ---
EXAM: XY CHEST XRAY 1 VIEW REASON FOR EXAM: Cough TECHNIQUE: 1 view of the chest COMPARISON: XY CHEST PORTABLE on DOS: 12/01/24 FINDINGS/IMPRESSION: LUNGS: Low lung volumes. Peripheral interstitial edema. MEDIASTINUM: Mild cardiomegaly BONES: No acute osseous abnormality OTHER: Right-sided line with distal tip in the inferior right atrium
--- NOTE | 2024-12-05 18:32 | DVHPN2 ---
Progress Note Date Seen: December 05, 2024 Has the PT tested + for MRSA If YES, has PT been informed?: No Medical Necessity Reason Pt with a Central, PICC or Fol: Yes The following are medically ne: El Catheter Subjective Patient reports: Other (no events) Review of Systems: Deferred Objective vital signs Vital Sign Date Time Temp Pulse Resp B/P (MAP) Pulse Ox O2 Delivery O2 Flow Rate FiO2 12/05/24 17:00 97.9 75 18 119/55 (76) 95 97.9 12/05/24 08:00 Room Air* 0 21 Total Intake and Output 12/04/24 12/04/24 12/05/24 15:00 23:00 07:00 Intake Total 200 ml 240 ml Output Total 200 ml Balance 0 ml 240 ml medications Current Medications Medications Dose Ordered Sig/Amy Route Start Time Stop Time Status Last Admin Dose Admin Pantoprazole Sodium 40 mg DAILY IV 11/21/24 10:00 12/04/24 10:59 40 MG Diagnostic Test (Pha) 1 strip Q6HR 11/23/24 12:00 12/05/24 16:58 1 STRIP Insulin Human Regular Q6HR SC 11/23/24 12:00 12/05/24 11:26 2 UNITS Dextrose 50 ml UD PRN IV 11/23/24 06:45 Sodium Chloride 10 ml QSHIFT@10,22 IV 11/23/24 22:00 12/05/24 09:31 10 ML Clopidogrel Bisulfate 75 mg DAILY PO 11/26/24 10:00 12/05/24 09:30 75 MG Aspirin 81 mg DAILY PO 11/26/24 10:00 12/05/24 09:29 81 MG Atorvastatin Calcium 40 mg HS PO 11/25/24 22:00 12/04/24 21:44 40 MG Lactulose 15 ml BID PO 11/26/24 18:00 12/05/24 09:31 15 ML Ondansetron HCl 4 mg Q4HPRN PRN IV 11/27/24 10:15 11/28/24 17:39 4 MG Albuterol 2.5 mg Q6HWA NEB 11/27/24 12:00 12/04/24 18:00 2.5 MG Ipratropium [place] 0.5 mg Q6HWA NEB 11/27/24 12:00 12/04/24 18:00 0.5 MG Thiamine HCl 100 mg DAILY PO 11/29/24 10:00 12/05/24 09:29 100 MG Folic Acid 1 mg DAILY PO 11/29/24 10:00 12/05/24 09:29 1 MG Multivitamins 1 tab DAILY PO 11/29/24 10:00 12/05/24 09:29 1 TAB Hydralazine HCl 10 mg Q6HP PRN IV 11/29/24 03:00 12/02/24 08:42 10 MG Carvedilol 12.5 mg Q12HR PO 11/29/24 10:00 12/05/24 09:31 12.5 MG Trazodone HCl 50 mg HS PO 11/29/24 22:00 12/04/24 21:39 50 MG Potassium Chloride 100 ml @ 50 mls/hr Q2H IV 12/02/24 09:15 12/02/24 15:14 UNV Bisacodyl 5 mg DAILYP PRN PO 12/02/24 10:15 Lorazepam 2 mg Q2HPRN PRN IV 12/02/24 12:30 12/05/24 03:37 2 MG Chlordiazepoxide HCl 25 mg Q8HPRN PRN PO 12/03/24 14:15 laboratory and microbiology Laboratory Tests 12/05/24 12:00 Test 12/05/24 12:00 Range/Units Serum Glucose 184 H 74-106 mg/dL Microbiology Date/Time Source Procedure Growth Status 11/30/24 23:47 Blood Blood Culture - Preliminary NO GROWTH AFTER 72 HOURS OF INCUBATION. Resulted 11/20/24 21:31 Nose MRSA Screen - Final Complete 11/20/24 03:37 Sputum Gram Stain - Final Complete 11/20/24 03:37 Respiratory Culture - Final Enterobacter cloacae Complete Problem List/Assessment/Plan Problem List/Assessment/Plan Acute kidney injury hemodynamic mediated etiology ckd 3A vs 3B etoh intoxication bradycardia AMS acute respiratory failure decompensated HF EF 30% Hypernatremia recs Renal function improved gfr better i will sign off this case/pls reconsult if needed Plan discussed with: Spouse, Other Dietary Evaluation Review Comments: 1. Suggest EN formula Vital AF 1.2 @ 50 ml/hr (GOAL). Begin at 10 ml/hr, advance by 10 ml Q4 hrs or as tolerated to goal-rate of 50 ml/hr 2. Provide free water flushes of 30 ml Q6 hrs (120 ml total); adjust PRN 3. Monitor BMP/lytes and replete to WNL/PRN 4. Agree with continuation of folate, thiamine due to ETOH abuse TF Provision: TF at goal to provide 1200 ml total volume, 1440 kcal (+204 kcal via propofol = 1644 kcal), 90 gm pro, 6 gm fiber, 973 ml H20 (meets 100% est. kcal needs, 100% est. pro needs) Expected Outcomes/Goals: Improved hemodynamic stability, weight maintenance, adequate nutrition. BESTY ENGEL MD December 05, 2024 18:32
--- NOTE | 2024-12-05 20:36 | DVHPNRES ---
Progress Note Date Seen: December 05, 2024 Resident Creating Document: SABRINA RICK RESIDENT Has the PT tested + for MRSA If YES, has PT been informed?: No Medical Necessity Reason Pt with a Central, PICC or Fol: Yes The following are medically ne: El Catheter Subjective Review of Systems Paulo Milan is a 69 year old male patient who presents to ED with chief complaint of altered mental status, slurred speech, nausea and vomiting, per family members patient's symptoms started after binge drinking (per EMR five shots of Tequila). During ED visit he was diagnosed with alcohol intoxication, and posteriorly patient became hypoxic (pulse oximetry showed saturation at 80s) and was promptly intubated. Could not obtain review of systems and history due to clinical status, obtained information from EMR. Past Medical History: Hypertension, dyslipidemia, diabetes mellitus type 2 Surgical History: PCI x1 Family History: Noncontributory Social history: [facility]. Heavy alcohol consumption (per family he drinks every day at least three drinks). Denies current tobacco and other drug abuse. Allergies: Denies Home medication: Atorvastatin Patient seen and examined at bedside. Currently he is extubated on room air, status telemetry. Patient is not agitated (CIWA score 0). He is still only oriented in person. Family season more calm than usual. Objective vital signs Vital Sign Date Time Temp Pulse Resp B/P (MAP) Pulse Ox O2 Delivery O2 Flow Rate FiO2 12/05/24 18:56 79 18 97 12/05/24 18:56 Room Air* 0 21 12/05/24 17:00 97.9 119/55 (76) 97.9 Total Intake and Output 12/04/24 12/04/24 12/05/24 15:00 23:00 07:00 Intake Total 200 ml 240 ml Output Total 200 ml Balance 0 ml 240 ml medications Current Medications Medications Dose Ordered Sig/Amy Route Start Time Stop Time Status Last Admin Dose Admin Pantoprazole Sodium 40 mg DAILY IV 11/21/24 10:00 12/04/24 10:59 40 MG Diagnostic Test (Pha) 1 strip Q6HR 11/23/24 12:00 12/05/24 16:58 1 STRIP Insulin Human Regular Q6HR SC 11/23/24 12:00 12/05/24 11:26 2 UNITS Dextrose 50 ml UD PRN IV 11/23/24 06:45 Sodium Chloride 10 ml QSHIFT@10,22 IV 11/23/24 22:00 12/05/24 09:31 10 ML Clopidogrel Bisulfate 75 mg DAILY PO 11/26/24 10:00 12/05/24 09:30 75 MG Aspirin 81 mg DAILY PO 11/26/24 10:00 12/05/24 09:29 81 MG Atorvastatin Calcium 40 mg HS PO 11/25/24 22:00 12/04/24 21:44 40 MG Lactulose 15 ml BID PO 11/26/24 18:00 12/05/24 09:31 15 ML Ondansetron HCl 4 mg Q4HPRN PRN IV 11/27/24 10:15 11/28/24 17:39 4 MG Albuterol 2.5 mg Q6HWA NEB 11/27/24 12:00 12/05/24 18:56 2.5 MG Ipratropium [place] 0.5 mg Q6HWA NEB 11/27/24 12:00 12/05/24 18:56 0.5 MG Thiamine HCl 100 mg DAILY PO 11/29/24 10:00 12/05/24 09:29 100 MG Folic Acid 1 mg DAILY PO 11/29/24 10:00 12/05/24 09:29 1 MG Multivitamins 1 tab DAILY PO 11/29/24 10:00 12/05/24 09:29 1 TAB Hydralazine HCl 10 mg Q6HP PRN IV 11/29/24 03:00 12/02/24 08:42 10 MG Carvedilol 12.5 mg Q12HR PO 11/29/24 10:00 12/05/24 09:31 12.5 MG Trazodone HCl 50 mg HS PO 11/29/24 22:00 12/04/24 21:39 50 MG Potassium Chloride 100 ml @ 50 mls/hr Q2H IV 12/02/24 09:15 12/02/24 15:14 UNV Bisacodyl 5 mg DAILYP PRN PO 12/02/24 10:15 Lorazepam 2 mg Q2HPRN PRN IV 12/02/24 12:30 12/05/24 03:37 2 MG Chlordiazepoxide HCl 25 mg Q8HPRN PRN PO 12/03/24 14:15 Examination Patient lying in bed, in no acute distress General: Alert, afebrile, mucosae are moist Cardiovascular: Normal S1 and S2. No murmurs, gallops or rubs Respiratory: Normal ventilation mechanics. Has persistent dry cough. Clear lung sounds on auscultation Abdomen: Soft, nontender, no organomegaly, normal bowel sounds MSK/skin: Mobilizes 4 limbs. Skin is dry and warm Neurological: Oriented in 1 spheres (only to self). No motor no sensitive deficits. Pupils are isocoric and reactive laboratory and microbiology Laboratory Tests 12/05/24 12:00 Test 12/05/24 12:00 Range/Units Serum Glucose 184 H 74-106 mg/dL Microbiology Date/Time Source Procedure Growth Status 11/30/24 23:47 Blood Blood Culture - Preliminary NO GROWTH AFTER 72 HOURS OF INCUBATION. Resulted 11/20/24 21:31 Nose MRSA Screen - Final Complete 11/20/24 03:37 Sputum Gram Stain - Final Complete 11/20/24 03:37 Respiratory Culture - Final Enterobacter cloacae Complete Problem List/Assessment/Plan Problem List/Assessment/Plan Neurology # Acute toxic/metabolic encephalopathy, likely due to alcohol intoxication # Acute alcohol intoxication # Insomnia # Acute psychosis, possible due to sleep deprivation P.o. multivitamins, Folic acid and thiamine Head CT on admission unremarkable for acute disease. Ordered new head CT (patient non-cooperative) Trazodone PRN haldol 5mg im bid prn andativan 1mg iv q6 prn Cardiovascular # Paroxysmal AFib with RVR (chads Vasc 5/has bled 3) secondary hypercoagulability state - now NSR # Acute on chronic systolic CHF (HFrEF, LVEF 35%) # Sinus bradycardia secondary to ischemia - s/p PCI with 1 BRENDA # NSTEMI type 1 - s/p PCI with 2 BRENDA # CAD, s/p PCI x1 # Hypertension Completed echocardiogram: Mild LVH, LVEF 35%, mild global hypokinesia with mildly dilated LV, slightly dilated RV Cardiology on board: Completed coronary angiography due to NSTEMI and persistent sinus bradycardia Lasix 40mg iv qd Job Counselor following: [facility] on 11/24/24, s/p PCI 2 BRENDA Continue aspirin and plavix and atorvastatin Respiratory # Acute hypoxic respiratory failure, s/p Mechanical ventilation # Aspiration pneumonia likely ; Gram-negative, growing enterobacter # Atelectasis Required endotracheal intubation with mechanical assisted ventilation for seven days. Currently on room air Completed antibiotic therapy extubated on 11/27/24 on nasal cannula incentive spirometry Gastrointestinal # Constipation lactulose dulcolax once tap water enema once Genitourinary/Nephrology # Anion gap metabolic acidosis # BHUPINDER due to VMN # Possible uremic encephalopathy # Hypernatremia - Resolved continue diuresing Nephrology following Infectious Disease #Aspiration pneumonia likely ; Gram-negative Gram-positive #Septic shock due to above #Lactic Acidosis completed antibiotic therapy Endocrine # Type 2 diabetes # Obesity # Dyslipidemia SSI mild Hematology # Polycythemia - Resolved Responded to IV fluids Nutrition: Cardiac diet Prophylaxis for PUD (pantoprazole) and DVT (enoxaparin) Lines: 11/23/2024 Right arm PICC line Drips: None Goals of care discussed with family for over 18 minutes: Full code status Discussed plan with Dr. Ny, patient, family and nurses: Patient currently on telemetry status, breathing in room air, presents no agitation currently, we will evaluate if patient is in condition to be discharged home on 12/06/2024. Have discussed with family that cause of altered mental status could being chronic alcohol use. Continue with multivitamins at this point. Plan discussed with: Patient, Spouse, Daughter, Other (Nurses) My Orders My Orders Orders - SABRINA RICK RESIDENT Procedure Category Date Status Time Sputum Induction RT 12/05/24 Logged 12:59 Respiratory Culture VAMSHI 12/05/24 Logged W/ Gs 12:59 Chest Xray 1 View XY 12/05/24 Resulted 13:07 Dietary Evaluation Review Comments: 1. Suggest EN formula Vital AF 1.2 @ 50 ml/hr (GOAL). Begin at 10 ml/hr, advance by 10 ml Q4 hrs or as tolerated to goal-rate of 50 ml/hr 2. Provide free water flushes of 30 ml Q6 hrs (120 ml total); adjust PRN 3. Monitor BMP/lytes and replete to WNL/PRN 4. Agree with continuation of folate, thiamine due to ETOH abuse TF Provision: TF at goal to provide 1200 ml total volume, 1440 kcal (+204 kcal via propofol = 1644 kcal), 90 gm pro, 6 gm fiber, 973 ml H20 (meets 100% est. kcal needs, 100% est. pro needs) Expected Outcomes/Goals: Improved hemodynamic stability, weight maintenance, adequate nutrition. Date of Service: December 05, 2024 Billing Provider: GUERRERO [place] MD Common Visit Codes: [id number] INP/OBS CARE(HIGH) Secondary Visit Codes: [id number] CARE PLAN 30 MINUTES SABRINA RICK RESIDENT December 05, 2024 20:36 GUERRERO [place] MD December 06, 2024 15:41
--- NOTE | 2024-12-05 22:41 | DVHPN2 ---
Progress Note - Dictate Date Seen: December 05, 2024 Has the PT tested + for MRSA If YES, has PT been informed?: No Medical Necessity Reason Pt with a Central, PICC or Fol: Yes The following are medically ne: El Catheter Subjective Patient was seen and evaluated in follow up. Patient is now on room aie. Patient reports feeling well today. CBC is unremarkable. 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 Blood cultures remained negative. Telemetry reviewed. vital signs Vital Sign Date Time Temp Pulse Resp B/P (MAP) Pulse Ox O2 Delivery O2 Flow Rate FiO2 12/05/24 22:19 73 139/76 12/05/24 20:00 18 95 Room Air* 0 21 12/05/24 17:00 97.9 97.9 Total Intake and Output 12/04/24 12/04/24 12/05/24 15:00 23:00 07:00 Intake Total 200 ml 240 ml Output Total 200 ml Balance 0 ml 240 ml medications Current Medications Medications Dose Ordered Sig/Amy Route Start Time Stop Time Status Last Admin Dose Admin Pantoprazole Sodium 40 mg DAILY IV 11/21/24 10:00 12/04/24 10:59 40 MG Diagnostic Test (Pha) 1 strip Q6HR 11/23/24 12:00 12/05/24 16:58 1 STRIP Insulin Human Regular Q6HR SC 11/23/24 12:00 12/05/24 11:26 2 UNITS Dextrose 50 ml UD PRN IV 11/23/24 06:45 Sodium Chloride 10 ml QSHIFT@10,22 IV 11/23/24 22:00 12/05/24 09:31 10 ML Clopidogrel Bisulfate 75 mg DAILY PO 11/26/24 10:00 12/05/24 09:30 75 MG Aspirin 81 mg DAILY PO 11/26/24 10:00 12/05/24 09:29 81 MG Atorvastatin Calcium 40 mg HS PO 11/25/24 22:00 12/05/24 21:19 40 MG Lactulose 15 ml BID PO 11/26/24 18:00 12/05/24 21:18 15 ML Ondansetron HCl 4 mg Q4HPRN PRN IV 11/27/24 10:15 11/28/24 17:39 4 MG Albuterol 2.5 mg Q6HWA NEB 11/27/24 12:00 12/05/24 18:56 2.5 MG Ipratropium [place] 0.5 mg Q6HWA NEB 11/27/24 12:00 12/05/24 18:56 0.5 MG Thiamine HCl 100 mg DAILY PO 11/29/24 10:00 12/05/24 09:29 100 MG Folic Acid 1 mg DAILY PO 11/29/24 10:00 12/05/24 09:29 1 MG Multivitamins 1 tab DAILY PO 11/29/24 10:00 12/05/24 09:29 1 TAB Hydralazine HCl 10 mg Q6HP PRN IV 11/29/24 03:00 12/02/24 08:42 10 MG Carvedilol 12.5 mg Q12HR PO 11/29/24 10:00 12/05/24 21:19 12.5 MG Trazodone HCl 50 mg HS PO 11/29/24 22:00 12/05/24 21:18 50 MG Potassium Chloride 100 ml @ 50 mls/hr Q2H IV 12/02/24 09:15 12/02/24 15:14 UNV Bisacodyl 5 mg DAILYP PRN PO 12/02/24 10:15 Lorazepam 2 mg Q2HPRN PRN IV 12/02/24 12:30 12/05/24 03:37 2 MG Chlordiazepoxide HCl 25 mg Q8HPRN PRN PO 12/03/24 14:15 objective GENERAL: Awake, confused. EYES: PERRL, EOMI. Anicteric. HENT: Moist mucous membranes. LUNGS: Decreased breath sounds. CARDIOVASCULAR: Regular rate and rhythm. ABDOMEN: Soft, nontender and nondistended. EXTREMITIES: No edema. SKIN: Warm, dry. laboratory and microbiology Laboratory Tests 12/05/24 12:00 Test 12/05/24 12:00 Range/Units Serum Glucose 184 H 74-106 mg/dL Problem List A Fib with RVR. ? history of A fib. CAD s/p PCI. CHF. Toxic encephalopathy with hx of ETOH abuse. BHUPINDER on CKD. History of Hypertension, currently hypotensive on vasopressor. Diabetes type 2. Hyperlipidemia. History of CVA. Assessment/Plan Continued all current supportive medical care. Aspirin, Lipitor, Plavix. Coreg. IV Hydralazine for SBP >150. GI prophylactics. Additional plan as per the hospital course. Dietary Evaluation Review Comments: 1. Suggest EN formula Vital AF 1.2 @ 50 ml/hr (GOAL). Begin at 10 ml/hr, advance by 10 ml Q4 hrs or as tolerated to goal-rate of 50 ml/hr 2. Provide free water flushes of 30 ml Q6 hrs (120 ml total); adjust PRN 3. Monitor BMP/lytes and replete to WNL/PRN 4. Agree with continuation of folate, thiamine due to ETOH abuse TF Provision: TF at goal to provide 1200 ml total volume, 1440 kcal (+204 kcal via propofol = 1644 kcal), 90 gm pro, 6 gm fiber, 973 ml H20 (meets 100% est. kcal needs, 100% est. pro needs) Expected Outcomes/Goals: Improved hemodynamic stability, weight maintenance, adequate nutrition. Plan discussed with: Patient RUBIO YUNG MD December 05, 2024 22:41
[2024-12-06] VITALS (13 sets, daily range): BP systolic 137–161; BP diastolic 74–87; PULSE 56–95; RESP 14–20; TEMP 97.4–98.1; O2SAT 92–100
[2024-12-06 07:09] LABS: Basophils # (auto) 0.1 10 ^3/uL (0-0.2); Basophils % (auto) 1.1 % (0.0-2.0); Eosinophils # (auto) 0.4 10 ^3/uL (0-0.8); Eosinophils % (auto) 4.4 % (0.0-7.0); Hematocrit 44.9 % (41.0-53.0); Hemoglobin 15.8 g/dL (13.5-17.5); Lymphocytes # (auto) 1.6 10 ^3/uL (0.4-5.4); Lymphocytes % (auto) 15.7 % (10.0-50.0); Mean Corpuscular Hemoglobin 31.1 pg (28.0-32.0); Mean Corpuscular Hgb Conc. 35.2 g/dL (32.0-36.0); Mean Corpuscular Volume 88.2 fL (80.0-100.0); Monocytes # (auto) 0.7 10 ^3/uL (0-1.3); Monocytes % (auto) 6.7 % (0.0-12.0); Neutrophils # (auto) 7.1 10 ^3/uL (1.6-8.6); Neutrophils % (auto) 72.1 % (37.0-80.0); Nucleated Red Blood Cells % 0.2 %; Platelet Count (auto) 133 10^3/uL (140-450); Red Blood Cells 5.09 10^6/uL (4.5-5.90); Red Cell Distribution Width 13.1 % (11.8-14.3); White Blood Cell 9.9 10^3/uL (4.4-10.8)
[2024-12-06 07:11] LABS: Potassium 4.2 mmol/L (3.5-5.1); Sodium 145 mmol/L (136-145)
[2024-12-06 07:12] LABS: Anion Gap 8 (5-15); Carbon Dioxide 26 mmol/L (20-31)
[2024-12-06 07:17] LABS: BUN/Creatinine Ratio 26.7 (10.0-20.0)
[2024-12-06 07:24] LABS: Blood Urea Nitrogen 43 mg/dL (9-23); Chloride 111 mmol/L (98-107); Glucose 126 mg/dL (74-106)
--- NOTE | 2024-12-06 08:59 | DVH ---
EXAM: CT HEAD WITHOUT CONTRAST HISTORY: AMS COMPARISON: CT HEAD WITHOUT CONTRAST on DOS: 11/20/24 TECHNIQUE: Axial images of the head were obtained and reformatted in coronal and sagittal planes. All CT scans at this medical facility are performed using dose modulation techniques as appropriate t o a performed exam including the following: Automated exposure control was utilized; adjustment of th e MA and/or KV according to patient size; and use of iterative reconstruction technique. CT Dose: CTDI volume is 56 mGy. Dose-length product is 1095 mGy*cm FINDINGS: There is no evidence of acute intracranial hemorrhage, mass, mass effect midline shift. There is no h ydrocephalus or extra-axial fluid collection. There is a stable small area of encephalomalacia in the superior left frontal lobe. There are chronic microvascular ischemic changes in the supratentorial w veda matter. The visualized paranasal sinuses and mastoid air cells are clear. The calvarium is intact. IMPRESSION: 1. No acute intracranial process. HS:Y
[2024-12-06] MEDS: PANTOPRAZOLE 40 MG TAB PO ONE (10:25)
[2024-12-06] MEDS ORDERED: CARV-216 PO (15:46)
[2024-12-06] MEDS ORDERED: CLOP75TA70 PO (15:46)
[2024-12-06] MEDS ORDERED: PANT40T PO (15:46)
[2024-12-06] MEDS ORDERED: THIA100T10 PO (15:46)
[2024-12-06] MEDS ORDERED: EMPA1TAB PO (15:46)
[2024-12-06] MEDS ORDERED: LOS25T PO (15:46)
[2024-12-06] MEDS ORDERED: FOLI-119 PO (15:46)
[2024-12-06] MEDS ORDERED: MULTTAB99 PO (15:46)
[2024-12-06] MEDS ORDERED: TRAZ-227 PO (15:46)
[2024-12-06] MEDS ORDERED: ASPI-543 PO (15:46)
[2024-12-06] MEDS ORDERED: LACT10SO3 PO (15:46)
--- NOTE | 2024-12-06 22:10 | DVHDSRES ---
Discharge Summary Date of Admission Resident Creating Document: SABRINA RICK RESIDENT Nov 20, 2024 at 06:46 Date of Discharge: December 06, 2024 Labs/Diagnostic Data: Laboratory Results Test 12/06/24 12:02 12/06/24 06:49 12/05/24 21:12 12/05/24 12:00 POC Glucose 135 mg/dl (70-106) White Blood Count 9.9 10^3/uL (4.4-10.8) Red Blood Count 5.09 10^6/uL (4.5-5.90) Hemoglobin 15.8 g/dL (13.5-17.5) Hematocrit 44.9 % (41.0-53.0) Mean Corpuscular Volume 88.2 fL (80.0-100.0) Mean Corpuscular Hemoglobin 31.1 pg (28.0-32.0) Mean Corpuscular Hemoglobin Concent 35.2 g/dL (32.0-36.0) Red Cell Distribution Width 13.1 % (11.8-14.3) Platelet Count 133 10^3/uL (140-450) Mean Platelet Volume 9.4 fL (6.9-10.8) Neutrophils (%) (Auto) 72.1 % (37.0-80.0) Lymphocytes (%) (Auto) 15.7 % (10.0-50.0) Monocytes (%) (Auto) 6.7 % (0.0-12.0) Eosinophils (%) (Auto) 4.4 % (0.0-7.0) Basophils (%) (Auto) 1.1 % (0.0-2.0) Neutrophils # (Auto) 7.1 10 ^3/uL (1.6-8.6) Lymphocytes # (Auto) 1.6 10 ^3/uL (0.4-5.4) Monocytes # (Auto) 0.7 10 ^3/uL (0-1.3) Eosinophils # (Auto) 0.4 10 ^3/uL (0-0.8) Basophils # (Auto) 0.1 10 ^3/uL (0-0.2) Nucleated Red Blood Cells 0.2 % Sodium Level 145 mmol/L (136-145) Potassium Level 4.2 mmol/L (3.5-5.1) Chloride Level 111 mmol/L (98-107) Carbon Dioxide Level 26 mmol/L (20-31) Anion Gap 8 (5-15) Blood Urea Nitrogen 43 mg/dL (9-23) Creatinine 1.61 mg/dL (0.700-1.30) Glomerular Filtration Rate Calc 46 mL/min (>90) BUN/Creatinine Ratio 26.7 (10.0-20.0) Serum Glucose 126 mg/dL (74-106) Lactic Acid Level 1.0 mmol/L (0.4-2.0) Calcium Level 10.0 mg/dL (8.7-10.4) Ammonia 10 umol/L (11-32) Vitamin B12 Level 1735 pg/mL (211-911) Treponema pallidum Antibody Non-reactive (Negative) HIV (1&2) Antibody Negative (Negative) Total Bilirubin 0.8 mg/dL (0.2-1.0) Aspartate Amino Transferase (AST) 18 U/L (13-40) Alanine Aminotransferase (ALT) 25 U/L (7-40) Alkaline Phosphatase 55 U/L (46-116) Total Protein 6.5 g/dL (5.7-8.2) Albumin 3.8 g/dL (3.2-4.8) Test 12/03/24 05:28 11/30/24 23:10 11/27/24 09:35 11/27/24 07:23 Magnesium Level 2.7 mg/dL (1.6-2.6) Blood Gas Specimen Type Arterial Blood Gas Sample Site Left radial Blood Gas Patient Temperature 37.0 Arterial Blood Date Drawn [id number] Arterial Blood pH 7.441 (7.350-7.450) Arterial Blood Partial Pressure CO2 36.1 mmHg (35.0-48.0) Arterial Blood Partial Pressure O2 73.4 mmHg (83.0-108.0) Arterial Blood HCO3 24.0 mmol/L (21.0-28.0) Arterial Blood Oxygen Saturation 93.9 % (94.0-98.0) Arterial Blood Base Excess 0.4 mmol/L (-2.0-3.0) Arterial Blood Oxyhemoglobin 93.3 % (94.0-98.0) Arterial Blood Carboxyhemoglobin 0.2 % (0.5-1.5) Arterial Blood Methemoglobin 0.4 % (0.0-1.5) Davis Test Yes Blood Gas Total Hemoglobin 18.10 g/dL (13.5-17.5) Blood Gas Liter Flow 3.00 Blood Gas Modality Nasal cannula FiO2 % 32.0 Blood Gas Critical Value Read Back Yes Blood Gas Notified Whom madhu Crawford Blood Gas Notified Time [id number] Blood Gas Notified By Financial Manager william marivel Blood Gas Spontaneous Rate 22 Blood Gas Inspiratory Pressure 12.0 Blood Gas Pressure Support 5 Blood Gas PEEP or CPAP 5.0 Bl Gas Inspiratory/Expiratory Ratio 1:3.9 Specimen Drawn By yon rt Blood Gas Set Respiration Rate 16.0 Blood Gas Tidal Volume 500.0 Test 11/24/24 03:15 11/23/24 03:00 11/21/24 17:07 11/21/24 13:00 Troponin I High Sensitivity 113 ng/L (</=54) Hemoglobin A1c 6.8 % A1C (<5.7) B-Type Natriuretic Peptide 201.98 pg/mL (0-100) Influenza Type A Antigen Negative (Negative) Influenza Type B Antigen Negative (Negative) SARS-CoV-2 Antigen (Rapid) Negative (NEGATIVE) Prothrombin Time 11.0 sec (9.3-11.8) Prothrombin Time INR 1.04 (0.9-1.15) Activated Partial Thromboplast Time 37.9 SEC (24.5-34.5) Test 11/20/24 04:05 11/20/24 03:50 11/20/24 03:41 Triglycerides Level 253 mg/dL (< 150) Cholesterol Level 200 mg/dL (< 200) LDL Cholesterol 143 mg/dL (< 100) HDL Cholesterol 31 mg/dL (40-59) Thyroid Stimulating Hormone (TSH) 0.63 uIU/mL (0.55-4.78) Plasma/Serum Blood Alcohol 244.7 mg/dL (<10) Platelet Estimate [place] Large Platelets Few Lipase 35 U/L (12-53) Urine Color Light-yellow (Yellow) Urine Clarity Clear (Clear) Urine pH 6.0 (5.0-9.0) Urine Specific [place] 1.013 (1.001-1.035) Urine Protein 2+ (Negative) Urine Ketones Negative (Negative) Urine Blood 1+ /uL (Negative) Urine Nitrite Negative (Negative) Urine Bilirubin Negative (Negative) Urine Urobilinogen Normal mg/dL (Negative) Urine Leukocyte Esterase Negative /uL (Negative) Urine RBC 1 /hpf (0 - 3) Urine Microscopic WBC 1 /HPF (0-3) Urine Squamous Epithelial Cells None seen /hpf (<5) Urine Bacteria None seen /hpf (None Seen) Urine Mucus Few (None Seen) Urine Yeast (Budding) Occasional /hpf (None Urine Glucose 4+ mg/dL (Normal) Urine Opiates Screen Neg (NEGATIVE) Urine Fentanyl Screen Neg (NEGATIVE) Urine Barbiturates Screen Neg (NEGATIVE) Urine Phencyclidine Screen Neg (NEGATIVE) Urine Amphetamines Screen Neg (NEGATIVE) Urine Benzodiazepines Screen Neg (NEGATIVE) Urine Cocaine Screen Neg (NEGATIVE) Urine Cannabinoids Screen Neg (NEGATIVE) Other Laboratory Tests 12/06/24 06:49 Brief Hx & Hospital Course: Paulo Douglas is a 69 year old male patient who presents to ED with chief complaint of altered mental status, slurred speech, nausea and vomiting, per family members patient's symptoms started after binge drinking (per EMR five shots of Tequila). During ED visit he was diagnosed with alcohol intoxication, and posteriorly patient became hypoxic (pulse oximetry showed saturation at 80s) and was promptly intubated. Could not obtain review of systems and history due to clinical status, obtained information from EMR. Past Medical History: Hypertension, dyslipidemia, diabetes mellitus type 2 Surgical History: PCI x1 Family History: Noncontributory Social history: Lives with family in the [facility]. Heavy alcohol consumption (per family he drinks every day at least three drinks). Denies current tobacco and other drug abuse. Allergies: Denies Home medication: Atorvastatin Brief hospital course: Acute toxic/metabolic encephalopathy secondary to alcohol intoxication complicated with septic shock due to aspiration pneumonia associated with BHUPINDER in atrial fibrillation with RVR, requiring on his admission endotracheal intubation (required mechanical assisted ventilation for seven days), IV vasopressors, empiric IV antibiotic (cefepime and doxycycline). On admission obtain head CT which ruled out acute intracranial abnormalities. During hospitalization patient presented sinus bradycardia and NSTEMI interpreted as secondary to ischemia, completed echocardiogram which showed LVEF of 35% with mild global hypokinesia, information systems security specialist evaluated the patient deciding completing coronary angiography with PCI with placement of 2 BRENDA, indicating DAPT and statins. Once patient was extubated, presented episodes of confusion, interpreted as alcohol withdrawal versus Korsakoff syndrome, indicating multivitamins. Patient hemodynamically stable, oriented only in person, with no agitation, in condition to be discharged home. Was granted under optimal medical therapy (DAPT, statins, GDM T as tolerated, pending spironolactone due to BHUPINDER, and multivitamin), gave advice on healthy lifestyle habits, and follow up with PCP, urologist and eventually Neurology specialist. 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 # Paroxysmal AFib with RVR (chads Vasc 5/has bled 3) secondary hypercoagulability state - now NSR # Acute on chronic systolic CHF (HFrEF, LVEF 35%) # Sinus bradycardia secondary to ischemia - s/p PCI with 1 BRENDA # NSTEMI type 1 - s/p PCI with 2 BRENDA # CAD, s/p PCI x1 # Hypertension # Acute hypoxic respiratory failure, s/p Mechanical ventilation # Aspiration pneumonia likely ; Gram-negative, growing enterobacter # Atelectasis # Constipation # Anion gap metabolic acidosis # BHUPINDER due to VMN # Possible uremic encephalopathy # Hypernatremia - Resolved #Aspiration pneumonia likely ; Gram-negative Gram-positive #Septic shock due to above # Lactic Acidosis # Type 2 diabetes # Obesity # Dyslipidemia # Polycythemia - Resolved Discussed plan with Dr. Mcdaniel, patient, family and nurses. Time spent on discharge planning which included time with nurses, family and paperwork of 47 minutes Examination Patient lying in bed, in no acute distress General: Alert, afebrile, mucosae are moist Cardiovascular: Normal S1 and S2. No murmurs, gallops or rubs Respiratory: Normal ventilation mechanics. Has persistent dry cough. Clear lung sounds on auscultation Abdomen: Soft, nontender, no organomegaly, normal bowel sounds MSK/skin: Mobilizes 4 limbs. Skin is dry and warm Neurological: Oriented in 1 spheres (only to self). No motor no sensitive deficits. Pupils are isocoric and reactive Operations or Procedures EXAM: LIMITED Two-dimensional and M-mode echocardiogram with Doppler and color Doppler. Blood Pressure: 124/73 mmHg INDICATION Follow up after stents placed RISK FACTORS Obesity: Height: 5' 8", Weight: 192 DIMENSIONS LVDd 5.9 (3.8-5.7cm) LA (2D) 3.7 (1.9-4.0cm) Aortic Root 3.7 (2.0- 3.7cm) LVDs 4.9 (2.5-4.0cm) LA (MM) (1.9-4.0cm) Aortic Cusp Exc 1.7 (1.5- 2.0cm) EF (%) 35.0 (55-70%) Rt. Atrium 3.9 (1.9-4.0cm) Asc. Aorta cm IVSd 1.2 (0.7-1.1cm) RV (D) (1.8-2.4cm) PWd 1.2 (0.7-1.1cm) Mitral Valve Mitral Mitral Stenosis E wave 0.40m/s MV Mean GR. mmHg A wave 0.80m/s MV Peak GR. mmHg E/A ratio 0.5 2D MVA cm2 Aortic Valve Aortic Valve Aortic Stenosis V1 0.50m/s AO Mean GR. 4mmHg V2 1.30m/s AO Peak GR. 7mmHg LVOT Diameter 2.3 (1.8-2.4cm) Doppler LA 1.60cm2 Other Information Quality : Technically Limited Rhythm : Technically limited study due to on vent and not sedated. Conclusion MILD LVH AND MILD LV DIASTOLIC DYSFUNCTION LV EF IS NOW IMPROVED AND IS 35% LV IS SLIGHTLY DILATED AND MILD GLOBAL HYPOKINESIS GROSSLY NORMAL VALVES NO EFFUSION SLIGHTLY DILATED RV SIGNED BY: RUBIO CUADRA MD SIGNED DATE/TIME: 11/27/24 4809 CHEST RADIOGRAPH Indication: post intubation Technique: Single frontal view of the chest was obtained COMPARISON: None FINDINGS: Lines and Tubes: The endotracheal tube tip projects at the level of the origin of the right mainstem bronchus. The enteric catheter courses below the diaphragm and terminates beyond the inferior margin of the image, presumably within the gastric lumen. Lungs: Clear Pleura: No effusion. No pneumothorax. Cardiomediastinal contours: The heart is enlarged. Bones: Unremarkable IMPRESSION: 1. No acute disease. 2. Endotracheal tube tip at the level of the origin of the right mainstem bronchus. Recommend retraction by at least 2.0 cm. 3. Enteric catheter. ATED BY: NAZANIN MONTALVO MD DICTATED DATE/TIME: 11/20/24 0413 EXAM: CT HEAD WITHOUT CONTRAST; DATE: 11/20/2024 06:38 AM HISTORY: ams COMPARISON: None TECHNIQUE: Axial images were obtained and reformatted in coronal and sagittal planes. All CT scans at this medical facility are performed using dose modulation techniques as appropriate to a performed exam including the following: Automated exposure control was utilized; adjustment of the MA and/or KV according to patient size; and use of iterative reconstruction technique. CT Dose: CTDI volume is 62 mGy. Dose-length product is 12 13 mGy*cm FINDINGS: Supratentorial Region: No evidence for large acute territorial ischemia. Small old left frontal infarct noted. No intracranial hemorrhage is noted. Bone Posterior Fossa: No acute abnormality. Brainstem: Unremarkable. Sellar/Suprasellar Region: Unremarkable. Ventricles, Cisterns, Sulci: Age-appropriate. Orbits: Unremarkable. Paranasal Sinuses: Moderate ethmoid sinus mucosal thickening. Mastoid Air Cells: Unremarkable. Vasculature: Intracranial arterial calcified plaque formation noted. Bones/Soft Tissues: No acute abnormality. Other: None. IMPRESSION: 1. No acute intracranial process. 2. Moderate chronic ethmoid sinus disease. ATED BY: KAYLIE ENRIQUEZ MD DICTATED DATE/TIME: 11/20/[address] SCAN CHEST WITHOUT CONTRAST CLINICAL HISTORY: sob TECHNIQUE: Helical axial scans are obtained from the thoracic inlet to the upper abdomen without intravenous contrast injection. Coronal and sagittal reformatted images were generated from thin-section reconstructions. One or more of the following radiation dose reduction techniques were used for this examination: automated exposure control, adjustment of the mA and/or kV according to patient size, use of iterative reconstruction technique. COMPARISON: None FINDINGS: Evaluation of vascular and other mediastinal structures is limited due to lack of contrast administration. Mediastinum: Tip of the endotracheal tube terminates at the ostium of the right mainstem bronchus. Heart is enlarged. Coronary and aortic calcifications. No pericardial effusion. No discretely enlarged mediastinal lymph nodes noted. Lung parenchyma: Atelectasis/ consolidation in the lower lobes. Mosaic ground- glass attenuation in the upper lobes with additional atelectasis/scarring. Pleura: Trace bilateral pleural effusions. Chest wall/axillae: No axillary lymphadenopathy is noted. Upper Abdomen: No acute findings as visualized. IMPRESSION: Tip of the endotracheal tube terminates at the ostium of the right mainstem bronchus. Cardiomegaly with vascular congestion. Atelectasis/consolidation in the bilateral lower lobes. Correlate to exclude infection. ATED BY: NIXON CUADRA MD DICTATED DATE/TIME: 11/22/24 2201 Renal ultrasound HISTORY: BHUPINDER TECHNIQUE: 2 D ultrasound was performed with transaxial and longitudinal images. FINDINGS: Right kidney measures 10.6 cm and left kidney measures 8.6 cm. No renal masses, stones or hydronephrosis. Urinary bladder unremarkable. IMPRESSION: 1. No evidence of stone or obstruction. Normal renal cortical thickness and echogenicity ATED BY: JAYA BARRETO MD DICTATED DATE/TIME: 11/21/24 1426 Patient: PAULO DOUGLAS Acct: [id number] : 1955 Loc: [facility] Age/Sex: 69/M Room: [address] [place] [address] / Bed: A Attending Phy: GUERO BLOUNT DATE OF SURGERY: 11/25/2024 TECHNIQUE PERFORMED: * Emergency case. * Insertion of 6-[place] arterial line from the right femoral artery. * ventilator. * [place] selective left and right coronary artery angiography. ASSISTANTS: Alee Whitaker Angela, Joshue. INDICATIONS: The patient had underlying major left ventricular systolic dysfunction with ejection fraction only 25%. History of previous coronary stent procedure. The patient was brought to labor employment associate. The patient's right groin was shaved and was cleaned with soap and Betadine. Under aseptic precaution, done with the help of JR4. The right coronary angiography was done. Procedure completed. IMPRESSION: * Normal left main. * Previously deployed stent. * Left anterior descending artery is widely open. Diagonal artery is widely open, 50% narrowing noted in the proximal one-third region. Circumflex is a very large dominant artery. Circumflex artery gives the first branch is the posterolateral branch, which is narrowed marginal branch and it is narrowed in the range of 99% from the proximal to the mid region. There is also another branch, which is supplying the inferior wall, which is called the posterior descending artery arising from the left side. It is also 99% blocked from ostium to its proximal mid region. The right coronary artery is nondominant and it is 100% blocked in the proximal region, which has a very minimum CARLENE grade 1 flow. It appeared to be nondominant. PLAN OF ACTION: coronary intervention on the obtuse marginal branch and also in the posterior descending branch. 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 # Paroxysmal AFib with RVR (chads Vasc 5/has bled 3) secondary hypercoagulability state - now NSR # Acute on chronic systolic CHF (HFrEF, LVEF 35%) # Sinus bradycardia secondary to ischemia - s/p PCI with 1 BRENDA # NSTEMI type 1 - s/p PCI with 2 BRENDA # CAD, s/p PCI x1 # Hypertension # Acute hypoxic respiratory failure, s/p Mechanical ventilation # Aspiration pneumonia likely ; Gram-negative, growing enterobacter # Atelectasis # Constipation # Anion gap metabolic acidosis # BHUPINDER due to VMN # Possible uremic encephalopathy # Hypernatremia - Resolved #Aspiration pneumonia likely ; Gram-negative Gram-positive #Septic shock due to above # Lactic Acidosis # Type 2 diabetes # Obesity # Dyslipidemia # Polycythemia - Resolved Discharge Disposition: Home SNF Discharge Will this Physician continue t: No Discharge Instruct/Medications Diet: Cardiac 2g Na,low cholest Activity: No Restrictions, As Tolerated Follow Up/Referral: PCP Cardiology Medications: Per EMR Discharge Statement: "Patient was advised to return to the ER or call 911 if any headaches, dizziness, shortness of breath, chest pain, abdominal pain, bleeding, fevers, or worsening of medical condition. Patient was counseled about treatment plan, medications, possible side effects, patientverbalized understanding. All questions were answered to the best of my ability. This discharge took greater then 30 minutes in planning, reviewing documentation, counseling the patient, and discussing with other team members." ASSESSMENT ASSESSMENT Assessment Metabolic/toxic encephalopathy SABRINA RICK RESIDENT December 06, 2024 22:10
--- NOTE | 2024-12-06 23:36 | DVHPN2 ---
Progress Note - Dictate Date Seen: December 06, 2024 Has the PT tested + for MRSA If YES, has PT been informed?: No Medical Necessity Reason Pt with a Central, PICC or Fol: Yes The following are medically ne: El Catheter Subjective Patient was seen and evaluated in follow up. Patient has no new complaints at this time. Patient denies any cardiac symptoms. Patient is cardiac stable for discharge. Telemetry reviewed. vital signs Vital Sign Date Time Temp Pulse Resp B/P (MAP) Pulse Ox O2 Delivery O2 Flow Rate FiO2 12/06/24 20:23 97.6 87 20 161/87 (111) 99 97.6 12/06/24 18:38 Room Air 12/06/24 18:38 0 21 Total Intake and Output 12/05/24 12/05/24 12/06/24 15:00 23:00 07:00 Intake Total 150 ml 340 ml Balance 150 ml 340 ml medications Current Medications Medications Dose Ordered Sig/Amy Route Start Time Stop Time Status Last Admin Dose Admin Potassium Chloride 100 ml @ 50 mls/hr Q2H IV 12/02/24 09:15 12/02/24 15:14 UNV objective GENERAL: Awake, confused. EYES: PERRL, EOMI. Anicteric. HENT: Moist mucous membranes. LUNGS: Decreased breath sounds. CARDIOVASCULAR: Regular rate and rhythm. ABDOMEN: Soft, nontender and nondistended. EXTREMITIES: No edema. SKIN: Warm, dry. laboratory and microbiology Laboratory Tests 12/06/24 06:49 Test 12/06/24 06:49 Range/Units Serum Glucose 126 H 74-106 mg/dL Problem List A Fib with RVR. ? history of A fib. CAD s/p PCI. CHF. Toxic encephalopathy with hx of ETOH abuse. BHUPINDER on CKD. History of Hypertension, currently hypotensive on vasopressor. Diabetes type 2. Hyperlipidemia. History of CVA. Assessment/Plan Continued all current supportive medical care. Aspirin, Lipitor, Plavix. Coreg. IV Hydralazine for SBP >150. GI prophylactics. Additional plan as per the hospital course. Dietary Evaluation Review Comments: 1. Suggest EN formula Vital AF 1.2 @ 50 ml/hr (GOAL). Begin at 10 ml/hr, advance by 10 ml Q4 hrs or as tolerated to goal-rate of 50 ml/hr 2. Provide free water flushes of 30 ml Q6 hrs (120 ml total); adjust PRN 3. Monitor BMP/lytes and replete to WNL/PRN 4. Agree with continuation of folate, thiamine due to ETOH abuse TF Provision: TF at goal to provide 1200 ml total volume, 1440 kcal (+204 kcal via propofol = 1644 kcal), 90 gm pro, 6 gm fiber, 973 ml H20 (meets 100% est. kcal needs, 100% est. pro needs) Expected Outcomes/Goals: Improved hemodynamic stability, weight maintenance, adequate nutrition. Plan discussed with: Patient RUBIO YUNG MD December 06, 2024 23:36
[2024-12-07] MEDS ORDERED: PANTOPRAZOLE 40 MG TAB PO SCH (06:00)
== END 2024-12-06 21:40 | disposition home or self-care (01) | DRG 853 ==
LOC: ER 02:29 → EDBD 02:29 → OVERFLOW 06:46 → ICU WEST 11-21 06:21 → TELE-WESTW 11-29 17:31
PROVIDERS: ADMIT Internal Medicine; ATTEND Emergency Medicine
PROC: 5A1955Z Respiratory Ventilation, Greater than 96 Consecutive Hours (ICD-10-PCS; principal; 2024-11-20)
PROC: 0BH17EZ Insertion of Endotracheal Airway into Trachea, Via Natural or Artificial Opening (ICD-10-PCS; 2024-11-20)
PROC: 06HY33Z Insertion of Infusion Device into Lower Vein, Percutaneous Approach (ICD-10-PCS; 2024-11-20)
PROC: 02HV33Z Insertion of Infusion Device into Superior Vena Cava, Percutaneous Approach (ICD-10-PCS; 2024-11-23)
PROC: B548ZZA Ultrasonography of Superior Vena Cava, Guidance (ICD-10-PCS; 2024-11-23)
PROC: 027135Z Dilation of Coronary Artery, Two Arteries with Two Drug-eluting Intraluminal Devices, Percutaneous Approach (ICD-10-PCS; 2024-11-25)
PROC: B211YZZ Fluoroscopy of Multiple Coronary Arteries using Other Contrast (ICD-10-PCS; 2024-11-25)
PROC: 4A023N7 Measurement of Cardiac Sampling and Pressure, Left Heart, Percutaneous Approach (ICD-10-PCS; 2024-11-25)
PROC: 04HY32Z Insertion of Monitoring Device into Lower Artery, Percutaneous Approach (ICD-10-PCS; 2024-11-25)
PROC: B41FYZZ Fluoroscopy of Right Lower Extremity Arteries using Other Contrast (ICD-10-PCS; 2024-11-25)
PROC: 5A1935Z Respiratory Ventilation, Less than 24 Consecutive Hours (ICD-10-PCS; 2024-11-28)
DX: A41.59 Other Gram-negative sepsis (principal); G92.8 Other toxic encephalopathy; I21.4 Non-ST elevation (NSTEMI) myocardial infarction; J96.01 Acute respiratory failure with hypoxia; J69.0 Pneumonitis due to inhalation of food and vomit; N17.0 Acute kidney failure with tubular necrosis; R65.21 Severe sepsis with septic shock; J15.69 Pneumonia due to other Gram-negative bacteria; J15.9 Unspecified bacterial pneumonia; I50.23 Acute on chronic systolic (congestive) heart failure; E87.20 Acidosis, unspecified; I13.0 Hypertensive heart and chronic kidney disease with heart failure and stage 1 through stage 4 chronic kidney disease, or unspecified chronic kidney disease; F23 Brief psychotic disorder; E87.0 Hyperosmolality and hypernatremia; J98.11 Atelectasis; G93.49 Other encephalopathy; I25.10 Atherosclerotic heart disease of native coronary artery without angina pectoris; E11.22 Type 2 diabetes mellitus with diabetic chronic kidney disease; N18.9 Chronic kidney disease, unspecified; E11.65 Type 2 diabetes mellitus with hyperglycemia; Y90.8 Blood alcohol level of 240 mg/100 ml or more; E78.2 Mixed hyperlipidemia; E66.9 Obesity, unspecified; Z68.30 Body mass index [BMI] 30.0-30.9, adult; F04 Amnestic disorder due to known physiological condition; G47.00 Insomnia, unspecified; F10.129 Alcohol abuse with intoxication, unspecified; R79.89 Other specified abnormal findings of blood chemistry; K59.00 Constipation, unspecified; I48.0 Paroxysmal atrial fibrillation; R00.1 Bradycardia, unspecified; Z20.822 Contact with and (suspected) exposure to COVID-19; Z79.899 Other long term (current) drug therapy; Z79.01 Long term (current) use of anticoagulants; Z78.1 Physical restraint status; Z86.73 Personal history of transient ischemic attack (TIA), and cerebral infarction without residual deficits
CPT/HCPCS: 31500; 36415; 36556; 36569; 36600; 70450; 71045; 71046; 71250; 74018; 75710; 76775; 76937; 80048; 80053; 80061; 80307; 80320; 81001; 82140; 82607; 82805; 82962; 83036; 83605; 83690; 83735; 83880; 84132; 84443; 84484; 85025; 85610; 85730; 86703; 86780; 87040; 87070; 87077; 87081; 87186; 87205; 87426; 87804; 92610; 92929; 92941; 93005; 93306; 93458; 94002; 94003; 94640; 96361; 96374; 97116; 97163; 97530; 99152; 99291; A4565; C1874; G0378; J0131; J0692; J0713; J1100; J1815; J2405; J2470; J2543; J2704; J3480; J7060; Q9967